=== PATIENT | female | born 1965 | race African-American/Black ===

== ENCOUNTER 2017-02-24 14:21 | Inpatient (IN) | payer MEDICAID ==
[2017-02-24] MEDS ORDERED: NORMODYNE INJ 20 MG VIAL IVP PRN (15:36)
[2017-02-24] MEDS: NS 1000 ML 1,000 ML IV SCH (17:15)
[2017-02-24 17:19] VITALS: BMI 59.1
[2017-02-24 17:19] LABS: BASOPHILS # (AUTO) 0.1 X10^3/uL (0.0-0.1); EOSINOPHILS # (AUTO) 0.2 x10^3/uL (0.0-0.2); EOSINOPHILS % (AUTO) 2.3 % (0.9-2.9); HEMATOCRIT 39.9 % (36.0-47.0); HEMOGLOBIN 12.9 g/dL (12.0-16.0); LYMPHOCYTES # (AUTO) 2.6 X10^3/uL (1.3-2.9); LYMPHOCYTES % (AUTO) 28.9 % (21.0-51.0); MEAN CORPUSCULAR HEMOGLOBIN 27.3 pg (27.0-34.0); MEAN CORPUSCULAR HGB CONC 32.3 g/dL (33.0-35.0); MEAN CORPUSCULAR VOLUME 84.7 fL (80.0-100.0); MEAN PLATELET VOLUME 9.6 fL (7.4-11.0); MONOCYTES # (AUTO) 0.6 x10^3/uL (0.3-0.8); MONOCYTES % (AUTO) 6.7 % (0.0-13.0); NEUTROPHILS # (AUTO) 5.6 x10^3/uL (2.2-4.8); NEUTROPHILS % (AUTO) 61.1 % (42.0-75.0); PLATELET COUNT 160 X10^3/uL (150.0-450.0); RED BLOOD COUNT 4.71 X10^6/uL (3.5-5.4); RED CELL DISTRIBUTION WIDTH 16.6 % (11.6-16.5); WHITE BLOOD COUNT 9.2 X10^3/uL (3.6-10.0)
[2017-02-24] MEDS ORDERED: PREVNAR 13 IM ONE (17:19)
[2017-02-24 17:35] LABS: BLOOD UREA NITROGEN 20 mg/dL (7-18); CARBON DIOXIDE 27.2 mmol/L (21-32); CHLORIDE 104 mmol/L (98-107); COR NA(FOR HYPERGLY) 145 mmol/L (136-145); CREATININE 1.23 mg/dL (0.55-1.02); GLUCOSE 276 mg/dL (65-99); SODIUM 141 mmol/L (136-145); TROPONIN I < 0.02 ng/mL (0-1.5); eGFR BLACK RACES 59 (>60); eGFR NON BLACK RACES 49 (>60)
[2017-02-24 17:39] LABS: ALANINE AMINOTRANSFERASE 31 Units/L (12-78); ALBUMIN 2.7 g/dL (3.4-5.0); ALKALINE PHOSPHATASE 122 Units/L (46-116); ASPARTATE AMINO TRANSFERASE 17 Units/L (15-37); CKMB % 1.3 % (<4); CREATINE KINASE 255 Units/L (26-192); CREATINE KINASE MB 3.4 ng/mL (0-4.0); TOTAL PROTEIN 7.9 g/dL (6.4-8.2)
[2017-02-24] MEDS ORDERED: MILK OF MAGNESIA PO PRN (17:40)
--- NOTE | 2017-02-24 18:30 | DR.H&P ---
H&P - History & Physical for Day of: H&P Date: 02/24/17 - Chief Complaint Chief Complaint: WEAKNESS, DIZZINESS, LOWER LEGS SWOLLEN - Allergies Allergies/Adverse Reactions: Allergies Allergy/AdvReac Type Severity Reaction Status Date / Time Acetaminophen Allergy Verified 11/12/16 13:27 [From Darvocet-N] Procaine [From Novocain] Allergy Verified 11/12/16 13:27 Propoxyphene Allergy Verified 11/12/16 13:27 [From Darvocet-N] Levofloxacin [From Levaquin] AdvReac Intermediate PHLEBITIS Verified 11/12/16 13 :27 - History of Present Illness History of Present Illness: 51BF DIRECT ADMIT FROM DR CASTREJON OFFICE WITH CO DIZZINESS, WEAKNESS AND HYPERTENSION. PT HAS HS CVA, CAD, COPD, OA, HTN AND DIABETES. PT BS IN OFFICE > 400. PT WAS SEEN ONE DAY AGO IN OFFICE FOR EDEMA AND ELEVATED BP. PT HAS BEEN ON DIURETICS WITHOUT IMPROVEMENT. PT HAS LIMITED MOBILITY AND HAS TO WEAR ADULT DIAPERS. PT HAS HAD INCREASED FALLS DUE TO WEAKNESS FOLLOWING CVA. PLAN TO ADMIT FOR TREATMENT OF HYPERTENSIVE URGENCY, HYPERGLYCEMIA LOWER EXTREMITY EDEMA AND WEAKNESS. CONSULT CASE MANAGEMENT FOR [facility] PLACEMENT FOR REHAB THERAPY. 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 - Family History Family Medical History: Diabetes Mellitus, Cancer, [place], Coronary Artery Disease, Hypertension - Social History Does patient currently use any type of tobacco product: Yes Have you used tobacco products in the last 12 months: Yes Type of Tobacco Use: Cigarettes How many years tobacco product used: 32 Alcohol Use: None Drug Use: None - Medications Home Medications: Albuterol Sulfate [Proventil HFA Inhaler 6.7 gm] 2 inh IN Q4H PRN 02/24/17 [ History Confirmed 02/24/17] Alprazolam [Xanax] 0.5 mg PO TID PRN 02/24/17 [History Confirmed 02/24/17] Amlodipine Besylate [NORVASC 10 MG *] 10 mg PO DAILY 02/24/17 [History Confirmed 02/24/17] Aspirin [ASPIRIN 325 MG *] 325 mg PO DAILY 02/24/17 [History Confirmed 02/24/17] Atorvastatin Calcium [Lipitor] 20 mg PO HS 02/24/17 [History Confirmed 02/24/17] Budesonide-Formoterol [SYMBICORT INH 80/4.5 mcg] 1 puff INH Q12H 02/24/17 [ History Confirmed 02/24/17] Epbejsavaq-Fjcz-Xbevorhs [Fioricet Tab] 1 tab PO Q6H PRN 02/24/17 [History Confirmed 02/24/17] Fgglvhytji-Fhzjdfniqhjmy-Mczto [Fioricet 50-300-40 mg] 1 cap PO Q6H PRN [History Confirmed 02/24/17] Clopidogrel Bisulfate [Plavix] 75 mg PO DAILY 02/24/17 [History Confirmed ] Cyclobenzaprine HCl [FLEXERIL 10 MG *] 10 mg PO TID PRN 02/24/17 [History Confirmed 02/24/17] Famotidine [Famotidine 40 mg] 40 mg PO BID 02/24/17 [History Confirmed 02/24/17] Fluoxetine HCl [FLUOXETINE 20 MG *] 20 mg PO DAILY 02/24/17 [History Confirmed 02/24/17] Fluoxetine HCl [Prozac cap 40 mg] 40 mg PO HS 02/24/17 [History Confirmed ] Furosemide [Lasix] 20 mg PO QAM 02/24/17 [History Confirmed 02/24/17] Gabapentin [Neurontin Cap 300 mg] 300 mg PO TID 02/24/17 [History Confirmed ] Hydrocodone-Acet 7.5 mg/325 mg [[place] 7.5/325 mg Tab] 1 tab PO Q6H PRN 02/24/17 [History Confirmed 02/24/17] Insulin Glargine (Lantus) [LANTUS INSULIN 10 ML VIAL *] 65 units SC 02/24/17 [History Confirmed 02/24/17] Insulin Glargine (Lantus) [LANTUS INSULIN 10 ML VIAL *] 65 units SC QAM [History Confirmed 02/24/17] Insulin Lispro (Human) [Humalog] [address] [facility] 02/24/17 [History Confirmed ] Loratadine [Allergy] 10 mg PO DAILY 02/24/17 [History Confirmed 02/24/17] Losartan Potassium & Hydrochlo [Losartan Potassium/Hydroc 100-25 mg] 1 tab PO QAM 02/24/17 [History Confirmed 02/24/17] Metoprolol Tartrate [Lopressor tab 100 mg] 100 mg PO BID 02/24/17 [History Confirmed 02/24/17] Omeprazole [Prilosec] 40 mg PO BID 02/24/17 [History Confirmed 02/24/17] Pantoprazole Sodium [Protonix] 40 mg PO DAILY 02/24/17 [History Confirmed ] Potassium Chloride [Potassium Chloride ER] 10 meq PO DAILY 02/24/17 [History Confirmed 02/24/17] Pregabalin [Lyrica Cap 75 mg] 75 mg PO BID 02/24/17 [History Confirmed 02/24/17] - Review of Systems Constitutional: Weakness Eyes: No Symptoms Reported ENT: No Symptoms Reported Respiratory: Shortness of Breath, Wheezing Cardiovascular: Edema Gastrointestinal: Constipation Genitourinary: Incontinence Musculoskeletal: Back Pain, Leg Pain Neurological: Weakness - Physical Exam Vital Signs: Temperature 97.8 F Pulse Rate [Radial] 65 Respiratory Rate 24 Blood Pressure [Right Calf] 125/60 Blood Pressure [Left Arm] 165/76 Blood Pressure [Right Arm] 165/77 Blood Pressure 174/73 O2 Sat by Pulse Oximetry 97 Oriented: Normal Eyes: Normal Ear: Normal Nose: Normal Throat: Normal Respiratory: Wheezes Throughout (EXPIRATORY), RLL Diminished, LLL Diminished Cardiovascular: Edema (+3 PITTING EDEMA BILATERALLY) Tenderness: Normal Skin: Normal Musculoskeletal: Knee, Leg, Back:Thoracic, Back:Lumbar, Motor Deficit, Instability Mood Description: Calm Speech Pattern: Clear - Assessment/Plan (1) Hypertensive urgency Status: Acute Plan: ADMIT ICU STEPDOWN. CARDIAC ENZYMES, TELEMETRY. CXR, CBC CMP ON ADMISSION. EKG'S, BP AND LIPID CONTROL. IV LASIX , STRICT I & OS. PT CONSULT , RESUME HOME MEDS (2) CHF (congestive heart failure) Qualifiers: Congestive heart failure type: C Congestive heart failure chronicity: acute on chronic Status: Acute (3) Diabetes mellitus type 2, uncontrolled Qualifiers: Diabetes mellitus complication status: D Diabetes mellitus complication detail: D Diabetic retinopathy severity: D Proliferative retinopathy type: P Diabetes mellitus macular edema: D Diabetes mellitus prison insulin use : D Laterality: L Chronic kidney disease stage: C Status: Acute (4) Essential hypertension Status: Chronic (5) History of CVA (cerebrovascular accident) Status: Chronic
--- NOTE | 2017-02-24 21:00 | CT ---
CT brain without contrast Indication: Headache Comparison: 12/04/2015 Technique: Multiple axial images of the brain were obtained from the skull base to the vertex without administr ation of IV contrast. Coronal and sagittal images were also provided. Radiation dose reduction techniques were performed utilizing adjustment for MA/kVP based on patient body size. Findings: There is severe encephalomalacia within bilateral frontal, right parietal and left occipital lobes s imilar to prior examination. There is no acute intracranial hemorrhage or mass effect. There is gene ralized cerebral atrophy with commensurate ex vacuo ventricular dilatation. No extra-axial fluid col lection. Osseous structure intact. Sinuses are clear. Orbits are normal. No extracranial soft tissue swelling. Impression: Stable examination with severe encephalomalacia within bifrontal, right parietal and lef t occipital lobes without definite acute intracranial abnormality, hemorrhage or mass effect. Reported By:
--- NOTE | 2017-02-24 21:00 | RAD ---
HISTORY: COPD, CHF Study: Single view chest Comparison: 11/01/2016 Findings: Portable views are obtained. The lungs are clear without consolidation, effusion or pneumothorax. St able mildly enlarged cardiac silhouette. The soft tissues are unremarkable. IMPRESSION: 1. Stable cardiomegaly without acute abnormality. Reported By:
[2017-02-24] MEDS: HumuLIN R SUBCUT PRN (21:15)
[2017-02-24] MEDS: LASIX IVP SCH (21:15)
[2017-02-24] MEDS: COLACE CAP 100 MG PO SCH (21:15)
[2017-02-24 21:23] LABS: BILIRUBIN,URINE NEGATIVE (NEGATIVE); BLOOD/HEMOGLOBIN,URINE 3+ (NEGATIVE); GLUCOSE, URINE 1+ (NEGATIVE); KETONES,URINE NEGATIVE (NEGATIVE); LEUKOCYTE ESTERASE ,URINE NEGATIVE (NEGATIVE); NITRITES,URINE NEGATIVE (NEGATIVE); PROTEIN,URINE 2+ (NEGATIVE); UROBILINOGEN,URINE NORMAL (NORMAL)
[2017-02-24] MEDS: SNACK - Diabetic Appropriate PO SCH (21:35)
[2017-02-24 21:42] LABS: AMORPHOUS SEDIMENT,UR TRACE /HPF (NEGATIVE); APPEARANCE,URINE SLIGHTLY HAZY (CLEAR); BACTERIA,URINE TRACE /HPF (NEGATIVE); COLOR,URINE YELLOW (YELLOW); SQUAMOUS EPITHELIAL CELL,UR FEW /HPF (NEGATIVE)
--- NOTE | 2017-02-24 21:56 | VAS ---
HISTORY: CT, CAD, CVA, hyperlipidemia, headache Study: Bilateral Carotid Ultrasound Comparison: None Technique: Multiple dupree scale and color flow Doppler images of the right and left carotid arterial system were obtained. The vertebral arterial system was evaluated as well. Findings: Normal color flow Doppler is seen throughout the right and left carotid arterial system. There is m inimal plaque present at the bilateral carotid bifurcations. Peak systolic velocity in the right ICA is 39.6 cm/sec. Peak systolic velocity in the left ICA is 47.7 cm/sec. The right ICA/CCA ratio is 0 .41. The left ICA/CCA ratio is 1.5. Antegrade flow was seen in the right vertebral artery. The left vertebral artery was not visualized. Exam was limited by patient habitus. IMPRESSION: 1. No hemodynamically significant stenosis identified. 2. Normal anterograde flow in the right vertebral artery. Left vertebral artery was not visualized. Reported By:
[2017-02-24] MEDS ORDERED: XANAX PO PRN (22:45)
[2017-02-24] MEDS: NORCO 7.5/325 MG TAB PO PRN (22:52)
[2017-02-25] MEDS: HumuLIN R SUBCUT PRN ×4 (05:44→20:55)
[2017-02-25] MEDS: NS 1000 ML 1,000 ML IV SCH ×2 (05:44→21:03)
[2017-02-25 06:10] LABS: BASOPHILS # (AUTO) 0.1 X10^3/uL (0.0-0.1); BASOPHILS % (AUTO) 0.8 % (0.2-1.0); EOSINOPHILS # (AUTO) 0.2 x10^3/uL (0.0-0.2); EOSINOPHILS % (AUTO) 2.6 % (0.9-2.9); HEMATOCRIT 36.7 % (36.0-47.0); HEMOGLOBIN 12.2 g/dL (12.0-16.0); LYMPHOCYTES # (AUTO) 2.1 X10^3/uL (1.3-2.9); LYMPHOCYTES % (AUTO) 27.9 % (21.0-51.0); MEAN CORPUSCULAR HEMOGLOBIN 27.9 pg (27.0-34.0); MEAN CORPUSCULAR HGB CONC 33.1 g/dL (33.0-35.0); MEAN CORPUSCULAR VOLUME 84.3 fL (80.0-100.0); MEAN PLATELET VOLUME 9.9 fL (7.4-11.0); MONOCYTES # (AUTO) 0.6 x10^3/uL (0.3-0.8); MONOCYTES % (AUTO) 7.3 % (0.0-13.0); NEUTROPHILS # (AUTO) 4.7 x10^3/uL (2.2-4.8); NEUTROPHILS % (AUTO) 61.4 % (42.0-75.0); PLATELET COUNT 174 X10^3/uL (150.0-450.0); RED BLOOD COUNT 4.36 X10^6/uL (3.5-5.4); RED CELL DISTRIBUTION WIDTH 16.1 % (11.6-16.5); WHITE BLOOD COUNT 7.6 X10^3/uL (3.6-10.0)
[2017-02-25 06:34] LABS: ALANINE AMINOTRANSFERASE 30 Units/L (12-78); ALBUMIN 2.5 g/dL (3.4-5.0); ALKALINE PHOSPHATASE 114 Units/L (46-116); ASPARTATE AMINO TRANSFERASE 19 Units/L (15-37); BLOOD UREA NITROGEN 20 mg/dL (7-18); CALCIUM 8.9 mg/dL (8.5-10.1); CHLORIDE 104 mmol/L (98-107); COR CA(FOR HYPOALB) 10.1 mg/dL (8.5-10.1); COR NA(FOR HYPERGLY) 145 mmol/L (136-145); CREATININE 1.11 mg/dL (0.55-1.02); GLUCOSE 217 mg/dL (65-99); SODIUM 142 mmol/L (136-145); TOTAL PROTEIN 7.4 g/dL (6.4-8.2); eGFR BLACK RACES > 60 (>60); eGFR NON BLACK RACES 55 (>60)
[2017-02-25] MEDS: LASIX IVP SCH (08:12)
[2017-02-25] MEDS: NICODERM PATCH 21 MG/24 HR TD SCH (08:12)
[2017-02-25] MEDS ORDERED: NS IRRIGATION 500 ML IR ONE (10:01)
[2017-02-25] MEDS ORDERED: STERILE WATER IRRIGATION IR ONE (10:04)
[2017-02-25] MEDS: LOVENOX INJ 40 MG SYR SC SCH (10:09)
[2017-02-25] MEDS: NORCO 7.5/325 MG TAB PO PRN (11:29)
[2017-02-25] MEDS: ROCEPHIN VIAL 1 GM 1 GM in NS 50 ML IV + SPIKE MINIBAG* 50 ML IV SCH (14:25)
[2017-02-25] MEDS ORDERED: NORCO 7.5/325 MG TAB PO PRN (15:51)
[2017-02-25] MEDS ORDERED: FLEXERIL TAB 10 MG PO PRN (15:51)
[2017-02-25] MEDS ORDERED: XANAX PO PRN (15:51)
[2017-02-25] MEDS ORDERED: FIORICET TAB PO PRN ×2 (15:51→16:29)
[2017-02-25] MEDS ORDERED: BUTALBITAL ACETAMINOPHEN CAFFE PO PRN (15:51)
[2017-02-25] MEDS ORDERED: VENTOLIN or PROAIR HFA IN PRN (15:51)
[2017-02-25] MEDS ORDERED: PATIENT'S HOME MEDICATION (Budesonide-Formoterol 1 PUFF) INH SCH (16:00)
[2017-02-25] MEDS: ASPIRIN PO SCH (17:15)
[2017-02-25] MEDS: PLAVIX PO SCH (17:16)
[2017-02-25] MEDS: NORVASC TAB 10 MG PO SCH (17:16)
--- NOTE | 2017-02-25 17:51 | PCM.PROG ---
Progress Note - Progress Note for Day of Date: 02/25/17 - Subjective Subjective: patient is a 51-year-old black female who was admitted one day ago with hypertensive urgency, hhyperglycemia, and CHF exacerbation with 6 severe lower extremity edema. Patient received IV Lasix with approximately 2400 cc output last PM. Patient's blood pressure was improved on admission after receiving Catapres by mouth. Patient's blood pressure this morning was 190/90. Patient to have echocardiogram today. Patient had a UTI on admission currently on Rocephin, urine culture pending. Patient's blood sugar has been stable since admission. Plan to continue insulin coverage. Patient has a history of uncontrolled diabetes and noncompliance. Patient continues to have severe lower extremity pitting edema bilaterally. Plan to continue diuresing patient with Lasix, strict I's and O's, will consult PT. Plan to repeat a.m. labs and chest x-ray - Past Medical Family Social History Past Med/Fam/Surg Hx: No changes since H&P Allergies: Allergies Acetaminophen [From Darvocet-N] Allergy (Verified 11/12/16 13:27) Procaine [From Novocain] Allergy (Verified 11/12/16 13:27) Propoxyphene [From Darvocet-N] Allergy (Verified 11/12/16 13:27) Levofloxacin [From Levaquin] Adverse Reaction (Intermediate, Verified 11/12/16 13:27) PHLEBITIS - Review of Systems ROS: No change since H&P - Vital Signs and I&O's Vital Signs: Temperature 97.7 F Pulse Rate [Radial] 74 Respiratory Rate 19 Blood Pressure [Right Calf] 125/60 Blood Pressure [Left Arm] 155/72 Blood Pressure [Right Arm] 131/81 Blood Pressure 174/73 O2 Sat by Pulse Oximetry 96 Intake and Output: Intake & Output 02/23/17 02/24/17 02/25/17 02/26/17 11:59 11:59 11:59 11:59 Intake Total 1090 1339 Output Total 2800 2400 Balance -4983 -0223 - Physical Exam Oriented: Normal Eyes: Normal Ear: Normal Nose: Normal Throat: Normal Respiratory: Diminished, Wheezes Cardiovascular: Edema (+3 PITTING EDEMA BILATERALLY) Tenderness: Normal Skin: Normal Musculoskeletal: Knee, Leg, Back:Thoracic, Back:Lumbar, Motor Deficit, Instability Mood Description: Calm Speech Pattern: Clear, Appropriate - Laboratory and Diagnostics Result Diagrams: 02/25/17 04:00 02/25/17 04:00 Labs: 02/24/17 21:10 Urine,Clean Catch Urine Culture - Preliminary Laboratory WBC 7.6 X10^3/uL (3.6-10.0) 02/25/17 04:00 RBC 4.36 X10^6/uL (3.5-5.4) 02/25/17 04:00 Hgb 12.2 g/dL (12.0-16.0) 02/25/17 04:00 Hct 36.7 % (36.0-47.0) 02/25/17 04:00 MCV 84.3 fL (80.0-100.0) 02/25/17 04:00 MCH 27.9 pg (27.0-34.0) 02/25/17 04:00 MCHC 33.1 g/dL (33.0-35.0) 02/25/17 04:00 RDW 16.1 % (11.6-16.5) 02/25/17 04:00 Plt Count 174 X10^3/uL (150.0-450.0) 02/25/17 04:00 MPV 9.9 fL (7.4-11.0) 02/25/17 04:00 Neut % 61.4 % (42.0-75.0) 02/25/17 04:00 Lymph % 27.9 % (21.0-51.0) 02/25/17 04:00 [place] % 7.3 % (0.0-13.0) 02/25/17 04:00 Eos % 2.6 % (0.9-2.9) 02/25/17 04:00 Baso % 0.8 % (0.2-1.0) 02/25/17 04:00 Neut # 4.7 x10^3/uL (2.2-4.8) 02/25/17 04:00 Lymph # 2.1 X10^3/uL (1.3-2.9) 02/25/17 04:00 [place] # 0.6 x10^3/uL (0.3-0.8) 02/25/17 04:00 Eos # 0.2 x10^3/uL (0.0-0.2) 02/25/17 04:00 Baso # 0.1 X10^3/uL (0.0-0.1) 02/25/17 04:00 Absolute Nucleated RBC 1.1 /100WBC 02/25/17 04:00 Sodium 142 mmol/L (136-145) 02/25/17 04:00 Corrected Sodium 145 mmol/L (136-145) 02/25/17 04:00 Potassium 3.6 mmol/L (3.5-5.1) 02/25/17 04:00 Chloride 104 mmol/L (98-107) 02/25/17 04:00 Carbon Dioxide 30.0 mmol/L (21-32) 02/25/17 04:00 BUN 20 mg/dL (7-18) H 02/25/17 04:00 Creatinine 1.11 mg/dL (0.55-1.02) H 02/25/17 04:00 Est GFR (MDRD) Af Amer > 60 (>60) 02/25/17 04:00 Est GFR (MDRD) Non-Af 55 (>60) L 02/25/17 04:00 Glucose 217 mg/dL (65-99) H 02/25/17 04:00 Calcium 8.9 mg/dL (8.5-10.1) 02/25/17 04:00 Corrected Calcium 10.1 mg/dL (8.5-10.1) 02/25/17 04:00 Total Bilirubin 0.20 mg/dL (0.2-1.0) 02/25/17 04:00 AST 19 Units/L (15-37) 02/25/17 04:00 ALT 30 Units/L (12-78) 02/25/17 04:00 Alkaline Phosphatase 114 Units/L (46-116) 02/25/17 04:00 Creatine Kinase 255 Units/L (26-192) H 02/24/17 17:01 CK-MB (CK-2) 3.4 ng/mL (0-4.0) 02/24/17 17:01 CK/CKMB % Calc 1.3 % (<4) 02/24/17 17:01 Troponin I < 0.02 ng/mL (0-1.5) 02/24/17 17:01 Total Protein 7.4 g/dL (6.4-8.2) 02/25/17 04:00 Albumin 2.5 g/dL (3.4-5.0) L 02/25/17 04:00 Globulin 4.9 g/dL (2.5-4.5) H 02/25/17 04:00 Albumin/Globulin Ratio 0.5 Ratio (1.1-2.1) L 02/25/17 04:00 Specimen Type Catherized urine 02/24/17 21:10 Urine Color Yellow (YELLOW) 02/24/17 21:10 Urine Appearance Slightly hazy (CLEAR) 02/24/17 21:10 Urine pH 6.0 (5.0 - 8.0) 02/24/17 21:10 Ur Specific [place] 1.015 (1.000-1.030) 02/24/17 21:10 Urine Protein 2+ (NEGATIVE) 02/24/17 21:10 Urine Glucose (UA) 1+ (NEGATIVE) 02/24/17 21:10 Urine Ketones Negative (NEGATIVE) 02/24/17 21:10 Urine Occult Blood 3+ (NEGATIVE) 02/24/17 21:10 Urine Nitrite Negative (NEGATIVE) 02/24/17 21:10 Urine Bilirubin Negative (NEGATIVE) 02/24/17 21:10 Urine Urobilinogen Normal (NORMAL) 02/24/17 21:10 Ur Leukocyte Esterase Negative (NEGATIVE) 02/24/17 21:10 Urine RBC 5-7 /HPF (NEGATIVE) 02/24/17 21:10 Urine WBC 0-2 /HPF (NEGATIVE) 02/24/17 21:10 Ur Squamous Epith Cells Few /HPF (NEGATIVE) 02/24/17 21:10 Amorphous Sediment Trace /HPF (NEGATIVE) 02/24/17 21:10 Urine Bacteria Trace /HPF (NEGATIVE) 02/24/17 21:10 Ur Culture Indicated? Yes/culture set up 02/24/17 21:10 - Plan (1) CHF (congestive heart failure) Status: Acute Qualifiers: Congestive heart failure type: C Congestive heart failure chronicity: acute on chronic Plan: ECHOCARDIOGRAM TODAY, CONTINUE iv lASIX,, BETA KENNEDY, STRICT i'S AND o' S (2) Hypertensive urgency Status: Acute Plan: BLOOD PRESSURE STABILIZED, CONTINUE HOME MEDICATIONS WELL WHEN NECESSARY LABETALOL. 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
[2017-02-25] MEDS: PROVENTIL NEB TX 0.083% 2.5MG/ 3ML NEB SCH ×2 (18:19→20:15)
[2017-02-25] MEDS ORDERED: PROVENTIL NEB TX 0.083% 2.5MG/ 3ML NEB PRN (18:34)
[2017-02-25] MEDS: PULMICORT NEB TX 0.5 MG NEB SCH (20:15)
[2017-02-25] MEDS: PriLOSEC PO SCH (20:49)
[2017-02-25] MEDS: PEPCID TAB 20 MG PO SCH (20:49)
[2017-02-25] MEDS: COLACE CAP 100 MG PO SCH (20:49)
[2017-02-25] MEDS: LYRICA CAP 75 MG PO SCH (20:50)
[2017-02-25] MEDS: SNACK - Diabetic Appropriate PO SCH (20:55)
[2017-02-25] MEDS: LOPRESSOR TAB 50 MG PO SCH (20:58)
[2017-02-25] MEDS ORDERED: PROzac PO SCH (21:00)
[2017-02-25] MEDS: NEURONTIN CAP 300 MG PO SCH (21:00)
[2017-02-25] MEDS ORDERED: LANTUS SC SCH (21:00)
[2017-02-25] MEDS ORDERED: PATIENT'S HOME MEDICATION (Metoprolol Tartrate [Lopressor Tab 100 Mg] 100 MG) PO SCH (21:00)
[2017-02-25] MEDS ORDERED: LIPITOR TAB 20 MG PO SCH (21:00)
[2017-02-26 05:49] LABS: ALANINE AMINOTRANSFERASE 31 Units/L (12-78); ALBUMIN 2.5 g/dL (3.4-5.0); ALKALINE PHOSPHATASE 112 Units/L (46-116); ASPARTATE AMINO TRANSFERASE 20 Units/L (15-37); BLOOD UREA NITROGEN 18 mg/dL (7-18); CALCIUM 8.8 mg/dL (8.5-10.1); CARBON DIOXIDE 32.3 mmol/L (21-32); CHLORIDE 103 mmol/L (98-107); COR NA(FOR HYPERGLY) 144 mmol/L (136-145); CREATININE 0.94 mg/dL (0.55-1.02); GLUCOSE 255 mg/dL (65-99); SODIUM 140 mmol/L (136-145); TOTAL PROTEIN 7.3 g/dL (6.4-8.2); eGFR BLACK RACES > 60 (>60); eGFR NON BLACK RACES > 60 (>60)
[2017-02-26 05:52] LABS: BASOPHILS % (AUTO) 0.6 % (0.2-1.0); EOSINOPHILS # (AUTO) 0.1 x10^3/uL (0.0-0.2); EOSINOPHILS % (AUTO) 2.4 % (0.9-2.9); HEMATOCRIT 37.8 % (36.0-47.0); HEMOGLOBIN 12.1 g/dL (12.0-16.0); LYMPHOCYTES % (AUTO) 32.5 % (21.0-51.0); MEAN CORPUSCULAR HEMOGLOBIN 27.2 pg (27.0-34.0); MEAN CORPUSCULAR VOLUME 84.8 fL (80.0-100.0); MEAN PLATELET VOLUME 9.7 fL (7.4-11.0); MONOCYTES # (AUTO) 0.5 x10^3/uL (0.3-0.8); MONOCYTES % (AUTO) 7.6 % (0.0-13.0); NEUTROPHILS # (AUTO) 3.5 x10^3/uL (2.2-4.8); NEUTROPHILS % (AUTO) 56.9 % (42.0-75.0); PLATELET COUNT 136 X10^3/uL (150.0-450.0); RED BLOOD COUNT 4.46 X10^6/uL (3.5-5.4); RED CELL DISTRIBUTION WIDTH 16.5 % (11.6-16.5); WHITE BLOOD COUNT 6.2 X10^3/uL (3.6-10.0)
[2017-02-26] MEDS: HumuLIN R SUBCUT PRN (05:56)
[2017-02-26] MEDS: NEURONTIN CAP 300 MG PO SCH (05:58)
[2017-02-26] MEDS ORDERED: LANTUS SC SCH (09:00)
[2017-02-26] MEDS ORDERED: PROzac PO SCH (09:00)
[2017-02-26] MEDS ORDERED: LOSARTAN POTASSIUM PO SCH (09:00)
[2017-02-26] MEDS ORDERED: LASIX PO SCH (09:00)
[2017-02-26] MEDS ORDERED: HYDROCHLO PO SCH (09:00)
[2017-02-26] MEDS ORDERED: CLARITIN PO SCH (09:00)
[2017-02-26] MEDS ORDERED: MICRO K EXTEN CAP 10 MEQ PO SCH (09:00)
[2017-02-26] MEDS ORDERED: PROTONIX TAB 40 MG PO SCH (09:00)
[2017-02-26] MEDS ORDERED: [UNRECOGNIZED DRUG - OTHER] PO SCH (09:00)
[2017-02-26] MEDS ORDERED: HYZAAR 50/12.5 MG PO SCH (09:00)
[2017-02-26] MEDS: PULMICORT NEB TX 0.5 MG NEB SCH (09:18)
[2017-02-26] MEDS: PROVENTIL NEB TX 0.083% 2.5MG/ 3ML NEB SCH (09:18)
[2017-02-26] MEDS: ROCEPHIN VIAL 1 GM 1 GM in NS 50 ML IV + SPIKE MINIBAG* 50 ML IV SCH (09:45)
[2017-02-26] MEDS: ASPIRIN PO SCH (09:46)
[2017-02-26] MEDS: PriLOSEC PO SCH (09:46)
[2017-02-26] MEDS: PEPCID TAB 20 MG PO SCH (09:46)
[2017-02-26] MEDS: LOPRESSOR TAB 50 MG PO SCH (09:47)
[2017-02-26] MEDS: NORVASC TAB 10 MG PO SCH (09:47)
[2017-02-26] MEDS: LYRICA CAP 75 MG PO SCH (09:48)
[2017-02-26] MEDS: NICODERM PATCH 21 MG/24 HR TD SCH ×2 (09:48→09:54)
[2017-02-26] MEDS: LOVENOX INJ 40 MG SYR SC SCH (09:49)
[2017-02-26] MEDS: PLAVIX PO SCH (09:49)
[2017-02-26] MEDS ORDERED: PREVNAR 13 IM ONE (11:03)
[2017-02-26 11:47] VITALS: BP 153/78
--- NOTE | 2017-02-26 14:41 | PCM.DCPLAN ---
Discharge Summary - Admission Date Date of Admission: 02/24/17 - Discharge Date Discharge Date: 02/26/17 - Admission Diagnoses (1) CHF (congestive heart failure) Status: Acute (2) Hypertensive urgency Status: Acute (3) Diabetes mellitus type 2, uncontrolled Status: Acute (4) Essential hypertension Status: Chronic (5) History of CVA (cerebrovascular accident) Status: Chronic (6) UTI (urinary tract infection) Status: Acute - Discharge Diagnoses Discharge Diagnosis: same as admission - Discharge Medications Discharge Medications: Albuterol Sulfate [Proventil HFA Inhaler 6.7 gm] 2 inh IN Q4H PRN 02/24/17 [ History] Alprazolam [XANAX 0.5 MG *] 0.5 mg PO TID PRN 02/24/17 [History] Amlodipine Besylate [NORVASC 10 MG *] 10 mg PO DAILY 02/24/17 [History] Aspirin [ASPIRIN 325 MG *] 325 mg PO DAILY 02/24/17 [History] Atorvastatin Calcium [Lipitor] 20 mg PO HS 02/24/17 [History] Budesonide-Formoterol [SYMBICORT INH 80/4.5 mcg (10.2 g) *] 1 puff INH Q12H [History] Jxchszxlil-Vrcx-Fpgfthvp [FIORICET 50/325/40 MG *] 1 tab PO Q6H PRN 02/24/17 [ History] Ctfiahbllh-Zyardmcrxaarx-Yrnii [Fioricet 50-300-40 mg] 1 cap PO Q6H PRN [History] Clopidogrel Bisulfate [PLAVIX TAB 75 MG *] 75 mg PO DAILY 02/24/17 [History] Cyclobenzaprine HCl [FLEXERIL 10 MG *] 10 mg PO TID PRN 02/24/17 [History] Famotidine [Famotidine 40 mg] 40 mg PO BID 02/24/17 [History] Fluoxetine HCl [FLUOXETINE 20 MG *] 20 mg PO DAILY 02/24/17 [History] Fluoxetine HCl [Prozac cap 40 mg] 40 mg PO HS 02/24/17 [History] Furosemide [LASIX TAB 20 MG *] 20 mg PO QAM 02/24/17 [History] Gabapentin [NEURONTIN CAP 300 mg *] 300 mg PO TID 02/24/17 [History] Hydrocodone-Acet 7.5 mg/325 mg [NORCO 7.5 MG/325 MG *] 1 tab PO Q6H PRN [History] Insulin Glargine (Lantus) [LANTUS INSULIN 10 ML VIAL *] 65 units SC HS 02/24/17 [History] Insulin Glargine (Lantus) [LANTUS INSULIN 10 ML VIAL *] 65 units SC QAM [History] Insulin Lispro (Human) [Humalog] 0 unit SC ACHS 02/24/17 [History] Loratadine [Allergy] 10 mg PO DAILY 02/24/17 [History] Losartan Potassium & Hydrochlo [Losartan Potassium/Hydroc 100-25 mg] 1 tab PO QAM 02/24/17 [History] Metoprolol Tartrate [Lopressor tab 100 mg] 100 mg PO BID 02/24/17 [History] Omeprazole [PRILOSEC 20 MG *] 40 mg PO BID 02/24/17 [History] Pantoprazole Sodium [Protonix] 40 mg PO DAILY 02/24/17 [History] Potassium Chloride [Potassium Chloride ER] 10 meq PO DAILY 02/24/17 [History] Pregabalin [LYRICA 75 MG *] 75 mg PO BID 02/24/17 [History] - Hospital Course Vital Signs: Temperature 98.2 F Pulse Rate [Radial] 69 Pulse Rate 79 Respiratory Rate 14 Blood Pressure [Right Calf] 125/60 Blood Pressure [Left Arm] 151/80 Blood Pressure [Right Arm] 153/78 Blood Pressure 174/73 O2 Sat by Pulse Oximetry 99 Latest Lab Results: Laboratory Last Values WBC 6.2 X10^3/uL (3.6-10.0) 02/26/17 04:25 RBC 4.46 X10^6/uL (3.5-5.4) 02/26/17 04:25 Hgb 12.1 g/dL (12.0-16.0) 02/26/17 04:25 Hct 37.8 % (36.0-47.0) 02/26/17 04:25 MCV 84.8 fL (80.0-100.0) 02/26/17 04:25 MCH 27.2 pg (27.0-34.0) 02/26/17 04:25 MCHC 32.0 g/dL (33.0-35.0) L 02/26/17 04:25 RDW 16.5 % (11.6-16.5) 02/26/17 04:25 Plt Count 136 X10^3/uL (150.0-450.0) L 02/26/17 04:25 MPV 9.7 fL (7.4-11.0) 02/26/17 04:25 Neut % 56.9 % (42.0-75.0) 02/26/17 04:25 Lymph % 32.5 % (21.0-51.0) 02/26/17 04:25 [place] % 7.6 % (0.0-13.0) 02/26/17 04:25 Eos % 2.4 % (0.9-2.9) 02/26/17 04:25 Baso % 0.6 % (0.2-1.0) 02/26/17 04:25 Neut # 3.5 x10^3/uL (2.2-4.8) 02/26/17 04:25 Lymph # 2.0 X10^3/uL (1.3-2.9) 02/26/17 04:25 [place] # 0.5 x10^3/uL (0.3-0.8) 02/26/17 04:25 Eos # 0.1 x10^3/uL (0.0-0.2) 02/26/17 04:25 Baso # 0.0 X10^3/uL (0.0-0.1) 02/26/17 04:25 Absolute Nucleated RBC 0.1 /100WBC 02/26/17 04:25 Sodium 140 mmol/L (136-145) 02/26/17 04:25 Corrected Sodium 144 mmol/L (136-145) 02/26/17 04:25 Potassium 3.6 mmol/L (3.5-5.1) 02/26/17 04:25 Chloride 103 mmol/L (98-107) 02/26/17 04:25 Carbon Dioxide 32.3 mmol/L (21-32) H 02/26/17 04:25 BUN 18 mg/dL (7-18) 02/26/17 04:25 Creatinine 0.94 mg/dL (0.55-1.02) 02/26/17 04:25 Est GFR (MDRD) Af Amer > 60 (>60) 02/26/17 04:25 Est GFR (MDRD) Non-Af > 60 (>60) 02/26/17 04:25 Glucose 255 mg/dL (65-99) H 02/26/17 04:25 Calcium 8.8 mg/dL (8.5-10.1) 02/26/17 04:25 Corrected Calcium 10.0 mg/dL (8.5-10.1) 02/26/17 04:25 Total Bilirubin 0.30 mg/dL (0.2-1.0) 02/26/17 04:25 AST 20 Units/L (15-37) 02/26/17 04:25 ALT 31 Units/L (12-78) 02/26/17 04:25 Alkaline Phosphatase 112 Units/L (46-116) 02/26/17 04:25 Creatine Kinase 255 Units/L (26-192) H 02/24/17 17:01 CK-MB (CK-2) 3.4 ng/mL (0-4.0) 02/24/17 17:01 CK/CKMB % Calc 1.3 % (<4) 02/24/17 17:01 Troponin I < 0.02 ng/mL (0-1.5) 02/24/17 17:01 Total Protein 7.3 g/dL (6.4-8.2) 02/26/17 04:25 Albumin 2.5 g/dL (3.4-5.0) L 02/26/17 04:25 Globulin 4.8 g/dL (2.5-4.5) H 02/26/17 04:25 Albumin/Globulin Ratio 0.5 Ratio (1.1-2.1) L 02/26/17 04:25 Specimen Type Catherized urine 02/24/17 21:10 Urine Color Yellow (YELLOW) 02/24/17 21:10 Urine Appearance Slightly hazy (CLEAR) 02/24/17 21:10 Urine pH 6.0 (5.0 - 8.0) 02/24/17 21:10 Ur Specific [place] 1.015 (1.000-1.030) 02/24/17 21:10 Urine Protein 2+ (NEGATIVE) 05/31/17 21:10 Urine Glucose (UA) 1+ (NEGATIVE) 02/24/17 21:10 Urine Ketones Negative (NEGATIVE) 02/24/17 21:10 Urine Occult Blood 3+ (NEGATIVE) 02/24/17 21:10 Urine Nitrite Negative (NEGATIVE) 02/24/17 21:10 Urine Bilirubin Negative (NEGATIVE) 02/24/17 21:10 Urine Urobilinogen Normal (NORMAL) 02/24/17 21:10 Ur Leukocyte Esterase Negative (NEGATIVE) 02/24/17 21:10 Urine RBC 5-7 /HPF (NEGATIVE) 02/24/17 21:10 Urine WBC 0-2 /HPF (NEGATIVE) 02/24/17 21:10 Ur Squamous Epith Cells Few /HPF (NEGATIVE) 02/24/17 21:10 Amorphous Sediment Trace /HPF (NEGATIVE) 02/24/17 21:10 Urine Bacteria Trace /HPF (NEGATIVE) 02/24/17 21:10 Ur Culture Indicated? Yes/culture set up 02/24/17 21:10 Hospital Course: patient is a 51-year-old black morbidly obese female who is a patient of ours at Dr. Bell's office. She was admitted on Wednesday with elevated blood pressure, elevated blood sugar and increased weakness. Patient also had significant lower extremity edema and increased shortness of breath. Patient has a history of a CVA, CHF, hypertension, uncontrolled/noncompliant diabetes. Morbid obesity and severe arthritis. Patient was treated with IV Lasix with good urine output. Patient had significantly improved lower extremity edema. While inpatient patient had an echocardiogram preliminary report on chart. Patient was treated with respiratory therapy and supplemental O2. Patient appeared to have a UTI on initial UA culture negative at this time. Due to improvement rest or status and improve edema, we plan to discharge patient home with home health therapy. Patient continued on current home medications. Patient instructed not to smoke to follow a low carb diet, increase by mouth water intake, practice good hygiene practices to avoid yeast and UTI. Patient has limited mobility has a walker in the home as well as a scooter. Patient to follow-up with primary care in 1 week. Patient condition improved and stable on discharge - Discharge Plan Disposition: 01 HOME, SELF-CARE Condition: Stable - Follow ups/Referrals Follow ups/Referrals: JONO COOL [Nurse Practitioner] - 03/08/17 9:45 am - Instructions Instructions: Smoking Cessation, Tips for Success, Ofkc-oh-Xije, Type 2 Diabetes Mellitus, Adult, Shortness of Breath, Qjwk-eo-Fmlr, Hypertension, Easy- to-Read, Smoking Cessation, Tips for Success, Heart Failure, Fheg-no-Hznh, Edema , Detc-al-Ppjx Forms: Patient Portal
== END 2017-02-26 11:27 | disposition home or self-care (01) | DRG 305 ==
LOC: OBSVTOIN 14:21 → ICU 14:21 → UNDODISOB 02-26 11:27
PROVIDERS: ADMIT Internal Medicine; ATTEND Internal Medicine
DX: I16.0 Hypertensive urgency (principal); I50.9 Heart failure, unspecified; E11.65 Type 2 diabetes mellitus with hyperglycemia; R53.1 Weakness; R60.0 Localized edema; R42 Dizziness and giddiness; I25.10 Atherosclerotic heart disease of native coronary artery without angina pectoris; J44.9 Chronic obstructive pulmonary disease, unspecified; R29.6 Repeated falls; Z86.73 Personal history of transient ischemic attack (TIA), and cerebral infarction without residual deficits; N39.0 Urinary tract infection, site not specified; R06.02 Shortness of breath; Z87.440 Personal history of urinary (tract) infections
CPT/HCPCS: 36415; 70450; 71010; 80053; 81001; 82550; 82553; 84484; 85025; 87040; 87086; 93005; 93010; 93306; 93880; 94640; 94660; 99238; A4217; A4222; A4618; A7030; 90670; J0696; J1650; J1815; J1940; J7613; J7626

== ENCOUNTER → 2017-03-09 | Outpatient (CLI) | payer MEDICAID ==
[2017-02-26 11:47] VITALS: BP 153/78
--- NOTE | 2017-03-09 10:52 | VAS ---
HISTORY: Extremity pain, swelling, and edema Study: Left upper extremity Doppler venous ultrasound. TECHNIQUE: Multiple dupree scale and color flow Doppler images of the deep venous system were obtaine d of the upper extremity. FINDINGS: The deep venous system of the left upper extremity evaluated from the level of the audit intern al jugular vein through the radial and ulnar veins. Normal color flow and augmentation can be obser jordon. In addition, normal compression is seen throughout the upper extremity deep venous system. No soft tissue hematoma is seen. IMPRESSION: 1. Negative examination for DVT. Reported By:
== END ==
LOC: RAD 09:14
PROVIDERS: ATTEND Internal Medicine
DX: R60.0 Localized edema (principal)
CPT/HCPCS: 93971

== ENCOUNTER 2017-03-31 08:29 | Emergency (ER) | payer MEDICAID ==
[2017-03-31 08:37] VITALS: BMI 65.8
[2017-03-31] MEDS ORDERED: VALIUM INJ IM ONE (08:48)
[2017-03-31] MEDS ORDERED: VALIUM INJ ONE (08:50)
--- NOTE | 2017-03-31 08:52 | DR.FBACK ---
HPI - Time Seen Time seen: 08:34 - PCP Primary Care Physician: AUDREY FOX MANDY - HPI Comment HPI Comment: Patient admits to back spasm onset this morning. Denies trauma. - Complaint Chief Complaint Doctor Comments: Back pain this AM. severity 10, aggravated by movement Chief Complaint:: PT C/O BACK SPASMS ...... - Source History Provided: Patient, EMS - Mode of Arrival Mode of Arrival: EMS - Timing Onset of Chief Complaint: 03/31/17 - Location Back Pain Location: Flank - Associated Signs and Symptoms Back Pain Symptoms: None Weakness: None PMH - PMH Past Medical History: Yes Past Medical History: Anemia, CVA, Diabetes, Hypertension Past Surgical History: Yes Surgical History: Angioplasty/Stents - Family History History of Family Medical Conditions: Yes Family Medical History: Diabetes Mellitus, Cancer, [place], Coronary Artery Disease, Hypertension - Social History Does patient currently use any type of tobacco product: No Have you used tobacco products in the last 12 months: No Type of Tobacco Use: None Does any household member use tobacco: No Alcohol Use: None Do you use any recreational Drugs:: No Lives With: Family Lives Where: Home - infectious screening In the last 2 months have you had wt loss of >10#?: NO Have you had fever, night sweats or hemotysis?: No Have you traveled outside the country in the last 6 months?: No Isolation: Standard ROS - Review of Systems Eyes: No Symptoms Reported ENTM: No Symptoms Reported Respiratoy: No Symptoms Reported Cardiovascular: No Symptoms Reported Gastrointestinal/Abdominal: No Symptoms Reported Genitourinary: No Symptoms Reported Neurological: No Symptoms Reported Musculoskeletal: Muscle Pain Integumentary: No Symptoms Reported Hematologic/Lymphatic: No Symptoms Reported Endocrine: No Symptoms Reported Psychiatric: No Symptoms Reported All Other Systems: Reviewed and Negative PE - Vitals Vital Signs: Temp Pulse Resp BP BP BP BP 03/31/17 08:32 97.9 F 80 22 173/84 02/26/17 10:00 153/78 153/78 02/25/17 18:00 151/80 04/08/16 16:00 125/60 Pulse Ox 03/31/17 08:32 99 02/26/17 10:00 02/25/17 18:00 04/08/16 16:00 - General Limitations: No Limitations General Appearance: Alert, In No Apparent Distress, Anxious - Head Head Exam: Normal Inspection, Atraumatic - Eyes Eye exam: Normal Appearance, PERRL, EOMI - ENT ENT Exam: Normal Exam, Normal Oropharynx - Chest Chest Inspection: Normal Inspection - Respiratory Respiratory Exam: Normal Lung Sounds Bilat Respiratory Exam: Bilateral Clear to Auscultation - Cardiovascular Cardiovascular Exam: Regular Rate, Normal Rhythm - Abdominal Exam Abdominal Exam: Normal Inspection Abdominal Tenderness: negative: RUQ, RLQ, LUQ, LLQ, Epigastrium, Suprapubic, Diffuse, Mild, Moderate, Severe, Other - Extremities Extremities Exam: Normal Inspection - Back Back Exam: Normal Inspection, Tenderness - Neurological Neurological Exam: Alert, Oriented X3, CN II-XII Intact - Psychiatric Psychiatric Exam: Normal Affect, Normal Mood - Skin Skin Exam: Warm, Dry, Intact Course - Treatment Treatment: Diazepam 10mg IM - Reevaluation 1st: Improved - Diagnosis Discharge Problem: Muscle spasm of back - Discharge Plan Condition: Stable - Follow ups/Referrals Follow ups/Referrals: NADIYA VENTURA [Primary Care Provider] - 3 days - Instructions
[2017-03-31 12:28] VITALS: BP 176/66
== END 2017-03-31 14:17 | disposition home or self-care (01) ==
LOC: ER 08:32
DX: M62.830 Muscle spasm of back (principal)
CPT/HCPCS: 96372; 99282; J3360

== ENCOUNTER 2017-04-01 18:12 | Emergency (ER) | payer MEDICAID ==
[2017-04-01 18:23] VITALS: BP 186/84; BMI 64.3
--- NOTE | 2017-04-01 20:05 | DR.NAUSEAF ---
HPI - Time Seen Time seen: 20:04 - Primary Care Physician Primary Care Physician: JONO COOL - Complaints Chief Complaint Doctors Comments: vomited X 2 Chief Complaint:: PATIENT STATED THAT SHE STARTED BEING NAUSEOUS ABOUT 5 MIN. PRIOR TO CALLING EMS. - Reviewed Nurses Notes Reviewed: Yes - Source History Provided: Patient - Mode of Arrival Mode of Arrival: EMS - Timing Onset of Chief Complaint: 04/01/17 - Severity Number of episodes of vomiting over last 24 hours: 2 - Context Onset: After Drinking (Patient has not vomited in the ED.) Recent: None. denies: Travel, Contact Exposure Possible Ingestion: Unknown : No History of: None - Quality Quality: Other (foamy and watery) - Associated Signs and Symptoms Abdominal Pain Quality: denies: Aching, Burning, Cramping, Sharp, Stabbing Symptoms: denies: Abdominal Pain PMH - PMH Past Medical History: Yes Past Medical History: Anemia, CVA, Diabetes, Hypertension Past Surgical History: Yes Surgical History: Angioplasty/Stents - Family History History of Family Medical Conditions: Yes Family Medical History: Diabetes Mellitus, Cancer, [place], Coronary Artery Disease, Hypertension - Social History Does patient currently use any type of tobacco product: No Have you used tobacco products in the last 12 months: No Type of Tobacco Use: None Does any household member use tobacco: No Alcohol Use: None Do you use any recreational Drugs:: No Lives With: Family Lives Where: Home - infectious screening In the last 2 months have you had wt loss of >10#?: NO Have you had fever, night sweats or hemotysis?: No Have you traveled outside the country in the last 6 months?: No Isolation: Standard ROS - Review of Systems Constitutional: No Symptoms Reported Respiratoy: No Symptoms Reported Cardiovascular: No Symptoms Reported Gastrointestinal/Abdominal: Nausea, Vomiting Genitourinary: No Symptoms Reported Neurological: No Symptoms Reported Musculoskeletal: No Symptoms Reported Integumentary: No Symptoms Reported Hematologic/Lymphatic: No Symptoms Reported Endocrine: No Symptoms Reported Psychiatric: No Symptoms Reported PE - Vital Signs Vitals: Temperature 97.5 F Pulse Rate 64 Respiratory Rate 18 Blood Pressure [Right Calf] 125/60 Blood Pressure [Left Arm] 176/66 Blood Pressure [Right Arm] 153/78 Blood Pressure 186/84 O2 Sat by Pulse Oximetry 98 - General Limitations: No Limitations General Appearance: Alert, In No Apparent Distress, Obese - Neck Neck Exam: Normal Inspection - Chest Chest Inspection: Normal Inspection - Respiratory Respiratory Exam: Normal Lung Sounds Bilat - Cardiovascular Cardiovascular Exam: Regular Rate, Normal Rhythm, Normal Heart Sounds - Abdominal Exam Abdominal Exam: Normal Inspection, Normal Bowel Sounds, Soft. negative: Tenderness, Guarding, Rebound, Rigidity, Dimnished Bowel Sounds, Hyperactive Bowel Sounds, Hypoactive Bowel Sounds, Organomegaly, Trauma, Incision, Ascites, Mass, Bruit, Pulsatile Mass, Hernia - Rectal Rectal Exam: Deferred - Skin Skin Exam: Warm, Dry, Intact, Normal Color ROR - Labs Reviewed Result Diagrams: 04/01/17 20:20 04/01/17 20:20 Laboratory: WBC 8.8 X10^3/uL (3.6-10.0) 04/01/17 20:20 RBC 4.68 X10^6/uL (3.5-5.4) 04/01/17 20:20 Hgb 13.0 g/dL (12.0-16.0) 04/01/17 20:20 Hct 39.8 % (36.0-47.0) 04/01/17 20:20 MCV 85.1 fL (80.0-100.0) 04/01/17 20:20 MCH 27.7 pg (27.0-34.0) 04/01/17 20:20 MCHC 32.5 g/dL (33.0-35.0) L 04/01/17 20:20 RDW 16.5 % (11.6-16.5) 04/01/17 20:20 Plt Count 161 X10^3/uL (150.0-450.0) 04/01/17 20:20 MPV 9.5 fL (7.4-11.0) 04/01/17 20:20 Neut % 78.2 % (42.0-75.0) H 04/01/17 20:20 Lymph % 15.8 % (21.0-51.0) L 04/01/17 20:20 Kings % 4.4 % (0.0-13.0) 04/01/17 20:20 Eos % 1.0 % (0.9-2.9) 04/01/17 20:20 Baso % 0.6 % (0.2-1.0) 04/01/17 20:20 Neut # 6.9 x10^3/uL (2.2-4.8) H 04/01/17 20:20 Lymph # 1.4 X10^3/uL (1.3-2.9) 04/01/17 20:20 Kings # 0.4 x10^3/uL (0.3-0.8) 04/01/17 20:20 Eos # 0.1 x10^3/uL (0.0-0.2) 04/01/17 20:20 Baso # 0.0 X10^3/uL (0.0-0.1) 04/01/17 20:20 Absolute Nucleated RBC 0.0 /100WBC 04/01/17 20:20 Sodium 141 mmol/L (136-145) 04/01/17 20:20 Corrected Sodium 145 mmol/L (136-145) 04/01/17 20:20 Potassium 3.9 mmol/L (3.5-5.1) 04/01/17 20:20 Chloride 104 mmol/L (98-107) 04/01/17 20:20 Carbon Dioxide 29.7 mmol/L (21-32) 04/01/17 20:20 BUN 21 mg/dL (7-18) H 04/01/17 20:20 Creatinine 1.07 mg/dL (0.55-1.02) H 04/01/17 20:20 Est GFR (MDRD) Af Amer > 60 (>60) 04/01/17 20:20 Est GFR (MDRD) Non-Af 58 (>60) L 04/01/17 20:20 Glucose 268 mg/dL (65-99) H 04/01/17 20:20 Calcium 8.7 mg/dL (8.5-10.1) 04/01/17 20:20 Corrected Calcium 9.6 mg/dL (8.5-10.1) 04/01/17 20:20 Total Bilirubin 0.20 mg/dL (0.2-1.0) 04/01/17 20:20 AST 21 Units/L (15-37) 04/01/17 20:20 ALT 30 Units/L (12-78) 04/01/17 20:20 Alkaline Phosphatase 105 Units/L (46-116) 04/01/17 20:20 Total Protein 8.0 g/dL (6.4-8.2) 04/01/17 20:20 Albumin 2.9 g/dL (3.4-5.0) L 04/01/17 20:20 Globulin 5.1 g/dL (2.5-4.5) H 04/01/17 20:20 Albumin/Globulin Ratio 0.6 Ratio (1.1-2.1) L 04/01/17 20:20 Amylase 43 Units/L (25-115) 04/01/17 20:20 - Diagnosis Discharge Problem: Gastroenteritis - Discharge Plan Condition: Stable - Follow ups/Referrals Follow ups/Referrals: NADIYA VENTURA [Primary Care Provider] - 3 days - Instructions Instructions: Nausea, Adult
[2017-04-01] MEDS ORDERED: ZOFRAN TAB 4 MG PO ONE (20:12)
[2017-04-01] MEDS ORDERED: ZOFRAN TAB 4 MG ONE (20:18)
[2017-04-01 20:38] LABS: BASOPHILS % (AUTO) 0.6 % (0.2-1.0); EOSINOPHILS # (AUTO) 0.1 x10^3/uL (0.0-0.2); HEMATOCRIT 39.8 % (36.0-47.0); LYMPHOCYTES # (AUTO) 1.4 X10^3/uL (1.3-2.9); LYMPHOCYTES % (AUTO) 15.8 % (21.0-51.0); MEAN CORPUSCULAR HEMOGLOBIN 27.7 pg (27.0-34.0); MEAN CORPUSCULAR HGB CONC 32.5 g/dL (33.0-35.0); MEAN CORPUSCULAR VOLUME 85.1 fL (80.0-100.0); MEAN PLATELET VOLUME 9.5 fL (7.4-11.0); MONOCYTES # (AUTO) 0.4 x10^3/uL (0.3-0.8); MONOCYTES % (AUTO) 4.4 % (0.0-13.0); NEUTROPHILS # (AUTO) 6.9 x10^3/uL (2.2-4.8); NEUTROPHILS % (AUTO) 78.2 % (42.0-75.0); PLATELET COUNT 161 X10^3/uL (150.0-450.0); RED BLOOD COUNT 4.68 X10^6/uL (3.5-5.4); RED CELL DISTRIBUTION WIDTH 16.5 % (11.6-16.5); WHITE BLOOD COUNT 8.8 X10^3/uL (3.6-10.0)
[2017-04-01 20:51] LABS: ALANINE AMINOTRANSFERASE 30 Units/L (12-78); ALBUMIN 2.9 g/dL (3.4-5.0); ALKALINE PHOSPHATASE 105 Units/L (46-116); AMYLASE 43 Units/L (25-115); ASPARTATE AMINO TRANSFERASE 21 Units/L (15-37); BLOOD UREA NITROGEN 21 mg/dL (7-18); CALCIUM 8.7 mg/dL (8.5-10.1); CARBON DIOXIDE 29.7 mmol/L (21-32); CHLORIDE 104 mmol/L (98-107); COR CA(FOR HYPOALB) 9.6 mg/dL (8.5-10.1); COR NA(FOR HYPERGLY) 145 mmol/L (136-145); CREATININE 1.07 mg/dL (0.55-1.02); GLUCOSE 268 mg/dL (65-99); SODIUM 141 mmol/L (136-145); eGFR BLACK RACES > 60 (>60); eGFR NON BLACK RACES 58 (>60)
--- NOTE | 2017-04-01 21:15 | CT ---
CT ABDOMEN AND PELVIS WITHOUT CONTRAST CLINICAL HISTORY: 51-year-old female with nausea and vomiting. COMPARISON: CT abdomen and pelvis July 01, 2016. TECHNIQUE: Multiple contiguous computed tomographic axial images of the abdomen and pelvis were obta ined without the use of oral or intravenous contrast. Images were reformatted in the coronal and sag ittal planes. FINDINGS: The lung bases demonstrate no evidence of focal air-space opacification, pleural effusion, pneumotho rax, or suspicious pulmonary nodules. The imaged inferior mediastinum and heart are normal in appea kenyatta without evidence of pericardial effusion. The liver, gallbladder, pancreas, and spleen are within normal limits for noncontrast imaging. The adrenal glands are normal bilaterally. 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 Le ft kidney is unremarkable. There are no nephroureteral stones or perinephric fluid collections. Ther e is no evidence of hydroureteronephrosis and the ureters run in an unobstructed course to a moderat jacqueline distended urinary bladder. The uterus is anteverted and normal in size. The ovaries, vagina and perineum are within normal shipman its. Stable calcified fibroid at the endocervical junction on the left. The appendix is normal in appearance. The bowel is without obstruction or inflammation and there is no free fluid or free air within the peritoneal cavity. There are no pathologically enlarged lymph nodes in the abdomen or pelvis. Moderate to severe calcific atherosclerotic disease of the aorta and its branches. Large body habitus. The osseous structures are intact without fracture or malalignment. IMPRESSION: No acute intra-abdominal or intrapelvic process to account for patient's symptoms. Reported By:
== END 2017-04-01 22:15 ==
LOC: ER 18:12
DX: K52.89 Other specified noninfective gastroenteritis and colitis (principal)
CPT/HCPCS: 36415; 74176; 80053; 82150; 85025; 99282; 99283; S0181

== ENCOUNTER → 2017-04-07 | Outpatient (CLI) | payer MEDICAID ==
[2017-04-01 18:23] VITALS: BP 186/84
--- NOTE | 2017-04-07 12:07 | RAD ---
HISTORY: Swelling Study: Left forearm three view Comparison: None Findings: There is no evidence for fracture, lytic, or blastic lesion . No abnormal periosteal reaction or sig nificant soft tissue abnormality is identified. IMPRESSION: No significant abnormality identified Reported By:
== END ==
LOC: RAD 10:55
PROVIDERS: ATTEND Nurse Practitioner Family
DX: R22.32 Localized swelling, mass and lump, left upper limb (principal)
CPT/HCPCS: 73090

== ENCOUNTER 2017-04-23 13:45 | Emergency (ER) | payer MEDICAID ==
[2017-04-23 13:51] VITALS: BP 141/65; BMI 51.7
--- NOTE | 2017-04-23 14:10 | DR.GENAD ---
HPI - PCP Primary Care Physician: JONO COOL - Complaint/Symptoms Chief Complaint Doctors Comments: Patient vomited x 2 today non bilious non projectile s/p eating at [employer]. Chief Complaint:: PATIENT STATED SHE ATE [place] THIS MORNING AROUND 2 HOURS AGO AND SHE VOMITED 2 TIMES. PT DENIES AND PAIN OR DISTRESS - Source History Provided: Patient, EMS - Mode of Arrival Mode of Arrival: EMS - Timing Onset of Chief Complaint: 04/23/17 PMH - PMH Past Medical History: Yes Past Medical History: Anemia, CVA, Diabetes, Hypertension Past Surgical History: Yes Surgical History: Angioplasty/Stents - Family History History of Family Medical Conditions: Yes Family Medical History: Diabetes Mellitus, Cancer, [place], Coronary Artery Disease, Hypertension - Social History Does patient currently use any type of tobacco product: No Have you used tobacco products in the last 12 months: No Type of Tobacco Use: None Does any household member use tobacco: No Alcohol Use: None Do you use any recreational Drugs:: No Lives With: Family Lives Where: Home - infectious screening In the last 2 months have you had wt loss of >10#?: NO Have you had fever, night sweats or hemotysis?: No Have you traveled outside the country in the last 6 months?: No Isolation: Standard ROS - Review of Systems Eyes: No Symptoms Reported ENTM: No Symptoms Reported Respiratoy: No Symptoms Reported Cardiovascular: No Symptoms Reported Gastrointestinal/Abdominal: No Symptoms Reported Genitourinary: No Symptoms Reported Neurological: No Symptoms Reported Musculoskeletal: No Symptoms Reported Integumentary: No Symptoms Reported Hematologic/Lymphatic: No Symptoms Reported Endocrine: No Symptoms Reported Psychiatric: No Symptoms Reported All Other Systems: Reviewed and Negative PE - Vital Signs Vitals: Temperature 97.9 F Pulse Rate 63 Respiratory Rate 16 Blood Pressure [Right Calf] 125/60 Blood Pressure [Left Arm] 176/66 Blood Pressure [Right Arm] 153/78 Blood Pressure 141/65 O2 Sat by Pulse Oximetry 99 - General Limitations: No Limitations General Appearance: Alert, In No Apparent Distress - Head Head Exam: Normal Inspection, Atraumatic - Eyes Eye exam: Normal Appearance, PERRL, EOMI - ENT ENT Exam: Normal Exam External Ear Exam: Normal External Inspection TM/Canal Exam: Bilateral Normal Nose Exam: Normal Nose Exam Mouth Exam: Normal Inspection Throat Exam: Normal Inspection - Neck Neck Exam: Normal Inspection - Chest Chest Inspection: Normal Inspection - Respiratory Respiratory Exam: Normal Lung Sounds Bilat Respiratory Exam: Bilateral Clear to Auscultation - Cardiovascular Cardiovascular Exam: Regular Rate - Abdominal Exam Abdominal Exam: Normal Inspection Abdominal Tenderness: negative: RUQ, RLQ, LUQ, LLQ, Epigastrium, Suprapubic, Diffuse, Mild, Moderate, Severe, Other - Extremities Extremities Exam: Normal Inspection, Full ROM - Psychiatric Psychiatric Exam: Normal Affect, Normal Mood - Skin Skin Exam: Warm, Dry, Intact Course - Treatment Treatment: Promethazine 25mg IM - Reevaluation 1st: Improved (A) - Diagnosis Discharge Problem: Vomiting Qualifiers: Vomiting type: vomiting of fecal matter Nausea presence: without nausea Qualified Code(s): R11.13 - Vomiting of fecal matter - Discharge Plan Condition: Stable - Follow ups/Referrals Follow ups/Referrals: JONO COOL [Primary Care Provider] - 3 days - Instructions Instructions: Nausea, Adult
[2017-04-23] MEDS ORDERED: PHENERGAN INJ 25 MG IM ONE (14:27)
[2017-04-23] MEDS ORDERED: ROCEPHIN 1 GM IV PREMIX * OUT OF STOCK 50 ML IV ONE (14:30)
[2017-04-23] MEDS ORDERED: PHENERGAN INJ 25 MG ONE (14:30)
== END 2017-04-23 14:58 | disposition home or self-care (01) ==
LOC: ER 13:48
DX: R11.13 Vomiting of fecal matter (principal)
CPT/HCPCS: 96372; 99282; A4222; J0696; J2550

== ENCOUNTER 2017-05-14 21:12 | Inpatient (IN) | payer MEDICAID ==
--- NOTE | 2017-05-14 21:43 | DR.GENAD ---
HPI - PCP Primary Care Physician: JOON COOL - Complaint/Symptoms Chief Complaint Doctors Comments: Patient states that she was suppose to have surgery on her left forearm today but it was decided that she was a risk for anesthesia and surgery was postponed. She states that she has had led pain pain most of her life and has been on pain medication (lorcet) for pain. She states that she is non-ambulatory. Chief Complaint:: "MY LEG JUST STARTED HURTING TODAY, BEEN HURTING ALL DAY." Self Treatment fo Chief Complaint: NO MEDS TRIED AT HOME PER PATIENT - Source History Provided: Patient, EMS - Mode of Arrival Mode of Arrival: EMS - Timing Onset of Chief Complaint: 05/14/17 PMH - PMH Past Medical History: Yes Past Medical History: Anemia, CVA, Diabetes, Hypertension Past Surgical History: Yes Surgical History: Angioplasty/Stents - Family History History of Family Medical Conditions: Yes Family Medical History: Diabetes Mellitus, Cancer, [place], Coronary Artery Disease, Hypertension - Social History Type of Tobacco Use: None Does any household member use tobacco: No Alcohol Use: None Do you use any recreational Drugs:: No Lives With: Spouse Lives Where: Home - infectious screening Have you traveled outside the country in the last 6 months?: No Isolation: Standard ROS - Review of Systems Eyes: No Symptoms Reported ENTM: No Symptoms Reported Respiratoy: No Symptoms Reported Cardiovascular: No Symptoms Reported Gastrointestinal/Abdominal: No Symptoms Reported Genitourinary: No Symptoms Reported Neurological: No Symptoms Reported Musculoskeletal: No Symptoms Reported Integumentary: No Symptoms Reported Hematologic/Lymphatic: No Symptoms Reported Endocrine: No Symptoms Reported Psychiatric: No Symptoms Reported All Other Systems: Reviewed and Negative PE - Vital Signs Vitals: Temperature 98.1 F Pulse Rate 72 Respiratory Rate 18 Blood Pressure [Right Calf] 125/60 Blood Pressure [Left Arm] 176/66 Blood Pressure [Right Arm] 153/78 Blood Pressure 148/71 O2 Sat by Pulse Oximetry 95 - General Limitations: Physical Limitation (Non ambulatory due to obesity) General Appearance: Alert, In No Apparent Distress, Lethargic - Head Head Exam: Normal Inspection, Atraumatic - Eyes Eye exam: Normal Appearance, PERRL, EOMI - ENT ENT Exam: Normal Exam External Ear Exam: Normal External Inspection TM/Canal Exam: Bilateral Normal Nose Exam: Normal Nose Exam Mouth Exam: Normal Inspection Throat Exam: Normal Inspection - Neck Neck Exam: Normal Inspection, Full ROM - Chest Chest Inspection: Normal Inspection - Respiratory Respiratory Exam: Normal Lung Sounds Bilat Respiratory Exam: Bilateral Clear to Auscultation - Cardiovascular Cardiovascular Exam: Regular Rate, Normal Rhythm - Abdominal Exam Abdominal Exam: Normal Inspection, Normal Bowel Sounds - Extremities Extremities Exam: Normal Inspection, Full ROM - Back Back Exam: Normal Inspection - Neurologic Neurological Exam: Alert, Oriented X3, CN II-XII Intact - Psychiatric Psychiatric Exam: Normal Affect, Normal Mood - Skin Skin Exam: Warm, Dry, Intact Course - Consultation Called: 12:15 (Dr Bell agreed to admit for furrther evaluation and treatment ) ROR - Labs Reviewed Laboratory: D-Dimer 630 ng/mL (0-400) H* 05/14/17 22:02 - XRAY XRAY Interpreted by: Radiologist (Left lower extremity ultrasound: Evaluation of the deep veins of the left lower extremity from the common femoral vein through the the popliteas vein was performed. The superficial femoral vein could not be identified due to patient body habitus. Thrombus identified in the common femoral vein and popliteal vein. Both were noncompressible. Conclusion: DVT noted in the visualized deep veins of the left lower extremity.) - Diagnosis Discharge Problem: Deep vein thrombosis (DVT) of left lower extremity Qualifiers: Affected thrombotic vein of extremity: femoral Chronicity: acute Qualified Code (s): I82.412 - Acute embolism and thrombosis of left femoral vein - Discharge Plan Condition: Stable - Follow ups/Referrals Follow ups/Referrals: JONO COOL [Primary Care Provider] - 3 days - Instructions
--- NOTE | 2017-05-14 23:45 | VAS ---
Exam: Left lower extremity ultrasound exam History: Lower extremity swelling/pain Comparison: None Technique: Real-time duplex scan of the lower extremity venous system was performed using B-mode/gra yscale imaging, Doppler spectral analysis, and color flow. Findings: Evaluation of the deep veins of the left lower extremity from the common femoral vein thr ough the popliteal vein was performed. The superficial femoral vein could not be identified due to patient body habitus. Thrombus identified in the common femoral vein and popliteal vein. Both were noncompressible. Conclusion: DVT noted in the visualized deep veins of the left lower extremity. Reported By:
[2017-05-15 01:11] LABS: BASOPHILS # (AUTO) 0.1 X10^3/uL (0.0-0.1); BASOPHILS % (AUTO) 1.4 % (0.2-1.0); EOSINOPHILS # (AUTO) 0.1 x10^3/uL (0.0-0.2); EOSINOPHILS % (AUTO) 1.3 % (0.9-2.9); HEMATOCRIT 39.7 % (36.0-47.0); LYMPHOCYTES % (AUTO) 29.4 % (21.0-51.0); MEAN CORPUSCULAR HEMOGLOBIN 28.4 pg (27.0-34.0); MEAN CORPUSCULAR HGB CONC 32.8 g/dL (33.0-35.0); MEAN CORPUSCULAR VOLUME 86.6 fL (80.0-100.0); MEAN PLATELET VOLUME 9.8 fL (7.4-11.0); MONOCYTES # (AUTO) 0.4 x10^3/uL (0.3-0.8); MONOCYTES % (AUTO) 6.4 % (0.0-13.0); NEUTROPHILS # (AUTO) 4.3 x10^3/uL (2.2-4.8); NEUTROPHILS % (AUTO) 61.5 % (42.0-75.0); PLATELET COUNT 157 X10^3/uL (150.0-450.0); RED BLOOD COUNT 4.58 X10^6/uL (3.5-5.4); RED CELL DISTRIBUTION WIDTH 16.5 % (11.6-16.5)
[2017-05-15 01:17] LABS: ALANINE AMINOTRANSFERASE 40 Units/L (12-78); ALKALINE PHOSPHATASE 112 Units/L (46-116); ASPARTATE AMINO TRANSFERASE 20 Units/L (15-37); BLOOD UREA NITROGEN 20 mg/dL (7-18); CALCIUM 8.4 mg/dL (8.5-10.1); CARBON DIOXIDE 32.8 mmol/L (21-32); COR CA(FOR HYPOALB) 9.2 mg/dL (8.5-10.1); CREATININE 1.19 mg/dL (0.55-1.02); GLUCOSE 338 mg/dL (65-99); TOTAL PROTEIN 7.9 g/dL (6.4-8.2); eGFR BLACK RACES > 60 (>60); eGFR NON BLACK RACES 51 (>60)
[2017-05-15 01:27] LABS: CHLORIDE 99 mmol/L (98-107); COR NA(FOR HYPERGLY) 141 mmol/L (136-145); SODIUM 135 mmol/L (136-145)
[2017-05-15] MEDS ORDERED: HEPARIN SODIUM INJ 5000 UNITS IVP ONE ×2 (01:35→09:23)
[2017-05-15] MEDS ORDERED: HEPARIN SODIUM IN D5W 25,000 UNITS/500 ML BAG IV ONE (01:35)
[2017-05-15] MEDS: HEPARIN SODIUM IN D5W 25,000 UNITS/500 ML BAG IV PRN ×2 (01:35→17:05)
[2017-05-15] MEDS ORDERED: HEPARIN SODIUM INJ 5000 UNITS ONE (01:36)
[2017-05-15] MEDS ORDERED: NORCO 10/325 TAB PO PRN (02:18)
[2017-05-15] MEDS ORDERED: PATIENT'S HOME MEDICATION (Baclofen [Baclofen] 1 TAB) PO PRN (02:18)
[2017-05-15 02:57] LABS: BILIRUBIN,URINE NEGATIVE (NEGATIVE); BLOOD/HEMOGLOBIN,URINE 3+ (NEGATIVE); GLUCOSE, URINE 4+ (NEGATIVE); KETONES,URINE NEGATIVE (NEGATIVE); LEUKOCYTE ESTERASE ,URINE NEGATIVE (NEGATIVE); NITRITES,URINE NEGATIVE (NEGATIVE); PH,URINE 6.5 (5.0 - 8.0); PROTEIN,URINE 3+ (NEGATIVE); UROBILINOGEN,URINE NORMAL (NORMAL)
[2017-05-15 03:27] VITALS: BMI 67.0
[2017-05-15 03:53] LABS: APPEARANCE,URINE CLEAR (CLEAR); BACTERIA,URINE NEGATIVE /HPF (NEGATIVE); COLOR,URINE YELLOW (YELLOW); SQUAMOUS EPITHELIAL CELL,UR RARE /HPF (NEGATIVE)
[2017-05-15] MEDS: HumuLIN R SUBCUT PRN ×4 (06:27→20:44)
[2017-05-15 06:41] LABS: ALANINE AMINOTRANSFERASE 36 Units/L (12-78); ALBUMIN 2.6 g/dL (3.4-5.0); ALKALINE PHOSPHATASE 99 Units/L (46-116); ASPARTATE AMINO TRANSFERASE 20 Units/L (15-37); BLOOD UREA NITROGEN 17 mg/dL (7-18); CALCIUM 8.2 mg/dL (8.5-10.1); CARBON DIOXIDE 30.4 mmol/L (21-32); CHLORIDE 101 mmol/L (98-107); COR CA(FOR HYPOALB) 9.3 mg/dL (8.5-10.1); COR NA(FOR HYPERGLY) 143 mmol/L (136-145); CREATININE 0.99 mg/dL (0.55-1.02); GLUCOSE 316 mg/dL (65-99); SODIUM 138 mmol/L (136-145); eGFR BLACK RACES > 60 (>60); eGFR NON BLACK RACES > 60 (>60)
[2017-05-15 06:43] LABS: BASOPHILS % (AUTO) 0.6 % (0.2-1.0); EOSINOPHILS # (AUTO) 0.1 x10^3/uL (0.0-0.2); EOSINOPHILS % (AUTO) 1.5 % (0.9-2.9); HEMATOCRIT 36.7 % (36.0-47.0); LYMPHOCYTES # (AUTO) 1.8 X10^3/uL (1.3-2.9); LYMPHOCYTES % (AUTO) 28.2 % (21.0-51.0); MEAN CORPUSCULAR HGB CONC 32.6 g/dL (33.0-35.0); MEAN CORPUSCULAR VOLUME 85.9 fL (80.0-100.0); MEAN PLATELET VOLUME 9.9 fL (7.4-11.0); MONOCYTES # (AUTO) 0.4 x10^3/uL (0.3-0.8); MONOCYTES % (AUTO) 6.9 % (0.0-13.0); NEUTROPHILS # (AUTO) 4.1 x10^3/uL (2.2-4.8); NEUTROPHILS % (AUTO) 62.8 % (42.0-75.0); PLATELET COUNT 144 X10^3/uL (150.0-450.0); RED BLOOD COUNT 4.28 X10^6/uL (3.5-5.4); RED CELL DISTRIBUTION WIDTH 16.1 % (11.6-16.5); WHITE BLOOD COUNT 6.5 X10^3/uL (3.6-10.0)
[2017-05-15] MEDS ORDERED: LIORESAL PO PRN (07:04)
[2017-05-15] MEDS: NORVASC TAB 10 MG PO SCH (08:28)
[2017-05-15] MEDS ORDERED: GLUCOPHAGE ONE ×2 (08:56→20:21)
[2017-05-15] MEDS ORDERED: XANAX PO SCH (09:00)
[2017-05-15] MEDS ORDERED: PATIENT'S HOME MEDICATION (Metoprolol Tartrate [Lopressor Tab 100 Mg] 100 MG) PO SCH (09:00)
[2017-05-15] MEDS ORDERED: PATIENT'S HOME MEDICATION (Potassium Chloride [Potassium Chloride] 10 MEQ) PO SCH (09:00)
[2017-05-15] MEDS ORDERED: PATIENT'S HOME MEDICATION (Losartan/Hydrochlorothiazide [Losartan-Hctz 100-25 Mg Tab] 1 TA PO SCH (09:00)
[2017-05-15] MEDS: MICRO K EXTEN CAP 10 MEQ PO SCH (09:07)
[2017-05-15] MEDS: LOPRESSOR TAB 50 MG PO SCH ×2 (09:07→20:26)
[2017-05-15] MEDS: ASPIRIN PO SCH (09:07)
[2017-05-15] MEDS: HYZAAR 50/12.5 MG PO SCH (09:08)
[2017-05-15] MEDS: GLUCOPHAGE PO SCH ×2 (09:08→20:27)
[2017-05-15] MEDS: PROTONIX TAB 40 MG PO SCH (09:09)
[2017-05-15] MEDS: PLAVIX PO SCH (09:09)
[2017-05-15] MEDS: CLARITIN PO SCH (09:10)
[2017-05-15] MEDS: FIORICET TAB PO PRN (19:46)
[2017-05-15] MEDS: PROzac PO SCH (20:26)
[2017-05-15] MEDS: LIPITOR TAB 20 MG PO SCH (20:27)
[2017-05-15] MEDS: XANAX PO SCH (20:45)
[2017-05-15] MEDS ORDERED: PATIENT'S HOME MEDICATION (Fluoxetine Hcl [Prozac Cap 40 Mg] 40 MG) PO SCH (21:00)
[2017-05-16] MEDS: BENADRYL CAP/TAB 25 MG PO PRN ×3 (00:01→17:11)
[2017-05-16 05:30] LABS: BASOPHILS % (AUTO) 0.4 % (0.2-1.0); EOSINOPHILS # (AUTO) 0.1 x10^3/uL (0.0-0.2); EOSINOPHILS % (AUTO) 1.9 % (0.9-2.9); HEMATOCRIT 37.1 % (36.0-47.0); HEMOGLOBIN 12.1 g/dL (12.0-16.0); LYMPHOCYTES # (AUTO) 2.2 X10^3/uL (1.3-2.9); LYMPHOCYTES % (AUTO) 36.8 % (21.0-51.0); MEAN CORPUSCULAR HGB CONC 32.5 g/dL (33.0-35.0); MEAN PLATELET VOLUME 10.1 fL (7.4-11.0); MONOCYTES # (AUTO) 0.4 x10^3/uL (0.3-0.8); NEUTROPHILS # (AUTO) 3.3 x10^3/uL (2.2-4.8); NEUTROPHILS % (AUTO) 53.9 % (42.0-75.0); PLATELET COUNT 138 X10^3/uL (150.0-450.0); RED BLOOD COUNT 4.31 X10^6/uL (3.5-5.4); RED CELL DISTRIBUTION WIDTH 16.2 % (11.6-16.5)
[2017-05-16 05:32] LABS: ALANINE AMINOTRANSFERASE 32 Units/L (12-78); ALBUMIN 2.6 g/dL (3.4-5.0); ALKALINE PHOSPHATASE 99 Units/L (46-116); ASPARTATE AMINO TRANSFERASE 22 Units/L (15-37); BLOOD UREA NITROGEN 12 mg/dL (7-18); CALCIUM 8.2 mg/dL (8.5-10.1); CARBON DIOXIDE 32.7 mmol/L (21-32); CHLORIDE 99 mmol/L (98-107); COR CA(FOR HYPOALB) 9.3 mg/dL (8.5-10.1); COR NA(FOR HYPERGLY) 140 mmol/L (136-145); CREATININE 0.83 mg/dL (0.55-1.02); GLUCOSE 276 mg/dL (65-99); SODIUM 136 mmol/L (136-145); TOTAL PROTEIN 7.2 g/dL (6.4-8.2); eGFR BLACK RACES > 60 (>60); eGFR NON BLACK RACES > 60 (>60)
[2017-05-16] MEDS: HumuLIN R SUBCUT PRN ×4 (05:43→17:12)
[2017-05-16] MEDS ORDERED: COLACE CAP 100 MG PO PRN (07:29)
[2017-05-16] MEDS ORDERED: GLUCOPHAGE ONE ×2 (08:08→19:54)
[2017-05-16] MEDS: HEPARIN SODIUM IN D5W 25,000 UNITS/500 ML BAG IV PRN (08:17)
[2017-05-16] MEDS: PLAVIX PO SCH (08:26)
[2017-05-16] MEDS: ASPIRIN PO SCH (08:27)
[2017-05-16] MEDS: GLUCOPHAGE PO SCH ×2 (08:27→20:26)
[2017-05-16] MEDS: LOPRESSOR TAB 50 MG PO SCH ×2 (08:27→20:26)
[2017-05-16] MEDS: CLARITIN PO SCH (08:27)
[2017-05-16] MEDS: PROTONIX TAB 40 MG PO SCH (08:27)
[2017-05-16] MEDS: MICRO K EXTEN CAP 10 MEQ PO SCH (08:28)
[2017-05-16] MEDS: HYZAAR 50/12.5 MG PO SCH (08:28)
[2017-05-16] MEDS: NORVASC TAB 10 MG PO SCH (08:28)
[2017-05-16] MEDS: FIORICET TAB PO PRN (14:32)
[2017-05-16] MEDS ORDERED: HEPARIN SODIUM IN D5W 25,000 UNITS/500 ML BAG IV PRN (15:49)
[2017-05-16] MEDS: NEURONTIN CAP 300 MG PO SCH ×3 (17:07→20:29)
[2017-05-16] MEDS: ELIQUIS PO SCH (20:26)
[2017-05-16] MEDS: PROzac PO SCH (20:27)
[2017-05-16] MEDS: XANAX PO SCH (20:27)
[2017-05-16] MEDS: LIPITOR TAB 20 MG PO SCH (20:29)
[2017-05-16] MEDS: LANTUS SC SCH (21:08)
[2017-05-16] MEDS: FLEXERIL TAB 10 MG PO PRN (22:14)
[2017-05-17 05:34] LABS: ALANINE AMINOTRANSFERASE 34 Units/L (12-78); ALBUMIN 2.6 g/dL (3.4-5.0); ALKALINE PHOSPHATASE 99 Units/L (46-116); ASPARTATE AMINO TRANSFERASE 22 Units/L (15-37); BLOOD UREA NITROGEN 13 mg/dL (7-18); CALCIUM 8.3 mg/dL (8.5-10.1); CARBON DIOXIDE 31.7 mmol/L (21-32); CHLORIDE 99 mmol/L (98-107); COR CA(FOR HYPOALB) 9.4 mg/dL (8.5-10.1); COR NA(FOR HYPERGLY) 141 mmol/L (136-145); CREATININE 0.92 mg/dL (0.55-1.02); GLUCOSE 324 mg/dL (65-99); SODIUM 136 mmol/L (136-145); TOTAL PROTEIN 7.2 g/dL (6.4-8.2); eGFR BLACK RACES > 60 (>60); eGFR NON BLACK RACES > 60 (>60)
[2017-05-17 05:39] LABS: BASOPHILS % (AUTO) 0.4 % (0.2-1.0); EOSINOPHILS # (AUTO) 0.1 x10^3/uL (0.0-0.2); EOSINOPHILS % (AUTO) 1.2 % (0.9-2.9); HEMATOCRIT 37.3 % (36.0-47.0); HEMOGLOBIN 12.2 g/dL (12.0-16.0); LYMPHOCYTES # (AUTO) 1.6 X10^3/uL (1.3-2.9); LYMPHOCYTES % (AUTO) 24.5 % (21.0-51.0); MEAN CORPUSCULAR HEMOGLOBIN 28.2 pg (27.0-34.0); MEAN CORPUSCULAR HGB CONC 32.7 g/dL (33.0-35.0); MEAN CORPUSCULAR VOLUME 86.4 fL (80.0-100.0); MONOCYTES # (AUTO) 0.5 x10^3/uL (0.3-0.8); MONOCYTES % (AUTO) 7.6 % (0.0-13.0); NEUTROPHILS # (AUTO) 4.3 x10^3/uL (2.2-4.8); NEUTROPHILS % (AUTO) 66.3 % (42.0-75.0); PLATELET COUNT 140 X10^3/uL (150.0-450.0); RED BLOOD COUNT 4.32 X10^6/uL (3.5-5.4); RED CELL DISTRIBUTION WIDTH 15.6 % (11.6-16.5); WHITE BLOOD COUNT 6.5 X10^3/uL (3.6-10.0)
[2017-05-17] MEDS: HumuLIN R SUBCUT PRN ×4 (05:47→21:46)
[2017-05-17] MEDS ORDERED: GLUCOPHAGE ONE ×2 (08:52→21:06)
[2017-05-17] MEDS: GLUCOPHAGE PO SCH ×2 (09:07→21:46)
[2017-05-17] MEDS: ELIQUIS PO SCH ×2 (09:07→21:47)
[2017-05-17] MEDS: HYZAAR 50/12.5 MG PO SCH (09:08)
[2017-05-17] MEDS: LOPRESSOR TAB 50 MG PO SCH ×2 (09:08→21:56)
[2017-05-17] MEDS: CLARITIN PO SCH (09:08)
[2017-05-17] MEDS: MICRO K EXTEN CAP 10 MEQ PO SCH (09:09)
[2017-05-17] MEDS: ASPIRIN PO SCH (09:10)
[2017-05-17] MEDS: PROTONIX TAB 40 MG PO SCH (09:14)
[2017-05-17] MEDS: NORVASC TAB 10 MG PO SCH (09:14)
[2017-05-17] MEDS: PLAVIX PO SCH (09:15)
[2017-05-17] MEDS: NEURONTIN CAP 300 MG PO SCH ×3 (09:15→21:49)
[2017-05-17] MEDS: FLEXERIL TAB 10 MG PO PRN (15:41)
[2017-05-17] MEDS: FIORICET TAB PO PRN (17:24)
[2017-05-17] MEDS ORDERED: SNACK - Diabetic Appropriate PO SCH (20:00)
[2017-05-17] MEDS: LANTUS SC SCH (21:45)
[2017-05-17] MEDS: BENADRYL CAP/TAB 25 MG PO PRN (21:47)
[2017-05-17] MEDS: XANAX PO SCH (21:48)
[2017-05-17] MEDS: PROzac PO SCH (21:56)
[2017-05-17] MEDS: LIPITOR TAB 20 MG PO SCH (21:56)
[2017-05-18 05:12] LABS: BASOPHILS % (AUTO) 0.4 % (0.2-1.0); EOSINOPHILS # (AUTO) 0.1 x10^3/uL (0.0-0.2); EOSINOPHILS % (AUTO) 1.5 % (0.9-2.9); HEMATOCRIT 37.8 % (36.0-47.0); HEMOGLOBIN 12.2 g/dL (12.0-16.0); LYMPHOCYTES # (AUTO) 1.6 X10^3/uL (1.3-2.9); LYMPHOCYTES % (AUTO) 26.9 % (21.0-51.0); MEAN CORPUSCULAR HEMOGLOBIN 27.9 pg (27.0-34.0); MEAN CORPUSCULAR HGB CONC 32.1 g/dL (33.0-35.0); MEAN CORPUSCULAR VOLUME 86.8 fL (80.0-100.0); MEAN PLATELET VOLUME 9.8 fL (7.4-11.0); MONOCYTES # (AUTO) 0.5 x10^3/uL (0.3-0.8); MONOCYTES % (AUTO) 8.3 % (0.0-13.0); NEUTROPHILS # (AUTO) 3.8 x10^3/uL (2.2-4.8); NEUTROPHILS % (AUTO) 62.9 % (42.0-75.0); PLATELET COUNT 135 X10^3/uL (150.0-450.0); RED BLOOD COUNT 4.36 X10^6/uL (3.5-5.4); RED CELL DISTRIBUTION WIDTH 15.8 % (11.6-16.5); WHITE BLOOD COUNT 6.1 X10^3/uL (3.6-10.0)
[2017-05-18] MEDS: HumuLIN R SUBCUT PRN (05:51)
[2017-05-18 05:58] LABS: ALANINE AMINOTRANSFERASE 33 Units/L (12-78); ALBUMIN 2.5 g/dL (3.4-5.0); ALKALINE PHOSPHATASE 92 Units/L (46-116); ASPARTATE AMINO TRANSFERASE 21 Units/L (15-37); BLOOD UREA NITROGEN 12 mg/dL (7-18); CALCIUM 8.5 mg/dL (8.5-10.1); CARBON DIOXIDE 34.4 mmol/L (21-32); CHLORIDE 100 mmol/L (98-107); COR CA(FOR HYPOALB) 9.7 mg/dL (8.5-10.1); COR NA(FOR HYPERGLY) 142 mmol/L (136-145); CREATININE 0.98 mg/dL (0.55-1.02); GLUCOSE 317 mg/dL (65-99); SODIUM 137 mmol/L (136-145); TOTAL PROTEIN 6.9 g/dL (6.4-8.2); eGFR BLACK RACES > 60 (>60); eGFR NON BLACK RACES > 60 (>60)
[2017-05-18] MEDS ORDERED: GLUCOPHAGE ONE (07:50)
[2017-05-18] MEDS: NORVASC TAB 10 MG PO SCH (08:27)
[2017-05-18] MEDS: ELIQUIS PO SCH (08:28)
[2017-05-18] MEDS: CLARITIN PO SCH (08:28)
[2017-05-18] MEDS: HYZAAR 50/12.5 MG PO SCH (08:28)
[2017-05-18] MEDS: PROTONIX TAB 40 MG PO SCH (08:29)
[2017-05-18] MEDS: LOPRESSOR TAB 50 MG PO SCH (08:29)
[2017-05-18] MEDS: NEURONTIN CAP 300 MG PO SCH (08:30)
[2017-05-18] MEDS: MICRO K EXTEN CAP 10 MEQ PO SCH (08:31)
[2017-05-18] MEDS: PLAVIX PO SCH (08:31)
[2017-05-18] MEDS: FIORICET TAB PO PRN (08:35)
[2017-05-18 08:52] VITALS: BP 143/74
[2017-05-18] MEDS: GLUCOPHAGE PO SCH (09:23)
[2017-05-18] MEDS: ASPIRIN PO SCH (09:23)
== END 2017-05-18 11:35 | disposition home or self-care (01) | DRG 301 ==
LOC: ER 21:24 → ICU 05-15 00:52 → OBSVTOIN 05-15 00:52 → MED/SURG 05-16 20:33
PROVIDERS: ADMIT Internal Medicine; ATTEND Internal Medicine
DX: I82.412 Acute embolism and thrombosis of left femoral vein (principal); E11.65 Type 2 diabetes mellitus with hyperglycemia; M79.605 Pain in left leg; E66.8 Other obesity; R60.0 Localized edema; J44.9 Chronic obstructive pulmonary disease, unspecified; I10 Essential (primary) hypertension; E78.2 Mixed hyperlipidemia; I87.2 Venous insufficiency (chronic) (peripheral); Z86.73 Personal history of transient ischemic attack (TIA), and cerebral infarction without residual deficits
CPT/HCPCS: 36415; 80053; 81001; 85025; 85378; 85610; 85730; 93971; 94760; 96365; 96374; 96375; 99221; 99231; 99284; A4222; J1644; J1815

== ENCOUNTER 2017-05-23 10:53 | Emergency (ER) | payer MEDICAID ==
[2017-05-23 11:01] VITALS: BMI 58.2
--- NOTE | 2017-05-23 11:05 | DR.EXTPAIN ---
HPI - Time seen Time seen: 11:03 - Complaint/Symptoms Chief Complaint Doctor Comments: Patient states that her back started to hurt after getting in bed this morning.. She took a flexeril but it has not helped Chief Complaint:: PT IS PRESENT VIA EMS WITH C/O BACK PAIN " Self Treatment fo Chief Complaint: FLEXERIL - Source History Provided: EMS - Mode of arrival Mode of Arrival: EMS - Timing Onset of Chief Complaint: 05/23/17 PMH - PMH Past Medical History: Yes Past Medical History: Anemia, CVA, Diabetes, Hypertension Past Surgical History: Yes Surgical History: Angioplasty/Stents - Family History History of Family Medical Conditions: Yes Family Medical History: Diabetes Mellitus, Cancer, [place], Coronary Artery Disease, Heart Failure, Sudden Cardiac , Hypertension - Social History Does patient currently use any type of tobacco product: Yes Have you used tobacco products in the last 12 months: Yes Type of Tobacco Use: Cigarettes Does any household member use tobacco: No Alcohol Use: None Do you use any recreational Drugs:: No Lives With: Family Lives Where: Home - infectious screening In the last 2 months have you had wt loss of >10#?: NO Have you had fever, night sweats or hemotysis?: No Have you traveled outside the country in the last 6 months?: No Isolation: Standard ROS - Review of Systems Eyes: No Symptoms Reported ENTM: No Symptoms Reported Respiratoy: No Symptoms Reported Cardiovascular: No Symptoms Reported Gastrointestinal/Abdominal: No Symptoms Reported Genitourinary: No Symptoms Reported Neurological: No Symptoms Reported Musculoskeletal: Back Pain Integumentary: No Symptoms Reported Hematologic/Lymphatic: No Symptoms Reported Endocrine: No Symptoms Reported, Increased Hunger All Other Systems: Reviewed and Negative PE - Vital Signs Vitals: Temperature 97.4 F Pulse Rate 67 Respiratory Rate 20 Blood Pressure [Right Calf] 125/60 Blood Pressure [Left Arm] 143/74 Blood Pressure [Right Arm] 129/59 Blood Pressure 180/86 O2 Sat by Pulse Oximetry 95 - General General Appearance: Alert - Head Head Exam: Normal Inspection, Atraumatic - Eyes Eye exam: Normal Appearance, PERRL, EOMI - ENT ENT Exam: Normal Exam, Normal Oropharynx - Neck Neck Exam: Normal Inspection, Full ROM - Chest Chest Inspection: Normal Inspection - Respiratory Respiratory Exam: Normal Lung Sounds Bilat Respiratory Exam: Bilateral Clear to Auscultation - Cardiovascular Cardiovascular Exam: Regular Rate, Normal Rhythm - Abdominal Exam Abdominal Exam: Normal Inspection Abdominal Tenderness: negative: RUQ, RLQ, LUQ, LLQ, Epigastrium, Suprapubic, Diffuse, Mild, Moderate, Severe, Other - Extremities Extremities Exam: Normal Inspection - Upper Extremities Shoulder Exam: Normal Inspection Arm Exam: Normal Inspection, Full ROM Elbow Exam: Normal Inspection Forearm Exam: Normal Inspection Hand Exam: Normal Inspection Neuromotor Exam: Normal Exam, Wrist Extension Neurosensory Exam: Normal Exam - Lower Extremities Hip/Pelvis Exam: Normal Inspection Knee Exam: Normal Inspection Lower Leg Exam: Normal Inspection Neurovascular/Tendon Exam: Normal Capillary Refill Gait Exam: Not Tested/Not Observed - Back Back Exam: Tenderness - Neurological Neurological Exam: Alert, Oriented X3, CN II-XII Intact - Psychiatric Psychiatric Exam: Normal Affect - Skin Skin Exam: Warm, Dry, Intact Type of Lesion: Rash Distribution: Generalized Course - Treatment Treatment: Review previous x rays: 01/16/16: Mild degenerative changes L4/S1 and facet chnages are seen throughout lumbar spine. - Diagnosis Discharge Problem: Back pain at L4-L5 level DJD (degenerative joint disease), lumbar Qualifiers: Spinal osteoarthritis complication: unspecified spinal osteoarthritis Qualified Code(s): M47.816 - Spondylosis without myelopathy or radiculopathy, lumbar region - Discharge Plan Condition: Stable - Follow ups/Referrals Follow ups/Referrals: NFD,None [Primary Care Provider] - 3 days - Instructions
[2017-05-23] MEDS ORDERED: DEMEROL INJ IVP ONE (11:07)
[2017-05-23] MEDS ORDERED: DEMEROL INJ ONE (11:10)
[2017-05-23] MEDS ORDERED: DEMEROL INJ IM ONE (11:13)
[2017-05-23 17:17] VITALS: BP 165/79
[2017-05-23] MEDS ORDERED: ULTRAM PO ONE (17:52)
[2017-05-23] MEDS ORDERED: ULTRAM ONE (17:53)
== END 2017-05-23 18:09 | disposition home or self-care (01) ==
LOC: ER 11:01
DX: M47.816 Spondylosis without myelopathy or radiculopathy, lumbar region (principal); M54.5 Low back pain
CPT/HCPCS: 96372; 99282; J2175

== ENCOUNTER 2017-08-17 19:56 | Emergency (ER) | payer MEDICAID ==
[2017-08-17 20:38] VITALS: BP 168/77; BMI 53.1
[2017-08-17] MEDS ORDERED: TORADOL 60 MG VIAL IM ONE (20:45)
[2017-08-17] MEDS ORDERED: TORADOL 60 MG VIAL ONE (20:48)
--- NOTE | 2017-08-17 21:30 | DR.FBACK ---
HPI - Time Seen Time seen: 20:50 - Complaint Chief Complaint Doctor Comments: Patient presents with complaint of back spasm. She takes hydrocodone but has taken her sixty for the month. Chief Complaint:: BACK SPASMS Self Treatment fo Chief Complaint: PT TOOK FLEXERIL AT HOME - Source History Provided: Patient, EMS - Mode of Arrival Mode of Arrival: Stretcher - Timing Onset of Chief Complaint: 08/17/17 PMH - PMH Past Medical History: Yes Past Medical History: Anemia, CVA, Diabetes, Hypertension Past Surgical History: Yes Surgical History: Angioplasty/Stents - Family History History of Family Medical Conditions: Yes Family Medical History: Diabetes Mellitus, Cancer, [place], Coronary Artery Disease, Heart Failure, Sudden Cardiac , Hypertension - Social History Do you use any recreational Drugs:: No Lives With: Family Lives Where: Home - infectious screening In the last 2 months have you had wt loss of >10#?: NO Have you had fever, night sweats or hemotysis?: No Have you traveled outside the country in the last 6 months?: No Isolation: Standard ROS - Review of Systems Eyes: No Symptoms Reported ENTM: No Symptoms Reported Respiratoy: No Symptoms Reported Cardiovascular: No Symptoms Reported Gastrointestinal/Abdominal: No Symptoms Reported Genitourinary: No Symptoms Reported Neurological: No Symptoms Reported Musculoskeletal: No Symptoms Reported Integumentary: No Symptoms Reported Hematologic/Lymphatic: No Symptoms Reported Endocrine: No Symptoms Reported Psychiatric: No Symptoms Reported All Other Systems: Reviewed and Negative PE - Vitals Vital Signs: Temp Pulse Resp BP BP BP BP 08/17/17 20:33 97.9 F 67 20 168/77 05/23/17 16:00 165/79 165/79 05/17/17 04:00 129/59 04/08/16 16:00 125/60 Pulse Ox 08/17/17 20:33 93 L 05/23/17 16:00 05/17/17 04:00 04/08/16 16:00 - General General Appearance: Alert - Head Head Exam: Normal Inspection, Atraumatic - Eyes Eye exam: Normal Appearance, PERRL, EOMI - ENT ENT Exam: Normal Exam - Chest Chest Inspection: Normal Inspection - Respiratory Respiratory Exam: Normal Lung Sounds Bilat Respiratory Exam: Bilateral Clear to Auscultation - Cardiovascular Cardiovascular Exam: Regular Rate, Normal Rhythm - Abdominal Exam Abdominal Exam: Normal Inspection Abdominal Tenderness: negative: RUQ, RLQ, LUQ, LLQ, Epigastrium, Suprapubic, Diffuse, Mild, Moderate, Severe, Other - Genitourinary External Exam: Female: Deferred : Speculum Exam (Female): Deferred : Bimanual Exam (female): Deferred - Extremities Extremities Exam: Normal Inspection, Edema - Back Back Exam: Tenderness (mid low back) - Neurological Neurological Exam: Alert, Oriented X3, CN II-XII Intact - Psychiatric Psychiatric Exam: Normal Affect - Skin Skin Exam: Warm, Dry, Intact Course - Treatment Treatment: Toradol 60mg IM - Diagnosis Discharge Problem: Chronic back pain Qualifiers: Back pain location: low back pain Back pain laterality: midline Sciatica presence: without sciatica Qualified Code(s): M54.5 - Low back pain; G89.29 - Other chronic pain; G89.29 - Other chronic pain - Discharge Plan Condition: Stable - Follow ups/Referrals Follow ups/Referrals: NFD,None [Primary Care Provider] - 3 days - Instructions
== END 2017-08-17 21:44 | disposition home or self-care (01) ==
LOC: ER 19:56
DX: M54.5 Low back pain (principal); G89.29 Other chronic pain
CPT/HCPCS: 96372; 99282; J1885

== ENCOUNTER 2018-01-11 05:26 | Emergency (ER) | payer MEDICAID ==
[2018-01-11 05:33] VITALS: BP 169/94; BMI 53.1
--- NOTE | 2018-01-11 05:57 | DR.GENAD ---
HPI - PCP Primary Care Physician: lorenzo - Complaint/Symptoms Chief Complaint Doctors Comments: Patient states that she had been taking medication for her headache for a long time. Awakened this AM with frontal headache not relieved by her usual dose of fioricet. Chief Complaint:: pt c/o headache since 4 this morning - Source History Provided: Patient - Mode of Arrival Mode of Arrival: EMS - Timing Onset of Chief Complaint: 01/11/18 PMH - PMH Past Medical History: Yes Past Medical History: Anemia, CVA, Diabetes, Hypertension Past Surgical History: Yes Surgical History: Angioplasty/Stents - Family History History of Family Medical Conditions: Yes Family Medical History: Diabetes Mellitus, Cancer, [place], Coronary Artery Disease, Heart Failure, Sudden Cardiac , Hypertension - Social History Do you use any recreational Drugs:: No Lives With: Family Lives Where: Home - infectious screening In the last 2 months have you had wt loss of >10#?: NO Have you had fever, night sweats or hemotysis?: No Have you traveled outside the country in the last 6 months?: No Isolation: Standard ROS - Review of Systems Eyes: No Symptoms Reported ENTM: No Symptoms Reported Respiratoy: No Symptoms Reported Cardiovascular: No Symptoms Reported Gastrointestinal/Abdominal: No Symptoms Reported Genitourinary: No Symptoms Reported Neurological: No Symptoms Reported Musculoskeletal: No Symptoms Reported Integumentary: No Symptoms Reported Hematologic/Lymphatic: No Symptoms Reported Endocrine: No Symptoms Reported Psychiatric: No Symptoms Reported All Other Systems: Reviewed and Negative PE - Vital Signs Vitals: Temperature 98.7 F Pulse Rate 77 Respiratory Rate 18 Blood Pressure [Right Calf] 125/60 Blood Pressure [Left Arm] 165/79 Blood Pressure [Right Arm] 129/59 Blood Pressure 169/94 O2 Sat by Pulse Oximetry 96 - General General Appearance: Alert, In No Apparent Distress - Head Head Exam: Normal Inspection, Atraumatic - Eyes Eye exam: Normal Appearance, PERRL, EOMI - ENT ENT Exam: Normal Exam External Ear Exam: Normal External Inspection TM/Canal Exam: Bilateral Normal Nose Exam: Normal Nose Exam Mouth Exam: Normal Inspection Throat Exam: Normal Inspection - Neck Neck Exam: Normal Inspection, Full ROM - Chest Chest Inspection: Normal Inspection - Respiratory Respiratory Exam: Normal Lung Sounds Bilat Respiratory Exam: Bilateral Clear to Auscultation - Cardiovascular Cardiovascular Exam: Regular Rate, Normal Rhythm - Abdominal Exam Abdominal Exam: Normal Inspection, Normal Bowel Sounds Abdominal Tenderness: negative: RUQ, RLQ, LUQ, LLQ, Epigastrium, Suprapubic, Diffuse, Mild, Moderate, Severe, Other - Extremities Extremities Exam: Normal Inspection - Back Back Exam: Normal Inspection, Full ROM - Neurologic Neurological Exam: Alert, Oriented X3, CN II-XII Intact - Psychiatric Psychiatric Exam: Normal Affect, Normal Mood - Skin Skin Exam: Warm, Dry, Intact - Diagnosis Discharge Problem: Headache Qualifiers: Headache type: unspecified Headache chronicity pattern: chronic headache Intractability: not intractable Qualified Code(s): R51 - Headache - Discharge Plan Condition: Stable - Follow ups/Referrals Follow ups/Referrals: Trino FULTON [Primary Care Provider] - 3 days - Instructions
[2018-01-11] MEDS ORDERED: TORADOL 60 MG VIAL IM ONE (05:59)
[2018-01-11] MEDS ORDERED: TORADOL 60 MG VIAL ONE (06:01)
== END 2018-01-11 06:35 | disposition home or self-care (01) ==
LOC: ER 05:26
DX: R51 Headache (principal)
CPT/HCPCS: 96372; 99282; J1885

== ENCOUNTER 2018-01-12 13:42 | Emergency (ER) | payer MEDICAID ==
[2018-01-12 13:49] VITALS: BP 145/90; BMI 58.5
--- NOTE | 2018-01-12 14:24 | DR.HEADACH ---
HPI - Time Seen Time seen: 13:50 - Primary Care Physician Primary Care Physician: JONO COOL - HPI Comment HPI Comment: Patient presents with complaint of headache. She was seen two dasy ago with same complaint. She states that she takes lorcets but they make her sleepy. She was seen today by her eye doctor Dr Bowles and was told her eye pressures were a little high 25 OD/29OS; will follow up in two weeks, no treatment at this time. - Complaint/Symptoms Chief Complaint:: PATIENT STATED THAT SHE HAS HAD A HEADACHE FOR A WHILE. - Source History Provided: Patient - Mode of Arrival Mode of Arrival: Wheelchair - Timing Onset of Chief Complaint: 01/11/18 PMH - PMH Past Medical History: Yes Past Medical History: Anemia, CVA, Diabetes, Hypertension Past Surgical History: Yes Surgical History: Angioplasty/Stents - Family History History of Family Medical Conditions: Yes Family Medical History: Diabetes Mellitus, Cancer, [place], Coronary Artery Disease, Heart Failure, Sudden Cardiac , Hypertension - Social History Does patient currently use any type of tobacco product: Yes Have you used tobacco products in the last 12 months: Yes Type of Tobacco Use: Cigarettes Does any household member use tobacco: No Alcohol Use: None Do you use any recreational Drugs:: No Lives With: Family Lives Where: Home - infectious screening In the last 2 months have you had wt loss of >10#?: NO Have you had fever, night sweats or hemotysis?: No Have you traveled outside the country in the last 6 months?: No Isolation: Standard ROS - Review of Systems Eyes: No Symptoms Reported ENTM: No Symptoms Reported Respiratoy: No Symptoms Reported Cardiovascular: No Symptoms Reported Gastrointestinal/Abdominal: No Symptoms Reported Genitourinary: No Symptoms Reported Neurological: Headache Musculoskeletal: No Symptoms Reported Integumentary: No Symptoms Reported Hematologic/Lymphatic: No Symptoms Reported Endocrine: No Symptoms Reported Psychiatric: No Symptoms Reported All Other Systems: Reviewed and Negative PE - Vital Signs Vitals: Temperature 98.0 F Pulse Rate 75 Respiratory Rate 20 Blood Pressure [Right Calf] 125/60 Blood Pressure [Left Arm] 165/79 Blood Pressure [Right Arm] 129/59 Blood Pressure 145/90 O2 Sat by Pulse Oximetry 98 - General Limitations: No Limitations General Appearance: Alert - Head Head Exam: Normal Inspection, Atraumatic - Eyes Eye exam: Normal Appearance, PERRL, EOMI Eyelids: Normal Inspection: Bilateral Pupils: Regular, Round: Bilateral Sclera/Conjunctival: Normal Inspection: Bilateral - ENT ENT Exam: Normal Exam External Ear Exam: Normal External Inspection TM/Canal Exam: Bilateral Normal Nose Exam: Normal Nose Exam Mouth Exam: Normal Inspection Teeth Exam: Normal Inspection - Neck Neck Exam: Normal Inspection - Chest Chest Inspection: Normal Inspection - Respiratory Respiratory Exam: Normal Lung Sounds Bilat Respiratory Exam: Bilateral Clear to Auscultation - Cardiovascular Cardiovascular Exam: Regular Rate - Abdominal Exam Abdominal Exam: Normal Inspection Abdominal Tenderness: negative: RUQ, RLQ, LUQ, LLQ, Epigastrium, Suprapubic, Diffuse, Mild, Moderate, Severe, Other - Extremities Extremities Exam: Normal Inspection - Neurologic Neurological Exam: Alert, Oriented X3 - Skin Skin Exam: Warm, Dry, Intact Course - Reevaluation 1st: Improved ROR - XRAY XRAY Interpreted by: Radiologist (CT Brain: There are no abnormal intra-or extra -axial fluid collections,midline shift, or mass effect. Benedict-white differentation is normal. Global cortical involutional changes are present that are advanced for the patient's stated age. Lareg territorial bifrontal ischemic insult within the MCA distributions with associated encephalomalacia, right greater the left. The ventircular system is enlarged but commensurate with the degree of sulcal prominence. Periventricular and supraventricular white matter hypodensity is present that is nonspecific in appearance, but most likely to represent microvascular ischemic changes. Atherosclerotic vascular calcification is present within the carotid siphons and distal vertebral arteries. Frontal sinuses are non-pneumatized. The remaining paranasal sinuses , mastoid air cells and typinic spaces are clear. Impression: No definite evidence of an acute intracranial process. 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 Moderate microvascular white matter ischemic changes, with associated volume loss.) - Diagnosis Discharge Problem: No acute intracranial process, Chronic bifrontal MCA ischemic insult, Encephalomalacie, R>L, Mod microvascular white matter changes - Discharge Plan Condition: Stable - Follow ups/Referrals Follow ups/Referrals: JONO COOL [Primary Care Provider] - 3 days - Instructions
[2018-01-12] MEDS ORDERED: TORADOL TAB PO ONE ×2 (14:29→14:30)
--- NOTE | 2018-01-12 15:12 | CT ---
CT HEAD WITHOUT CONTRAST CLINICAL HISTORY: 51-year-old female with chronic headache COMPARISON: None. TECHNIQUE: Multiple, non-contrasted axial CT images were obtained from the skull base to the cranial vertex. Coronal and sagittal reformats were performed. FINDINGS: There are no abnormal intra- or extra-axial fluid collections, midline shift, or mass effec t. Benedict-white differentiation is normal. Global cortical involutional changes are present that are ad vanced for the patient's stated age. Large territorial bifrontal ischemic insult within the MCA distributions with associated encephalomal acia, right greater the left. The ventricular system is enlarged but commensurate with the degree of sulcal prominence. Periventric ular and supraventricular white matter hypodensity is present that is nonspecific in appearance, but most likely to represent microvascular ischemic changes. Atherosclerotic vascular calcification is pr esent within the carotid siphons and distal vertebral arteries. Frontal sinuses are non pneumatized. The remaining paranasal sinuses, mastoid air cells, and tympanic spaces are clear. IMPRESSION: 1. No definite evidence of an acute intracranial process. 2. Chronic large territorial bifrontal MCA distribution ischemic insult with associated encephalomala steven, right greater the left. 3. Moderate microvascular white matter ischemic changes, with associated volume loss. Reported By:
== END 2018-01-12 15:46 | disposition home or self-care (01) ==
LOC: ER 13:51
DX: I63.412 Cerebral infarction due to embolism of left middle cerebral artery (principal); G93.89 Other specified disorders of brain; R51 Headache
CPT/HCPCS: 70450; 99282; 99283

== ENCOUNTER 2018-01-26 15:40 | Emergency (ER) | payer MEDICAID ==
[2018-01-26 15:52] VITALS: BMI 58.5
--- NOTE | 2018-01-26 16:56 | DR.GENAD ---
HPI - PCP Primary Care Physician: JAYLAN - HPI Comment HPI Comment: HISTORY BELOW. - Complaint/Symptoms Chief Complaint Doctors Comments: GENERALIZE WEAKNESS AND NOT FEELING WELL. DENIES FEVER. HAVING DYSURIA ALSO. STARTED YESTERDAY. Chief Complaint:: PATIENT STATED THAT SHE HAS BEEN FEELING BAD SINCE YESTERDAY. PATIENT STATED THAT SHE HAS COME TO THE ER OVER THE LAST COUPLE OF MONTHS FOR HEADACHES BUT TODAY HER HEAD IS NOT HURTING. - Nurses notes reviewed Nurses Notes Review: Yes - Source History Provided: Patient, EMS - Mode of Arrival Mode of Arrival: EMS - Timing Onset of Chief Complaint: 01/26/18 Came on: Suddenly - Duration Duration: Constant Duration: Days - Severity Severity: Moderate PMH - PMH Past Medical History: Yes Past Medical History: Anemia, CVA, Diabetes, Hypertension Past Surgical History: Yes Surgical History: Angioplasty/Stents - Family History History of Family Medical Conditions: Yes Family Medical History: Diabetes Mellitus, Cancer, [place], Coronary Artery Disease, Heart Failure, Sudden Cardiac , Hypertension - Social History Does patient currently use any type of tobacco product: No Have you used tobacco products in the last 12 months: No Type of Tobacco Use: None Does any household member use tobacco: No Alcohol Use: None Do you use any recreational Drugs:: No Lives With: Family Lives Where: Home - infectious screening In the last 2 months have you had wt loss of >10#?: NO Have you had fever, night sweats or hemotysis?: No Have you traveled outside the country in the last 6 months?: No Isolation: Standard ROS - Review of Systems Constitutional: Weakness, Fatigue. negative: Chills, Fever Eyes: No Symptoms Reported. negative: Eye Pain, Discharge ENTM: negative: Ear Pain, Nose Discharge, Nose Congestion, Throat Pain Respiratoy: Non-Productive Cough, Short of Breath, Wheezing. negative: Productive Cough, Hemoptysis Cardiovascular: No Symptoms Reported Gastrointestinal/Abdominal: No Symptoms Reported. negative: Abdominal Pain, Nausea, Vomiting Genitourinary: Dysuria Neurological: Weakness Musculoskeletal: Muscle Pain Integumentary: No Symptoms Reported Hematologic/Lymphatic: Easy Bleeding, Easy Bruising Endocrine: No Symptoms Reported All Other Systems: Reviewed and Negative PE - Vital Signs Vitals: Pulse Rate [Left Radial] 59 Pulse Rate 61 Respiratory Rate 20 Blood Pressure [Right Calf] 125/60 Blood Pressure [Left Arm] 138/78 Blood Pressure [Right Arm] 138/78 Blood Pressure 141/83 O2 Sat by Pulse Oximetry 97 - General Limitations: No Limitations General Appearance: Alert - Head Head Exam: Normal Inspection - Eyes Eye exam: Normal Appearance - ENT ENT Exam: Normal External Ear Exam External Ear Exam: Normal External Inspection TM/Canal Exam: Bilateral Normal Nose Exam: Normal Nose Exam Mouth Exam: Normal Inspection Throat Exam: Normal Inspection - Neck Neck Exam: Trachea Midline - Chest Chest Inspection: Symmetric Chest Wall Rise - Respiratory Respiratory Exam: Normal Lung Sounds Bilat Respiratory Exam: Bilateral Wheezing, Bilateral Rhonchi, Lower Wheezing, Lower Rhonchi - Cardiovascular Cardiovascular Exam: Regular Rate, Normal Rhythm, Normal Heart Sounds - Abdominal Exam Abdominal Exam: Normal Bowel Sounds, Soft, Tenderness - Extremities Extremities Exam: Edema - Back Back Exam: Paraspinal Tenderness - Neurologic Neurological Exam: Alert, Oriented X3 - Psychiatric Psychiatric Exam: Normal Affect, Normal Mood - Skin Skin Exam: Normal Color MDM - Additional Information Additional Information Obtained From: Family - Differential Diagnosis Differential Diagnosis: GENERALIZE WEAKNESS, UTI, PNEUMONIA Course - Treatment Treatment: SEE ORDERS. - Education/Counseling Education/Counseling: Patient, Education Educated On: Diagnosis, Needs for Follow Up ROR - Labs Reviewed Laboratory Results Reviewed?: Yes Result Diagrams: 01/26/18 17:12 01/26/18 17:12 Laboratory: WBC 7.6 X10^3/uL (3.6-10.0) 01/26/18 17:12 RBC 4.47 X10^6/uL (3.5-5.4) 01/26/18 17:12 Hgb 12.0 g/dL (12.0-16.0) 01/26/18 17:12 Hct 36.5 % (36.0-47.0) 01/26/18 17:12 MCV 81.7 fL (80.0-100.0) 01/26/18 17:12 MCH 26.9 pg (27.0-34.0) L 01/26/18 17:12 MCHC 32.9 g/dL (33.0-35.0) L 01/26/18 17:12 RDW 16.4 % (11.6-16.5) 01/26/18 17:12 Plt Count 238 X10^3/uL (150.0-450.0) 01/26/18 17:12 MPV 8.8 fL (7.4-11.0) 01/26/18 17:12 Neut % (Auto) 61.5 % (42.0-75.0) 01/26/18 17:12 Lymph % (Auto) 29.1 % (21.0-51.0) 01/26/18 17:12 [place] % (Auto) 5.9 % (0.0-13.0) 01/26/18 17:12 Eos % (Auto) 2.7 % (0.9-2.9) 01/26/18 17:12 Baso % (Auto) 0.8 % (0.2-1.0) 01/26/18 17:12 Neut # (Auto) 4.7 x10^3/uL (2.2-4.8) 01/26/18 17:12 Lymph # (Auto) 2.2 X10^3/uL (1.3-2.9) 01/26/18 17:12 [place] # (Auto) 0.4 x10^3/uL (0.3-0.8) 01/26/18 17:12 Eos # (Auto) 0.2 x10^3/uL (0.0-0.2) 01/26/18 17:12 Baso # (Auto) 0.1 X10^3/uL (0.0-0.1) 01/26/18 17:12 Absolute Nucleated RBC 0.0 /100WBC 01/26/18 17:12 Sodium 139 mmol/L (136-145) 01/26/18 17:12 Corrected Sodium 143 mmol/L (136-145) 01/26/18 17:12 Potassium 3.9 mmol/L (3.5-5.1) 01/26/18 17:12 Chloride 104 mmol/L (98-107) 01/26/18 17:12 Carbon Dioxide 26.7 mmol/L (21-32) 01/26/18 17:12 BUN 25 mg/dL (7-18) H 01/26/18 17:12 Creatinine 1.10 mg/dL (0.55-1.02) H 01/26/18 17:12 Est GFR (MDRD) Af Amer > 60 (>60) 01/26/18 17:12 Est GFR (MDRD) Non-Af 56 (>60) L 01/26/18 17:12 Glucose 252 mg/dL (65-99) H 01/26/18 17:12 Calcium 9.5 mg/dL (8.5-10.1) 01/26/18 17:12 Corrected Calcium 10.3 mg/dL (8.5-10.1) H 01/26/18 17:12 Total Bilirubin 0.30 mg/dL (0.2-1.0) 01/26/18 17:12 AST 10 Units/L (15-37) L 01/26/18 17:12 ALT 23 Units/L (12-78) 01/26/18 17:12 Alkaline Phosphatase 91 Units/L (46-116) 01/26/18 17:12 Total Protein 8.3 g/dL (6.4-8.2) H 01/26/18 17:12 Albumin 3.0 g/dL (3.4-5.0) L 01/26/18 17:12 Globulin 5.3 g/dL (2.5-4.5) H 01/26/18 17:12 Albumin/Globulin Ratio 0.6 Ratio (1.1-2.1) L 01/26/18 17:12 - XRAY XRAY Interpreted by: Radiologist XRAY Findings: REPORT DISCUSS WITH PATIENT. - Diagnosis Discharge Problem: Generalized weakness, Cystitis - Discharge Plan Disposition: 01 HOME, SELF-CARE Condition: Stable Prescriptions: Sulfamethoxazole-Trimethoprim [BACTRIM DS TAB 800/160 MG *] 1 tab PO BID #20 tab - Follow ups/Referrals Follow ups/Referrals: LALI BUCIO [Primary Care Provider] - 3 days - Instructions Instructions: Weakness, [id number], Urinary Tract Infection, Adult, Easy-to- Read Additional Instructions: RETURN TO ED IF WORSE. YOU ARE TREATED FOR CYSTITIS.
[2018-01-26 17:25] LABS: BASOPHILS # (AUTO) 0.1 X10^3/uL (0.0-0.1); BASOPHILS % (AUTO) 0.8 % (0.2-1.0); EOSINOPHILS # (AUTO) 0.2 x10^3/uL (0.0-0.2); EOSINOPHILS % (AUTO) 2.7 % (0.9-2.9); HEMATOCRIT 36.5 % (36.0-47.0); LYMPHOCYTES # (AUTO) 2.2 X10^3/uL (1.3-2.9); LYMPHOCYTES % (AUTO) 29.1 % (21.0-51.0); MEAN CORPUSCULAR HEMOGLOBIN 26.9 pg (27.0-34.0); MEAN CORPUSCULAR HGB CONC 32.9 g/dL (33.0-35.0); MEAN CORPUSCULAR VOLUME 81.7 fL (80.0-100.0); MEAN PLATELET VOLUME 8.8 fL (7.4-11.0); MONOCYTES # (AUTO) 0.4 x10^3/uL (0.3-0.8); MONOCYTES % (AUTO) 5.9 % (0.0-13.0); NEUTROPHILS # (AUTO) 4.7 x10^3/uL (2.2-4.8); NEUTROPHILS % (AUTO) 61.5 % (42.0-75.0); PLATELET COUNT 238 X10^3/uL (150.0-450.0); RED BLOOD COUNT 4.47 X10^6/uL (3.5-5.4); RED CELL DISTRIBUTION WIDTH 16.4 % (11.6-16.5); WHITE BLOOD COUNT 7.6 X10^3/uL (3.6-10.0)
[2018-01-26 17:36] LABS: ALANINE AMINOTRANSFERASE 23 Units/L (12-78); ALKALINE PHOSPHATASE 91 Units/L (46-116); ASPARTATE AMINO TRANSFERASE 10 Units/L (15-37); BLOOD UREA NITROGEN 25 mg/dL (7-18); CALCIUM 9.5 mg/dL (8.5-10.1); CARBON DIOXIDE 26.7 mmol/L (21-32); CHLORIDE 104 mmol/L (98-107); COR CA(FOR HYPOALB) 10.3 mg/dL (8.5-10.1); COR NA(FOR HYPERGLY) 143 mmol/L (136-145); SODIUM 139 mmol/L (136-145); TOTAL PROTEIN 8.3 g/dL (6.4-8.2); eGFR BLACK RACES > 60 (>60); eGFR NON BLACK RACES 56 (>60)
--- NOTE | 2018-01-26 17:57 | RAD ---
HISTORY: Shortness of breath Study: Single view chest Comparison: 02/24/2017 Findings: Single portable view is submitted. Mild central pulmonary vascular congestion is noted that may be ch ronic in nature. No alveolar edema, effusion or pneumothorax identified. Stable cardiomegaly. The so ft tissues are unremarkable. IMPRESSION: 1. Cardiomegaly and mild central pulmonary vascular congestion without alveolar edema. Reported By:
[2018-01-26] MEDS ORDERED: BACTRIM DS TAB PO ONE ×2 (19:05→19:07)
[2018-01-26 19:19] VITALS: BP 138/78
== END 2018-01-26 19:18 | disposition home or self-care (01) ==
LOC: ER 15:52
DX: R53.1 Weakness (principal); N30.90 Cystitis, unspecified without hematuria; R94.31 Abnormal electrocardiogram [ECG] [EKG]; I51.7 Cardiomegaly
CPT/HCPCS: 36415; 71045; 80053; 85025; 93005; 93010; 96365; 99283

== ENCOUNTER → 2018-02-01 | Outpatient (CLI) | payer MEDICAID ==
[2018-01-26 19:19] VITALS: BP 138/78
--- NOTE | 2018-02-01 10:59 | US ---
HISTORY: Epigastric pain Study: Ultrasound of the abdomen complete Comparison: CT abdomen done 04/01/2017 Technique: Multiple dupree scale and color flow Doppler images of the abdomen were obtained. Findings: The liver is normal in echotexture. The liver is at the upper limits of normal in size measuring 19 c m in length. No intraparenchymal mass or intrahepatic biliary ductal dilatation can be identified. The gallbladder is unremarkable in its appearance. No evidence of gallbladder wall thickening or adis cholecystic fluid is seen. The common bile duct is normal measuring 2.7 mm. Doppler studies of sean l and hepatic veins reveal normal flow directions and waveforms. The visualized portions of the pancreas and spleen are normal in their echotexture and size. The right and left kidney are normal in echotexture and size. The right kidney measures 6.5 x 10 cm. The left kidney measures 5.2 x 10.6 cm. No mass, hydronephrosis, or stone can be identified. Abdominal aorta is not well seen due to patient habitus and overlying bowel gas. The inferior vena ca va is unremarkable as well. IMPRESSION: Upper limits normal hepatic size. No evidence of hepatic mass or biliary ductal ectasia is seen. Dopp ler studies are normal. Normal gallbladder, pancreas, spleen and kidneys. Reported By:
--- NOTE | 2018-02-01 11:00 | US ---
HISTORY: Dysfunctional uterine bleeding Study: Pelvic ultrasound: Multiplanar ultrasonographic examination of the pelvis was performed osuna sabdominally. Image quality is degraded by patient body habitus. Comparison: CT scan 06/04/2013 Findings: On the images submitted to il the uterus is enlarged measuring 9.8 cm in length by 5.4 x 3.3 cm. The re appears to be a large mass in the lower uterine segment measuring up to 3.7 cm in maximum dimensio n. This is partially submucosal. It is displacing the endometrium posteriorly. The endometrial echo complex is normal at 5.6 mm. Examination right adnexa reveals soft tissue structure measuring 3.2 x 1.4 cm felt to represent a nor mal-appearing right ovary. Vascular flow could not be determined secondary to patient body habitus. Examination left adnexa reveals no evidence of a mass. The ovary cannot be identified. I see no definite evidence of free pelvic fluid. IMPRESSION: 1. Large mass involving the lower uterine segment. This mass is homogeneous. 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 Other etiologies cannot be excluded. This appears to have been present on the prior CT scan and appeared have small calcifications within it. 2. Limited visualization secondary to patient body habitus. Reported By:
== END ==
LOC: RAD 09:32
PROVIDERS: ATTEND Nurse Practitioner Family
DX: N93.8 Other specified abnormal uterine and vaginal bleeding (principal)
CPT/HCPCS: 76700; 76856

== ENCOUNTER 2018-04-28 16:04 | Inpatient (IN) ==
[2018-04-28] MEDS ORDERED: PHARMACY CONSULT - VANCOMYCIN XX SCH (18:00)
[2018-04-28] MEDS ORDERED: PHARMACY CONSULT - DOSE _____ XX SCH (18:00)
--- NOTE | 2018-04-28 18:06 | DR.H&P ---
H&P - History & Physical for Day of: H&P Date: 04/28/18 - Chief Complaint Chief Complaint: RIGHT BREAST PAIN, REDNESS AND NIPPLE DRAINAGE - History of Present Illness History of Present Illness: 52 BF DIRECT ADMIT PER DR VENTURA FOR RIGHT BREAST ABSCESS, MASTITIS FAILED OUTPT TREATMENT. PT HAS TAKEN KEFLEX AND SEEN IN ER FOR BREAST ABSCESS, HAD OPT [facility] ORDERED. PT CO THICK FOUL SMELLING D/C FROM NIPPLE, INCREASED PAIN, SWELLING, REDNESS AND WARMTH. PT HAS PMH OF CVA, DM, HTN , OA, COPD, DVT. 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 - Family History Family Medical History: Diabetes Mellitus, Cancer, [place], Coronary Artery Disease, Heart Failure, Sudden Cardiac , Hypertension - Social History Does patient currently use any type of tobacco product: Yes Type of Tobacco Use: None Does any household member use tobacco: No Alcohol Use: None Drug Use: None - Medications Home Medications: acetaminophen Allergy (Verified 01/26/18 15:44) levofloxacin Allergy (Verified 01/26/18 15:44) procaine Allergy (Verified 01/26/18 15:44) propoxyphene Allergy (Verified 05/23/17 11:03) CONTINUE taking the following medications fluoxetine 20 mg PO QAM 04/28/18 [History] potassium chloride 10 meq PO BID 04/28/18 [History] pregabalin [Lyrica] 75 mg PO BID 04/28/18 [History] ranitidine HCl [Zantac] 150 mg PO QHS 04/28/18 [History] - Review of Systems Constitutional: Chills, Weakness Eyes: No Symptoms Reported ENT: No Symptoms Reported Respiratory: Shortness of Breath Cardiovascular: No Symptoms Reported Gastrointestinal: No Symptoms Reported Genitourinary: No Symptoms Reported Musculoskeletal: Leg Pain Skin: Wound (RIGHT BREAST) Neurological: Weakness - Physical Exam Vital Signs: Blood Pressure [Right Calf] 125/60 Blood Pressure [Left Arm] 138/78 Blood Pressure [Right Arm] 129/66 Blood Pressure 133/66 Oriented: Normal Eyes: Normal Ear: Normal Nose: Normal Throat: Normal Respiratory: RLL Diminished, LLL Diminished Cardiovascular: Normal, Edema : Normal Auscultation: Bowel Sounds: Normal Palpation: Normal Tenderness: Normal Skin: Red, Tender, Hot, Other (LOCALIZED REDNESS, SWELLING TO RIGHT BREAST UNDER NIPPLE WITH THICK MAL ODOROUS D/C FROM NIPPLE) Musculoskeletal: Right, Left, Knee, Leg, Tender, Motor Deficit, Sensory Deficit Psychiatric: Anxiety Affect: Anxious Speech Pattern: Clear, Appropriate - Assessment/Plan (1) Cellulitis of right breast Status: Acute Plan: ADMIT, BLOOD AND WOUND CULTURE. BREAST US, SURGICAL CONSULT. IV ATBX, PAIN CONTROL, BLOOD SUGAR AND BLOOD PRESSURE CONTROL WITH HOME MEDICATIONS RESUMED. VERIFY HOME MEDS, UA ON ADMISSION (2) Diabetes mellitus type 2, uncontrolled Status: Acute (3) Diabetes mellitus Status: Chronic (4) Essential hypertension Status: Chronic (5) GERD (gastroesophageal reflux disease) Status: Chronic (6) History of CVA (cerebrovascular accident) Status: Chronic - Allergies Allergies/Adverse Reactions: Allergies Allergy/AdvReac Type Severity Reaction Status Date / Time acetaminophen Allergy Verified 01/26/18 15:44 levofloxacin Allergy Verified 01/26/18 15:44 procaine Allergy Verified 01/26/18 15:44 propoxyphene Allergy Verified 05/23/17 11:03
[2018-04-28 18:38] LABS: BILIRUBIN,URINE NEGATIVE (NEGATIVE); BLOOD/HEMOGLOBIN,URINE 3+ (NEGATIVE); GLUCOSE, URINE 2+ (NEGATIVE); KETONES,URINE 1+ (NEGATIVE); LEUKOCYTE ESTERASE ,URINE 1+ (NEGATIVE); NITRITES,URINE NEGATIVE (NEGATIVE); PROTEIN,URINE 3+ (NEGATIVE); UROBILINOGEN,URINE 2+ (NORMAL)
[2018-04-28] MEDS: ASPIRIN 81 MG CHEWTAB PO SCH (18:38)
[2018-04-28 18:55] LABS: APPEARANCE,URINE CLEAR (CLEAR); COLOR,URINE DARK YELLOW (YELLOW)
[2018-04-28 18:56] LABS: AMORPHOUS SEDIMENT,UR 2+ /HPF (NEGATIVE); BACTERIA,URINE TRACE /HPF (NEGATIVE); SQUAMOUS EPITHELIAL CELL,UR FEW /HPF (NEGATIVE)
--- NOTE | 2018-04-28 18:56 | RAD ---
HISTORY: Mastitis Study: Single-view chest Comparison: 03/30/2018 Findings: The trachea is midline. The cardiac silhouette is stable. The lungs are clear without focal infiltr ate or effusion. The bony thorax is unremarkable. IMPRESSION: 1. No acute cardiopulmonary disease. Reported By:
[2018-04-28] MEDS ORDERED: XYLOCAINE 2 % (PLAIN) ONE (19:04)
--- NOTE | 2018-04-28 20:19 | DR.UPDATE ---
H&P Update History and Physical Update: History and Physical reviewed and patient examined. Changes noted: NO Yes with the following:agree with H&P. will place central line Procedures (ALL) - Central Line Placement PCM.CLCO: written consent Time out performed: Yes Patient placed pm monitor/pulse ox: Yes prep: mask, gown, gloves, other Centrial line prep: chlorhexidine scrub Local anesthsia used: lidocane 1% Ultrasound used for placement: Yes (right IJ identified, needle visualized thru IJ.) Central line lumen ininserted: triple Post procedure: sutured in place, good blood return, all ports aspirated, flushed,capped, sterile dressing applied Post procedure xray: tip oc catheter in good position, no pneumothorax seen Patient tolerated procedure: Yes Complications: none
[2018-04-28] MEDS ORDERED: NS IV ONE (20:20)
[2018-04-28] MEDS ORDERED: VANCOMYCIN HCL IV ONE (20:20)
--- NOTE | 2018-04-28 20:38 | RAD ---
History: Right-sided CVL insertion. Evaluate for pneumothorax. Exam: Single-view chest. Comparison: 04/28/2018. Findings: The trachea is midline. The cardiac silhouette remains enlarged. Chronic interstitial lung changes ar e appreciated. There has been insertion of right-sided IJ CVL is tip overlies the cavoatrial junction . There is no evidence for pneumothorax. No other acute cardiopulmonary changes from prior observed. The bony thorax is grossly stable. Impression: Right IJ CVL tip overlies the cavoatrial junction without evidence for pneumothorax. Enlarged cardiac silhouette remains. Chronic interstitial lung changes again noted. Reported By:
[2018-04-28] MEDS: LOPRESSOR TAB 50 MG PO SCH (21:04)
[2018-04-28] MEDS: NS 1000 ML 1,000 ML IV SCH (21:04)
[2018-04-28] MEDS: MILK OF MAGNESIA PO SCH (21:05)
[2018-04-28] MEDS: COLACE CAP 100 MG PO SCH (21:05)
[2018-04-28] MEDS: NEURONTIN CAP 300 MG PO SCH (21:10)
[2018-04-28 21:11] LABS: BASOPHILS # (AUTO) 0.1 X10^3/uL (0.0-0.1); BASOPHILS % (AUTO) 0.8 % (0.2-1.0); EOSINOPHILS # (AUTO) 0.1 x10^3/uL (0.0-0.2); EOSINOPHILS % (AUTO) 1.4 % (0.9-2.9); HEMATOCRIT 37.8 % (36.0-47.0); HEMOGLOBIN 12.5 g/dL (12.0-16.0); LYMPHOCYTES # (AUTO) 2.3 X10^3/uL (1.3-2.9); LYMPHOCYTES % (AUTO) 25.5 % (21.0-51.0); MEAN CORPUSCULAR HEMOGLOBIN 26.8 pg (27.0-34.0); MEAN CORPUSCULAR HGB CONC 33.1 g/dL (33.0-35.0); MEAN PLATELET VOLUME 9.1 fL (7.4-11.0); MONOCYTES # (AUTO) 0.5 x10^3/uL (0.3-0.8); MONOCYTES % (AUTO) 5.5 % (0.0-13.0); NEUTROPHILS % (AUTO) 66.8 % (42.0-75.0); PLATELET COUNT 202 X10^3/uL (150.0-450.0); RED BLOOD COUNT 4.67 X10^6/uL (3.5-5.4)
[2018-04-28 21:20] LABS: ALBUMIN 2.7 g/dL (3.4-5.0); CALCIUM 9.3 mg/dL (8.5-10.1); COR CA(FOR HYPOALB) 10.3 mg/dL (8.5-10.1); CREATININE 1.31 mg/dL (0.55-1.02); TOTAL PROTEIN 7.8 g/dL (6.4-8.2)
[2018-04-28 21:28] LABS: SERUM PREGNANCY TEST, QUAL NEGATIVE <10 mIU/mL
[2018-04-28] MEDS: NORCO 10/325 TAB PO PRN (22:08)
[2018-04-28] MEDS ORDERED: ZOSYN VIAL 3.375 GRAMS 3.375 G in NS 100 ML IV + SPIKE MINIBAG* 100 ML IV ONE (23:00)
[2018-04-29] MEDS: NEURONTIN CAP 300 MG PO SCH ×3 (05:14→21:27)
[2018-04-29] MEDS: ZOSYN VIAL 3.375 GRAMS 3.375 G in NS 100 ML IV + SPIKE MINIBAG* 100 ML IV SCH ×3 (05:14→21:27)
[2018-04-29 05:26] LABS: BASOPHILS # (AUTO) 0.1 X10^3/uL (0.0-0.1); EOSINOPHILS # (AUTO) 0.1 x10^3/uL (0.0-0.2); EOSINOPHILS % (AUTO) 1.7 % (0.9-2.9); HEMATOCRIT 38.5 % (36.0-47.0); HEMOGLOBIN 12.5 g/dL (12.0-16.0); MEAN CORPUSCULAR HEMOGLOBIN 26.7 pg (27.0-34.0); MEAN CORPUSCULAR HGB CONC 32.6 g/dL (33.0-35.0); MEAN CORPUSCULAR VOLUME 81.8 fL (80.0-100.0); MEAN PLATELET VOLUME 9.5 fL (7.4-11.0); MONOCYTES # (AUTO) 0.4 x10^3/uL (0.3-0.8); NEUTROPHILS # (AUTO) 4.8 x10^3/uL (2.2-4.8); NEUTROPHILS % (AUTO) 64.3 % (42.0-75.0); PLATELET COUNT 199 X10^3/uL (150.0-450.0); RED CELL DISTRIBUTION WIDTH 17.2 % (11.6-16.5); WHITE BLOOD COUNT 7.5 X10^3/uL (3.6-10.0)
[2018-04-29 05:40] LABS: ALANINE AMINOTRANSFERASE 21 Units/L (12-78); ALBUMIN 2.6 g/dL (3.4-5.0); ALKALINE PHOSPHATASE 93 Units/L (46-116); ASPARTATE AMINO TRANSFERASE 12 Units/L (15-37); BLOOD UREA NITROGEN 17 mg/dL (7-18); CARBON DIOXIDE 29.6 mmol/L (21-32); CHLORIDE 101 mmol/L (98-107); COR CA(FOR HYPOALB) 10.1 mg/dL (8.5-10.1); COR NA(FOR HYPERGLY) 143 mmol/L (136-145); CREATININE 1.21 mg/dL (0.55-1.02); SODIUM 139 mmol/L (136-145); TOTAL PROTEIN 7.7 g/dL (6.4-8.2); eGFR NON BLACK RACES 50 (>60)
[2018-04-29] MEDS: NORCO 10/325 TAB PO PRN ×4 (07:16→20:17)
--- NOTE | 2018-04-29 08:36 | US ---
HISTORY: Mastitis, right breast discharge, pain Study: Right breast ultrasound Comparison: January 29, 2016 and March 31, 2016 Technique: Multiple grayscale and color Doppler images of the right breast were obtained. Findings: Targeted sonographic evaluation of the region of interest at 3 o'clock in the subareolar breast demon strates diffuse edema as well as benign-appearing ductal ectasia and a calcified oil cyst. However, t here is an additional ill-defined fluid collection without significant internal vascularity but with mild peripheral vascularity measuring approximately 1.2 cm for which early abscess cannot be excluded . Clinical correlation and follow-up recommended. IMPRESSION: Diffuse edema consistent with mastitis with early abscess formation not excluded. A trial of therapy with short-term follow-up imaging is recommended. The patient should undergo bilateral mammographic i maging when clinically feasible on a routine outpatient nonemergent basis as the last mammogram in [facility] was from 2015. Reported By:
[2018-04-29] MEDS: HYZAAR 50/12.5 MG PO SCH (08:59)
[2018-04-29] MEDS: NORVASC TAB 10 MG PO SCH (08:59)
[2018-04-29] MEDS: LOPRESSOR TAB 50 MG PO SCH ×2 (08:59→20:17)
[2018-04-29] MEDS: ASPIRIN 81 MG CHEWTAB PO SCH (09:00)
[2018-04-29] MEDS: MILK OF MAGNESIA PO SCH ×2 (09:01→20:18)
[2018-04-29] MEDS: VANCOMYCIN HCL 1 GM VIAL 1 G in D5W 250 ML IV 250 ML IV SCH ×2 (09:08→20:18)
[2018-04-29] MEDS ORDERED: XYLOCAINE 1 % (PLAIN) ONE (13:29)
[2018-04-29] MEDS ORDERED: DILAUDID INJ ONE (13:29)
[2018-04-29] MEDS ORDERED: VERSED ONE (13:53)
--- NOTE | 2018-04-29 14:07 | PCM.PROG ---
Progress Note - Progress Note for Day of Date of Exam: 04/29/18 - Subjective Subjective: 52 BF ADMITTED ONE DAY AGO FROM DR CASTREJON OFFICE WITH RIGHT BREAST MASTITIS AND ABSCESS FORMATION. PT CURRENTLY ON IV ATBX, PAIN CONTROL, BLOOD SUGAR CONTROL. PT NPO FOR I &D THIS AM PER DR CROSS. REPEAT AM LABS - Past Medical Family Social History Past Med/Fam/Surg Hx: No changes since H&P Allergies: Allergies acetaminophen Allergy (Verified 01/26/18 15:44) levofloxacin Allergy (Verified 01/26/18 15:44) procaine Allergy (Verified 01/26/18 15:44) propoxyphene Allergy (Verified 05/23/17 11:03) - Review of Systems ROS: No change since H&P - Vital Signs and I&O's Vital Signs: Temperature 98.0 F Pulse Rate [Right Radial] 64 Respiratory Rate 20 Blood Pressure [Right Calf] 125/60 Blood Pressure [Left Arm] 138/78 Blood Pressure [Right Arm] 125/77 Blood Pressure 133/66 O2 Sat by Pulse Oximetry 93 Intake and Output: Intake & Output 04/27/18 04/28/18 04/29/18 04/30/18 11:59 11:59 11:59 11:59 Intake Total 830 / 830 Output Total 1000 / 1000 Balance -170 / -170 - Physical Exam Oriented: Normal Eyes: Normal Ear: Normal Nose: Normal Throat: Normal Respiratory: Diminished Cardiovascular: Normal, Edema : Normal Auscultation: Bowel Sounds: Normal Tenderness: Normal Skin: Red, Tender, Hot, Other (LOCALIZED REDNESS, SWELLING TO RIGHT BREAST UNDER NIPPLE WITH THICK MAL ODOROUS D/C FROM NIPPLE) Musculoskeletal: Right, Left, Knee, Leg, Tender, Motor Deficit, Sensory Deficit Psychiatric: Anxiety Affect: Anxious Speech Pattern: Clear, Appropriate - Laboratory and Diagnostics Result Diagrams: 04/29/18 04:53 04/29/18 04:53 Labs: 04/28/18 17:45 Thigh - Right Gram Stain - Final 04/28/18 17:45 Thigh - Right Wound Culture - Preliminary 04/28/18 18:28 Urine,Catheterized Urine Culture - Preliminary 04/28/18 17:15 Breast - Right Gram Stain - Final 04/28/18 17:15 Breast - Right Wound Culture - Preliminary Laboratory WBC 7.5 X10^3/uL (3.6-10.0) 04/29/18 04:53 RBC 4.70 X10^6/uL (3.5-5.4) 04/29/18 04:53 Hgb 12.5 g/dL (12.0-16.0) 04/29/18 04:53 Hct 38.5 % (36.0-47.0) 04/29/18 04:53 MCV 81.8 fL (80.0-100.0) 04/29/18 04:53 MCH 26.7 pg (27.0-34.0) L 04/29/18 04:53 MCHC 32.6 g/dL (33.0-35.0) L 04/29/18 04:53 RDW 17.2 % (11.6-16.5) H 04/29/18 04:53 Plt Count 199 X10^3/uL (150.0-450.0) 04/29/18 04:53 MPV 9.5 fL (7.4-11.0) 04/29/18 04:53 Neut % (Auto) 64.3 % (42.0-75.0) 04/29/18 04:53 Lymph % (Auto) 27.0 % (21.0-51.0) 04/29/18 04:53 [place] % (Auto) 6.0 % (0.0-13.0) 04/29/18 04:53 Eos % (Auto) 1.7 % (0.9-2.9) 04/29/18 04:53 Baso % (Auto) 1.0 % (0.2-1.0) 04/29/18 04:53 Neut # (Auto) 4.8 x10^3/uL (2.2-4.8) 04/29/18 04:53 Lymph # (Auto) 2.0 X10^3/uL (1.3-2.9) 04/29/18 04:53 [place] # (Auto) 0.4 x10^3/uL (0.3-0.8) 04/29/18 04:53 Eos # (Auto) 0.1 x10^3/uL (0.0-0.2) 04/29/18 04:53 Baso # (Auto) 0.1 X10^3/uL (0.0-0.1) 04/29/18 04:53 Absolute Nucleated RBC 0.0 /100WBC 04/29/18 04:53 INR Target Range - 04/28/18 19:45 INR 0.94 (0.8-1.3) 04/28/18 19:45 Sodium 139 mmol/L (136-145) 04/29/18 04:53 Corrected Sodium 143 mmol/L (136-145) 04/29/18 04:53 Potassium 3.7 mmol/L (3.5-5.1) 04/29/18 04:53 Chloride 101 mmol/L (98-107) 04/29/18 04:53 Carbon Dioxide 29.6 mmol/L (21-32) 04/29/18 04:53 BUN 17 mg/dL (7-18) 04/29/18 04:53 Creatinine 1.21 mg/dL (0.55-1.02) H 04/29/18 04:53 Est GFR (MDRD) Af Amer > 60 (>60) 04/29/18 04:53 Est GFR (MDRD) Non-Af 50 (>60) L 04/29/18 04:53 Glucose 287 mg/dL (65-99) H 04/29/18 04:53 POC Glucose (mg/dL) 261 mg/dL (65-99) H 04/29/18 12:03 Lactic Acid 1.7 mmol/L (0.4-2.0) 04/28/18 19:50 Calcium 9.0 mg/dL (8.5-10.1) 04/29/18 04:53 Corrected Calcium 10.1 mg/dL (8.5-10.1) 04/29/18 04:53 Total Bilirubin 0.20 mg/dL (0.2-1.0) 04/29/18 04:53 AST 12 Units/L (15-37) L 04/29/18 04:53 ALT 21 Units/L (12-78) 04/29/18 04:53 Alkaline Phosphatase 93 Units/L (46-116) 04/29/18 04:53 Total Protein 7.7 g/dL (6.4-8.2) 04/29/18 04:53 Albumin 2.6 g/dL (3.4-5.0) L 04/29/18 04:53 Globulin 5.1 g/dL (2.5-4.5) H 04/29/18 04:53 Albumin/Globulin Ratio 0.5 Ratio (1.1-2.1) L 04/29/18 04:53 HCG, Qual Negative <10 mIU/mL 04/28/18 19:50 Specimen Type Catherized urine 04/28/18 17:42 Urine Color Dark yellow (YELLOW) 04/28/18 17:42 Urine Appearance Clear (CLEAR) 04/28/18 17:42 Urine pH 5.0 (5.0 - 8.0) 04/28/18 17:42 Ur Specific [place] 1.015 (1.000-1.030) 04/28/18 17:42 Urine Protein 3+ (NEGATIVE) 04/28/18 17:42 Urine Glucose (UA) 2+ (NEGATIVE) 04/28/18 17:42 Urine Ketones 1+ (NEGATIVE) 04/28/18 17:42 Urine Occult Blood 3+ (NEGATIVE) 04/28/18 17:42 Urine Nitrite Negative (NEGATIVE) 04/28/18 17:42 Urine Bilirubin Negative (NEGATIVE) 04/28/18 17:42 Urine Urobilinogen 2+ (NORMAL) 04/28/18 17:42 Ur Leukocyte Esterase 1+ (NEGATIVE) 04/28/18 17:42 Urine RBC 10-20 /HPF (NONE SEEN) 04/28/18 17:42 Urine WBC 3-5 /HPF (NONE SEEN) 04/28/18 17:42 Ur Squamous Epith Cells Few /HPF (NEGATIVE) 04/28/18 17:42 Amorphous Sediment 2+ /HPF (NEGATIVE) 04/28/18 17:42 Urine Bacteria Trace /HPF (NEGATIVE) 04/28/18 17:42 Ur Culture Indicated? No/not indicated 04/28/18 17:42 - Plan (1) Cellulitis of right breast Status: Acute Plan: BLOOD AND WOUND CULTURES COLLECTED ON ADMISSION. BREAST US, SURGICAL CONSULT. IV ATBX, PAIN CONTROL, BLOOD SUGAR AND BLOOD PRESSURE CONTROL WITH HOME MEDICATIONS RESUMED. UA ON ADMISSION (2) Diabetes mellitus type 2, uncontrolled Status: Acute (3) Diabetes mellitus Status: Chronic (4) Essential hypertension Status: Chronic (5) GERD (gastroesophageal reflux disease) Status: Chronic (6) History of CVA (cerebrovascular accident) Status: Chronic
[2018-04-29] MEDS ORDERED: VERSED IVP ONE (14:10)
--- NOTE | 2018-04-29 15:19 | OR.GENERIC ---
Post-Op Note Generic - Post-Op Note Operative Report: I&D of Rt breast abscess was done at bed side . packed with Iodoform and cultured . Pt could be D/C on ATB and will follow next week . change dressing daily and keep the packing till seen in the office ..
[2018-04-29] MEDS: COLACE CAP 100 MG PO SCH (20:17)
[2018-04-29] MEDS: HumuLIN R SC PRN (20:19)
[2018-04-29] MEDS ORDERED: NS IV SCH (21:00)
[2018-04-29] MEDS ORDERED: VANCOMYCIN HCL IV SCH (21:00)
[2018-04-30] MEDS: NORCO 10/325 TAB PO PRN ×4 (00:13→20:57)
[2018-04-30] MEDS: NEURONTIN CAP 300 MG PO SCH ×3 (05:04→22:50)
[2018-04-30] MEDS: ZOSYN VIAL 3.375 GRAMS 3.375 G in NS 100 ML IV + SPIKE MINIBAG* 100 ML IV SCH ×3 (05:04→21:50)
[2018-04-30] MEDS: HumuLIN R SC PRN ×4 (06:11→20:58)
[2018-04-30 06:36] LABS: BASOPHILS % (AUTO) 0.5 % (0.2-1.0); EOSINOPHILS # (AUTO) 0.2 x10^3/uL (0.0-0.2); EOSINOPHILS % (AUTO) 2.5 % (0.9-2.9); HEMATOCRIT 35.4 % (36.0-47.0); HEMOGLOBIN 11.5 g/dL (12.0-16.0); LYMPHOCYTES # (AUTO) 2.1 X10^3/uL (1.3-2.9); LYMPHOCYTES % (AUTO) 33.6 % (21.0-51.0); MEAN CORPUSCULAR HEMOGLOBIN 26.7 pg (27.0-34.0); MEAN CORPUSCULAR HGB CONC 32.5 g/dL (33.0-35.0); MEAN CORPUSCULAR VOLUME 82.1 fL (80.0-100.0); MEAN PLATELET VOLUME 9.8 fL (7.4-11.0); MONOCYTES # (AUTO) 0.5 x10^3/uL (0.3-0.8); MONOCYTES % (AUTO) 7.6 % (0.0-13.0); NEUTROPHILS # (AUTO) 3.5 x10^3/uL (2.2-4.8); NEUTROPHILS % (AUTO) 55.8 % (42.0-75.0); PLATELET COUNT 194 X10^3/uL (150.0-450.0); RED BLOOD COUNT 4.31 X10^6/uL (3.5-5.4); RED CELL DISTRIBUTION WIDTH 16.9 % (11.6-16.5); WHITE BLOOD COUNT 6.2 X10^3/uL (3.6-10.0)
[2018-04-30 06:41] LABS: ALANINE AMINOTRANSFERASE 21 Units/L (12-78); ALBUMIN 2.5 g/dL (3.4-5.0); ALKALINE PHOSPHATASE 83 Units/L (46-116); ASPARTATE AMINO TRANSFERASE 12 Units/L (15-37); BLOOD UREA NITROGEN 16 mg/dL (7-18); CALCIUM 8.5 mg/dL (8.5-10.1); CARBON DIOXIDE 31.7 mmol/L (21-32); CHLORIDE 100 mmol/L (98-107); COR CA(FOR HYPOALB) 9.7 mg/dL (8.5-10.1); COR NA(FOR HYPERGLY) 140 mmol/L (136-145); CREATININE 1.07 mg/dL (0.55-1.02); SODIUM 136 mmol/L (136-145); TOTAL PROTEIN 7.4 g/dL (6.4-8.2); eGFR NON BLACK RACES 57 (>60)
[2018-04-30] MEDS: VANCOMYCIN HCL 1 GM VIAL 1 G in D5W 250 ML IV 250 ML IV SCH ×2 (08:56→21:56)
[2018-04-30] MEDS: ASPIRIN 81 MG CHEWTAB PO SCH (08:58)
[2018-04-30] MEDS: NORVASC TAB 10 MG PO SCH (08:58)
[2018-04-30] MEDS: HYZAAR 50/12.5 MG PO SCH (08:58)
[2018-04-30] MEDS: MILK OF MAGNESIA PO SCH ×2 (08:58→20:51)
[2018-04-30] MEDS: LOPRESSOR TAB 50 MG PO SCH ×2 (08:58→20:52)
[2018-04-30] MEDS: NS 1000 ML 1,000 ML IV SCH ×2 (08:59→18:17)
[2018-04-30 11:22] VITALS: BMI 44.4
[2018-04-30 19:46] LABS: CREATININE 1.21 mg/dL (0.55-1.02); VANCOMYCIN,TROUGH 11.8 ug/mL (15-20)
[2018-04-30] MEDS ORDERED: PHARMACY COMMENT IV NR (20:30)
[2018-04-30] MEDS: COLACE CAP 100 MG PO SCH (20:51)
[2018-04-30] MEDS ORDERED: PHARMACY CONSULT - VANCOMYCIN XX SCH (21:00)
[2018-04-30 21:27] LABS: BILIRUBIN,URINE NEGATIVE (NEGATIVE); BLOOD/HEMOGLOBIN,URINE 4+ (NEGATIVE); GLUCOSE, URINE 3+ (NEGATIVE); KETONES,URINE NEGATIVE (NEGATIVE); LEUKOCYTE ESTERASE ,URINE 1+ (NEGATIVE); NITRITES,URINE NEGATIVE (NEGATIVE); PROTEIN,URINE 3+ (NEGATIVE); UROBILINOGEN,URINE NORMAL (NORMAL)
[2018-04-30 21:35] LABS: APPEARANCE,URINE CLEAR (CLEAR); BACTERIA,URINE NEGATIVE /HPF (NEGATIVE); COLOR,URINE YELLOW (YELLOW); SQUAMOUS EPITHELIAL CELL,UR RARE /HPF (NEGATIVE)
[2018-04-30 21:36] LABS: YEAST,URINE FEW /HPF (NEGATIVE)
[2018-05-01] MEDS: NORCO 10/325 TAB PO PRN ×5 (01:51→23:55)
[2018-05-01] MEDS: NEURONTIN CAP 300 MG PO SCH ×3 (05:59→22:11)
[2018-05-01] MEDS: ZOSYN VIAL 3.375 GRAMS 3.375 G in NS 100 ML IV + SPIKE MINIBAG* 100 ML IV SCH ×3 (06:00→22:11)
[2018-05-01 06:16] LABS: BASOPHILS # (AUTO) 0.1 X10^3/uL (0.0-0.1); BASOPHILS % (AUTO) 1.7 % (0.2-1.0); EOSINOPHILS # (AUTO) 0.1 x10^3/uL (0.0-0.2); EOSINOPHILS % (AUTO) 1.9 % (0.9-2.9); HEMATOCRIT 34.8 % (36.0-47.0); HEMOGLOBIN 11.4 g/dL (12.0-16.0); LYMPHOCYTES # (AUTO) 2.1 X10^3/uL (1.3-2.9); LYMPHOCYTES % (AUTO) 30.9 % (21.0-51.0); MEAN CORPUSCULAR HEMOGLOBIN 26.9 pg (27.0-34.0); MEAN CORPUSCULAR HGB CONC 32.7 g/dL (33.0-35.0); MEAN CORPUSCULAR VOLUME 82.3 fL (80.0-100.0); MEAN PLATELET VOLUME 9.5 fL (7.4-11.0); MONOCYTES # (AUTO) 0.5 x10^3/uL (0.3-0.8); MONOCYTES % (AUTO) 7.4 % (0.0-13.0); NEUTROPHILS # (AUTO) 3.9 x10^3/uL (2.2-4.8); NEUTROPHILS % (AUTO) 58.1 % (42.0-75.0); PLATELET COUNT 188 X10^3/uL (150.0-450.0); RED BLOOD COUNT 4.23 X10^6/uL (3.5-5.4); RED CELL DISTRIBUTION WIDTH 16.8 % (11.6-16.5); WHITE BLOOD COUNT 6.6 X10^3/uL (3.6-10.0)
[2018-05-01 06:34] LABS: ALANINE AMINOTRANSFERASE 19 Units/L (12-78); ALBUMIN 2.4 g/dL (3.4-5.0); ALKALINE PHOSPHATASE 83 Units/L (46-116); ASPARTATE AMINO TRANSFERASE 14 Units/L (15-37); BLOOD UREA NITROGEN 15 mg/dL (7-18); CALCIUM 8.5 mg/dL (8.5-10.1); CARBON DIOXIDE 30.7 mmol/L (21-32); CHLORIDE 100 mmol/L (98-107); COR CA(FOR HYPOALB) 9.8 mg/dL (8.5-10.1); COR NA(FOR HYPERGLY) 141 mmol/L (136-145); CREATININE 1.02 mg/dL (0.55-1.02); SODIUM 135 mmol/L (136-145); TOTAL PROTEIN 7.1 g/dL (6.4-8.2); eGFR NON BLACK RACES > 60 (>60)
[2018-05-01] MEDS: HumuLIN R SC PRN ×4 (06:35→22:11)
[2018-05-01] MEDS: MILK OF MAGNESIA PO SCH ×3 (09:13→20:42)
[2018-05-01] MEDS: HYZAAR 50/12.5 MG PO SCH (09:13)
[2018-05-01] MEDS: LOPRESSOR TAB 50 MG PO SCH ×2 (09:13→20:42)
[2018-05-01] MEDS: VANCOMYCIN HCL 1 GM VIAL 1 G in D5W 250 ML IV 250 ML IV SCH ×2 (09:14→20:41)
[2018-05-01] MEDS: ASPIRIN 81 MG CHEWTAB PO SCH (09:14)
[2018-05-01] MEDS: NORVASC TAB 10 MG PO SCH (09:14)
--- NOTE | 2018-05-01 09:32 | PCM.PROG ---
Progress Note - Progress Note for Day of Date of Exam: 04/30/18 - Subjective Subjective: IS BEING TREATED FOR RIGHT BREAST MASTITIS. SHE IS ALERT AND ORIENTED, LYING IN BED ON MORNING ROUNDS. SHE CONTINUE WITH ERYTHEMA, EDEMA , AND WARMTH TO RIGHT BREAST. NO DRAINAGE NOTED TODAY. VITALS TODAY ARE 97.8-63- 20-94%-140/75. ABNORMAL LAB VALUES INCLUDE THE FOLLOWING: HGB 11.5, HCT 35.4, CREATININE 1.07, GLUCOSE 264, AST 12, ALBUMIN 2.5. CULTURES OF DRAINAGE ARE PENDING. SHE CONTINUES ON ZOSYN AND VANCOMYCIN. WE WILL CONTINUE WITH CURRENT PLAN OF CARE TODAY AND CONTINUE TO MONITOR PATIENT. - Past Medical Family Social History Past Med/Fam/Surg Hx: No changes since H&P Allergies: Allergies acetaminophen Allergy (Verified 01/26/18 15:44) levofloxacin Allergy (Verified 01/26/18 15:44) procaine Allergy (Verified 01/26/18 15:44) propoxyphene Allergy (Verified 05/23/17 11:03) - Review of Systems ROS: No change since H&P - Vital Signs and I&O's Vital Signs: Temperature 98.5 F Pulse Rate [Right Radial] 62 Respiratory Rate 20 Blood Pressure [Right Calf] 125/60 Blood Pressure [Left Arm] 138/78 Blood Pressure [Right Arm] 134/62 Blood Pressure 133/66 O2 Sat by Pulse Oximetry 95 Intake and Output: Intake & Output 04/28/18 04/29/18 04/30/18 05/01/18 11:59 11:59 11:59 11:59 Intake Total 830 / 830 1210 / 1210 1160 / 1160 Output Total 1000 / 1000 1450 / 1450 1350 / 1350 Balance -170 / -170 -240 / -240 -190 / -190 - Physical Exam Oriented: Normal Eyes: Normal Ear: Normal Nose: Normal Throat: Normal Respiratory: Diminished Cardiovascular: Normal, Edema : Normal Auscultation: Bowel Sounds: Normal Palpation: Normal Tenderness: Normal Skin: Red, Tender, Hot, Other (LOCALIZED REDNESS, SWELLING TO RIGHT BREAST UNDER NIPPLE WITH THICK MAL ODOROUS D/C FROM NIPPLE) Musculoskeletal: Right, Left, Knee, Leg, Tender, Motor Deficit, Sensory Deficit Psychiatric: Anxiety Affect: Anxious Speech Pattern: Clear, Appropriate - Laboratory and Diagnostics Result Diagrams: 05/01/18 05:33 05/01/18 05:33 Labs: 04/29/18 14:25 Breast - Right Gram Stain - Final 04/29/18 14:25 Breast - Right Wound Culture - Final 04/28/18 20:50 Blood Blood Culture - Preliminary 04/28/18 20:45 Blood Blood Culture - Preliminary 04/28/18 17:45 Thigh - Right Gram Stain - Final 04/28/18 17:45 Thigh - Right Wound Culture - Final 04/28/18 17:15 Breast - Right Gram Stain - Final 04/28/18 17:15 Breast - Right Wound Culture - Final 04/28/18 18:28 Urine,Catheterized Urine Culture - Preliminary Laboratory WBC 6.6 X10^3/uL (3.6-10.0) 05/01/18 05:33 RBC 4.23 X10^6/uL (3.5-5.4) 05/01/18 05:33 Hgb 11.4 g/dL (12.0-16.0) L 05/01/18 05:33 Hct 34.8 % (36.0-47.0) L 05/01/18 05:33 MCV 82.3 fL (80.0-100.0) 05/01/18 05:33 MCH 26.9 pg (27.0-34.0) L 05/01/18 05:33 MCHC 32.7 g/dL (33.0-35.0) L 05/01/18 05:33 RDW 16.8 % (11.6-16.5) H 05/01/18 05:33 Plt Count 188 X10^3/uL (150.0-450.0) 05/01/18 05:33 MPV 9.5 fL (7.4-11.0) 05/01/18 05:33 Neut % (Auto) 58.1 % (42.0-75.0) 05/01/18 05:33 Lymph % (Auto) 30.9 % (21.0-51.0) 05/01/18 05:33 [place] % (Auto) 7.4 % (0.0-13.0) 05/01/18 05:33 Eos % (Auto) 1.9 % (0.9-2.9) 05/01/18 05:33 Baso % (Auto) 1.7 % (0.2-1.0) H 05/01/18 05:33 Neut # (Auto) 3.9 x10^3/uL (2.2-4.8) 05/01/18 05:33 Lymph # (Auto) 2.1 X10^3/uL (1.3-2.9) 05/01/18 05:33 [place] # (Auto) 0.5 x10^3/uL (0.3-0.8) 05/01/18 05:33 Eos # (Auto) 0.1 x10^3/uL (0.0-0.2) 05/01/18 05:33 Baso # (Auto) 0.1 X10^3/uL (0.0-0.1) 05/01/18 05:33 Absolute Nucleated RBC 0.1 /100WBC 05/01/18 05:33 INR Target Range - 04/28/18 19:45 INR 0.94 (0.8-1.3) 04/28/18 19:45 Sodium 135 mmol/L (136-145) L 05/01/18 05:33 Corrected Sodium 141 mmol/L (136-145) 05/01/18 05:33 Potassium 4.1 mmol/L (3.5-5.1) 05/01/18 05:33 Chloride 100 mmol/L (98-107) 05/01/18 05:33 Carbon Dioxide 30.7 mmol/L (21-32) 05/01/18 05:33 BUN 15 mg/dL (7-18) 05/01/18 05:33 Creatinine 1.02 mg/dL (0.55-1.02) 05/01/18 05:33 Est GFR (MDRD) Af Amer > 60 (>60) 05/01/18 05:33 Est GFR (MDRD) Non-Af > 60 (>60) 05/01/18 05:33 Glucose 346 mg/dL (65-99) H 05/01/18 05:33 POC Glucose (mg/dL) 322 mg/dL (65-99) H 05/01/18 06:27 Lactic Acid 1.7 mmol/L (0.4-2.0) 04/28/18 19:50 Calcium 8.5 mg/dL (8.5-10.1) 05/01/18 05:33 Corrected Calcium 9.8 mg/dL (8.5-10.1) 05/01/18 05:33 Total Bilirubin 0.20 mg/dL (0.2-1.0) 05/01/18 05:33 AST 14 Units/L (15-37) L 05/01/18 05:33 ALT 19 Units/L (12-78) 05/01/18 05:33 Alkaline Phosphatase 83 Units/L (46-116) 05/01/18 05:33 Total Protein 7.1 g/dL (6.4-8.2) 05/01/18 05:33 Albumin 2.4 g/dL (3.4-5.0) L 05/01/18 05:33 Globulin 4.7 g/dL (2.5-4.5) H 05/01/18 05:33 Albumin/Globulin Ratio 0.5 Ratio (1.1-2.1) L 05/01/18 05:33 HCG, Qual Negative <10 mIU/mL 04/28/18 19:50 Specimen Type Catherized urine 04/30/18 20:45 Urine Color Yellow (YELLOW) 04/30/18 20:45 Urine Appearance Clear (CLEAR) 04/30/18 20:45 Urine pH 6.0 (5.0 - 8.0) 04/30/18 20:45 Ur Specific [place] 1.015 (1.000-1.030) 04/30/18 20:45 Urine Protein 3+ (NEGATIVE) 04/30/18 20:45 Urine Glucose (UA) 3+ (NEGATIVE) 04/30/18 20:45 Urine Ketones Negative (NEGATIVE) 04/30/18 20:45 Urine Occult Blood 4+ (NEGATIVE) 04/30/18 20:45 Urine Nitrite Negative (NEGATIVE) 04/30/18 20:45 Urine Bilirubin Negative (NEGATIVE) 04/30/18 20:45 Urine Urobilinogen Normal (NORMAL) 04/30/18 20:45 Ur Leukocyte Esterase 1+ (NEGATIVE) 04/30/18 20:45 Urine RBC 10-20 /HPF (NONE SEEN) 04/30/18 20:45 Urine WBC 0-2 /HPF (NONE SEEN) 04/30/18 20:45 Ur Squamous Epith Cells Rare /HPF (NEGATIVE) 04/30/18 20:45 Amorphous Sediment 2+ /HPF (NEGATIVE) 04/28/18 17:42 Urine Bacteria Negative /HPF (NEGATIVE) 04/30/18 20:45 Urine Yeast Few /HPF (NEGATIVE) 04/30/18 20:45 Ur Culture Indicated? No/not indicated 04/30/18 20:45 Vancomycin Trough 11.8 ug/mL (15-20) L 04/30/18 19:20 - Plan (1) Mastitis Status: Acute Plan: CONTINUE IV ANTIBIOTICS
--- NOTE | 2018-05-01 15:05 | PCM.PROG ---
Progress Note - Progress Note for Day of Date of Exam: 05/01/18 - Subjective Subjective: IS BEING TREATED FOR RIGHT BREAST MASTITIS. SHE IS ALERT AND ORIENTED, LYING IN BED ON MORNING ROUNDS. SHE CONTINUE WITH ERYTHEMA, EDEMA , AND WARMTH TO RIGHT BREAST. NO DRAINAGE NOTED TODAY. VITALS TODAY ARE 98.1-60- 20-98%NC-143/67. ABNORMAL LAB VALUES INCLUDE THE FOLLOWING: HGB 11.4, HCT 34.8, SODIUM 135, GLUCOSE 346, AST 14, ALBUMIN 2.4, GLOBULIN 4.7. CULTURES REPORT GROWTH OF COAGULASE NEGATIVE STAPH. SHE CONTINUES ON ZOSYN AND VANCOMYCIN. WE WILL CONTINUE WITH CURRENT PLAN OF CARE TODAY AND CONTINUE TO MONITOR PATIENT. - Past Medical Family Social History Past Med/Fam/Surg Hx: No changes since H&P Allergies: Allergies acetaminophen Allergy (Verified 01/26/18 15:44) levofloxacin Allergy (Verified 01/26/18 15:44) procaine Allergy (Verified 01/26/18 15:44) propoxyphene Allergy (Verified 05/23/17 11:03) - Review of Systems ROS: No change since H&P - Vital Signs and I&O's Vital Signs: Temperature 98 F Pulse Rate [Right Radial] 57 Respiratory Rate 18 Blood Pressure [Right Calf] 125/60 Blood Pressure [Left Arm] 138/78 Blood Pressure [Right Arm] 143/67 Blood Pressure 133/66 O2 Sat by Pulse Oximetry 94 Intake and Output: Intake & Output 04/29/18 04/30/18 05/01/18 05/02/18 11:59 11:59 11:59 11:59 Intake Total 830 / 830 1210 / 1210 1160 / 1160 Output Total 1000 / 1000 1450 / 1450 1350 / 1350 Balance -170 / -170 -240 / -240 -190 / -190 - Physical Exam Oriented: Normal Eyes: Normal Ear: Normal Nose: Normal Throat: Normal Respiratory: Diminished Cardiovascular: Normal, Edema : Normal Auscultation: Bowel Sounds: Normal Tenderness: Normal Skin: Red, Tender, Hot, Other (LOCALIZED REDNESS, SWELLING TO RIGHT BREAST UNDER NIPPLE WITH THICK MAL ODOROUS D/C FROM NIPPLE) Musculoskeletal: Right, Left, Knee, Leg, Tender, Motor Deficit, Sensory Deficit Psychiatric: Anxiety Affect: Anxious Speech Pattern: Clear, Appropriate - Laboratory and Diagnostics Result Diagrams: 05/01/18 05:33 05/01/18 05:33 Labs: 04/29/18 14:25 Breast - Right Gram Stain - Final 04/29/18 14:25 Breast - Right Wound Culture - Final 04/28/18 20:50 Blood Blood Culture - Preliminary 04/28/18 20:45 Blood Blood Culture - Preliminary 04/28/18 17:45 Thigh - Right Gram Stain - Final 04/28/18 17:45 Thigh - Right Wound Culture - Final 04/28/18 17:15 Breast - Right Gram Stain - Final 04/28/18 17:15 Breast - Right Wound Culture - Final 04/28/18 18:28 Urine,Catheterized Urine Culture - Preliminary Laboratory WBC 6.6 X10^3/uL (3.6-10.0) 05/01/18 05:33 RBC 4.23 X10^6/uL (3.5-5.4) 05/01/18 05:33 Hgb 11.4 g/dL (12.0-16.0) L 05/01/18 05:33 Hct 34.8 % (36.0-47.0) L 05/01/18 05:33 MCV 82.3 fL (80.0-100.0) 05/01/18 05:33 MCH 26.9 pg (27.0-34.0) L 05/01/18 05:33 MCHC 32.7 g/dL (33.0-35.0) L 05/01/18 05:33 RDW 16.8 % (11.6-16.5) H 05/01/18 05:33 Plt Count 188 X10^3/uL (150.0-450.0) 05/01/18 05:33 MPV 9.5 fL (7.4-11.0) 05/01/18 05:33 Neut % (Auto) 58.1 % (42.0-75.0) 05/01/18 05:33 Lymph % (Auto) 30.9 % (21.0-51.0) 05/01/18 05:33 [place] % (Auto) 7.4 % (0.0-13.0) 05/01/18 05:33 Eos % (Auto) 1.9 % (0.9-2.9) 05/01/18 05:33 Baso % (Auto) 1.7 % (0.2-1.0) H 05/01/18 05:33 Neut # (Auto) 3.9 x10^3/uL (2.2-4.8) 05/01/18 05:33 Lymph # (Auto) 2.1 X10^3/uL (1.3-2.9) 05/01/18 05:33 [place] # (Auto) 0.5 x10^3/uL (0.3-0.8) 05/01/18 05:33 Eos # (Auto) 0.1 x10^3/uL (0.0-0.2) 05/01/18 05:33 Baso # (Auto) 0.1 X10^3/uL (0.0-0.1) 05/01/18 05:33 Absolute Nucleated RBC 0.1 /100WBC 05/01/18 05:33 INR Target Range - 04/28/18 19:45 INR 0.94 (0.8-1.3) 04/28/18 19:45 Sodium 135 mmol/L (136-145) L 05/01/18 05:33 Corrected Sodium 141 mmol/L (136-145) 05/01/18 05:33 Potassium 4.1 mmol/L (3.5-5.1) 05/01/18 05:33 Chloride 100 mmol/L (98-107) 05/01/18 05:33 Carbon Dioxide 30.7 mmol/L (21-32) 05/01/18 05:33 BUN 15 mg/dL (7-18) 05/01/18 05:33 Creatinine 1.02 mg/dL (0.55-1.02) 05/01/18 05:33 Est GFR (MDRD) Af Amer > 60 (>60) 05/01/18 05:33 Est GFR (MDRD) Non-Af > 60 (>60) 05/01/18 05:33 Glucose 346 mg/dL (65-99) H 05/01/18 05:33 POC Glucose (mg/dL) 302 mg/dL (65-99) H 05/01/18 12:07 Lactic Acid 1.7 mmol/L (0.4-2.0) 08/02/18 19:50 Calcium 8.5 mg/dL (8.5-10.1) 05/01/18 05:33 Corrected Calcium 9.8 mg/dL (8.5-10.1) 05/01/18 05:33 Total Bilirubin 0.20 mg/dL (0.2-1.0) 05/01/18 05:33 AST 14 Units/L (15-37) L 05/01/18 05:33 ALT 19 Units/L (12-78) 05/01/18 05:33 Alkaline Phosphatase 83 Units/L (46-116) 05/01/18 05:33 Total Protein 7.1 g/dL (6.4-8.2) 05/01/18 05:33 Albumin 2.4 g/dL (3.4-5.0) L 05/01/18 05:33 Globulin 4.7 g/dL (2.5-4.5) H 05/01/18 05:33 Albumin/Globulin Ratio 0.5 Ratio (1.1-2.1) L 05/01/18 05:33 HCG, Qual Negative <10 mIU/mL 04/28/18 19:50 Specimen Type Catherized urine 04/30/18 20:45 Urine Color Yellow (YELLOW) 04/30/18 20:45 Urine Appearance Clear (CLEAR) 04/30/18 20:45 Urine pH 6.0 (5.0 - 8.0) 04/30/18 20:45 Ur Specific Panther 1.015 (1.000-1.030) 04/30/18 20:45 Urine Protein 3+ (NEGATIVE) 04/30/18 20:45 Urine Glucose (UA) 3+ (NEGATIVE) 04/30/18 20:45 Urine Ketones Negative (NEGATIVE) 04/30/18 20:45 Urine Occult Blood 4+ (NEGATIVE) 04/30/18 20:45 Urine Nitrite Negative (NEGATIVE) 04/30/18 20:45 Urine Bilirubin Negative (NEGATIVE) 04/30/18 20:45 Urine Urobilinogen Normal (NORMAL) 04/30/18 20:45 Ur Leukocyte Esterase 1+ (NEGATIVE) 04/30/18 20:45 Urine RBC 10-20 /HPF (NONE SEEN) 04/30/18 20:45 Urine WBC 0-2 /HPF (NONE SEEN) 04/30/18 20:45 Ur Squamous Epith Cells Rare /HPF (NEGATIVE) 04/30/18 20:45 Amorphous Sediment 2+ /HPF (NEGATIVE) 04/28/18 17:42 Urine Bacteria Negative /HPF (NEGATIVE) 04/30/18 20:45 Urine Yeast Few /HPF (NEGATIVE) 04/30/18 20:45 Ur Culture Indicated? No/not indicated 04/30/18 20:45 Vancomycin Trough 11.8 ug/mL (15-20) L 04/30/18 19:20 - Plan (1) Mastitis Status: Acute Plan: CONTINUE IV ANTIBIOTICS
[2018-05-01] MEDS: COLACE CAP 100 MG PO SCH (20:41)
[2018-05-01] MEDS ORDERED: PHARMACY COMMENT IV SCH (20:45)
[2018-05-01] MEDS: VISTARIL PO PRN (22:12)
[2018-05-01] MEDS: NS 1000 ML 1,000 ML IV SCH (23:56)
[2018-05-02] MEDS: ZOSYN VIAL 3.375 GRAMS 3.375 G in NS 100 ML IV + SPIKE MINIBAG* 100 ML IV SCH ×3 (05:10→21:05)
[2018-05-02] MEDS: NEURONTIN CAP 300 MG PO SCH ×3 (05:10→21:03)
[2018-05-02] MEDS: HumuLIN R SC PRN ×4 (06:08→21:04)
[2018-05-02] MEDS: NORCO 10/325 TAB PO PRN ×3 (06:09→17:39)
[2018-05-02 06:22] LABS: BASOPHILS % (AUTO) 0.5 % (0.2-1.0); EOSINOPHILS # (AUTO) 0.1 x10^3/uL (0.0-0.2); EOSINOPHILS % (AUTO) 2.4 % (0.9-2.9); HEMATOCRIT 35.8 % (36.0-47.0); HEMOGLOBIN 11.6 g/dL (12.0-16.0); LYMPHOCYTES % (AUTO) 32.1 % (21.0-51.0); MEAN CORPUSCULAR HEMOGLOBIN 26.6 pg (27.0-34.0); MEAN CORPUSCULAR HGB CONC 32.5 g/dL (33.0-35.0); MEAN PLATELET VOLUME 9.2 fL (7.4-11.0); MONOCYTES # (AUTO) 0.5 x10^3/uL (0.3-0.8); MONOCYTES % (AUTO) 8.7 % (0.0-13.0); NEUTROPHILS # (AUTO) 3.4 x10^3/uL (2.2-4.8); NEUTROPHILS % (AUTO) 56.3 % (42.0-75.0); PLATELET COUNT 198 X10^3/uL (150.0-450.0); RED BLOOD COUNT 4.37 X10^6/uL (3.5-5.4); RED CELL DISTRIBUTION WIDTH 16.5 % (11.6-16.5); WHITE BLOOD COUNT 6.1 X10^3/uL (3.6-10.0)
[2018-05-02 06:24] LABS: VANCOMYCIN,TROUGH 11.9 ug/mL (15-20)
[2018-05-02 06:29] LABS: ALANINE AMINOTRANSFERASE 20 Units/L (12-78); ALBUMIN 2.4 g/dL (3.4-5.0); ALKALINE PHOSPHATASE 77 Units/L (46-116); ASPARTATE AMINO TRANSFERASE 13 Units/L (15-37); BLOOD UREA NITROGEN 14 mg/dL (7-18); CALCIUM 8.2 mg/dL (8.5-10.1); CHLORIDE 98 mmol/L (98-107); COR CA(FOR HYPOALB) 9.5 mg/dL (8.5-10.1); COR NA(FOR HYPERGLY) 140 mmol/L (136-145); CREATININE 1.01 mg/dL (0.55-1.02); SODIUM 135 mmol/L (136-145); TOTAL PROTEIN 7.1 g/dL (6.4-8.2); eGFR NON BLACK RACES > 60 (>60)
[2018-05-02] MEDS ORDERED: DULCOLAX SUPPOSITORY 10 MG RECTAL ONE (09:14)
[2018-05-02] MEDS: HYZAAR 50/12.5 MG PO SCH (09:27)
[2018-05-02] MEDS: VISTARIL PO PRN ×2 (09:27→21:04)
[2018-05-02] MEDS: ASPIRIN 81 MG CHEWTAB PO SCH (09:27)
[2018-05-02] MEDS: LOPRESSOR TAB 50 MG PO SCH ×2 (09:27→21:02)
[2018-05-02] MEDS: MILK OF MAGNESIA PO SCH ×3 (09:28→22:06)
[2018-05-02] MEDS: NORVASC TAB 10 MG PO SCH (09:45)
[2018-05-02] MEDS: VANCOMYCIN HCL 1 GM VIAL 1 G in D5W 250 ML IV 250 ML IV SCH ×2 (09:45→21:03)
--- NOTE | 2018-05-02 13:31 | PCM.PROG ---
Progress Note - Progress Note for Day of Date of Exam: 05/02/18 - Subjective Subjective: IS BEING TREATED FOR RIGHT BREAST MASTITIS. SHE IS ALERT AND ORIENTED, LYING IN BED ON MORNING ROUNDS. SHE CONTINUE WITH ERYTHEMA, EDEMA , AND WARMTH TO RIGHT BREAST. NO DRAINAGE NOTED TODAY. CULTURES REPORT GROWTH OF COAGULASE NEGATIVE STAPH. SHE CONTINUES ON ZOSYN AND VANCOMYCIN. WE WILL CONTINUE WITH CURRENT PLAN OF CARE TODAY AND CONTINUE TO MONITOR PATIENT. BLADDER TRAINING TO D/C MARCELA MATOS TO EVALUATE PATIENT. ARRANGE FOR PLAN OF CARE ON DISCHARGE - Past Medical Family Social History Past Med/Fam/Surg Hx: No changes since H&P Allergies: Allergies acetaminophen Allergy (Verified 01/26/18 15:44) levofloxacin Allergy (Verified 01/26/18 15:44) procaine Allergy (Verified 01/26/18 15:44) propoxyphene Allergy (Verified 05/23/17 11:03) - Review of Systems ROS: No change since H&P - Vital Signs and I&O's Vital Signs: Temperature 98 F Pulse Rate [Right Radial] 58 Respiratory Rate 20 Blood Pressure [Right Calf] 125/60 Blood Pressure [Left Arm] 138/78 Blood Pressure [Right Arm] 141/73 Blood Pressure 133/66 O2 Sat by Pulse Oximetry 96 Intake and Output: Intake & Output 04/30/18 05/01/18 05/02/18 05/03/18 11:59 11:59 11:59 11:59 Intake Total 1210 / 1210 1160 / 1160 2720 / 2720 Output Total 1450 / 1450 1350 / 1350 1850 / 1850 Balance -240 / -240 -190 / -190 870 / 870 - Physical Exam Oriented: Normal Eyes: Normal Ear: Normal Nose: Normal Throat: Normal Respiratory: Diminished Cardiovascular: Normal, Edema : Normal Auscultation: Bowel Sounds: Normal Tenderness: Normal Skin: Red, Tender, Hot, Other (LOCALIZED REDNESS, SWELLING TO RIGHT BREAST UNDER NIPPLE WITH THICK MAL ODOROUS D/C FROM NIPPLE) Musculoskeletal: Right, Left, Knee, Leg, Tender, Motor Deficit, Sensory Deficit Psychiatric: Anxiety Affect: Anxious Speech Pattern: Clear, Appropriate - Laboratory and Diagnostics Result Diagrams: 05/02/18 05:36 05/02/18 05:36 Labs: 04/28/18 18:28 Urine,Catheterized Urine Culture - Final 04/29/18 14:25 Breast - Right Gram Stain - Final 04/29/18 14:25 Breast - Right Wound Culture - Final 04/28/18 20:50 Blood Blood Culture - Preliminary 04/28/18 20:45 Blood Blood Culture - Preliminary 04/28/18 17:45 Thigh - Right Gram Stain - Final 04/28/18 17:45 Thigh - Right Wound Culture - Final 04/28/18 17:15 Breast - Right Gram Stain - Final 04/28/18 17:15 Breast - Right Wound Culture - Final Laboratory WBC 6.1 X10^3/uL (3.6-10.0) 05/02/18 05:36 RBC 4.37 X10^6/uL (3.5-5.4) 05/02/18 05:36 Hgb 11.6 g/dL (12.0-16.0) L 05/02/18 05:36 Hct 35.8 % (36.0-47.0) L 05/02/18 05:36 MCV 82.0 fL (80.0-100.0) 05/02/18 05:36 MCH 26.6 pg (27.0-34.0) L 05/02/18 05:36 MCHC 32.5 g/dL (33.0-35.0) L 05/02/18 05:36 RDW 16.5 % (11.6-16.5) 05/02/18 05:36 Plt Count 198 X10^3/uL (150.0-450.0) 05/02/18 05:36 MPV 9.2 fL (7.4-11.0) 05/02/18 05:36 Neut % (Auto) 56.3 % (42.0-75.0) 05/02/18 05:36 Lymph % (Auto) 32.1 % (21.0-51.0) 05/02/18 05:36 [place] % (Auto) 8.7 % (0.0-13.0) 05/02/18 05:36 Eos % (Auto) 2.4 % (0.9-2.9) 05/02/18 05:36 Baso % (Auto) 0.5 % (0.2-1.0) 05/02/18 05:36 Neut # (Auto) 3.4 x10^3/uL (2.2-4.8) 05/02/18 05:36 Lymph # (Auto) 2.0 X10^3/uL (1.3-2.9) 05/02/18 05:36 [place] # (Auto) 0.5 x10^3/uL (0.3-0.8) 05/02/18 05:36 Eos # (Auto) 0.1 x10^3/uL (0.0-0.2) 05/02/18 05:36 Baso # (Auto) 0.0 X10^3/uL (0.0-0.1) 05/02/18 05:36 Absolute Nucleated RBC 0.1 /100WBC 05/02/18 05:36 INR Target Range - 04/28/18 19:45 INR 0.94 (0.8-1.3) 04/28/18 19:45 Sodium 135 mmol/L (136-145) L 05/02/18 05:36 Corrected Sodium 140 mmol/L (136-145) 05/02/18 05:36 Potassium 4.0 mmol/L (3.5-5.1) 05/02/18 05:36 Chloride 98 mmol/L (98-107) 05/02/18 05:36 Carbon Dioxide 34.0 mmol/L (21-32) H 05/02/18 05:36 BUN 14 mg/dL (7-18) 05/02/18 05:36 Creatinine 1.01 mg/dL (0.55-1.02) 05/02/18 05:36 Est GFR (MDRD) Af Amer > 60 (>60) 05/02/18 05:36 Est GFR (MDRD) Non-Af > 60 (>60) 05/02/18 05:36 Glucose 314 mg/dL (65-99) H 05/02/18 05:36 POC Glucose (mg/dL) 359 mg/dL (65-99) H 05/02/18 11:32 Lactic Acid 1.7 mmol/L (0.4-2.0) 04/28/18 19:50 Calcium 8.2 mg/dL (8.5-10.1) L 05/02/18 05:36 Corrected Calcium 9.5 mg/dL (8.5-10.1) 05/02/18 05:36 Total Bilirubin 0.20 mg/dL (0.2-1.0) 05/02/18 05:36 AST 13 Units/L (15-37) L 05/02/18 05:36 ALT 20 Units/L (12-78) 05/02/18 05:36 Alkaline Phosphatase 77 Units/L (46-116) 05/02/18 05:36 Total Protein 7.1 g/dL (6.4-8.2) 05/02/18 05:36 Albumin 2.4 g/dL (3.4-5.0) L 05/02/18 05:36 Globulin 4.7 g/dL (2.5-4.5) H 05/02/18 05:36 Albumin/Globulin Ratio 0.5 Ratio (1.1-2.1) L 05/02/18 05:36 HCG, Qual Negative <10 mIU/mL 04/28/18 19:50 Specimen Type Catherized urine 04/30/18 20:45 Urine Color Yellow (YELLOW) 04/30/18 20:45 Urine Appearance Clear (CLEAR) 04/30/18 20:45 Urine pH 6.0 (5.0 - 8.0) 04/30/18 20:45 Ur Specific [place] 1.015 (1.000-1.030) 04/30/18 20:45 Urine Protein 3+ (NEGATIVE) 04/30/18 20:45 Urine Glucose (UA) 3+ (NEGATIVE) 04/30/18 20:45 Urine Ketones Negative (NEGATIVE) 04/30/18 20:45 Urine Occult Blood 4+ (NEGATIVE) 04/30/18 20:45 Urine Nitrite Negative (NEGATIVE) 04/30/18 20:45 Urine Bilirubin Negative (NEGATIVE) 04/30/18 20:45 Urine Urobilinogen Normal (NORMAL) 04/30/18 20:45 Ur Leukocyte Esterase 1+ (NEGATIVE) 04/30/18 20:45 Urine RBC 10-20 /HPF (NONE SEEN) 04/30/18 20:45 Urine WBC 0-2 /HPF (NONE SEEN) 04/30/18 20:45 Ur Squamous Epith Cells Rare /HPF (NEGATIVE) 04/30/18 20:45 Amorphous Sediment 2+ /HPF (NEGATIVE) 04/28/18 17:42 Urine Bacteria Negative /HPF (NEGATIVE) 04/30/18 20:45 Urine Yeast Few /HPF (NEGATIVE) 04/30/18 20:45 Ur Culture Indicated? No/not indicated 04/30/18 20:45 Vancomycin Trough 11.9 ug/mL (15-20) L 05/02/18 05:36 - Plan (1) Cellulitis of right breast Status: Acute Plan: BLOOD AND WOUND CULTURES COLLECTED ON ADMISSION. BREAST US, SURGICAL CONSULT PER DR CROSS. IV ATBX, PAIN CONTROL, BLOOD SUGAR AND BLOOD PRESSURE CONTROL WITH HOME MEDICATIONS RESUMED (2) Diabetes mellitus type 2, uncontrolled Status: Acute (3) Diabetes mellitus Status: Chronic (4) Essential hypertension Status: Chronic (5) GERD (gastroesophageal reflux disease) Status: Chronic (6) History of CVA (cerebrovascular accident) Status: Chronic
[2018-05-02] MEDS: COLACE CAP 100 MG PO SCH (21:02)
[2018-05-03] MEDS: NORCO 10/325 TAB PO PRN ×2 (00:04→05:34)
[2018-05-03] MEDS: NEURONTIN CAP 300 MG PO SCH (05:34)
[2018-05-03] MEDS: ZOSYN VIAL 3.375 GRAMS 3.375 G in NS 100 ML IV + SPIKE MINIBAG* 100 ML IV SCH (05:34)
[2018-05-03 06:06] LABS: BASOPHILS % (AUTO) 0.2 % (0.2-1.0); EOSINOPHILS # (AUTO) 0.2 x10^3/uL (0.0-0.2); EOSINOPHILS % (AUTO) 2.6 % (0.9-2.9); HEMATOCRIT 36.4 % (36.0-47.0); HEMOGLOBIN 11.8 g/dL (12.0-16.0); LYMPHOCYTES # (AUTO) 1.9 X10^3/uL (1.3-2.9); LYMPHOCYTES % (AUTO) 29.2 % (21.0-51.0); MEAN CORPUSCULAR HEMOGLOBIN 26.7 pg (27.0-34.0); MEAN CORPUSCULAR HGB CONC 32.3 g/dL (33.0-35.0); MEAN CORPUSCULAR VOLUME 82.6 fL (80.0-100.0); MEAN PLATELET VOLUME 9.5 fL (7.4-11.0); MONOCYTES # (AUTO) 0.4 x10^3/uL (0.3-0.8); MONOCYTES % (AUTO) 6.8 % (0.0-13.0); NEUTROPHILS # (AUTO) 3.9 x10^3/uL (2.2-4.8); NEUTROPHILS % (AUTO) 61.2 % (42.0-75.0); PLATELET COUNT 194 X10^3/uL (150.0-450.0); RED BLOOD COUNT 4.41 X10^6/uL (3.5-5.4); RED CELL DISTRIBUTION WIDTH 16.8 % (11.6-16.5); WHITE BLOOD COUNT 6.4 X10^3/uL (3.6-10.0)
[2018-05-03 06:26] LABS: ALANINE AMINOTRANSFERASE 21 Units/L (12-78); ALBUMIN 2.5 g/dL (3.4-5.0); ALKALINE PHOSPHATASE 76 Units/L (46-116); ASPARTATE AMINO TRANSFERASE 14 Units/L (15-37); BLOOD UREA NITROGEN 13 mg/dL (7-18); CALCIUM 8.4 mg/dL (8.5-10.1); CARBON DIOXIDE 32.1 mmol/L (21-32); CHLORIDE 99 mmol/L (98-107); COR CA(FOR HYPOALB) 9.6 mg/dL (8.5-10.1); COR NA(FOR HYPERGLY) 143 mmol/L (136-145); SODIUM 136 mmol/L (136-145); TOTAL PROTEIN 7.3 g/dL (6.4-8.2); eGFR NON BLACK RACES > 60 (>60)
[2018-05-03] MEDS: HumuLIN R SC PRN (06:42)
[2018-05-03 07:44] VITALS: BP 174/78
[2018-05-03] MEDS: LOPRESSOR TAB 50 MG PO SCH (08:37)
[2018-05-03] MEDS: MILK OF MAGNESIA PO SCH (08:37)
[2018-05-03] MEDS: ASPIRIN 81 MG CHEWTAB PO SCH (08:38)
[2018-05-03] MEDS: HYZAAR 50/12.5 MG PO SCH (08:38)
[2018-05-03] MEDS: VANCOMYCIN HCL 1 GM VIAL 1 G in D5W 250 ML IV 250 ML IV SCH (08:38)
[2018-05-03] MEDS: NORVASC TAB 10 MG PO SCH (08:38)
[2018-05-03] MEDS ORDERED: NS 250 ML IV 250 ML IV ONE (08:44)
[2018-05-03] MEDS ORDERED: PHARMACY CONSULT - DOSE _____ XX SCH (09:00)
[2018-05-03] MEDS: NS 1000 ML 1,000 ML IV SCH (10:40)
[2018-05-03] MEDS ORDERED: PHARMACY COMMENT IV NR (20:30)
== END 2018-05-03 11:30 | disposition home or self-care (01) | DRG 585 ==
LOC: MED/SURG 17:02
PROVIDERS: ADMIT Internal Medicine; ATTEND Internal Medicine
DX: Z86.73 Personal history of transient ischemic attack (TIA), and cerebral infarction without residual deficits; F41.8 Other specified anxiety disorders; R06.02 Shortness of breath; B95.7 Other staphylococcus as the cause of diseases classified elsewhere; N64.4 Mastodynia; E66.01 Morbid (severe) obesity due to excess calories; J44.9 Chronic obstructive pulmonary disease, unspecified; E11.65 Type 2 diabetes mellitus with hyperglycemia; N61.1 Abscess of the breast and nipple; I10 Essential (primary) hypertension; K21.9 Gastro-esophageal reflux disease without esophagitis
CPT/HCPCS: 36415; 36556; 71010; 71045; 76642; 80053; 80202; 81001; 82565; 83605; 84703; 85025; 85610; 86140; 87040; 87070; 87075; 87086; 87205; 93005; 93010; 94760; 96372; 99282; 99283; A4222; A7030; Q0177; J0696; J1170; J1815; J2250; J2543; J3370; J7030; J7040; J7050; J7060

== ENCOUNTER 2018-12-29 08:22 | Inpatient (IN) ==
[2018-12-29 08:50] LABS: ABG BASE EXCESS 3.8 mmol/L (-2.0-2.0)
[2018-12-29 08:51] LABS: ABG ALLEN TEST POS; ABG HCO3 31.7 mmol/L (22-26)
[2018-12-29 08:52] VITALS: BMI 57.4
--- NOTE | 2018-12-29 09:28 | DR.AMS ---
HPI Time Seen Time Seen by Provider: 12/29/18 08:45 Complaint Cheif Complaint Doctors Comments: Patient presented to the ED via EMS with complaint of AMS, dyspnea. She had a sean-cath inserted on yesterday without complication. Her spouse reports that she shortness of breath this morning with decreased verbal response. There has been no fever, diarrhea or vomiting. Vital sign per EMS 90% oxygen saturation BP 147/80, RR 24 and 90% oxygen saturation temp 100.2. Allergic to Darvocet. Respiratory therapist reports that patient is suppose to be on BiPAP but does not use it. X-Ray s/o sean-cath on yesterday revealed atelectasis vs early infiltrate RLL. Self Treatment fo Chief Complaint: NKT per spouse, suppose to use Bipap but does not use. Reviewed Nurses Notes Reviewed: Yes Source History Provided: Family Member and EMS Mode of Arrival Mode of Arrival: EMS Timing Came On: On Awakening Symptoms: Improving Duration Duration: Since Onset Duration: Minutes Quality Quality: Change in Behavior Severity Severity: Mild Context History Of: CVA and Diabetes Associated Signs and Symptoms Associated Signs and Symptoms: Left Sided Weakness (secondary to CVA) PMH PMH Past Medical History: CVA, Headaches and Hypertension Past Surgical History: Yes Family History Family Medical History: Diabetes Mellitus, Cancer, [place], Coronary Artery Disease, Heart Failure, Sudden Cardiac and Hypertension Social History Do you use any recreational Drugs:: No ROS Review of Systems Constitutional: See HPI and Weakness Eyes: Other (DUSTIN) ENTM: No Symptoms Reported; negative Ear Pain, Ear Discharge, Nose Discharge, Nose Congestion, Mouth Pain, Drooling, Throat Pain, Throat Swelling and Ear Foreign Body Respiratoy: Dry Cough and Short of Breath Cardiovascular: No Symptoms Reported Gastrointestinal/Abdominal: No Symptoms Reported and See HPI Genitourinary: No Symptoms Reported; negative Discharge, Dysuria, Frequency and Hematuria Neurological: See HPI; negative Headache, Numbness, Seizure and Tremors Musculoskeletal: Back Pain and Back Integumentary: No Symptoms Reported; negative Lesions, Lumps, Itching and Wound Hematologic/Lymphatic: No Symptoms Reported Endocrine: See HPI and Other (DM) Psychiatric: No Symptoms Reported All Other Systems: Reviewed and Negative PE Vitals Vital Signs: Temp Pulse Pulse Resp BP BP BP 12/29/18 11:00 77 22 116/63 04/04/19 10:40 77 24 123/59 04/04/19 10:00 78 24 137/60 12/29/18 09:41 79 20 134/61 12/29/18 08:48 100.2 F H 81 29 H 146/81 12/28/18 14:15 131/70 12/01/18 11:00 105/51 01/26/18 19:15 138/78 04/08/16 16:00 BP Pulse Ox 12/29/18 11:00 96 12/29/18 10:40 96 12/29/18 10:00 98 12/29/18 09:41 89 L 12/29/18 08:48 90 L 12/28/18 14:15 12/01/18 11:00 01/26/18 19:15 04/08/16 16:00 125/60 General Limitations: Physical Limitation (Patient had a portacath placed on yesterday c/o pain in the area) General Appearance: Alert and Anxious Head Head Exam: Normal Inspection, Atraumatic and Normocephalic Head Exam Physical: negative Laceration, Abrasion, Contusion, Hematoma and Osorio's Sign Eyes Eye exam: Normal Appearance, PERRL and EOMI; negative Conjunctival Injection and Nystagmus Pupils: Regular, Round: Bilateral and Reactive: Bilateral ENT ENT Exam: Normal Exam, Normal Oropharynx, Normal External Ear Exam, Mucous M embranes Moist and TM's Normal Bilaterally External Ear Exam: Normal External Inspection and Auricular Trauma TM/Canal Exam: Bilateral: Normal Nose Exam: Normal Nose Exam Mouth Exam: Normal Inspection; negative Drooling Throat Exam: negative Normal Inspection, Tonsillar Erythema and Tonsillomegaly Neck Neck Exam: Normal Inspection and Full ROM Chest Chest Inspection: Normal Inspection and Symmetric Chest Wall Rise Respiratory Respiratory Exam: Normal Lung Sounds Bilat Respiratory Exam: Bilateral: Clear to Auscultation and Bilateral: Decreased Breath Sounds Cardiovascular Cardiovascular Exam: Regular Rate and Normal Rhythm Abdominal Exam Abdominal Exam: Normal Inspection, Normal Bowel Sounds and Soft; negative Tenderness, Hyperactive Bowel Sounds and Organomegaly Abdominal Tenderness: negative RUQ, RLQ, LUQ, LLQ, Epigastrium, Suprapubic, Diffuse, Mild and Moderate Extremities Extremities Exam: Edema (2+lower); negative Calf Tenderness Back Back Exam: Normal Inspection; negative Tenderness Neurological Neurological Exam: Alert, Oriented X3, CN II-XII Intact and Motor Sensory Deficit (s/p CVA of left side); negative Normal Gait and Reflexes Normal Patient Oriented To: Person, Place and Time Speech: Fluid Speech Cranial Nerve Exam: EOM Function (II, III, IV, ): Normal and Facial Sensation (V): Left Abnormal (s/p CVA) Cerebellar Function: Other (Not able to evaluate-) Motor Strength - RUE: 2/5 Motor Strength - LLE: 3/5 Motor Strength - RLE: 3/5 DTR: achilles tendon (L): 1+, achilles tendon (R): 2+, Patellar (L): 1+ and patellar (R): 2+ Psychological Psychiatric Exam: Normal Affect and Normal Mood; negative Flat Affect, Homicidal Ideation and Suicidal Ideation Expanded Psychiatric Exam: negative Poor Eye Contact and Confabulating Skin Skin Exam: Warm, Dry, Intact and Normal Color; negative Diaphoresis MDM Differential Diagnosis Metabolic: Dehydration, Hyponatremia and Hypoxemia Infectious: Sepsis and UTI COURSE Treatment Treatment: Vital signs monitored, Sean Cath consult to surgery. routine labs obtained will evaluate when available. 1000 surgeon per consult to evaluate prota cath secondary to unable to draw fluid from it. Reevaluation 1st: Resolved (0945; responsive to questions, alert in no distress.) and Improved 2nd: Improved (patient alert, responsive, responds appropriately) Consultation Called: 11:15 Consultation Comments: Dr. Bell agreed to admit for further evaluation. ROR Labs Reviewed Laboratory Results Reviewed?: Yes Result Diagrams: 12/29/18 09:10 12/29/18 09:10 Laboratory: WBC 6.7 X10^3/uL (3.6-10.0) 12/29/18 09:10 RBC 4.28 X10^6/uL (3.5-5.4) 12/29/18 09:10 Hgb 11.5 g/dL (12.0-16.0) L 12/29/18 09:10 Hct 36.1 % (36.0-47.0) 12/29/18 09:10 MCV 84.5 fL (80.0-100.0) 12/29/18 09:10 MCH 27.0 pg (27.0-34.0) 12/29/18 09:10 MCHC 31.9 g/dL (33.0-35.0) L 12/29/18 09:10 RDW 16.5 % (11.6-16.5) 12/29/18 09:10 Plt Count 147 X10^3/uL (150.0-450.0) L 12/29/18 09:10 MPV 9.3 fL (7.4-11.0) 12/29/18 09:10 Neut % (Auto) 70.0 % (42.0-75.0) 12/29/18 09:10 Lymph % (Auto) 19.4 % (21.0-51.0) L 12/29/18 09:10 [place] % (Auto) 8.5 % (0.0-13.0) 12/29/18 09:10 Eos % (Auto) 0.8 % (0.9-2.9) L 12/29/18 09:10 Baso % (Auto) 1.3 % (0.2-1.0) H 12/29/18 09:10 Neut # (Auto) 4.7 x10^3/uL (2.2-4.8) 12/29/18 09:10 Lymph # (Auto) 1.3 X10^3/uL (1.3-2.9) 12/29/18 09:10 [place] # (Auto) 0.6 x10^3/uL (0.3-0.8) 12/29/18 09:10 Eos # (Auto) 0.1 x10^3/uL (0.0-0.2) 12/29/18 09:10 Baso # (Auto) 0.1 X10^3/uL (0.0-0.1) 12/29/18 09:10 Absolute Nucleated RBC 0.1 /100WBC 12/29/18 09:10 Sample Site Rr 12/29/18 08:43 ABG pH 7.310 (7.35-7.45) L 12/29/18 08:43 ABG pCO2 63.0 mmHg (35.0-45.0) H* 12/29/18 08:43 ABG pO2 119.0 mmHg (80.0-100.0) H 12/29/18 08:43 ABG HCO3 31.7 mmol/L (22-26) H* 12/29/18 08:43 ABG O2 Saturation 98.0 % (90-100) 12/29/18 08:43 ABG Base Excess 3.8 mmol/L (-2.0-2.0) H 12/29/18 08:43 Davey Test Pos 12/29/18 08:43 A-a Gradient 515.0 mmHg 12/29/18 08:43 FiO2 100.0 12/29/18 08:43 Blood Gas Comments Erica well [facility] 12/29/18 08:43 Sodium 138 mmol/L (136-145) 12/29/18 09:10 Corrected Sodium 142 mmol/L (136-145) 12/29/18 09:10 Potassium 4.1 mmol/L (3.5-5.1) 12/29/18 09:10 Chloride 102 mmol/L (98-107) 12/29/18 09:10 Carbon Dioxide 27.6 mmol/L (21-32) 12/29/18 09:10 BUN 25 mg/dL (7-18) H 12/29/18 09:10 Creatinine 1.42 mg/dL (0.55-1.02) H 12/29/18 09:10 Est GFR (MDRD) Af Amer 50 (>60) L 12/29/18 09:10 Est GFR (MDRD) Non-Af 41 (>60) L 12/29/18 09:10 Glucose 263 mg/dL (65-99) H 12/29/18 09:10 Lactic Acid 0.9 mmol/L (0.4-2.0) 12/29/18 09:10 Calcium 8.8 mg/dL (8.5-10.1) 12/29/18 09:10 Corrected Calcium 9.8 mg/dL (8.5-10.1) 12/29/18 09:10 Total Bilirubin 0.20 mg/dL (0.2-1.0) 12/29/18 09:10 AST 14 Units/L (15-37) L 12/29/18 09:10 ALT 14 Units/L (12-78) 12/29/18 09:10 Alkaline Phosphatase 86 Units/L (46-116) 12/29/18 09:10 C-Reactive Protein 79.60 mg/L (0-3.0) H 12/29/18 09:10 Total Protein 7.4 g/dL (6.4-8.2) 12/29/18 09:10 Albumin 2.7 g/dL (3.4-5.0) L 12/29/18 09:10 Globulin 4.7 g/dL (2.5-4.5) H 12/29/18 09:10 Albumin/Globulin Ratio 0.6 Ratio (1.1-2.1) L 12/29/18 09:10 Specimen Type Catherized urine 12/29/18 10:41 Urine Color Yellow (YELLOW) 12/29/18 10:41 Urine Appearance Hazy (CLEAR) 12/29/18 10:41 Urine pH 5.0 (5.0 - 8.0) 12/29/18 10:41 Ur Specific [place] 1.020 (1.000-1.030) 12/29/18 10:41 Urine Protein 3+ (NEGATIVE) 12/29/18 10:41 Urine Glucose (UA) Negative (NEGATIVE) 12/29/18 10:41 Urine Ketones Negative (NEGATIVE) 12/29/18 10:41 Urine Occult Blood 3+ (NEGATIVE) 12/29/18 10:41 Urine Nitrite Negative (NEGATIVE) 12/29/18 10:41 Urine Bilirubin Negative (NEGATIVE) 12/29/18 10:41 Urine Urobilinogen Normal (NORMAL) 12/29/18 10:41 Ur Leukocyte Esterase Negative (NEGATIVE) 12/29/18 10:41 Urine RBC 3-5 /HPF (NONE SEEN) 12/29/18 10:41 Urine WBC 0-2 /HPF (NONE SEEN) 12/29/18 10:41 Ur Squamous Epith Cells Negative /HPF (NEGATIVE) 12/29/18 10:41 Amorphous Sediment 3+ /HPF (NEGATIVE) 12/29/18 10:41 Urine Bacteria Trace /HPF (NEGATIVE) 12/29/18 10:41 Urine Mucus Few /HPF (NEGATIVE) 12/29/18 10:41 Ur Culture Indicated? No/not indicated 12/29/18 10:41 Other Results Comments: Chest: Port a cath in place tip superior vena cava. Mild cardiomegaly but no acute cardiopulmonary abnormalities and no change from yesterday except for resolution of the triangular density which may have been effusion in the fissure or atelectasis. This has improved compared to yesterday's film. Clear w/o adenopathy, infiltrate or effusion XRAY XRAY Interpreted by: Radiologist Procedures Procedure Comments Procedures: Sean Cath repositioned, verified functioning by Dr. Coleman Additional Procedures Additional Procedures: arterial blood draw ADDITIONAL NOTES Additional Notes Additional Notes: Patient admitted for further observation.
[2018-12-29 09:34] LABS: BASOPHILS # (AUTO) 0.1 X10^3/uL (0.0-0.1); BASOPHILS % (AUTO) 1.3 % (0.2-1.0); EOSINOPHILS # (AUTO) 0.1 x10^3/uL (0.0-0.2); EOSINOPHILS % (AUTO) 0.8 % (0.9-2.9); HEMATOCRIT 36.1 % (36.0-47.0); HEMOGLOBIN 11.5 g/dL (12.0-16.0); LYMPHOCYTES # (AUTO) 1.3 X10^3/uL (1.3-2.9); LYMPHOCYTES % (AUTO) 19.4 % (21.0-51.0); MEAN CORPUSCULAR HGB CONC 31.9 g/dL (33.0-35.0); MEAN CORPUSCULAR VOLUME 84.5 fL (80.0-100.0); MEAN PLATELET VOLUME 9.3 fL (7.4-11.0); MONOCYTES # (AUTO) 0.6 x10^3/uL (0.3-0.8); MONOCYTES % (AUTO) 8.5 % (0.0-13.0); NEUTROPHILS # (AUTO) 4.7 x10^3/uL (2.2-4.8); PLATELET COUNT 147 X10^3/uL (150.0-450.0); RED BLOOD COUNT 4.28 X10^6/uL (3.5-5.4); RED CELL DISTRIBUTION WIDTH 16.5 % (11.6-16.5); WHITE BLOOD COUNT 6.7 X10^3/uL (3.6-10.0)
[2018-12-29 09:42] LABS: ALBUMIN 2.7 g/dL (3.4-5.0); CALCIUM 8.8 mg/dL (8.5-10.1); CARBON DIOXIDE 27.6 mmol/L (21-32); COR CA(FOR HYPOALB) 9.8 mg/dL (8.5-10.1); CREATININE 1.42 mg/dL (0.55-1.02); TOTAL PROTEIN 7.4 g/dL (6.4-8.2)
[2018-12-29 09:48] LABS: LACTIC ACID 0.9 mmol/L (0.4-2.0)
--- NOTE | 2018-12-29 09:49 | RAD ---
HISTORY: Dyspnea port cath placement for 1 day Study: One-view chest 12/29/2018 at 9:16 a.m. Comparison: Portable chest 12/28/2018 Technique: AP portable chest Findings: A right-sided port is in place with the tip in the superior vena cava. There is no pneumothorax. The heart is mildly enlarged but unchanged in size and configuration when compared to yesterday's film. The airway, vascularity are normal. The lungs are clear without infiltrates effusions or adenopathy. IMPRESSION: 1. Port in place tip in the superior vena cava. Mild cardiomegaly but no acute cardiopulmonary abnormalities and no change from yesterday's film. Except for resolution of the triangular density which when may have been effusion in the fissure or atelectasis. This has improved compared to yesterday's film. Reported By:
[2018-12-29] MEDS ORDERED: XYLOCAINE 1 % (PLAIN) ONE (10:04)
[2018-12-29 10:49] LABS: BILIRUBIN,URINE NEGATIVE (NEGATIVE); BLOOD/HEMOGLOBIN,URINE 3+ (NEGATIVE); GLUCOSE, URINE NEGATIVE (NEGATIVE); KETONES,URINE NEGATIVE (NEGATIVE); LEUKOCYTE ESTERASE ,URINE NEGATIVE (NEGATIVE); NITRITES,URINE NEGATIVE (NEGATIVE); PROTEIN,URINE 3+ (NEGATIVE); UROBILINOGEN,URINE NORMAL (NORMAL)
[2018-12-29 10:50] LABS: APPEARANCE,URINE HAZY (CLEAR); COLOR,URINE YELLOW (YELLOW)
[2018-12-29 10:55] LABS: AMORPHOUS SEDIMENT,UR 3+ /HPF (NEGATIVE); BACTERIA,URINE TRACE /HPF (NEGATIVE); MUCUS,URINE FEW /HPF (NEGATIVE); SQUAMOUS EPITHELIAL CELL,UR NEGATIVE /HPF (NEGATIVE)
[2018-12-29] MEDS ORDERED: ZOFRAN INJ 4 MG VIAL IV PRN (11:33)
[2018-12-29 12:31] LABS: ABG ALLEN TEST POS; ABG HCO3 31.5 mmol/L (22-26)
[2018-12-29] MEDS ORDERED: ZANTAC PO SCH ×2 (14:25→21:00)
[2018-12-29] MEDS ORDERED: FLEXERIL TAB 10 MG PO PRN (14:25)
[2018-12-29] MEDS ORDERED: NEURONTIN CAP 300 MG ONE (14:33)
[2018-12-29] MEDS: NEURONTIN CAP 300 MG PO SCH ×2 (14:43→21:15)
--- NOTE | 2018-12-29 14:47 | CT ---
STUDY: CTA CHEST WITH CONTRAST History: Altered mental status and dyspnea. Comparison: Chest radiograph from December 29, 2017. Technique: Multiple axial images of the chest were obtained from the thoracic inlet to the upper abdomen after the administration of IV contrast. Image acquisition was optimized for evaluation of pulmonary arterial system. 3D, coronal and sagittal reformatted images were performed and reviewed. Automated exposure control (AEC) was utilized to adjust the MA and/or kV. Findings: The examination is limited by patient body habitus, beam hardening, streak, and motion artifact. Study is considered suboptimal for all but gross abnormalities. No definite abnormal filling defect is identified within the main pulmonary arteries. There is no evidence of aortic aneurysm or dissection. There is no significant pericardial effusion. Calcified and noncalcified plaque is noted. Shotty lymph nodes, likely reactive, are noted in the mediastinum. No pathologically enlarged lymph nodes are identified. There is consolidative airspace opacity in the right middle lobe. There are patchy airspace opacities in the right upper lobe, and to a lesser extent the right lower lobe. Scattered opacities are also noted in the left lower lobe. There is some peribronchial thickening noted bilaterally. The visualized solid visceral organs in the upper abdomen are otherwise unremarkable. IMPRESSION: 1. Limited CTA examination of the chest, without definite evidence of central pulmonary thromboembolic disease. Please note that this examination is considered suboptimal for all but gross abnormalities within the pulmonary arteries. Would consider further evaluation with a ventilation perfusion lung scan as clinically warranted. 2. Consolidative airspace opacity in the right middle lobe, with patchy airspace opacities in both lower lobes in the right upper lobe. Clinical correlation for pneumonia is recommended. Reported By:
[2018-12-29] MEDS: PROVENTIL NEB TX 0.083% 2.5MG/ 3ML NEB SCH ×2 (17:12→20:30)
[2018-12-29] MEDS ORDERED: HumuLIN R ONE (17:44)
[2018-12-29] MEDS: HumuLIN R SC PRN ×2 (17:45→21:16)
[2018-12-29] MEDS: NORCO 10/325 TAB PO PRN (18:17)
[2018-12-29] MEDS ORDERED: GLUCOPHAGE ONE (20:57)
[2018-12-29] MEDS ORDERED: LIPITOR TAB 20 MG PO SCH (21:00)
[2018-12-29] MEDS ORDERED: PROzac PO SCH (21:00)
[2018-12-29] MEDS: COLACE CAP 100 MG PO SCH (21:14)
[2018-12-29] MEDS: GLUCOPHAGE PO SCH (21:14)
[2018-12-29] MEDS: LOPRESSOR TAB 50 MG PO SCH (21:15)
[2018-12-30] MEDS: NORCO 10/325 TAB PO PRN ×2 (02:59→08:40)
[2018-12-30] MEDS: PROVENTIL NEB TX 0.083% 2.5MG/ 3ML NEB SCH ×3 (04:11→13:01)
[2018-12-30] MEDS: NEURONTIN CAP 300 MG PO SCH ×2 (05:47→13:38)
[2018-12-30] MEDS: HumuLIN R SC PRN ×3 (05:48→17:20)
[2018-12-30 05:55] LABS: BASOPHILS % (AUTO) 0.5 % (0.2-1.0); EOSINOPHILS # (AUTO) 0.1 x10^3/uL (0.0-0.2); EOSINOPHILS % (AUTO) 1.1 % (0.9-2.9); HEMATOCRIT 34.6 % (36.0-47.0); HEMOGLOBIN 11.3 g/dL (12.0-16.0); LYMPHOCYTES # (AUTO) 0.9 X10^3/uL (1.3-2.9); LYMPHOCYTES % (AUTO) 17.2 % (21.0-51.0); MEAN CORPUSCULAR HEMOGLOBIN 27.2 pg (27.0-34.0); MEAN CORPUSCULAR HGB CONC 32.6 g/dL (33.0-35.0); MEAN CORPUSCULAR VOLUME 83.6 fL (80.0-100.0); MEAN PLATELET VOLUME 8.9 fL (7.4-11.0); MONOCYTES # (AUTO) 0.4 x10^3/uL (0.3-0.8); MONOCYTES % (AUTO) 7.7 % (0.0-13.0); NEUTROPHILS # (AUTO) 3.7 x10^3/uL (2.2-4.8); NEUTROPHILS % (AUTO) 73.5 % (42.0-75.0); PLATELET COUNT 145 X10^3/uL (150.0-450.0); RED BLOOD COUNT 4.14 X10^6/uL (3.5-5.4); WHITE BLOOD COUNT 5.1 X10^3/uL (3.6-10.0)
[2018-12-30 06:20] LABS: ALANINE AMINOTRANSFERASE 17 Units/L (12-78); ALBUMIN 2.6 g/dL (3.4-5.0); ALKALINE PHOSPHATASE 80 Units/L (46-116); ASPARTATE AMINO TRANSFERASE 14 Units/L (15-37); BLOOD UREA NITROGEN 16 mg/dL (7-18); CALCIUM 8.8 mg/dL (8.5-10.1); CHLORIDE 101 mmol/L (98-107); COR CA(FOR HYPOALB) 9.9 mg/dL (8.5-10.1); COR NA(FOR HYPERGLY) 140 mmol/L (136-145); CREATININE 1.07 mg/dL (0.55-1.02); SODIUM 137 mmol/L (136-145); TOTAL PROTEIN 7.2 g/dL (6.4-8.2); eGFR NON BLACK RACES 57 (>60)
[2018-12-30 07:17] LABS: ABG BASE EXCESS 6.8 mmol/L (-2.0-2.0)
[2018-12-30 07:19] LABS: ABG ALLEN TEST POS; ABG HCO3 34.5 mmol/L (22-26)
[2018-12-30] MEDS ORDERED: GLUCOPHAGE ONE (08:14)
[2018-12-30] MEDS: GLUCOPHAGE PO SCH (08:40)
[2018-12-30] MEDS: LOPRESSOR TAB 50 MG PO SCH (08:41)
[2018-12-30] MEDS: COLACE CAP 100 MG PO SCH (08:41)
[2018-12-30] MEDS ORDERED: PATIENT'S HOME MEDICATION (Losartan-Hydrochlorothiazide [Losartan-Hydrochlorothiazide] 1 T PO SCH (09:00)
[2018-12-30] MEDS ORDERED: TOPAMAX PO SCH (09:00)
[2018-12-30] MEDS ORDERED: NORVASC TAB 10 MG PO SCH (09:00)
[2018-12-30] MEDS ORDERED: CLARITIN PO SCH (09:00)
[2018-12-30] MEDS ORDERED: LASIX PO PRN (09:00)
[2018-12-30] MEDS ORDERED: CYMBALTA PO SCH (09:00)
[2018-12-30] MEDS ORDERED: PROTONIX INJ 40 MG VIAL IVP SCH (09:00)
[2018-12-30] MEDS ORDERED: PLAVIX PO SCH (09:00)
[2018-12-30] MEDS ORDERED: HYZAAR 50/12.5 MG PO SCH (09:00)
[2018-12-30] MEDS ORDERED: ASPIRIN PO SCH (09:00)
[2018-12-30] MEDS ORDERED: NS 100 ML IV 100 ML ONE (09:20)
[2018-12-30] MEDS: MAGNESIUM SULFATE 1 GRAM/100 mL PREMIX 1 GM/100 ML BAG IV PRN ×3 (09:22→11:40)
[2018-12-30] MEDS ORDERED: TYLENOL 325 MG TAB PO PRN (11:52)
--- NOTE | 2018-12-30 13:07 | RAD ---
History: Shortness of breath and elevated D-dimer Study: Portable AP chest Comparison: Yesterday Findings: There is unchanged mild cardiomegaly. There is a right-sided Port-A-Cath with the tip in the region of the superior vena cava or distal innominate vein.There is mild patchy airspace disease in the right lung. The left lung is clear. There is no effusion. Impression: Mild patchy diffuse right upper and lower lobe pneumonitis, increased from yesterday's chest examination Reported By:
[2018-12-30 13:19] LABS: ABG BASE EXCESS 5.5 mmol/L (-2.0-2.0)
[2018-12-30 13:20] LABS: ABG ALLEN TEST POS; ABG HCO3 33.7 mmol/L (22-26)
[2018-12-30] MEDS ORDERED: MERREM VIAL 1,000 MG in NS 100 ML IV + SPIKE MINIBAG* 100 ML IV SCH ×2 (14:00→21:00)
[2018-12-30] MEDS ORDERED: LASIX IVP SCH (14:00)
[2018-12-30] MEDS ORDERED: PROVENTIL NEB TX 0.083% 2.5MG/ 3ML NEB PRN (14:04)
[2018-12-30] MEDS ORDERED: PULMICORT NEB TX 0.5 MG NEB SCH (14:15)
[2018-12-30] MEDS ORDERED: BROVANA IN SCH (14:15)
[2018-12-30] MEDS ORDERED: ZITHROMAX INJ 500 MG VIAL ONE (14:18)
[2018-12-30] MEDS ORDERED: NS 250 ML IV 250 ML ONE (14:18)
[2018-12-30] MEDS: ZITHROMAX INJ 500 MG VIAL 500 MG in NS 250 ML IV 250 ML IV SCH ×2 (14:23→16:40)
[2018-12-30] MEDS ORDERED: DUONEB 0.5 MG/3 MG NEB SCH (18:00)
[2018-12-30 18:33] VITALS: BP 125/68
[2018-12-30 18:36] LABS: TROPONIN I < 0.02 ng/mL (0-1.5)
[2018-12-30 18:45] LABS: B-TYPE NATRIURETIC PEPTIDE 86.6 pg/mL (0-79)
== END 2018-12-30 19:00 | disposition short-term general hospital (02) | DRG 189 ==
LOC: MED/SURG 08:22 → ER 08:22 → OBSVTOIN 11:30 → ICU 14:04
PROVIDERS: ADMIT Internal Medicine; ATTEND Internal Medicine
DX: E66.2 Morbid (severe) obesity with alveolar hypoventilation; J96.20 Acute and chronic respiratory failure, unspecified whether with hypoxia or hypercapnia; I73.89 Other specified peripheral vascular diseases; J18.8 Other pneumonia, unspecified organism; R94.4 Abnormal results of kidney function studies; R26.89 Other abnormalities of gait and mobility; R41.82 Altered mental status, unspecified; E86.0 Dehydration; R79.82 Elevated C-reactive protein (CRP); E11.65 Type 2 diabetes mellitus with hyperglycemia; I10 Essential (primary) hypertension; J44.1 Chronic obstructive pulmonary disease with (acute) exacerbation; Z98.890 Other specified postprocedural states; R79.1 Abnormal coagulation profile; I87.2 Venous insufficiency (chronic) (peripheral); Z89.421 Acquired absence of other right toe(s)
CPT/HCPCS: 36415; 36591; 36600; 51702; 71010; 71045; 71275; 80053; 81001; 82803; 83605; 83735; 83880; 84484; 85025; 85378; 86140; 87040; 87070; 87086; 87205; 93005; 94640; 94660; 96365; 97162; 97167; 99285; A4222; A4618; A7030; C9113; J0456; J1815; J1940; J3475; J3490; J7050; J7613; J7620

== ENCOUNTER 2021-09-16 11:43 | Inpatient (IN) ==
[2021-09-16 14:20] LABS: ABG BASE EXCESS 3.1 mmol/L (-2.0-2.0)
[2021-09-16 14:22] LABS: ABG HCO3 31.3 mmol/L (22-26)
[2021-09-16 14:23] LABS: ABG ALLEN TEST POS
--- NOTE | 2021-09-16 15:06 | RAD ---
HISTORYRIGHT SIDE WEAKNESS, CHF, COPD CHF, COPD, DM, HTN, CVA, COPD, ANGIO/STENTSTUDYCHEST, 1 [id number]/12/2020FINDINGSTrachea is midline and stable moderate cardiomegaly. There is a new patchy right upper lobe infiltrate with ground-glass radiopacity. There is also some patchy ground-glass radiopacities in the right base. No pleural effusion or pneumothoraxIMPRESSIONNew right upper lobe ground-glass and alveolar radiopacities with increase of the interstitial markings in the right lower lobe suspicious for viral pneumonia.Electronically signed by: Janna Barber (Sep 16, 2021 15:04:36)
[2021-09-16 15:15] LABS: BASOPHILS # (AUTO) 0.1 X10^3/uL (0.0-0.1); BASOPHILS % (AUTO) 1.1 % (0.2-1.0); EOSINOPHILS # (AUTO) 0.1 x10^3/uL (0.0-0.2); EOSINOPHILS % (AUTO) 1.8 % (0.9-2.9); HEMATOCRIT 37.2 % (36.0-47.0); HEMOGLOBIN 11.8 g/dL (12.0-16.0); LYMPHOCYTES # (AUTO) 2.1 X10^3/uL (1.3-2.9); LYMPHOCYTES % (AUTO) 27.4 % (21.0-51.0); MEAN CORPUSCULAR HEMOGLOBIN 25.5 pg (27.0-34.0); MEAN CORPUSCULAR HGB CONC 31.9 g/dL (33.0-35.0); MEAN CORPUSCULAR VOLUME 80.1 fL (80.0-100.0); MEAN PLATELET VOLUME 9.4 fL (7.4-11.0); MONOCYTES # (AUTO) 0.5 x10^3/uL (0.3-0.8); NEUTROPHILS # (AUTO) 4.8 x10^3/uL (2.2-4.8); NEUTROPHILS % (AUTO) 62.7 % (42.0-75.0); PLATELET COUNT 174 X10^3/uL (150.0-450.0); RED BLOOD COUNT 4.64 X10^6/uL (3.5-5.4); RED CELL DISTRIBUTION WIDTH 18.1 % (11.6-16.5); WHITE BLOOD COUNT 7.6 X10^3/uL (3.6-10.0)
--- NOTE | 2021-09-16 15:20 | CT ---
HISTORYHX CVA, CADSTUDYBRAIN W/O CONCOMPARISONJanuary 2019TECHNIQUEAxial non-contrast images of the head were obtained with coronal and sagittal reformats provided.Radiation dose: 1155.20 mGy-cm total DLPFINDINGSExtensive bilateral frontal/parietal encephalomalacia; as seen on the previous exam.Encephalomalacia in the right thalamus; consistent with an old infarct.No abnormal areas of acute attenuation in the brain parenchyma.Benedict-white differentiation remains intact.No intracranial, extra-axial, fluid collection.No hemorrhage.Periventricular chronic microvascular disease.No mass, mass effect or midline shift.Age related brain parenchymal global atrophy.No ventriculomegaly.No acute fracture.Sinuses are well aerated.Mastoid air cells are well aerated.Globes and intra-orbital contents are unremarkable.IMPRESSIONNo acute intracranial abnormality identified.Electronically signed by: Quentin Tapia (Sep 16, 2021 15:18:11)
[2021-09-16 15:29] VITALS: BMI 57.4
--- NOTE | 2021-09-16 15:46 | VAS ---
HISTORYhx; cva, cadConcern for carotid artery stenosis. Altered mental status.EXAM: BILATERAL DOPPLER CAROTID ULTRASOUND EXAMTechnique: Multiple dupree scale and color flow Doppler images of the right and left carotid arterial system were obtained. The vertebral arterial system was evaluated as well.Findings: Nonocclusive color flow Doppler is seen throughout the right and left carotid arterial system. No hemodynamically significant carotid arterial stenosis is seen based on velocity criteria. There is moderate bilateral carotid atherosclerosis and mixed atherosclerotic plaque formation of the bilateral carotid bulbs and ICAs with associated intimal thickening but [without] evidence for high-grade stenosis (>70%) or occlusion of the carotid arteries. The distal left ICA is not well evaluated. The right and left vertebral artery demonstrate antegrade flow.IMPRESSION:The distal left ICA is not well evaluated on this exam which could be secondary to occlusion or technical factors. Please correlate.Moderate bilateral carotid atherosclerosis and mixed atherosclerotic plaque formation seen within the bilateral carotid bulbs and in both ICAs with associated carotid intimal thickening but without evidence for any additional high-grade stenosis or occlusion of the carotid arteries, based on Doppler velocity criteria. Appropriate, antegrade, vertebral arterial flow.Peak right ICA velocity: 90 centimeter/seconds.Peak right CCA velocity: 70 centimeter/seconds.Peak left ICA velocity: 60 centimeter/seconds.Peak left CCA velocity: 67 centimeter/seconds.Right ICA to CCA ratio: 3.2.Left ICA to CCA ratio: 1.5.Electronically signed by: PEPE GU III (Sep 16, 2021 15:45:31)
[2021-09-16 15:47] LABS: ALANINE AMINOTRANSFERASE 18 Units/L (12-78); ALBUMIN 2.8 g/dL (3.4-5.0); ALKALINE PHOSPHATASE 88 Units/L (46-116); ASPARTATE AMINO TRANSFERASE 15 Units/L (15-37); BLOOD UREA NITROGEN 23 mg/dL (7-18); CALCIUM 8.9 mg/dL (8.5-10.1); CARBON DIOXIDE 28.3 mmol/L (21-32); CHLORIDE 103 mmol/L (98-107); CKMB % 0.9 % (<4); COR CA(FOR HYPOALB) 9.9 mg/dL (8.5-10.1); CREATINE KINASE 261 Units/L (26-192); CREATINE KINASE MB 2.4 ng/mL (0-4.0); CREATININE 1.66 mg/dL (0.55-1.02); SODIUM 139 mmol/L (136-145); TOTAL PROTEIN 7.7 g/dL (6.4-8.2); TROPONIN I < 0.02 ng/mL (0-1.5); eGFR NON BLACK RACES 34 (>60)
[2021-09-16 16:30] LABS: BILIRUBIN,URINE 1+ (NEGATIVE); BLOOD/HEMOGLOBIN,URINE NEGATIVE (NEGATIVE); GLUCOSE, URINE NEGATIVE (NEGATIVE); KETONES,URINE NEGATIVE (NEGATIVE); LEUKOCYTE ESTERASE ,URINE 1+ (NEGATIVE); NITRITES,URINE NEGATIVE (NEGATIVE); PROTEIN,URINE 2+ (NEGATIVE); UROBILINOGEN,URINE 1+ (NORMAL)
[2021-09-16 16:34] LABS: APPEARANCE,URINE CLEAR (CLEAR); COLOR,URINE YELLOW (YELLOW)
[2021-09-16 16:35] LABS: BACTERIA,URINE TRACE /HPF (NEGATIVE); RBC,URINE 0-2 /HPF (0-3); SQUAMOUS EPITHELIAL CELL,UR MODERATE /HPF (NEGATIVE)
--- NOTE | 2021-09-16 17:58 | DR.H&P ---
H&P - History & Physical for Day of: H&P Date: 09/16/21 - Chief Complaint Chief Complaint: sob, weakness on right side, poor appetite, ams - History of Present Illness History of Present Illness: PT IS 56 BF DIRECT ADMIT FROM DR VENTURA OFFICE WITH REPORTS OF INCREASED RIGHT SIDE WEAKNESS AND POOR APPETITE FOR 3 DAYS. PT HAS COMPLETED PO ANTIBIOTICS FOR UTI AND CO INCREASED SOB. PT WAS LETHARGIC IN OFFICE, STAFF UNABLE TO OBTAIN BP. PT BS 95, EMS CALLED TO TRANSPORT TO [facility]. 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 - Family History Family Medical History: Diabetes Mellitus, Cancer, [place], Coronary Artery Disease, Heart Failure, Sudden Cardiac , Hypertension - Social History Does patient currently use any type of tobacco product: Yes Have you used tobacco products in the last 12 months: Yes Type of Tobacco Use: Cigarettes How many years tobacco product used: 20 Alcohol Use: None Drug Use: None - Medications Home Medications: levofloxacin Allergy (Verified 08/17/20 08:48) procaine Allergy (Verified 08/17/20 08:48) propoxyphene Allergy (Verified 08/17/20 08:48) - Review of Systems Constitutional: Chills, Weakness, Malaise Eyes: No Symptoms Reported ENT: Nose Congestion Respiratory: Cough, Shortness of Breath, Wheezing Cardiovascular: Edema Gastrointestinal: Nausea Genitourinary: No Symptoms Reported Musculoskeletal: Back Pain, Leg Pain Skin: Wound (RIGHT LEG, POSTERIOR THIGH STAGE 2) Neurological: Weakness - Physical Exam Vital Signs: Temperature 97.6 F Pulse Rate [Right Brachial] 66 Respiratory Rate 18 Blood Pressure [Right Arm] 119/63 Blood Pressure [Right Calf] 125/60 Blood Pressure [Left Arm] 150/69 Blood Pressure 150/69 O2 Sat by Pulse Oximetry 97 Oriented: Person Eyes: Normal Ear: Normal Nose: Normal Throat: Dry Respiratory: RLL Diminished, LLL Diminished Cardiovascular: Normal, Edema : Normal Auscultation: Bowel Sounds: Normal Palpation: Normal Tenderness: Normal Skin: Decreased Turgur Musculoskeletal: Right, Left, Back:Lumbar, Motor Deficit, Sensory Deficit Psychiatric: Anxiety Affect: Anxious Speech Pattern: Delayed - Assessment/Plan (1) AMS (altered mental status) Status: Acute Plan: ADMIT, CT HEAD ON ADMISSION. BP AND BS CONTROL. CARDIAC MONITORING. CXR ON ADMISSION. RESP CONSULT, IV ATBX, STRICT I&S. VERIFY HOME MEDICATION (2) SOB (shortness of breath) Status: Acute (3) COPD with exacerbation Status: Acute (4) UTI (urinary tract infection) Status: Acute (5) CVA, old, hemiparesis Status: Acute (6) Essential hypertension Status: Chronic (7) Diabetes mellitus, type 2 Status: Chronic - Allergies Allergies/Adverse Reactions: Allergies Allergy/AdvReac Type Severity Reaction Status Date / Time levofloxacin Allergy Verified 08/17/20 08:48 procaine Allergy Verified 08/17/20 08:48 propoxyphene Allergy Verified 08/17/20 08:48
[2021-09-16] MEDS ORDERED: PULMICORT NEB TX 0.5 MG NEB SCH (18:00)
[2021-09-16] MEDS: ROBITUSSIN DM PO SCH (20:54)
[2021-09-16] MEDS: MILK OF MAGNESIA PO SCH (20:54)
[2021-09-16] MEDS: COLACE CAP 100 MG PO SCH (20:54)
[2021-09-16] MEDS: SNACK - Diabetic Appropriate PO SCH (20:54)
[2021-09-16] MEDS: PROTONIX INJ 40 MG VIAL IVP SCH (20:54)
--- NOTE | 2021-09-16 21:02 | DR.UPDATE ---
H&P Update History and Physical Update: History and Physical reviewed and patient examined. Changes noted: NO Yes with the following:will place central line for access. H&P Reviewed: Yes Patient was examined?: Yes Procedures (ALL) - Central Line Placement PCM.CLCO: written consent Time out performed: Yes Patient placed pm monitor/pulse ox: Yes prep: mask, gown, gloves, other Centrial line prep: chlorhexidine scrub, sterile drapes applied Local anesthsia used: lidocane 1% Ultrasound used for placement: Yes (right ij id'd via u/s and cannulation visulized) Central line lumen ininserted: triple Post procedure: sutured in place, good blood return, all ports aspirated, flushed,capped, sterile dressing applied Post procedure xray: tip oc catheter in good position, no pneumothorax seen Patient tolerated procedure: Yes Complications: none
--- NOTE | 2021-09-16 21:12 | RAD ---
HISTORYCENTRAL LINE PLACEMENT Relevant Clinical InformationSTUDYCHEST, 1 VIEWCOMPARISONChest radiograph of same day.FINDINGSThe trachea is midline. The cardiac silhouette is enlarged but stable. Chronic interstitial lung changes remain.There has been insertion of a right IJ CVL whose CVL tip overlies the SVC. No pneumothorax is seen. The remaining lungs are clear without focal infiltrate or effusion. The bony thorax is unremarkable. No other acute cardiopulmonary changes from prior examination are identified.IMPRESSIONAs above.Electronically signed by: PEPE GU III (Sep 16, 2021 21:10:47)
[2021-09-16] MEDS: PULMICORT NEB TX 0.5 MG NEB SCH (21:30)
[2021-09-16 21:45] LABS: CREATINE KINASE 294 Units/L (26-192); CREATINE KINASE MB 2.9 ng/mL (0-4.0); TROPONIN I < 0.02 ng/mL (0-1.5)
[2021-09-16] MEDS ORDERED: TYLENOL 325 MG TAB PO PRN (23:11)
[2021-09-17 02:26] LABS: CKMB % 1.1 % (<4); CREATINE KINASE 279 Units/L (26-192); TROPONIN I < 0.02 ng/mL (0-1.5)
[2021-09-17 06:10] LABS: BASOPHILS % (AUTO) 0.6 % (0.2-1.0); EOSINOPHILS # (AUTO) 0.1 x10^3/uL (0.0-0.2); EOSINOPHILS % (AUTO) 2.3 % (0.9-2.9); HEMATOCRIT 33.7 % (36.0-47.0); HEMOGLOBIN 10.7 g/dL (12.0-16.0); LYMPHOCYTES # (AUTO) 1.5 X10^3/uL (1.3-2.9); LYMPHOCYTES % (AUTO) 25.6 % (21.0-51.0); MEAN CORPUSCULAR HEMOGLOBIN 25.5 pg (27.0-34.0); MEAN CORPUSCULAR HGB CONC 31.8 g/dL (33.0-35.0); MEAN CORPUSCULAR VOLUME 80.3 fL (80.0-100.0); MEAN PLATELET VOLUME 8.7 fL (7.4-11.0); MONOCYTES # (AUTO) 0.4 x10^3/uL (0.3-0.8); MONOCYTES % (AUTO) 6.5 % (0.0-13.0); NEUTROPHILS # (AUTO) 3.9 x10^3/uL (2.2-4.8); PLATELET COUNT 161 X10^3/uL (150.0-450.0); RED CELL DISTRIBUTION WIDTH 17.9 % (11.6-16.5)
[2021-09-17 06:36] LABS: ALBUMIN 2.7 g/dL (3.4-5.0); CALCIUM 8.8 mg/dL (8.5-10.1); CARBON DIOXIDE 29.8 mmol/L (21-32); COR CA(FOR HYPOALB) 9.8 mg/dL (8.5-10.1); CREATININE 1.59 mg/dL (0.55-1.02); TOTAL PROTEIN 7.1 g/dL (6.4-8.2)
[2021-09-17] MEDS: PULMICORT NEB TX 0.5 MG NEB SCH ×2 (08:55→21:10)
[2021-09-17] MEDS: ROBITUSSIN DM PO SCH ×4 (09:15→20:19)
[2021-09-17] MEDS: PROTONIX INJ 40 MG VIAL IVP SCH ×2 (09:15→20:18)
[2021-09-17] MEDS: LOVENOX INJ 40 MG SYR SC SCH (10:32)
[2021-09-17] MEDS: ZOSYN VIAL 3.375 GRAMS 3.375 G in NS 100 ML IV + SPIKE MINIBAG* 100 ML IV SCH ×3 (11:29→20:19)
[2021-09-17] MEDS: ZITHROMAX INJ 500 MG VIAL 500 MG in NS 250 ML IV 250 ML IV SCH (11:29)
[2021-09-17] MEDS: SOLU-Medrol 40 MG VIAL IVP SCH ×2 (13:33→22:20)
[2021-09-17] MEDS: SNACK - Diabetic Appropriate PO SCH (20:18)
[2021-09-17] MEDS: COLACE CAP 100 MG PO SCH (20:18)
[2021-09-17] MEDS: MILK OF MAGNESIA PO SCH (20:18)
[2021-09-17] MEDS: NovoLIN R (or HumuLIN R) SUBCUT PRN (20:19)
--- NOTE | 2021-09-17 23:39 | PCM.PROG ---
Progress Note - Subjective Subjective: Patient is a 56 year old female who was admitted due to AMS and weakness and dyspnea. Patient continues to report dyspnea. Today mentation is at baseline. Patient reports generalized weakness. Patient reports minimal cough, no phlegm. Denies CP or any other symptoms. - Past Medical Family Social History Past Med/Fam/Surg Hx: No changes since H&P Allergies: Allergies levofloxacin Allergy (Verified 08/17/20 08:48) procaine Allergy (Verified 08/17/20 08:48) propoxyphene Allergy (Verified 08/17/20 08:48) - Review of Systems ROS: No change since H&P - Vital Signs and I&O's Vital Signs: Temperature 97.6 F Pulse Rate [Right Brachial] 89 Pulse Rate 74 Respiratory Rate 20 Blood Pressure [Right Arm] 145/67 Blood Pressure [Right Calf] 125/60 Blood Pressure [Left Arm] 150/69 Blood Pressure 150/69 O2 Sat by Pulse Oximetry 98 Intake and Output: Intake & Output 09/14/21 09/15/21 09/16/21 09/17/21 23:59 23:59 23:59 23:59 Intake Total 35 / 35 620 / 620 Output Total 225 / 225 550 / 550 Balance -190 / -190 70 / 70 - Physical Exam Oriented: Normal, Time, Person, Place Eyes: Normal Ear: Normal Nose: Normal Throat: Dry Respiratory: Generalized, Rhonchi Cardiovascular: Normal, Edema (generalized non pitting) : Normal Auscultation: Bowel Sounds: Normal Palpation: Normal Tenderness: Normal Skin: Decreased Turgur Musculoskeletal: Right, Left (generalized weakness; left side greater than right; history of cva affecting left side), Back:Lumbar, Motor Deficit, Sensory Deficit, Instability Psychiatric: Anxiety Mood Description: Calm, Flat Affect: Flat Speech Pattern: Clear, Appropriate - Laboratory and Diagnostics Result Diagrams: 09/17/21 05:45 09/17/21 05:45 Labs: 09/16/21 21:10 Blood Blood Culture - Preliminary 09/16/21 15:54 Urine,Clean Catch Urine Culture - Preliminary Laboratory WBC 6.0 X10^3/uL (3.6-10.0) 09/17/21 05:45 RBC 4.20 X10^6/uL (3.5-5.4) 09/17/21 05:45 Hgb 10.7 g/dL (12.0-16.0) L 09/17/21 05:45 Hct 33.7 % (36.0-47.0) L 09/17/21 05:45 MCV 80.3 fL (80.0-100.0) 09/17/21 05:45 MCH 25.5 pg (27.0-34.0) L 09/17/21 05:45 MCHC 31.8 g/dL (33.0-35.0) L 09/17/21 05:45 RDW 17.9 % (11.6-16.5) H 09/17/21 05:45 Plt Count 161 X10^3/uL (150.0-450.0) 09/17/21 05:45 MPV 8.7 fL (7.4-11.0) 09/17/21 05:45 Neut % (Auto) 65.0 % (42.0-75.0) 09/17/21 05:45 Lymph % (Auto) 25.6 % (21.0-51.0) 09/17/21 05:45 [place] % (Auto) 6.5 % (0.0-13.0) 09/17/21 05:45 Eos % (Auto) 2.3 % (0.9-2.9) 09/17/21 05:45 Baso % (Auto) 0.6 % (0.2-1.0) 09/17/21 05:45 Neut # (Auto) 3.9 x10^3/uL (2.2-4.8) 09/17/21 05:45 Lymph # (Auto) 1.5 X10^3/uL (1.3-2.9) 09/17/21 05:45 [place] # (Auto) 0.4 x10^3/uL (0.3-0.8) 09/17/21 05:45 Eos # (Auto) 0.1 x10^3/uL (0.0-0.2) 09/17/21 05:45 Baso # (Auto) 0.0 X10^3/uL (0.0-0.1) 09/17/21 05:45 Absolute Nucleated RBC 0.1 /100WBC 09/17/21 05:45 Sample Site Rr 09/16/21 14:15 ABG pH 7.290 (7.35-7.45) L 09/16/21 14:15 ABG pCO2 65.0 mmHg (35.0-45.0) H* 09/16/21 14:15 ABG pO2 52.0 mmHg (80.0-100.0) L 09/16/21 14:15 ABG HCO3 31.3 mmol/L (22-26) H* 09/16/21 14:15 ABG O2 Saturation 82.0 % (90-100) L* 09/16/21 14:15 ABG Base Excess 3.1 mmol/L (-2.0-2.0) H 09/16/21 14:15 Davey Test Pos 09/16/21 14:15 A-a Gradient 16.0 mmHg 09/16/21 14:15 FiO2 21.0 09/16/21 14:15 Blood Gas Comments Erica well, hw associate professor of art history 09/16/21 14:15 Sodium 141 mmol/L (136-145) 09/17/21 05:45 Corrected Sodium 142 mmol/L (136-145) 09/17/21 05:45 Potassium 4.2 mmol/L (3.5-5.1) 09/17/21 05:45 Chloride 105 mmol/L (98-107) 09/17/21 05:45 Carbon Dioxide 29.8 mmol/L (21-32) 09/17/21 05:45 BUN 25 mg/dL (7-18) H 09/17/21 05:45 Creatinine 1.59 mg/dL (0.55-1.02) H 09/17/21 05:45 Est GFR (MDRD) Af Amer 43 (>60) L 09/17/21 05:45 Est GFR (MDRD) Non-Af 36 (>60) L 09/17/21 05:45 Glucose 154 mg/dL (65-99) H 09/17/21 05:45 POC Glucose (mg/dL) 377 mg/dL (65-99) H 09/17/21 20:00 Calcium 8.8 mg/dL (8.5-10.1) 09/17/21 05:45 Corrected Calcium 9.8 mg/dL (8.5-10.1) 09/17/21 05:45 Magnesium 1.9 mg/dL (1.7-2.9) 09/16/21 14:18 Total Bilirubin 0.20 mg/dL (0.2-1.0) 09/17/21 05:45 AST 13 Units/L (15-37) L 09/17/21 05:45 ALT 19 Units/L (12-78) 09/17/21 05:45 Alkaline Phosphatase 82 Units/L (46-116) 09/17/21 05:45 Creatine Kinase 279 Units/L (26-192) H 09/17/21 01:49 CK-MB (CK-2) 3.0 ng/mL (0-4.0) 09/17/21 01:49 CK/CKMB % Calc 1.1 % (<4) 09/17/21 01:49 Troponin I < 0.02 ng/mL (0-1.5) 09/17/21 01:49 Total Protein 7.1 g/dL (6.4-8.2) 09/17/21 05:45 Albumin 2.7 g/dL (3.4-5.0) L 09/17/21 05:45 Globulin 4.4 g/dL (2.5-4.5) 09/17/21 05:45 Albumin/Globulin Ratio 0.6 Ratio (1.1-2.1) L 09/17/21 05:45 Specimen Type Catherized urine 09/16/21 15:54 Urine Color Yellow (YELLOW) 09/16/21 15:54 Urine Appearance Clear (CLEAR) 09/16/21 15:54 Urine pH 5.0 (5.0 - 8.0) 09/16/21 15:54 Ur Specific [place] 1.015 (1.000-1.030) 09/16/21 15:54 Urine Protein 2+ (NEGATIVE) 09/16/21 15:54 Urine Glucose (UA) Negative (NEGATIVE) 09/16/21 15:54 Urine Ketones Negative (NEGATIVE) 09/16/21 15:54 Urine Occult Blood Negative (NEGATIVE) 09/16/21 15:54 Urine Nitrite Negative (NEGATIVE) 09/16/21 15:54 Urine Bilirubin 1+ (NEGATIVE) 09/16/21 15:54 Urine Urobilinogen 1+ (NORMAL) 09/16/21 15:54 Ur Leukocyte Esterase 1+ (NEGATIVE) 09/16/21 15:54 Urine RBC 0-2 /HPF (0-3) 09/16/21 15:54 Urine WBC 5-10 /HPF (0-5) A 09/16/21 15:54 Ur Squamous Epith Cells Moderate /HPF (NEGATIVE) 09/16/21 15:54 Urine Bacteria Trace /HPF (NEGATIVE) 09/16/21 15:54 Ur Culture Indicated? No/not indicated 09/16/21 15:54 Ur Random Magnesium Cancelled 09/16/21 15:54 SARS-CoV-2 (PCR) Negative (NEGATIVE) 09/16/21 12:15 Influenza Type A (PCR) Negative (NEGATIVE) 09/16/21 12:15 Influenza Type B (PCR) Negative (NEGATIVE) 09/16/21 12:15 RSV (PCR) Negative (NEGATIVE) 09/16/21 12:15 - Plan (1) SOB (shortness of breath) Status: Acute Plan: Trend CXR. Trend ABG. CT chest wo. Repeat labs in am. Continue IV abx. Cultures pending. Duo nebs. Oxygen supplementation (2) CVA, old, hemiparesis Status: Chronic (3) Weakness Status: Chronic (4) COPD with exacerbation Status: Acute (5) AMS (altered mental status) Status: Resolved Plan: Ct head reveals no acute findings. BP AND BS CONTROL. CARDIAC MONITORING. CXR reveals pneumonia. RESP CONSULT, IV ATBX, STRICT I&S. VERIFY HOME MEDICATION (6) Pneumonia Status: Acute Plan: Covid negative. See above
[2021-09-18] MEDS: ZOSYN VIAL 3.375 GRAMS 3.375 G in NS 100 ML IV + SPIKE MINIBAG* 100 ML IV SCH ×3 (02:57→15:18)
[2021-09-18] MEDS: SOLU-Medrol 40 MG VIAL IVP SCH ×2 (05:11→13:53)
[2021-09-18] MEDS: NovoLIN R (or HumuLIN R) SUBCUT PRN ×2 (05:31→13:44)
[2021-09-18 05:49] LABS: BASOPHILS % (AUTO) 0.5 % (0.2-1.0); HEMATOCRIT 34.6 % (36.0-47.0); LYMPHOCYTES # (AUTO) 0.7 X10^3/uL (1.3-2.9); LYMPHOCYTES % (AUTO) 9.6 % (21.0-51.0); MEAN CORPUSCULAR HEMOGLOBIN 25.5 pg (27.0-34.0); MEAN CORPUSCULAR HGB CONC 31.8 g/dL (33.0-35.0); MEAN CORPUSCULAR VOLUME 80.1 fL (80.0-100.0); MEAN PLATELET VOLUME 9.6 fL (7.4-11.0); MONOCYTES # (AUTO) 0.2 x10^3/uL (0.3-0.8); MONOCYTES % (AUTO) 2.4 % (0.0-13.0); NEUTROPHILS # (AUTO) 6.3 x10^3/uL (2.2-4.8); NEUTROPHILS % (AUTO) 87.5 % (42.0-75.0); PLATELET COUNT 169 X10^3/uL (150.0-450.0); RED BLOOD COUNT 4.32 X10^6/uL (3.5-5.4); RED CELL DISTRIBUTION WIDTH 17.2 % (11.6-16.5); WHITE BLOOD COUNT 7.2 X10^3/uL (3.6-10.0)
--- NOTE | 2021-09-18 05:58 | RAD ---
HISTORYCoughSTUDYChest AP [id number]/21/2021FINDINGSTher e is a right IJ line in good position. Heart remains enlarged. No congestive heart failure is noted. No acute alveolar infiltrates or pleural effusions are identified. Bony thorax is unremarkable.IMPRESSIONContinued cardiomegaly without congestive heart failureNo definite infiltratesElectronically signed by: ACOSTA HURLEY (Sep 18, 2021 05:57:24)
[2021-09-18 06:03] LABS: ALANINE AMINOTRANSFERASE 19 Units/L (12-78); ALBUMIN 2.6 g/dL (3.4-5.0); ALKALINE PHOSPHATASE 85 Units/L (46-116); ASPARTATE AMINO TRANSFERASE 10 Units/L (15-37); BLOOD UREA NITROGEN 18 mg/dL (7-18); CALCIUM 8.4 mg/dL (8.5-10.1); CARBON DIOXIDE 31.9 mmol/L (21-32); CHLORIDE 100 mmol/L (98-107); COR CA(FOR HYPOALB) 9.5 mg/dL (8.5-10.1); COR NA(FOR HYPERGLY) 141 mmol/L (136-145); CREATININE 1.06 mg/dL (0.55-1.02); MAGNESIUM 2.2 mg/dL (1.7-2.9); SODIUM 135 mmol/L (136-145); TOTAL PROTEIN 7.3 g/dL (6.4-8.2); eGFR NON BLACK RACES 57 (>60)
[2021-09-18] MEDS: PULMICORT NEB TX 0.5 MG NEB SCH (08:34)
[2021-09-18] MEDS: PROTONIX INJ 40 MG VIAL IVP SCH (09:30)
[2021-09-18] MEDS: LOVENOX INJ 40 MG SYR SC SCH (09:30)
[2021-09-18] MEDS: ROBITUSSIN DM PO SCH ×3 (09:30→17:38)
[2021-09-18] MEDS: ZITHROMAX INJ 500 MG VIAL 500 MG in NS 250 ML IV 250 ML IV SCH (09:30)
[2021-09-18 17:04] VITALS: BP 123/70
== END 2021-09-18 17:34 | disposition home or self-care (01) | DRG 194 ==
LOC: MED/SURG → OBSVTOIN 11:44
PROVIDERS: ADMIT Internal Medicine; ATTEND Internal Medicine
DX: R26.89 Other abnormalities of gait and mobility; B95.7 Other staphylococcus as the cause of diseases classified elsewhere; I87.2 Venous insufficiency (chronic) (peripheral); I25.10 Atherosclerotic heart disease of native coronary artery without angina pectoris; R06.02 Shortness of breath; J44.1 Chronic obstructive pulmonary disease with (acute) exacerbation; I10 Essential (primary) hypertension; E11.65 Type 2 diabetes mellitus with hyperglycemia; R41.82 Altered mental status, unspecified; J18.8 Other pneumonia, unspecified organism; Z20.822 Contact with and (suspected) exposure to COVID-19; R94.31 Abnormal electrocardiogram [ECG] [EKG]

== ENCOUNTER 2021-10-25 11:09 | Inpatient (IN) ==
[2021-10-25] MEDS ORDERED: DUONEB 0.5 MG/3 MG (3 mL) NEB ONE ×3 (11:18→11:19)
[2021-10-25] MEDS ORDERED: SOLU-Medrol 125 MG VIAL IVP ONE (11:19)
[2021-10-25] MEDS ORDERED: SOLU-Medrol 125 MG VIAL ONE (11:26)
--- NOTE | 2021-10-25 11:28 | DR.SOBA ---
HPI Time Seen Time Seen by Provider: 10/25/21 11:15 HPI Comment HPI Comment: Brought in by ems with low sats on oxygen at home, cough and sob x at least two days; went out yesterday and re-positioned her and sats came back up; normally on 3-4 liters at home; admits to a cough and fever for the past two or three days; had covid at least as far back as [place]. PMH PMH Past Medical History: Anxiety, Arthritis, CVA, Diabetes, GERD and Hypertension Past Surgical History: Yes Surgical History: Angioplasty/Stents Family History Family Medical History: Diabetes Mellitus, Cancer, [place], Coronary Artery Disease, Heart Failure, Sudden Cardiac and Hypertension Social History Do you use any recreational Drugs:: No ROS Review of Systems Constitutional: No Symptoms Reported Eyes: No Symptoms Reported ENTM: No Symptoms Reported Cardiovascular: No Symptoms Reported Gastrointestinal/Abdominal: No Symptoms Reported Genitourinary: No Symptoms Reported Neurological: No Symptoms Reported Musculoskeletal: No Symptoms Reported Integumentary: No Symptoms Reported Hematologic/Lymphatic: No Symptoms Reported Endocrine: No Symptoms Reported Psychiatric: No Symptoms Reported PE Vital Signs Vitals: Temperature 98.9 F Pulse Rate 89 Respiratory Rate 20 Blood Pressure [Right Arm] 123/70 Blood Pressure 122/64 O2 Sat by Pulse Oximetry 92 General Limitations: No Limitations General Appearance: Alert and In No Apparent Distress Head Head Exam: Normal Inspection Eyes Eye exam: Normal Appearance ENT ENT Exam: Normal Exam Neck Neck Exam: Normal Inspection Chest Chest Inspection: Normal Inspection and Symmetric Chest Wall Rise Respiratory Respiratory Exam: Normal Lung Sounds Bilat and Prolonged Expiratory Phase Respiratory Exam: Bilateral: Wheezing (tight with diffuse wheezes) and Bilateral: Decreased Breath Sounds Cardiovascular Cardiovascular Exam: Regular Rate and Normal Rhythm Abdominal Exam Abdominal Exam: Normal Inspection, Normal Bowel Sounds and Soft Extremities Extremities Exam: Normal Inspection Back Back Exam: Normal Inspection Neurologic Neurological Exam: Alert and Oriented X3 Psychiatric Psychiatric Exam: Normal Affect and Normal Mood Skin Skin Exam: Warm, Dry, Intact and Normal Color MDM Differential Diagnosis Differential Diagnosis: Bronchitis, Pneumonia, Respiratory Failure, Respiratory Insufficiency and URI COURSE Reevaluation 1st: Unchanged ROR Labs Reviewed Laboratory Results Reviewed?: Yes Result Diagrams: 10/28/21 06:02 10/28/21 06:02 Laboratory: WBC 12.3 X10^3/uL (3.6-10.0) H 10/25/21 11:33 RBC 4.63 X10^6/uL (3.5-5.4) 10/25/21 11:33 Hgb 11.8 g/dL (12.0-16.0) L 10/25/21 11:33 Hct 37.4 % (36.0-47.0) 10/25/21 11:33 MCV 80.9 fL (80.0-100.0) 10/25/21 11:33 MCH 25.4 pg (27.0-34.0) L 10/25/21 11:33 MCHC 31.4 g/dL (33.0-35.0) L 10/25/21 11:33 RDW 18.6 % (11.6-16.5) H 10/25/21 11:33 Plt Count 186 X10^3/uL (150.0-450.0) 10/25/21 11:33 MPV 9.0 fL (7.4-11.0) 10/25/21 11:33 Neut % (Auto) 83.4 % (42.0-75.0) H 10/25/21 11:33 Lymph % (Auto) 10.5 % (21.0-51.0) L 10/25/21 11:33 [place] % (Auto) 4.8 % (0.0-13.0) 10/25/21 11:33 Eos % (Auto) 0.9 % (0.9-2.9) 10/25/21 11:33 Baso % (Auto) 0.4 % (0.2-1.0) 10/25/21 11:33 Neut # (Auto) 10.3 x10^3/uL (2.2-4.8) H 10/25/21 11:33 Lymph # (Auto) 1.3 X10^3/uL (1.3-2.9) 10/25/21 11:33 [place] # (Auto) 0.6 x10^3/uL (0.3-0.8) 10/25/21 11:33 Eos # (Auto) 0.1 x10^3/uL (0.0-0.2) 10/25/21 11:33 Baso # (Auto) 0.1 X10^3/uL (0.0-0.1) 10/25/21 11:33 Absolute Nucleated RBC 0.1 /100WBC 10/25/21 11:33 Sample Site Rbra 10/25/21 11:27 ABG pH 7.270 (7.35-7.45) L 10/25/21 11:27 ABG pCO2 71.0 mmHg (35.0-45.0) H* 10/25/21 11:27 ABG pO2 53.0 mmHg (80.0-100.0) L 10/25/21 11:27 ABG HCO3 32.6 mmol/L (22-26) H* 10/25/21 11:27 ABG O2 Saturation 82.0 % (90-100) L* 10/25/21 11:27 ABG Base Excess 3.7 mmol/L (-2.0-2.0) H 10/25/21 11:27 Davey Test N/a 10/25/21 11:27 A-a Gradient 115.0 mmHg 10/25/21 11:27 FiO2 36.0 10/25/21 11:27 Blood Gas Comments Pt rashawn well elj 10/25/21 11:27 Sodium 140 mmol/L (136-145) 10/25/21 11:33 Corrected Sodium 144 mmol/L (136-145) 10/25/21 11:33 Potassium 4.5 mmol/L (3.5-5.1) 10/25/21 11:33 Chloride 104 mmol/L (98-107) 10/25/21 11:33 Carbon Dioxide 27.9 mmol/L (21-32) 10/25/21 11:33 BUN 17 mg/dL (7-18) 10/25/21 11:33 Creatinine 1.96 mg/dL (0.55-1.02) H 10/25/21 11:33 Est GFR (MDRD) Af Amer 34 (>60) L 10/25/21 11:33 Est GFR (MDRD) Non-Af 28 (>60) L 10/25/21 11:33 Glucose 248 mg/dL (65-99) H 10/25/21 11:33 Calcium 9.0 mg/dL (8.5-10.1) 10/25/21 11:33 Corrected Calcium 10.0 mg/dL (8.5-10.1) 10/25/21 11:33 Total Bilirubin 0.20 mg/dL (0.2-1.0) 10/25/21 11:33 AST 12 Units/L (15-37) L 10/25/21 11:33 ALT 14 Units/L (12-78) 10/25/21 11:33 Alkaline Phosphatase 86 Units/L (46-116) 10/25/21 11:33 Total Protein 7.4 g/dL (6.4-8.2) 10/25/21 11:33 Albumin 2.8 g/dL (3.4-5.0) L 10/25/21 11:33 Globulin 4.6 g/dL (2.5-4.5) H 10/25/21 11:33 Albumin/Globulin Ratio 0.6 Ratio (1.1-2.1) L 10/25/21 11:33 Specimen Type Clean catch urine 10/25/21 11:50 Urine Color Yellow (YELLOW) 10/25/21 11:50 Urine Appearance Clear (CLEAR) 10/25/21 11:50 Urine pH 6.0 (5.0 - 8.0) 10/25/21 11:50 Ur Specific [place] 1.020 (1.000-1.030) 10/25/21 11:50 Urine Protein 1+ (NEGATIVE) 10/25/21 11:50 Urine Glucose (UA) Negative (NEGATIVE) 10/25/21 11:50 Urine Ketones Negative (NEGATIVE) 10/25/21 11:50 Urine Occult Blood Negative (NEGATIVE) 10/25/21 11:50 Urine Nitrite Negative (NEGATIVE) 10/25/21 11:50 Urine Bilirubin Negative (NEGATIVE) 10/25/21 11:50 Urine Urobilinogen Normal (NORMAL) 10/25/21 11:50 Ur Leukocyte Esterase Negative (NEGATIVE) 10/25/21 11:50 SARS-CoV-2 (PCR) Negative (NEGATIVE) 10/25/21 11:33 Influenza Type A (PCR) Negative (NEGATIVE) 10/25/21 11:33 Influenza Type B (PCR) Negative (NEGATIVE) 10/25/21 11:33 RSV (PCR) Negative (NEGATIVE) 10/25/21 11:33 XRAY XRAY Interpreted by: Radiologist X-ray Results: ct chest w/o: Subsegmental bilateral lower lobe airspace opacities consistent with bronchopneumonia. Patchy peribronchial pneumonitis of the bilateral upper lobes Cardiomegaly without overt pulmonary edema Multivessel coronary atherosclerosis Opioid Opioid Risk Tool Age (Andrei box if 16-45): No History of Preadolescent Sexual Abuse: No Total: 0 Total Score Risk Category: Low Risk Copyright: [facility] predicting aberrant behaviors Diagnosis Discharge Problem: Hypoxia, Acute on chronic respiratory failure with hypoxia and hypercapnia Pneumonia Qualifiers: Pneumonia type: due to unspecified organism Laterality: bilateral Lung location: upper lobe of lung Qualified Code(s): J18.9 - Pneumonia, unspecified organism Sepsis Qualifiers: Sepsis type: sepsis due to unspecified organism Sepsis acute organ dysfunction status: with acute organ dysfunction Severe sepsis acute organ dysfunction type: acute respiratory failure Acute respiratory failure type: with hypoxia Severe sepsis shock status: without septic shock Qualified Code(s): A41.9 - Sepsis, unspecified organism Instructions Instructions: Chronic Obstructive Pulmonary Disease Exacerbation, [id number] Chronic Respiratory Failure Acute Respiratory Failure, Adult Chronic Back Pain, [id number] Community-Acquired Pneumonia, Adult, [id number] Forms: Excuse From Work or School Precautions for COVID19 [facility] Social Distancing
[2021-10-25 11:35] LABS: ABG BASE EXCESS 3.7 mmol/L (-2.0-2.0); ABG HCO3 32.6 mmol/L (22-26)
[2021-10-25 11:46] LABS: BASOPHILS # (AUTO) 0.1 X10^3/uL (0.0-0.1); BASOPHILS % (AUTO) 0.4 % (0.2-1.0); EOSINOPHILS # (AUTO) 0.1 x10^3/uL (0.0-0.2); EOSINOPHILS % (AUTO) 0.9 % (0.9-2.9); HEMATOCRIT 37.4 % (36.0-47.0); HEMOGLOBIN 11.8 g/dL (12.0-16.0); LYMPHOCYTES # (AUTO) 1.3 X10^3/uL (1.3-2.9); LYMPHOCYTES % (AUTO) 10.5 % (21.0-51.0); MEAN CORPUSCULAR HEMOGLOBIN 25.4 pg (27.0-34.0); MEAN CORPUSCULAR HGB CONC 31.4 g/dL (33.0-35.0); MEAN CORPUSCULAR VOLUME 80.9 fL (80.0-100.0); MONOCYTES # (AUTO) 0.6 x10^3/uL (0.3-0.8); MONOCYTES % (AUTO) 4.8 % (0.0-13.0); NEUTROPHILS # (AUTO) 10.3 x10^3/uL (2.2-4.8); NEUTROPHILS % (AUTO) 83.4 % (42.0-75.0); RED BLOOD COUNT 4.63 X10^6/uL (3.5-5.4); RED CELL DISTRIBUTION WIDTH 18.6 % (11.6-16.5); WHITE BLOOD COUNT 12.3 X10^3/uL (3.6-10.0)
[2021-10-25 11:55] LABS: ALBUMIN 2.8 g/dL (3.4-5.0); CARBON DIOXIDE 27.9 mmol/L (21-32); CREATININE 1.96 mg/dL (0.55-1.02); TOTAL PROTEIN 7.4 g/dL (6.4-8.2)
[2021-10-25 12:06] LABS: BILIRUBIN,URINE NEGATIVE (NEGATIVE); BLOOD/HEMOGLOBIN,URINE NEGATIVE (NEGATIVE); GLUCOSE, URINE NEGATIVE (NEGATIVE); KETONES,URINE NEGATIVE (NEGATIVE); LEUKOCYTE ESTERASE ,URINE NEGATIVE (NEGATIVE); NITRITES,URINE NEGATIVE (NEGATIVE); PROTEIN,URINE 1+ (NEGATIVE); UROBILINOGEN,URINE NORMAL (NORMAL)
--- NOTE | 2021-10-25 12:21 | CT ---
HISTORYSOB, coughSTUDYCT of the chest without contrastCOMPARISONDecember chest x-rayTECHNIQUEAxial CT was performed from the thoracic inlet to the upper abdomen without IV contrast. The axial sequences are reconstructed with multiplaner reformats.FINDINGSThere is evidence of cardiomegaly with multi chamber dilation. Coronary atherosclerosis is observed. No significant pericardial effusion. Thoracic aorta caliber is average. There are no enlarged mediastinal, hilar or axillary lymph nodes of the chest, within limitations of a noncontrast CT evaluation. There are patchy peribronchial opacities of the bilateral upper lobes. Subsegmental airspace opacities with air bronchograms are demonstrated within the bilateral lower lobes. The pleural spaces are clear.The imaged portions of the upper abdomen demonstrate no acute abnormalities. Evaluation of the osseous structures demonstrates no aggressive bony lesions or acute osseous abnormalities.IMPRESSIONSubsegmental bilateral lower lobe airspace opacities consistent with bronchopneumonia.Patchy peribronchial pneumonitis of the bilateral upper lobesCardiomegaly without overt pulmonary edemaMultivessel coronary atherosclerosisRadiation dose reduction was achieved through individualized adjustment of kVP and/or mA, through adaptive statistical iterative reconstruction, and/or through automated tube current modulation.Electronically signed by: KIERRA CHARLTON (Oct 25, 2021 12:19:13)
[2021-10-25 12:25] LABS: APPEARANCE,URINE CLEAR (CLEAR); COLOR,URINE YELLOW (YELLOW)
[2021-10-25] MEDS ORDERED: NS 100 ML IV + SPIKE MINIBAG* 100 ML IV ONE ×2 (13:05→22:08)
[2021-10-25] MEDS ORDERED: ZOSYN VIAL 4.5 GRAMS IV ONE (13:05)
[2021-10-25] MEDS ORDERED: NS 1,000 ML IV 1,000 ML ONE (13:05)
[2021-10-25] MEDS: NS 1,000 ML IV 1,000 ML IV SCH (13:11)
[2021-10-25] MEDS: ZOSYN VIAL 4.5 GRAMS 4.5 G in NS 100 ML IV 100 ML IV SCH ×3 (13:11→22:16)
[2021-10-25] MEDS: NovoLIN R (or HumuLIN R) SUBCUT PRN ×2 (16:13→21:05)
[2021-10-25] MEDS: DUONEB 0.5 MG/3 MG (3 mL) NEB SCH ×2 (16:36→20:06)
[2021-10-25] MEDS ORDERED: PULMICORT NEB TX 0.5 MG NEB ONE (19:16)
[2021-10-25] MEDS: PULMICORT NEB TX 0.5 MG NEB SCH (20:06)
[2021-10-25 20:09] LABS: ABG BASE EXCESS 5.9 mmol/L (-2.0-2.0)
[2021-10-25 20:11] LABS: ABG ALLEN TEST POS; ABG HCO3 34.2 mmol/L (22-26)
[2021-10-25] MEDS: VIBRAMYCIN 100 MG in D5W 250 ML IV 250 ML IV SCH (20:52)
[2021-10-26] MEDS: DUONEB 0.5 MG/3 MG (3 mL) NEB SCH ×6 (00:25→20:05)
[2021-10-26] MEDS: NS 1,000 ML IV 1,000 ML IV SCH ×2 (04:48→16:37)
[2021-10-26] MEDS ORDERED: NS 100 ML IV + SPIKE MINIBAG* 100 ML IV ONE (04:50)
[2021-10-26] MEDS: ZOSYN VIAL 4.5 GRAMS 4.5 G in NS 100 ML IV 100 ML IV SCH ×3 (05:19→22:38)
[2021-10-26] MEDS: NovoLIN R (or HumuLIN R) SUBCUT PRN ×4 (05:29→21:06)
[2021-10-26 06:30] LABS: BASOPHILS % (AUTO) 0.1 % (0.2-1.0); HEMATOCRIT 35.5 % (36.0-47.0); HEMOGLOBIN 11.2 g/dL (12.0-16.0); LYMPHOCYTES # (AUTO) 0.7 X10^3/uL (1.3-2.9); LYMPHOCYTES % (AUTO) 7.6 % (21.0-51.0); MEAN CORPUSCULAR HEMOGLOBIN 25.4 pg (27.0-34.0); MEAN CORPUSCULAR HGB CONC 31.7 g/dL (33.0-35.0); MEAN CORPUSCULAR VOLUME 80.3 fL (80.0-100.0); MEAN PLATELET VOLUME 9.2 fL (7.4-11.0); MONOCYTES # (AUTO) 0.3 x10^3/uL (0.3-0.8); MONOCYTES % (AUTO) 3.5 % (0.0-13.0); NEUTROPHILS # (AUTO) 8.4 x10^3/uL (2.2-4.8); NEUTROPHILS % (AUTO) 88.8 % (42.0-75.0); RED BLOOD COUNT 4.42 X10^6/uL (3.5-5.4); RED CELL DISTRIBUTION WIDTH 17.7 % (11.6-16.5); WHITE BLOOD COUNT 9.5 X10^3/uL (3.6-10.0)
[2021-10-26 06:34] LABS: CALCIUM 8.8 mg/dL (8.5-10.1); CARBON DIOXIDE 29.5 mmol/L (21-32); CREATININE 1.59 mg/dL (0.55-1.02)
[2021-10-26] MEDS: VIBRAMYCIN 100 MG in D5W 250 ML IV 250 ML IV SCH ×2 (08:21→20:29)
[2021-10-26] MEDS: PULMICORT NEB TX 0.5 MG NEB SCH ×2 (08:29→20:05)
[2021-10-26] MEDS ORDERED: SOLU-Medrol 125 MG VIAL IVP SCH ×2 (09:00→11:00)
[2021-10-26 09:24] VITALS: BMI 53.7
[2021-10-26 10:38] LABS: ABG BASE EXCESS 5.8 mmol/L (-2.0-2.0)
[2021-10-26 10:39] LABS: ABG HCO3 34.4 mmol/L (22-26)
[2021-10-26] MEDS: SOLU-Medrol 125 MG VIAL IVP SCH ×2 (11:38→21:00)
--- NOTE | 2021-10-26 12:20 | DR.H&P ---
H&P History & Physical for Day of: H&P Date: 10/26/21 Chief Complaint Chief Complaint: worsening SOB Allergies Allergies Allergy/AdvReac Type Severity Reaction Status Date / Time levofloxacin Allergy Verified 10/25/21 11:28 procaine Allergy Verified 10/25/21 11:28 propoxyphene Allergy Verified 10/25/21 11:28 History of Present Illness History of Present Illness: Ms Walton is a 56y/o female with a PMH of COPD, Chronic respiratory failure on 3L Home O2, CVA, Type 2 DM and morbid obesity presented with worsening SOB and cough. Patient has a hx of recurrent ER visits and admissions for similar symptoms, last admitted last month. She reports having low sats and worsening dyspnea for the past 2 days. She also had fever, chills and productive cough. In the ER, ABG showed hypoxia and hypercapnia with PCO2 at 71. She was placed on BiPAP. CT chest showed bilateral bronchopneumonia and pneumonitis. She was started on IV antibiotics and steroids. Patient is currently on BiPAP at FiO2 55%. Labs/imaging reviewed COVID-19 (-) Plan: Repeat ABG this morning, transition to [place] for meals. Patient reports feeling better. Continue IV antibiotics and steroids. Continue nebs and pulmicort Patient's home medications need to be reconciled. She is not sure what she takes. Continue SSI, start Lantus. Monitor resp status. Monitor AM labs/imaging. Time spent for clinical assessment, reviewing labs/imaging, physical exam, decision making and documentation greater than 45 mins. 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 Family History Family Medical History: Diabetes Mellitus, Cancer, [place], Coronary Artery Disease, Heart Failure, Sudden Cardiac and Hypertension Social History Does patient currently use any type of tobacco product: Yes Have you used tobacco products in the last 12 months: Yes Type of Tobacco Use: Cigarettes Packs per day or dips/chews per day: 1 Alcohol Use: None Drug Use: Prescription Drugs Prescription drug monitoring program results: PDMP reviewed and no concerns identified Medications Home Medications: levofloxacin Allergy (Verified 10/25/21 11:28) procaine Allergy (Verified 10/25/21 11:28) propoxyphene Allergy (Verified 10/25/21 11:28) Labs Result Diagrams: 10/26/21 05:25 10/26/21 05:25 Labs: Laboratory WBC 9.5 X10^3/uL (3.6-10.0) 10/26/21 05:25 RBC 4.42 X10^6/uL (3.5-5.4) 10/26/21 05:25 Hgb 11.2 g/dL (12.0-16.0) L 10/26/21 05:25 Hct 35.5 % (36.0-47.0) L 10/26/21 05:25 MCV 80.3 fL (80.0-100.0) 10/26/21 05:25 MCH 25.4 pg (27.0-34.0) L 10/26/21 05:25 MCHC 31.7 g/dL (33.0-35.0) L 10/26/21 05:25 RDW 17.7 % (11.6-16.5) H 10/26/21 05:25 Plt Count 197 X10^3/uL (150.0-450.0) 10/26/21 05:25 MPV 9.2 fL (7.4-11.0) 10/26/21 05:25 Neut % (Auto) 88.8 % (42.0-75.0) H 10/26/21 05:25 Lymph % (Auto) 7.6 % (21.0-51.0) L 10/26/21 05:25 [place] % (Auto) 3.5 % (0.0-13.0) 10/26/21 05:25 Eos % (Auto) 0.0 % (0.9-2.9) L 10/26/21 05:25 Baso % (Auto) 0.1 % (0.2-1.0) L 10/26/21 05:25 Neut # (Auto) 8.4 x10^3/uL (2.2-4.8) H 10/26/21 05:25 Lymph # (Auto) 0.7 X10^3/uL (1.3-2.9) L 10/26/21 05:25 Sunflower # (Auto) 0.3 x10^3/uL (0.3-0.8) 10/26/21 05:25 Eos # (Auto) 0.0 x10^3/uL (0.0-0.2) 10/26/21 05:25 Baso # (Auto) 0.0 X10^3/uL (0.0-0.1) 10/26/21 05:25 Absolute Nucleated RBC 0.1 /100WBC 10/26/21 05:25 Sample Site Rbra 10/26/21 10:32 ABG pH 7.300 (7.35-7.45) L 10/26/21 10:32 ABG pCO2 70.0 mmHg (35.0-45.0) H* 10/26/21 10:32 ABG pO2 75.0 mmHg (80.0-100.0) L 10/26/21 10:32 ABG HCO3 34.4 mmol/L (22-26) H* 10/26/21 10:32 ABG O2 Saturation 93.0 % (90-100) 10/26/21 10:32 ABG Base Excess 5.8 mmol/L (-2.0-2.0) H 10/26/21 10:32 Davey Test N/a 10/26/21 10:32 A-a Gradient 230.0 mmHg 10/26/21 10:32 FiO2 55.0 10/26/21 10:32 Blood Gas Comments Pt rashawn well elj 10/26/21 10:32 Sodium 140 mmol/L (136-145) 10/26/21 05:25 Corrected Sodium 145 mmol/L (136-145) 10/26/21 05:25 Potassium 4.2 mmol/L (3.5-5.1) 10/26/21 05:25 Chloride 103 mmol/L (98-107) 10/26/21 05:25 Carbon Dioxide 29.5 mmol/L (21-32) 10/26/21 05:25 BUN 21 mg/dL (7-18) H 10/26/21 05:25 Creatinine 1.59 mg/dL (0.55-1.02) H 10/26/21 05:25 Est GFR (MDRD) Af Amer 43 (>60) L 10/26/21 05:25 Est GFR (MDRD) Non-Af 36 (>60) L 10/26/21 05:25 Glucose 298 mg/dL (65-99) H 10/26/21 05:25 POC Glucose (mg/dL) 297 mg/dL (65-99) H 10/26/21 11:21 Calcium 8.8 mg/dL (8.5-10.1) 10/26/21 05:25 Corrected Calcium 10.0 mg/dL (8.5-10.1) 10/25/21 11:33 Total Bilirubin 0.20 mg/dL (0.2-1.0) 10/25/21 11:33 AST 12 Units/L (15-37) L 10/25/21 11:33 ALT 14 Units/L (12-78) 10/25/21 11:33 Alkaline Phosphatase 86 Units/L (46-116) 10/25/21 11:33 Total Protein 7.4 g/dL (6.4-8.2) 10/25/21 11:33 Albumin 2.8 g/dL (3.4-5.0) L 10/25/21 11:33 Globulin 4.6 g/dL (2.5-4.5) H 10/25/21 11:33 Albumin/Globulin Ratio 0.6 Ratio (1.1-2.1) L 10/25/21 11:33 Specimen Type Clean catch urine 10/25/21 11:50 Urine Color Yellow (YELLOW) 10/25/21 11:50 Urine Appearance Clear (CLEAR) 10/25/21 11:50 Urine pH 6.0 (5.0 - 8.0) 10/25/21 11:50 Ur Specific [place] 1.020 (1.000-1.030) 10/25/21 11:50 Urine Protein 1+ (NEGATIVE) 10/25/21 11:50 Urine Glucose (UA) Negative (NEGATIVE) 10/25/21 11:50 Urine Ketones Negative (NEGATIVE) 10/25/21 11:50 Urine Occult Blood Negative (NEGATIVE) 10/25/21 11:50 Urine Nitrite Negative (NEGATIVE) 10/25/21 11:50 Urine Bilirubin Negative (NEGATIVE) 10/25/21 11:50 Urine Urobilinogen Normal (NORMAL) 10/25/21 11:50 Ur Leukocyte Esterase Negative (NEGATIVE) 10/25/21 11:50 SARS-CoV-2 (PCR) Negative (NEGATIVE) 10/25/21 11:33 Influenza Type A (PCR) Negative (NEGATIVE) 10/25/21 11:33 Influenza Type B (PCR) Negative (NEGATIVE) 10/25/21 11:33 RSV (PCR) Negative (NEGATIVE) 10/25/21 11:33 Review of Systems Constitutional: Fever, Chills, Weakness and Malaise Eyes: No Symptoms Reported ENT: No Symptoms Reported Respiratory: Cough, Shortness of Breath, SOB with Excertion and Sputum Cardiovascular: No Symptoms Reported Gastrointestinal: No Symptoms Reported Genitourinary: No Symptoms Reported Musculoskeletal: No Symptoms Reported Skin: No Symptoms Reported Neurological: No Symptoms Reported Physical Exam Vital Signs: Temperature 97.6 F Pulse Rate [Left Radial] 78 Pulse Rate 73 Respiratory Rate 24 Blood Pressure [Left Arm] 130/79 Blood Pressure [Right Arm] 123/70 Blood Pressure 122/64 O2 Sat by Pulse Oximetry 97 Oriented: Normal Eyes: Normal Ear: Normal Nose: Normal Throat: Normal Respiratory: Diminished Throughout, Rhonchi Throughout and Wheezes Throughout Cardiovascular: Normal Auscultation: Bowel Sounds: Normal Palpation: Normal Tenderness: Normal Skin: Normal Musculoskeletal: Normal Psychiatric: Normal Mood Description: Calm Affect: Normal Speech Pattern: Clear, Appropriate and Artificially Ventilated (biapap ) Assessment/Plan (1) Acute and chronic respiratory failure: Qualifiers: Respiratory failure complication: hypoxia and hypercapnia Qualified Code(s): J96.21 - Acute and chronic respiratory failure with hypoxia; J96.22 - Acute and chronic respiratory failure with hypercapnia Status: Acute (2) COPD exacerbation: Status: Acute (3) Bronchopneumonia: Status: Acute (4) Hypercapnia: Status: Acute (5) Hypoxia: Status: Acute (6) Sleep apnea in adult: Status: Acute (7) Obesity hypoventilation syndrome: Status: Acute (8) Acute renal failure: Qualifiers: Acute renal failure type: unspecified Qualified Code(s): N17.9 - Acute kidney failure, unspecified Status: Acute (9) Diabetes mellitus: Status: Chronic (10) Essential hypertension: Status: Chronic (11) Hyperlipidemia: Status: Chronic (12) History of anemia: Status: Chronic (13) GERD (gastroesophageal reflux disease): Qualifiers: Esophagitis presence: esophagitis presence not specified Qualified Code(s): K21.9 - Gastro-esophageal reflux disease without esophagitis Status: Chronic Review H&P Reviewed: Yes Patient was examined?: Yes
[2021-10-26] MEDS ORDERED: NORCO 10/325 TAB PO PRN (12:33)
[2021-10-26] MEDS ORDERED: XANAX PO PRN (13:01)
[2021-10-26] MEDS: COREG TAB 12.5 MG PO SCH ×2 (13:27→20:33)
[2021-10-26] MEDS: PEPCID TAB 20 MG PO SCH (13:27)
[2021-10-26] MEDS: SNACK - Diabetic Appropriate PO SCH (19:30)
[2021-10-26] MEDS: LANTUS SC SCH (20:27)
[2021-10-26] MEDS: LIPITOR TAB 20 MG PO SCH (20:33)
[2021-10-26] MEDS: PROzac PO SCH (20:33)
[2021-10-26] MEDS: SINEquan PO SCH (20:33)
[2021-10-27] MEDS: DUONEB 0.5 MG/3 MG (3 mL) NEB SCH ×6 (00:28→21:00)
[2021-10-27] MEDS: NovoLIN R (or HumuLIN R) SUBCUT PRN ×5 (00:37→21:23)
[2021-10-27] MEDS: NS 1,000 ML IV 1,000 ML IV SCH ×2 (04:17→18:11)
[2021-10-27] MEDS: SOLU-Medrol 125 MG VIAL IVP SCH ×3 (05:02→21:22)
[2021-10-27] MEDS: ZOSYN VIAL 4.5 GRAMS 4.5 G in NS 100 ML IV 100 ML IV SCH ×3 (05:02→21:23)
[2021-10-27 05:27] LABS: ABG BASE EXCESS 4.9 mmol/L (-2.0-2.0)
[2021-10-27 05:28] LABS: ABG ALLEN TEST POS
[2021-10-27 06:47] LABS: CALCIUM 8.5 mg/dL (8.5-10.1); CARBON DIOXIDE 27.6 mmol/L (21-32); CREATININE 1.3 mg/dL (0.55-1.02)
[2021-10-27 07:02] LABS: BASOPHILS % (AUTO) 0.2 % (0.2-1.0); HEMATOCRIT 36.4 % (36.0-47.0); HEMOGLOBIN 11.5 g/dL (12.0-16.0); LYMPHOCYTES # (AUTO) 0.7 X10^3/uL (1.3-2.9); LYMPHOCYTES % (AUTO) 7.8 % (21.0-51.0); MEAN CORPUSCULAR HEMOGLOBIN 25.4 pg (27.0-34.0); MEAN CORPUSCULAR HGB CONC 31.6 g/dL (33.0-35.0); MEAN CORPUSCULAR VOLUME 80.3 fL (80.0-100.0); MEAN PLATELET VOLUME 9.1 fL (7.4-11.0); MONOCYTES # (AUTO) 0.2 x10^3/uL (0.3-0.8); MONOCYTES % (AUTO) 2.6 % (0.0-13.0); NEUTROPHILS # (AUTO) 7.9 x10^3/uL (2.2-4.8); NEUTROPHILS % (AUTO) 89.4 % (42.0-75.0); RED BLOOD COUNT 4.53 X10^6/uL (3.5-5.4); RED CELL DISTRIBUTION WIDTH 17.7 % (11.6-16.5); WHITE BLOOD COUNT 8.9 X10^3/uL (3.6-10.0)
[2021-10-27] MEDS: VIBRAMYCIN 100 MG in D5W 250 ML IV 250 ML IV SCH ×2 (08:52→20:15)
[2021-10-27] MEDS: COREG TAB 12.5 MG PO SCH ×2 (08:52→21:21)
[2021-10-27] MEDS: ASPIRIN PO SCH (08:52)
[2021-10-27] MEDS: NORVASC TAB 10 MG PO SCH (08:53)
[2021-10-27] MEDS: PEPCID TAB 20 MG PO SCH (08:53)
[2021-10-27] MEDS: PULMICORT NEB TX 0.5 MG NEB SCH ×2 (09:00→21:00)
--- NOTE | 2021-10-27 15:00 | PCM.PROG ---
Progress Note - Subjective Subjective: Patient is a 56 year old AAF who was admitted as per HPI. Patient has a history of CVA, COPD, chronic resp failure, home oxygen, CPAP machine, morbidy obesity. Patient reports her breathing is at her baseline. Patient tolerating oxygen via nasal cannula. Spouse at bedside; questions answered and concerns addressed. - Past Medical Family Social History Past Med/Fam/Surg Hx: No changes since H&P Allergies: Allergies levofloxacin Allergy (Verified 10/25/21 11:28) procaine Allergy (Verified 10/25/21 11:28) propoxyphene Allergy (Verified 10/25/21 11:28) - Review of Systems ROS: No change since H&P - Vital Signs and I&O's Vital Signs: Temperature 98.2 F Pulse Rate [Left Radial] 75 Pulse Rate 77 Respiratory Rate 22 Blood Pressure [Left Arm] 119/58 Blood Pressure [Right Arm] 123/70 Blood Pressure 122/64 O2 Sat by Pulse Oximetry 97 Intake and Output: Intake & Output 10/24/21 10/25/21 10/26/21 10/27/21 23:59 23:59 23:59 23:59 Intake Total 250 / 250 4478 / 4478 1214 / 1214 Output Total 650 / 650 1974 525 / 525 Balance -400 / -400 2503 / 2503 689 / 689 - Physical Exam Oriented: Normal, Time, Person, Place Eyes: Normal Ear: Normal Nose: Normal Throat: Normal Respiratory: Diminished Cardiovascular: Normal : Other (mejias) Auscultation: Bowel Sounds: Normal Palpation: Normal Tenderness: Normal Skin: Normal Musculoskeletal: Left, Instability (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) Psychiatric: Normal Mood Description: Calm Affect: Normal Speech Pattern: Clear, Appropriate - Laboratory and Diagnostics Result Diagrams: 10/27/21 06:00 10/27/21 06:00 Labs: Laboratory WBC 8.9 X10^3/uL (3.6-10.0) 10/27/21 06:00 RBC 4.53 X10^6/uL (3.5-5.4) 10/27/21 06:00 Hgb 11.5 g/dL (12.0-16.0) L 10/27/21 06:00 Hct 36.4 % (36.0-47.0) 10/27/21 06:00 MCV 80.3 fL (80.0-100.0) 10/27/21 06:00 MCH 25.4 pg (27.0-34.0) L 10/27/21 06:00 MCHC 31.6 g/dL (33.0-35.0) L 10/27/21 06:00 RDW 17.7 % (11.6-16.5) H 10/27/21 06:00 Plt Count 204 X10^3/uL (150.0-450.0) 10/27/21 06:00 MPV 9.1 fL (7.4-11.0) 10/27/21 06:00 Neut % (Auto) 89.4 % (42.0-75.0) H 10/27/21 06:00 Lymph % (Auto) 7.8 % (21.0-51.0) L 10/27/21 06:00 [place] % (Auto) 2.6 % (0.0-13.0) 10/27/21 06:00 Eos % (Auto) 0.0 % (0.9-2.9) L 10/27/21 06:00 Baso % (Auto) 0.2 % (0.2-1.0) 10/27/21 06:00 Neut # (Auto) 7.9 x10^3/uL (2.2-4.8) H 10/27/21 06:00 Lymph # (Auto) 0.7 X10^3/uL (1.3-2.9) L 10/27/21 06:00 [place] # (Auto) 0.2 x10^3/uL (0.3-0.8) L 10/27/21 06:00 Eos # (Auto) 0.0 x10^3/uL (0.0-0.2) 10/27/21 06:00 Baso # (Auto) 0.0 X10^3/uL (0.0-0.1) 10/27/21 06:00 Absolute Nucleated RBC 0.1 /100WBC 10/27/21 06:00 Sample Site Rr 10/27/21 05:20 ABG pH 7.270 (7.35-7.45) L 10/27/21 05:20 ABG pCO2 74.0 mmHg (35.0-45.0) H* 10/27/21 05:20 ABG pO2 64.0 mmHg (80.0-100.0) L 10/27/21 05:20 ABG HCO3 34.0 mmol/L (22-26) H* 10/27/21 05:20 ABG O2 Saturation 89.0 % (90-100) L 10/27/21 05:20 ABG Base Excess 4.9 mmol/L (-2.0-2.0) H 10/27/21 05:20 Davey Test Pos 10/27/21 05:20 A-a Gradient 157.0 mmHg 10/27/21 05:20 FiO2 44.0 10/27/21 05:20 Blood Gas Comments Erica well ae 10/27/21 05:20 Sodium 138 mmol/L (136-145) 10/27/21 06:00 Corrected Sodium 145 mmol/L (136-145) 10/27/21 06:00 Potassium 4.0 mmol/L (3.5-5.1) 10/27/21 06:00 Chloride 101 mmol/L (98-107) 10/27/21 06:00 Carbon Dioxide 27.6 mmol/L (21-32) 10/27/21 06:00 BUN 23 mg/dL (7-18) H 10/27/21 06:00 Creatinine 1.30 mg/dL (0.55-1.02) H 10/27/21 06:00 Est GFR (MDRD) Af Amer 55 (>60) L 10/27/21 06:00 Est GFR (MDRD) Non-Af 45 (>60) L 10/27/21 06:00 Glucose 377 mg/dL (65-99) H 10/27/21 06:00 POC Glucose (mg/dL) 342 mg/dL (65-99) H 10/27/21 11:05 Calcium 8.5 mg/dL (8.5-10.1) 10/27/21 06:00 Corrected Calcium 10.0 mg/dL (8.5-10.1) 10/25/21 11:33 Total Bilirubin 0.20 mg/dL (0.2-1.0) 10/25/21 11:33 AST 12 Units/L (15-37) L 10/25/21 11:33 ALT 14 Units/L (12-78) 10/25/21 11:33 Alkaline Phosphatase 86 Units/L (46-116) 10/25/21 11:33 Total Protein 7.4 g/dL (6.4-8.2) 10/25/21 11:33 Albumin 2.8 g/dL (3.4-5.0) L 10/25/21 11:33 Globulin 4.6 g/dL (2.5-4.5) H 10/25/21 11:33 Albumin/Globulin Ratio 0.6 Ratio (1.1-2.1) L 10/25/21 11:33 Specimen Type Clean catch urine 10/25/21 11:50 Urine Color Yellow (YELLOW) 10/25/21 11:50 Urine Appearance Clear (CLEAR) 10/25/21 11:50 Urine pH 6.0 (5.0 - 8.0) 10/25/21 11:50 Ur Specific [place] 1.020 (1.000-1.030) 10/25/21 11:50 Urine Protein 1+ (NEGATIVE) 10/25/21 11:50 Urine Glucose (UA) Negative (NEGATIVE) 10/25/21 11:50 Urine Ketones Negative (NEGATIVE) 10/25/21 11:50 Urine Occult Blood Negative (NEGATIVE) 10/25/21 11:50 Urine Nitrite Negative (NEGATIVE) 10/25/21 11:50 Urine Bilirubin Negative (NEGATIVE) 10/25/21 11:50 Urine Urobilinogen Normal (NORMAL) 10/25/21 11:50 Ur Leukocyte Esterase Negative (NEGATIVE) 10/25/21 11:50 SARS-CoV-2 (PCR) Negative (NEGATIVE) 10/25/21 11:33 Influenza Type A (PCR) Negative (NEGATIVE) 10/25/21 11:33 Influenza Type B (PCR) Negative (NEGATIVE) 10/25/21 11:33 RSV (PCR) Negative (NEGATIVE) 10/25/21 11:33 - Plan (1) Obesity hypoventilation syndrome Status: Acute (2) Hypoxia Status: Acute (3) Acute and chronic respiratory failure Status: Acute Qualifiers: Respiratory failure complication: hypoxia and hypercapnia Qualified Code(s): J96.21 - Acute and chronic respiratory failure with hypoxia; J96.22 - Acute and chronic respiratory failure with hypercapnia Plan: IV abx, steroids. Oxygen. Repeat labs and imaging in am (4) Bronchopneumonia Status: Acute (5) COPD exacerbation Status: Acute (6) CVA, old, hemiparesis Status: Chronic (7) Morbid obesity Status: Acute
[2021-10-27] MEDS: ROBITUSSIN DM PO PRN ×2 (18:11→21:55)
[2021-10-27] MEDS: SNACK - Diabetic Appropriate PO SCH (20:15)
[2021-10-27] MEDS: LIPITOR TAB 20 MG PO SCH (21:21)
[2021-10-27] MEDS: LANTUS SC SCH (21:21)
[2021-10-27] MEDS: SINEquan PO SCH (21:22)
[2021-10-27] MEDS: PROzac PO SCH (21:22)
[2021-10-28] MEDS: DUONEB 0.5 MG/3 MG (3 mL) NEB SCH ×5 (00:50→13:17)
[2021-10-28] MEDS: SOLU-Medrol 125 MG VIAL IVP SCH ×2 (05:04→13:15)
[2021-10-28] MEDS: ZOSYN VIAL 4.5 GRAMS 4.5 G in NS 100 ML IV 100 ML IV SCH ×2 (05:05→13:27)
[2021-10-28] MEDS: NovoLIN R (or HumuLIN R) SUBCUT PRN ×2 (05:54→11:04)
[2021-10-28 05:57] LABS: ABG BASE EXCESS 6.7 mmol/L (-2.0-2.0)
[2021-10-28 05:59] LABS: ABG HCO3 35.4 mmol/L (22-26)
[2021-10-28 06:00] LABS: ABG ALLEN TEST POSS
--- NOTE | 2021-10-28 06:12 | RAD ---
HISTORYSOBSTUDYCHEST, 1 VIHHLEMOKOEACU01/23/2021.TECHNIQUEAP view of the chestFINDINGSThe cardiac silhouette is stably enlarged. Mediastinal contours appear stable. There are mild bilateral scattered hazy and interstitial pulmonary opacities. Left costophrenic sulcus is excluded. No definite pleural effusion or pneumothorax. Soft tissue attenuation limits evaluation.IMPRESSIONCardiomegaly with mild hazy and interstitial pulmonary opacities which is nonspecific but can be seen with pulmonary edema and atypical pneumoniaElectronically signed by: Ang Dash (Oct 28, 2021 06:11:46)
[2021-10-28 06:30] LABS: BASOPHILS % (AUTO) 0.5 % (0.2-1.0); HEMATOCRIT 37.6 % (36.0-47.0); HEMOGLOBIN 11.9 g/dL (12.0-16.0); LYMPHOCYTES # (AUTO) 0.7 X10^3/uL (1.3-2.9); LYMPHOCYTES % (AUTO) 7.8 % (21.0-51.0); MEAN CORPUSCULAR HEMOGLOBIN 25.4 pg (27.0-34.0); MEAN CORPUSCULAR HGB CONC 31.6 g/dL (33.0-35.0); MEAN CORPUSCULAR VOLUME 80.4 fL (80.0-100.0); MEAN PLATELET VOLUME 9.2 fL (7.4-11.0); MONOCYTES # (AUTO) 0.2 x10^3/uL (0.3-0.8); MONOCYTES % (AUTO) 2.1 % (0.0-13.0); NEUTROPHILS # (AUTO) 8.2 x10^3/uL (2.2-4.8); NEUTROPHILS % (AUTO) 89.6 % (42.0-75.0); RED BLOOD COUNT 4.67 X10^6/uL (3.5-5.4); WHITE BLOOD COUNT 9.2 X10^3/uL (3.6-10.0)
[2021-10-28 06:52] LABS: ALANINE AMINOTRANSFERASE 23 Units/L (12-78); ALBUMIN 2.9 g/dL (3.4-5.0); ALKALINE PHOSPHATASE 67 Units/L (46-116); ASPARTATE AMINO TRANSFERASE 7 Units/L (15-37); BLOOD UREA NITROGEN 25 mg/dL (7-18); CALCIUM 8.2 mg/dL (8.5-10.1); CARBON DIOXIDE 31.2 mmol/L (21-32); CHLORIDE 106 mmol/L (98-107); COR CA(FOR HYPOALB) 9.1 mg/dL (8.5-10.1); COR NA(FOR HYPERGLY) 152 mmol/L (136-145); CREATININE 1.11 mg/dL (0.55-1.02); SODIUM 145 mmol/L (136-145); TOTAL PROTEIN 7.7 g/dL (6.4-8.2); eGFR NON BLACK RACES 54 (>60)
[2021-10-28] MEDS: NS 1,000 ML IV 1,000 ML IV SCH (08:33)
[2021-10-28] MEDS: ASPIRIN PO SCH (08:33)
[2021-10-28] MEDS: NORVASC TAB 10 MG PO SCH (08:34)
[2021-10-28] MEDS: COREG TAB 12.5 MG PO SCH (08:34)
[2021-10-28] MEDS: VIBRAMYCIN 100 MG in D5W 250 ML IV 250 ML IV SCH (08:34)
[2021-10-28] MEDS: PEPCID TAB 20 MG PO SCH (08:34)
[2021-10-28] MEDS: ROBITUSSIN DM PO PRN (08:34)
[2021-10-28] MEDS: PULMICORT NEB TX 0.5 MG NEB SCH (10:01)
[2021-10-28 12:10] VITALS: BP 113/58
--- NOTE | 2021-11-30 22:31 | PCM.DCPLAN ---
Discharge Plan - Discharge Plan Hospital Course: Admit date 10/25/21 Discharge date 10/28/21 DOS: 10/28/21 Admit diagnosis1) Acute and chronic respiratory failure: (2) COPD exacerbation: (3) Bronchopneumonia: (4) Hypercapnia: (5) Hypoxia: (6) Sleep apnea in adult: (7) Obesity hypoventilation syndrome: (8) Acute renal failure: (9) Diabetes mellitus: (10) Essential hypertension: (11) Hyperlipidemia: (12) History of anemia: (13) GERD (gastroesophageal reflux disease): Discharge diagnosis(1) SOB (shortness of breath) (2) Pneumonia (3) Acute on chronic respiratory failure with hypoxia and hypercapnia (4) COPD with exacerbation (5) Diabetes mellitus type 2, uncontrolled (6) Hypoxia (7) Morbid obesity (8) Weakness generalized (9) CVA, old, hemiparesis Hospital Course: Patient is a 56 year old female who was admitted as per HPI. Patient has a history of pneumonia and acute on chronic resp failure; patient receives home oxygen, nebulizers, inhalers, and cpap. CXR revealed pneumonia which is similar to recent hospitalizations. Patient was treated with IV abx and steroids, oxygen supplementation and duo nebs. Patient's symptoms improved to baseline. Labs improved; cultures negative. Patient was discharged home with po abx; follow up with pcp in 1 week. Discharge time >35 mins Disposition: 01 HOME, SELF-CARE Condition: Stable Health Concerns: Post Hospitalization: new medications and changes needed to prevent readmission or further decline. Pt educated and given instructions on all concerns. Plan of Treatment: Continue with present treatment and follow up plan. Pt is to keep follow up appointment as instructed and take medications as ordered. Prescriptions: Continued alprazolam 0.5 mg Tablet 0.5 mg PO DAILY PRN amlodipine 10 MG tablet 10 mg PO DAILY aspirin 325 MG tablet 325 mg PO DAILY atorvastatin [Lipitor] 20 MG tablet 20 mg PO HS budesonide-formoterol [Symbicort] 80-4.5 mcg/actuation Hfa Aerosol Inhaler 1 puff INHALATION BID carvedilol 12.5 mg Tablet 12.5 mg PO BID clopidogrel [Plavix] 75 MG tablet 75 mg PO DAILY cyclobenzaprine 10 MG tablet 10 mg PO TID PRN doxepin 10 mg Capsule 10 mg PO HS duloxetine 30 mg Capsule,Delayed Release(Dr/Ec) 30 mg PO DAILY famotidine 20 mg Tablet 20 mg PO BID fluoxetine 20 mg Capsule 20 mg PO HS furosemide [Lasix] 20 mg Tablet 20 mg PO PRN PRN gabapentin 600 mg Tablet 600 mg PO TID hydrochlorothiazide 25 mg Tablet 25 mg PO DAILY hydrocodone-acetaminophen 10 MG/325 MG tablet 1 tab PO BID Lantus Solostar U-100 Insulin 100 unit/mL (3 mL) Insulin Pen 70 unit SUBCUT .AM Lantus Solostar U-100 Insulin 100 unit/mL (3 mL) Insulin Pen 65 unit SUBCUT .PM loratadine [Non-Drowsy Allergy] 10 MG tablet 10 mg PO DAILY metformin 500 mg Tablet 500 mg PO BID omeprazole 40 mg Capsule,Delayed Release(Dr/Ec) 40 mg PO DAILY potassium chloride 10 mEq Capsule, Extended Release 10 meq PO DAILY PRN topiramate 25 mg Tablet 25 mg PO DAILY No Action azithromycin [Zithromax] 250 mg Tablet 250 mg PO ONCE Qty: 7 RF: 0 losartan 100 mg Tablet 100 mg PO DAILY - Follow ups/Referrals Follow ups/Referrals: NADIYA VENTURA [Primary Care Provider] - 11/04/21 10:45 am - Instructions Instructions: Chronic Obstructive Pulmonary Disease Exacerbation, [id number], Chronic Respiratory Failure, Acute Respiratory Failure, Adult, Chronic Back Pain, Mukh-[id number], Community-Acquired Pneumonia, Adult, [id number]
== END 2021-10-28 14:20 | disposition home or self-care (01) | DRG 871 ==
LOC: ER 11:09 → MED/SURG 14:13
PROVIDERS: ADMIT Internal Medicine; ATTEND Internal Medicine
DX: Z20.822 Contact with and (suspected) exposure to COVID-19; J96.22 Acute and chronic respiratory failure with hypercapnia; E11.65 Type 2 diabetes mellitus with hyperglycemia; Z99.81 Dependence on supplemental oxygen; A41.89 Other specified sepsis; J44.1 Chronic obstructive pulmonary disease with (acute) exacerbation; N17.8 Other acute kidney failure; Z86.2 Personal history of diseases of the blood and blood-forming organs and certain disorders involving the immune mechanism; K21.9 Gastro-esophageal reflux disease without esophagitis; I10 Essential (primary) hypertension; R79.82 Elevated C-reactive protein (CRP); J18.0 Bronchopneumonia, unspecified organism; I69.359 Hemiplegia and hemiparesis following cerebral infarction affecting unspecified side; J96.21 Acute and chronic respiratory failure with hypoxia; E66.2 Morbid (severe) obesity with alveolar hypoventilation

== ENCOUNTER 2021-11-16 11:45 | Inpatient (IN) ==
[2021-11-16 12:06] VITALS: BMI 95.4
--- NOTE | 2021-11-16 12:17 | DR.SOBA ---
HPI Time Seen Time Seen by Provider: 11/16/21 12:08 Primary Care Physician Primary Care Physician: SHE HPI Comment HPI Comment: PATIENT IS 56YR OLD FEMALE IN ER WITH COUGH, CONGESTION AND SOB. RECENTLY DISCHARGE FROM HOSPITAL FOR PNEUMONIA. NO FEVER. SHE WEAK AND TIRED. Complaints Chief Complaint Doctors Comments: COUGH, CONGESTION, SOB AND WEAKNESS AND FATIGUE THAT STARTED TODAY. Chief Complaint:: PATIENT C/O SHORTNESS OF BREATH AND COUGHING. PATIENT STATES SHE WAS RECENTLY DISCHARGED FROM THE HOSPITAL WITH PNEUMONIA. PATIENT IS NOTED THE HAVE AUDIBLE CONGESTION. COVID-19 Coronavirus risk:travel/contact w/high risk person: No Has patient experienced Coronavirus symptoms: Yes Coronavirus symptoms experienced: Coughing Reviewed Nurses Notes Reviewed: Yes Source History Provided: EMS Mode of Arrival Mode of Arrival: EMS Timing Onset of Chief Complaint: 11/16/21 Duration Duration: Hours Context Onset:: At Rest PE Risk Factors:: None History of:: Anxiety Currently on:: Neither Prehospital Care:: None Modifying Factors Worsens:: Exertion Improves:: Rest Associated Signs and Symptoms Associated Signs and Symptoms: Cough and Nasal Congestion If Chest Pain Quality: Pleuritic Location: Substernal If Cough Cough: Productive and Yellow Other History Other History: HTN, DM, ARTHRTIS. PMH PMH Past Medical History: Yes Past Medical History: Anxiety, Arthritis, CVA, Diabetes, GERD and Hypertension Past Surgical History: Yes Surgical History: Angioplasty/Stents and Hysterectomy Family History History of Family Medical Conditions: Yes Family Medical History: Diabetes Mellitus, Cancer, [place], Coronary Artery Disease, Heart Failure, Sudden Cardiac and Hypertension Social History Type of Tobacco Use: Cigarettes Does any household member use tobacco: No Alcohol Use: None Do you use any recreational Drugs:: No Lives With: Family Lives Where: Home Travel Risk Coronavirus risk:travel/contact w/high risk person: No Has patient experienced Coronavirus symptoms: Yes Coronavirus symptoms experienced: Coughing Infectious screening In the last 2 months have you had wt loss of >10#?: NO Have you had fever, night sweats or hemotysis?: No Have you traveled outside the country in the last 6 months?: No Isolation: Standard ROS Review of Systems Constitutional: See HPI, Weakness and Fatigue; negative Fever Eyes: No Symptoms Reported and See HPI ENTM: See HPI, Nose Discharge and Nose Congestion Respiratoy: See HPI, Productive Cough and Short of Breath Cardiovascular: See HPI, Chest Pain and Edema Gastrointestinal/Abdominal: No Symptoms Reported, See HPI, Abdominal Pain, Diarrhea and Vomiting Genitourinary: No Symptoms Reported, See HPI and Dysuria Neurological: See HPI, Headache and Weakness; negative Dizziness Musculoskeletal: See HPI and Back Pain; negative Muscle Pain Integumentary: No Symptoms Reported and See HPI; negative Rash and Juandice Hematologic/Lymphatic: No Symptoms Reported and See HPI; negative Easy Bruising Endocrine: No Symptoms Reported and See HPI; negative Increased Thirst and Increased Urine Psychiatric: No Symptoms Reported and See HPI All Other Systems: Reviewed and Negative PE Vital Signs Vitals: Pulse Rate 83 Respiratory Rate 37 Blood Pressure [Left Arm] 113/58 Blood Pressure 130/63 O2 Sat by Pulse Oximetry 81 General Limitations: No Limitations General Appearance: Alert and In Distress Head Head Exam: Normal Inspection Eyes Eye exam: Normal Appearance; negative Scleral Icterus and Conjunctival Injection ENT ENT Exam: Normal Exam, Normal Oropharynx, Normal External Ear Exam and TM's Normal Bilaterally Neck Neck Exam: Normal Inspection and Trachea Midline; negative Tenderness Chest Chest Inspection: Normal Inspection and Symmetric Chest Wall Rise; negative Tenderness Respiratory Respiratory Exam: Normal Lung Sounds Bilat and Respiratory Distress; negative Accessory Muscle Use and Chest Wall Tenderness Respiratory Exam: Bilateral: Rhonchi and Lower: Rhonchi Cardiovascular Cardiovascular Exam: Regular Rate, Normal Rhythm and Normal Heart Sounds; negative Systolic Murmur and Diastolic Murmur Abdominal Exam Abdominal Exam: Normal Inspection, Normal Bowel Sounds and Soft; negative Tenderness Extremities Extremities Exam: Normal Inspection, Normal Capillary Refill and Edema Back Back Exam: Normal Inspection and Paraspinal Tenderness Neurologic Neurological Exam: Alert and Oriented X3; negative Motor Sensory Deficit Psychiatric Psychiatric Exam: Normal Affect and Normal Mood Skin Skin Exam: Warm, Dry, Intact and Normal Color MDM Differential Diagnosis Differential Diagnosis: Bronchitis, Mycardial Infarction, Pneumonia, Pneumothorax, Respiratory Insufficiency, Sinusitis and URI COURSE Treatment Treatment: SEE ORDERS/NOTED WHILE IN ER. LABS, EKG AND XRAY DISCUUSSED WITH PATIENT AND HER WHILE IN ER. PATIENT GIVEN DUO NEB, SOLUMEDROL 125MG IV, ZOFRAN 4MG IV AND ZOSYN 3.375GM IVPB IN ER. SHE WAS ADMITTED TO HOSPITAL FOR FURTHER MANAGEMENT. Reevaluation 1st: Improved Education/Counseling Education/Counseling: Patient and Family Educated On: Diagnosis ROR Labs Reviewed Laboratory Results Reviewed?: Yes Result Diagrams: 11/20/21 03:45 11/20/21 03:45 Laboratory: WBC 6.8 X10^3/uL (3.6-10.0) 11/16/21 12:36 RBC 4.35 X10^6/uL (3.5-5.4) 11/16/21 12:36 Hgb 11.2 g/dL (12.0-16.0) L 11/16/21 12:36 Hct 34.7 % (36.0-47.0) L 11/16/21 12:36 MCV 79.7 fL (80.0-100.0) L 11/16/21 12:36 MCH 25.6 pg (27.0-34.0) L 11/16/21 12:36 MCHC 32.1 g/dL (33.0-35.0) L 11/16/21 12:36 RDW 18.5 % (11.6-16.5) H 11/16/21 12:36 Plt Count 163 X10^3/uL (150.0-450.0) 11/16/21 12:36 MPV 8.5 fL (7.4-11.0) 11/16/21 12:36 Neut % (Auto) 67.6 % (42.0-75.0) 11/16/21 12:36 Lymph % (Auto) 23.5 % (21.0-51.0) 11/16/21 12:36 [place] % (Auto) 5.7 % (0.0-13.0) 11/16/21 12:36 Eos % (Auto) 2.5 % (0.9-2.9) 11/16/21 12:36 Baso % (Auto) 0.7 % (0.2-1.0) 11/16/21 12:36 Neut # (Auto) 4.6 x10^3/uL (2.2-4.8) 11/16/21 12:36 Lymph # (Auto) 1.6 X10^3/uL (1.3-2.9) 11/16/21 12:36 [place] # (Auto) 0.4 x10^3/uL (0.3-0.8) 11/16/21 12:36 Eos # (Auto) 0.2 x10^3/uL (0.0-0.2) 11/16/21 12:36 Baso # (Auto) 0.0 X10^3/uL (0.0-0.1) 11/16/21 12:36 Absolute Nucleated RBC 0.2 /100WBC 11/16/21 12:36 Sample Site Rra 11/16/21 15:55 ABG pH 7.400 (7.35-7.45) 11/16/21 15:55 ABG pCO2 56.0 mmHg (35.0-45.0) H* 11/16/21 15:55 ABG pO2 63.0 mmHg (80.0-100.0) L 11/16/21 15:55 ABG HCO3 34.7 mmol/L (22-26) H* 11/16/21 15:55 ABG O2 Saturation 92.0 % (90-100) 11/16/21 15:55 ABG Base Excess 8.2 mmol/L (-2.0-2.0) H 11/16/21 15:55 Davey Test Pos 11/16/21 15:55 A-a Gradient 67.0 mmHg 11/16/21 15:55 FiO2 28.0 11/16/21 15:55 Blood Gas Comments 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 11/16/21 15:55 Sodium 142 mmol/L (136-145) 11/16/21 12:36 Corrected Sodium 143 mmol/L (136-145) 11/16/21 12:36 Potassium 4.0 mmol/L (3.5-5.1) 11/16/21 12:36 Chloride 105 mmol/L (98-107) 11/16/21 12:36 Carbon Dioxide 31.5 mmol/L (21-32) 11/16/21 12:36 BUN 19 mg/dL (7-18) H 11/16/21 12:36 Creatinine 1.68 mg/dL (0.55-1.02) H 11/16/21 12:36 Est GFR (MDRD) Af Amer 41 (>60) L 11/16/21 12:36 Est GFR (MDRD) Non-Af 34 (>60) L 11/16/21 12:36 Glucose 140 mg/dL (65-99) H 11/16/21 12:36 POC Glucose (mg/dL) 118 mg/dL (65-99) H 11/16/21 16:45 Calcium 8.2 mg/dL (8.5-10.1) L 11/16/21 12:36 Corrected Calcium 9.2 mg/dL (8.5-10.1) 11/16/21 12:36 Total Bilirubin 0.40 mg/dL (0.2-1.0) 11/16/21 12:36 AST 17 Units/L (15-37) 11/16/21 12:36 ALT 27 Units/L (12-78) 11/16/21 12:36 Alkaline Phosphatase 86 Units/L (46-116) 11/16/21 12:36 Creatine Kinase 179 Units/L (26-192) 11/16/21 12:36 CK-MB (CK-2) 1.0 ng/mL (0-4.0) 11/16/21 12:36 CK/CKMB % Calc 0.6 % (<4) 11/16/21 12:36 Troponin I High Sens 22.7 ng/L (4.0-60.0) 11/16/21 12:36 Total Protein 6.9 g/dL (6.4-8.2) 11/16/21 12:36 Albumin 2.8 g/dL (3.4-5.0) L 11/16/21 12:36 Globulin 4.1 g/dL (2.5-4.5) 11/16/21 12:36 Albumin/Globulin Ratio 0.7 Ratio (1.1-2.1) L 11/16/21 12:36 Specimen Type Catherized urine 11/16/21 12:46 Urine Color Yellow (YELLOW) 11/16/21 12:46 Urine Appearance Clear (CLEAR) 11/16/21 12:46 Urine pH 7.0 (5.0 - 8.0) 11/16/21 12:46 Ur Specific [place] 1.010 (1.000-1.030) 11/16/21 12:46 Urine Protein 1+ (NEGATIVE) 11/16/21 12:46 Urine Glucose (UA) Negative (NEGATIVE) 11/16/21 12:46 Urine Ketones Negative (NEGATIVE) 11/16/21 12:46 Urine Occult Blood 1+ (NEGATIVE) 11/16/21 12:46 Urine Nitrite Negative (NEGATIVE) 11/16/21 12:46 Urine Bilirubin Negative (NEGATIVE) 11/16/21 12:46 Urine Urobilinogen 1+ (NORMAL) 11/16/21 12:46 Ur Leukocyte Esterase Negative (NEGATIVE) 11/16/21 12:46 Urine RBC 3-5 /HPF (0-3) A 11/16/21 12:46 Urine WBC 0-2 /HPF (0-5) 11/16/21 12:46 Ur Squamous Epith Cells Rare /HPF (NEGATIVE) 11/16/21 12:46 Urine Bacteria Trace /HPF (NEGATIVE) 11/16/21 12:46 Hyaline Casts Few /LPF (NEGATIVE) 11/16/21 12:46 Ur Culture Indicated? No/not indicated 11/16/21 12:46 SARS-CoV-2 (PCR) Negative (NEGATIVE) 11/16/21 13:12 Influenza Type A (PCR) Negative (NEGATIVE) 11/16/21 13:12 Influenza Type B (PCR) Negative (NEGATIVE) 11/16/21 13:12 RSV (PCR) Negative (NEGATIVE) 11/16/21 13:12 XRAY XRAY Interpreted by: Radiologist (REPORT NOTED.) and Self EKG Rate: 81 [place]: Normal Rhythm: NSR Block: RBBB Hypertrophy: None ST: Nonsp Opioid Opioid Risk Tool Age (Andrei box if 16-45): No History of Preadolescent Sexual Abuse: No Total: 0 Total Score Risk Category: Low Risk Copyright: [facility] predicting aberrant behaviors Diagnosis Discharge Problem: SOB (shortness of breath) Pneumonia Qualifiers: Pneumonia type: due to unspecified organism Laterality: bilateral Lung location: lower lobe of lung Qualified Code(s): J18.9 - Pneumonia, unspecified organism Instructions Instructions: Muscle Cramps and Spasms, [id number] Managing the Challenge of Quitting Smoking Hypoxemia Steps to Quit Smoking, [id number] Hypoxia Chronic Obstructive Pulmonary Disease Exacerbation, Kofk-fu-Bkum Community-Acquired Pneumonia, Adult, Jmms-jw-Pxax Forms: Excuse From Work or School Precautions for COVID19 [facility] Social Distancing
[2021-11-16] MEDS ORDERED: DUONEB 0.5 MG/3 MG (3 mL) NEB ONE ×2 (12:20→20:25)
[2021-11-16 12:44] LABS: BASOPHILS % (AUTO) 0.7 % (0.2-1.0); EOSINOPHILS # (AUTO) 0.2 x10^3/uL (0.0-0.2); EOSINOPHILS % (AUTO) 2.5 % (0.9-2.9); HEMATOCRIT 34.7 % (36.0-47.0); HEMOGLOBIN 11.2 g/dL (12.0-16.0); LYMPHOCYTES # (AUTO) 1.6 X10^3/uL (1.3-2.9); LYMPHOCYTES % (AUTO) 23.5 % (21.0-51.0); MEAN CORPUSCULAR HEMOGLOBIN 25.6 pg (27.0-34.0); MEAN CORPUSCULAR HGB CONC 32.1 g/dL (33.0-35.0); MEAN CORPUSCULAR VOLUME 79.7 fL (80.0-100.0); MEAN PLATELET VOLUME 8.5 fL (7.4-11.0); MONOCYTES # (AUTO) 0.4 x10^3/uL (0.3-0.8); MONOCYTES % (AUTO) 5.7 % (0.0-13.0); NEUTROPHILS # (AUTO) 4.6 x10^3/uL (2.2-4.8); NEUTROPHILS % (AUTO) 67.6 % (42.0-75.0); RED BLOOD COUNT 4.35 X10^6/uL (3.5-5.4); RED CELL DISTRIBUTION WIDTH 18.5 % (11.6-16.5); WHITE BLOOD COUNT 6.8 X10^3/uL (3.6-10.0)
[2021-11-16 12:51] LABS: BILIRUBIN,URINE NEGATIVE (NEGATIVE); BLOOD/HEMOGLOBIN,URINE 1+ (NEGATIVE); GLUCOSE, URINE NEGATIVE (NEGATIVE); KETONES,URINE NEGATIVE (NEGATIVE); LEUKOCYTE ESTERASE ,URINE NEGATIVE (NEGATIVE); NITRITES,URINE NEGATIVE (NEGATIVE); PROTEIN,URINE 1+ (NEGATIVE); UROBILINOGEN,URINE 1+ (NORMAL)
[2021-11-16 12:52] LABS: APPEARANCE,URINE CLEAR (CLEAR); COLOR,URINE YELLOW (YELLOW)
[2021-11-16 12:59] LABS: BACTERIA,URINE TRACE /HPF (NEGATIVE); HYALINE CASTS, URINE FEW /LPF (NEGATIVE); SQUAMOUS EPITHELIAL CELL,UR RARE /HPF (NEGATIVE)
[2021-11-16 13:04] LABS: ALBUMIN 2.8 g/dL (3.4-5.0); CALCIUM 8.2 mg/dL (8.5-10.1); CARBON DIOXIDE 31.5 mmol/L (21-32); CKMB % 0.6 % (<4); COR CA(FOR HYPOALB) 9.2 mg/dL (8.5-10.1); CREATININE 1.68 mg/dL (0.55-1.02); TOTAL PROTEIN 6.9 g/dL (6.4-8.2)
--- NOTE | 2021-11-16 13:38 | RAD ---
HISTORYsob, coughSTUDYCHEST, 1 [id number] areas of abnormal opacity in the upper right lung in the lower right lung could be pneumonia. The findings have progressed since the prior study.No pleural effusion or pneumothorax.Probable cardiomegaly, even accounting for magnification. Vascular calcifications are present compatible with atherosclerosis.Bones are unremarkable. [EKG leads are noted. ]IMPRESSION1. Progressed right lung pneumonia2. CardiomegalyElectronically signed by: Jeromy Emerson (Nov 16, 2021 13:36:20)
[2021-11-16] MEDS ORDERED: ZITHROMAX TAB 250 MG PO ONE (15:15)
[2021-11-16] MEDS ORDERED: SOLU-Medrol 125 MG VIAL IM ONE (15:15)
[2021-11-16] MEDS ORDERED: TESSALON PERLES PO ONE (15:17)
[2021-11-16] MEDS ORDERED: SOLU-Medrol 125 MG VIAL IVP ONE (15:36)
[2021-11-16 15:57] LABS: ABG BASE EXCESS 8.2 mmol/L (-2.0-2.0)
[2021-11-16 15:58] LABS: ABG ALLEN TEST POS; ABG HCO3 34.7 mmol/L (22-26)
[2021-11-16] MEDS ORDERED: ZOSYN VIAL 3.375 GRAMS 3.375 G in NS 100 ML IV 100 ML IV ONE (16:19)
[2021-11-16] MEDS ORDERED: ZOSYN VIAL 3.375 GRAMS IV ONE (16:25)
[2021-11-16] MEDS ORDERED: NS 100 ML IV 100 ML ONE (16:25)
[2021-11-16] MEDS ORDERED: ZOFRAN INJ 4 MG VIAL IVP ONE ×2 (16:41→16:42)
[2021-11-16] MEDS: DUONEB 0.5 MG/3 MG (3 mL) NEB SCH (20:30)
[2021-11-16] MEDS: PULMICORT NEB TX 0.5 MG NEB SCH (20:30)
[2021-11-16] MEDS: ASCORBIC ACID INJ MULTI-DOSE VIAL 1,500 MG in NS 100 ML IV 100 ML IV SCH (20:47)
[2021-11-16] MEDS: LOVENOX INJ 30 MG SYR SC SCH (20:47)
[2021-11-16] MEDS: SOLU-Medrol 40 MG VIAL IVP SCH (20:48)
[2021-11-16] MEDS: NS 1,000 ML IV 1,000 ML IV SCH (20:48)
[2021-11-16] MEDS: ZINC SULFATE PO SCH (20:56)
[2021-11-16] MEDS ORDERED: PEPCID TAB 40 MG PO SCH (21:00)
[2021-11-16] MEDS: NovoLIN R (or HumuLIN R) SUBCUT PRN (21:37)
[2021-11-16] MEDS: ZOSYN VIAL 3.375 GRAMS 3.375 G in NS 100 ML IV + SPIKE MINIBAG* 100 ML IV SCH (22:21)
[2021-11-17] MEDS ORDERED: ASCORBIC ACID INJ MULTI-DOSE VIAL IV ONE (02:20)
[2021-11-17] MEDS ORDERED: NS 100 ML IV 100 ML ONE ×3 (02:20→08:35)
[2021-11-17] MEDS: ASCORBIC ACID INJ MULTI-DOSE VIAL 1,500 MG in NS 100 ML IV 100 ML IV SCH ×4 (02:27→20:53)
[2021-11-17] MEDS ORDERED: ZOSYN VIAL 3.375 GRAMS IV ONE ×2 (04:53→15:31)
[2021-11-17] MEDS: ZOSYN VIAL 3.375 GRAMS 3.375 G in NS 100 ML IV + SPIKE MINIBAG* 100 ML IV SCH (05:08)
[2021-11-17] MEDS ORDERED: NovoLIN R (or HumuLIN R) ONE ×2 (05:11→11:30)
[2021-11-17] MEDS: NovoLIN R (or HumuLIN R) SUBCUT PRN ×3 (05:15→16:50)
[2021-11-17 06:57] LABS: BASOPHILS # (AUTO) 0.1 X10^3/uL (0.0-0.1); BASOPHILS % (AUTO) 0.8 % (0.2-1.0); HEMATOCRIT 35.3 % (36.0-47.0); HEMOGLOBIN 11.3 g/dL (12.0-16.0); LYMPHOCYTES # (AUTO) 0.6 X10^3/uL (1.3-2.9); LYMPHOCYTES % (AUTO) 8.5 % (21.0-51.0); MEAN CORPUSCULAR HEMOGLOBIN 25.9 pg (27.0-34.0); MEAN CORPUSCULAR VOLUME 80.7 fL (80.0-100.0); MEAN PLATELET VOLUME 9.2 fL (7.4-11.0); MONOCYTES # (AUTO) 0.1 x10^3/uL (0.3-0.8); MONOCYTES % (AUTO) 0.8 % (0.0-13.0); NEUTROPHILS # (AUTO) 6.2 x10^3/uL (2.2-4.8); NEUTROPHILS % (AUTO) 89.9 % (42.0-75.0); RED BLOOD COUNT 4.38 X10^6/uL (3.5-5.4); RED CELL DISTRIBUTION WIDTH 18.7 % (11.6-16.5); WHITE BLOOD COUNT 6.9 X10^3/uL (3.6-10.0)
[2021-11-17 07:11] LABS: ALBUMIN 2.5 g/dL (3.4-5.0); CALCIUM 7.9 mg/dL (8.5-10.1); CARBON DIOXIDE 30.4 mmol/L (21-32); COR CA(FOR HYPOALB) 9.1 mg/dL (8.5-10.1); CREATININE 1.89 mg/dL (0.55-1.02); TOTAL PROTEIN 6.8 g/dL (6.4-8.2)
[2021-11-17] MEDS ORDERED: TRICOR TAB 160 MG ONE (08:32)
[2021-11-17] MEDS ORDERED: ZINC SULFATE ONE (08:32)
[2021-11-17] MEDS ORDERED: SOLU-Medrol 40 MG VIAL ONE (08:33)
[2021-11-17] MEDS ORDERED: D5W 250 ML IV 250 ML IV ONE (08:33)
[2021-11-17] MEDS ORDERED: ZITHROMAX INJ 500 MG VIAL IV ONE (08:33)
[2021-11-17] MEDS ORDERED: PEPCID TAB 40 MG ONE (08:33)
[2021-11-17] MEDS ORDERED: LOVENOX INJ 30 MG SYR SC ONE (08:33)
[2021-11-17] MEDS: LOVENOX INJ 30 MG SYR SC SCH ×2 (08:41→20:54)
[2021-11-17] MEDS: SOLU-Medrol 40 MG VIAL IVP SCH ×2 (08:43→20:55)
[2021-11-17] MEDS: ZINC SULFATE PO SCH ×2 (08:43→20:54)
[2021-11-17] MEDS: TRICOR TAB 160 MG PO SCH (08:43)
[2021-11-17] MEDS: ZITHROMAX INJ 500 MG VIAL 500 MG in D5W 250 ML IV 250 ML IV SCH (08:44)
[2021-11-17] MEDS ORDERED: PEPCID TAB 40 MG PO SCH (09:00)
[2021-11-17] MEDS ORDERED: VITAMIN D (1.25MG) PO SCH (09:00)
[2021-11-17] MEDS: DUONEB 0.5 MG/3 MG (3 mL) NEB SCH ×4 (09:15→21:05)
[2021-11-17] MEDS: PULMICORT NEB TX 0.5 MG NEB SCH ×2 (09:15→21:05)
--- NOTE | 2021-11-17 11:00 | DR.H&P ---
H&P - Chief Complaint Chief Complaint: SOB - History of Present Illness History of Present Illness: Patient is a 56y/o female with a PMH of COPD, Chronic respiratory failure on 3L Home O2, CVA with paralysis, Type 2 DM and morbid obesity presented with worsening SOB and cough. Patient has a hx of recurrent ER visits and admissions for similar symptoms, last admitted last month. She reports having low sats and worsening dyspnea for the past 2 days. She denies fever, chills and productive cough. CXR reveals pneumonia; patient likely will have chronic pneumonia. She was started on IV antibiotics and steroids. Patient currently toleratin oxygen via nasal cannula. 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 - Family History Family Medical History: Diabetes Mellitus, Cancer, [place], Coronary Artery Disease, Heart Failure, Sudden Cardiac , Hypertension - Social History Does patient currently use any type of tobacco product: Yes Have you used tobacco products in the last 12 months: Yes Type of Tobacco Use: Cigarettes Does any household member use tobacco: No Alcohol Use: None Drug Use: None - Medications Home Medications: levofloxacin Allergy (Verified 10/25/21 11:28) procaine Allergy (Verified 10/25/21 11:28) propoxyphene Allergy (Verified 10/25/21 11:28) CONTINUE taking the following medications losartan 100 mg PO DAILY 11/16/21 [History] - Review of Systems Constitutional: See HPI Eyes: See HPI ENT: See HPI Respiratory: See HPI Cardiovascular: See HPI Gastrointestinal: See HPI Genitourinary: See HPI Musculoskeletal: See HPI Skin: See HPI Neurological: See HPI - Physical Exam Vital Signs: Temperature 98.4 F Pulse Rate [Left Radial] 89 Pulse Rate [Bilateral Radial] 87 Pulse Rate 82 Respiratory Rate 24 Blood Pressure [Left Arm] 112/62 Blood Pressure 125/65 O2 Sat by Pulse Oximetry 100 Oriented: Normal, Time, Person, Place Eyes: Normal Ear: Normal Nose: Normal Throat: Normal Respiratory: Diminished Throughout, Rhonchi Throughout Cardiovascular: Normal : Other (Incontinent ) Auscultation: Bowel Sounds: Normal Palpation: Normal Tenderness: Normal Skin: Normal Musculoskeletal: Left (Left sided paralysis hx of CVA) Psychiatric: Normal Mood Description: Calm Affect: Normal Speech Pattern: Clear, Appropriate - Assessment/Plan (1) SOB (shortness of breath) Status: Acute (2) Pneumonia Status: Acute Plan: IV abx and steriods. Repeat LAbs and imaging in am. Supplemental oxygen. cultures pending (3) Acute on chronic respiratory failure with hypoxia and hypercapnia Status: Acute (4) COPD with exacerbation Status: Acute (5) Diabetes mellitus type 2, uncontrolled Qualifiers: Glycemic state: with hyperglycemia Qualified Code(s): E11.65 - Type 2 diabetes mellitus with hyperglycemia Status: Chronic (6) Hypoxia Status: Acute (7) Morbid obesity Status: Chronic (8) Weakness generalized Status: Chronic (9) CVA, old, hemiparesis Status: Chronic - Allergies Allergies/Adverse Reactions: Allergies Allergy/AdvReac Type Severity Reaction Status Date / Time levofloxacin Allergy Verified 10/25/21 11:28 procaine Allergy Verified 10/25/21 11:28 propoxyphene Allergy Verified 10/25/21 11:28
[2021-11-17] MEDS ORDERED: FLEXERIL TAB 10 MG PO PRN (11:03)
[2021-11-17] MEDS ORDERED: XYLOCAINE 1 % (PLAIN) ONE (11:29)
[2021-11-17] MEDS ORDERED: GLUCOPHAGE PO SCH (12:00)
[2021-11-17] MEDS ORDERED: PEPCID TAB 20 MG PO SCH (12:00)
[2021-11-17] MEDS ORDERED: LANTUS SC ONE (12:34)
[2021-11-17] MEDS ORDERED: DUONEB 0.5 MG/3 MG (3 mL) NEB ONE (12:35)
[2021-11-17] MEDS: LANTUS SC SCH ×2 (12:42→20:55)
--- NOTE | 2021-11-17 12:43 | RAD ---
HISTORYCENTRAL LINE PLACEMENTSTUDYCHEST, 1 [id number]/2022.TECHNIQUEAP view of the chestFINDINGSLeft subclavian central line in good position. The cardiac silhouette is stably enlarged. Hazy and interstitial pulmonary opacities in the mid to lower lungs slightly improved from prior. No definite pleural effusion or pneumothorax.IMPRESSIONLeft subclavian central line is in good position. No pneumothorax. Slightly improved pulmonary opacities.Electronically signed by: Ang Dash (Nov 17, 2021 12:42:07)
[2021-11-17] MEDS ORDERED: PLAVIX ONE (12:46)
[2021-11-17] MEDS ORDERED: MICRO K EXTEN CAP 10 MEQ PO ONE (12:46)
[2021-11-17] MEDS ORDERED: PROTONIX TAB 40 MG PO ONE (12:46)
[2021-11-17] MEDS ORDERED: NORVASC TAB 5 MG ONE (12:46)
[2021-11-17] MEDS ORDERED: ASPIRIN ONE (12:46)
[2021-11-17] MEDS ORDERED: CLARITIN ONE (12:47)
[2021-11-17] MEDS: ASPIRIN PO SCH (12:48)
[2021-11-17] MEDS: CLARITIN PO SCH (12:49)
[2021-11-17] MEDS: MICRO K EXTEN CAP 10 MEQ PO SCH (12:50)
[2021-11-17] MEDS: PLAVIX PO SCH (12:50)
[2021-11-17] MEDS: COREG TAB 12.5 MG PO SCH ×2 (12:51→20:54)
[2021-11-17] MEDS: NORVASC TAB 10 MG PO SCH (12:51)
[2021-11-17] MEDS: PROTONIX TAB 40 MG PO SCH (12:51)
[2021-11-17] MEDS: CYMBALTA PO SCH (12:52)
[2021-11-17] MEDS: COZAAR PO SCH (12:52)
[2021-11-17] MEDS: TOPAMAX PO SCH (12:53)
[2021-11-17] MEDS: HYDROCHLOROTHIAZIDE 25 MG TAB PO SCH (13:01)
[2021-11-17] MEDS ORDERED: NS 100 ML IV 200 ML ONE (15:31)
[2021-11-17] MEDS: NEURONTIN TAB 600 MG PO SCH ×2 (15:42→22:12)
[2021-11-17] MEDS: ZOSYN VIAL 3.375 GRAMS 3.375 G in NS 100 ML IV 100 ML IV SCH ×2 (15:51→22:12)
[2021-11-17] MEDS: NS 1,000 ML IV 1,000 ML IV SCH (18:41)
--- NOTE | 2021-11-17 19:07 | DR.OPNOTE ---
OP NOTE Pre-Op Diagnosis: Pneumonia, lack of IV access Post-Op Diagnosis: same Procedure Date Date Of Procedure: 11/17/21 Procedure: PROCEDURE : placement left subclavian vein triple Lumen catheter NARRATIVE: The patient was placed in Trendelenburg position and the left subclavian area prepped and draped in sterile fashion. The skin underlying the left clavicle infiltrated with 1% Xylocaine and a 16-gauge needle used to puncture the left subclavian vein and guide wire placed without difficulty. Incision made over the guide wire at the skin edge with a number 11 knife blade and the dilator placed over the guide wire into the left subclavian vein. Dilator removed and triple Lumen catheter placed over the guide wire into the left subclavian vein. All three ports aspirated of blood and flushed with heparinized saline . The catheter secured to the skin with interrupted silk sutures and post-procedure chest x-ray showed good placement of the central venous catheter with no pneumothorax. Type of Anesthesia: Local (15 Xylocaine) Anesthesia Comment: plus MAC Findings: as above Specimen/Pathology: none Complications:: none Needle/Sponge Count:: correct Disposition/Condition: patient to be admitted to the floor. Push procedure chest x-ray showed no pneumothorax with good placement of the central venous access
[2021-11-17] MEDS: NORCO 10/325 TAB PO PRN (19:35)
[2021-11-17] MEDS: PROzac PO SCH (20:54)
[2021-11-17] MEDS: LIPITOR TAB 20 MG PO SCH (20:54)
[2021-11-17] MEDS: SINEquan PO SCH (20:54)
[2021-11-17] MEDS: SNACK - Diabetic Appropriate PO SCH (20:55)
[2021-11-18] MEDS: ASCORBIC ACID INJ MULTI-DOSE VIAL 1,500 MG in NS 100 ML IV 100 ML IV SCH ×4 (03:09→21:30)
[2021-11-18 05:01] LABS: ABG BASE EXCESS 5.5 mmol/L (-2.0-2.0)
[2021-11-18 05:04] LABS: ABG ALLEN TEST POS; ABG HCO3 33.7 mmol/L (22-26)
[2021-11-18] MEDS: NEURONTIN TAB 600 MG PO SCH ×3 (05:42→21:33)
[2021-11-18] MEDS: ZOSYN VIAL 3.375 GRAMS 3.375 G in NS 100 ML IV 100 ML IV SCH ×3 (05:43→21:33)
[2021-11-18] MEDS: NovoLIN R (or HumuLIN R) SUBCUT PRN ×5 (06:05→23:53)
[2021-11-18 06:17] LABS: BASOPHILS # (AUTO) 0.1 X10^3/uL (0.0-0.1); BASOPHILS % (AUTO) 0.8 % (0.2-1.0); HEMOGLOBIN 10.3 g/dL (12.0-16.0); LYMPHOCYTES # (AUTO) 0.7 X10^3/uL (1.3-2.9); LYMPHOCYTES % (AUTO) 10.1 % (21.0-51.0); MEAN CORPUSCULAR HEMOGLOBIN 26.3 pg (27.0-34.0); MEAN CORPUSCULAR HGB CONC 32.4 g/dL (33.0-35.0); MEAN CORPUSCULAR VOLUME 81.4 fL (80.0-100.0); MEAN PLATELET VOLUME 9.1 fL (7.4-11.0); MONOCYTES # (AUTO) 0.2 x10^3/uL (0.3-0.8); MONOCYTES % (AUTO) 2.9 % (0.0-13.0); NEUTROPHILS # (AUTO) 5.8 x10^3/uL (2.2-4.8); NEUTROPHILS % (AUTO) 86.2 % (42.0-75.0); RED BLOOD COUNT 3.93 X10^6/uL (3.5-5.4); RED CELL DISTRIBUTION WIDTH 19.4 % (11.6-16.5); WHITE BLOOD COUNT 6.7 X10^3/uL (3.6-10.0)
[2021-11-18 06:30] LABS: ALBUMIN 2.7 g/dL (3.4-5.0); CALCIUM 7.7 mg/dL (8.5-10.1); CARBON DIOXIDE 30.3 mmol/L (21-32); COR CA(FOR HYPOALB) 8.7 mg/dL (8.5-10.1); CREATININE 1.46 mg/dL (0.55-1.02); TOTAL PROTEIN 6.7 g/dL (6.4-8.2)
--- NOTE | 2021-11-18 07:06 | RAD ---
HISTORYPNEUMONIASTUDYCHEST, 1 VIEWCOMPARISONOne day prior.TECHNIQUEAP view of the chestFINDINGSLeft subclavian central line is in good position. The cardiac silhouette is stably enlarged. Mediastinal contours appear stable. Interval improvement in bilateral airspace and interstitial opacities with a mid to lower lung predominance. No definite pleural effusion or pneumothorax. Soft tissue attenuation limits evaluation.IMPRESSIONInterval improvement in bilateral pneumonia.Electronically signed by: Ang Dash (Nov 18, 2021 07:04:55)
[2021-11-18] MEDS: PULMICORT NEB TX 0.5 MG NEB SCH ×2 (08:35→21:00)
[2021-11-18] MEDS: DUONEB 0.5 MG/3 MG (3 mL) NEB SCH ×4 (08:35→21:00)
[2021-11-18] MEDS ORDERED: LASIX PO SCH (09:00)
[2021-11-18] MEDS ORDERED: PriLOSEC PO SCH (09:00)
[2021-11-18] MEDS: COREG TAB 12.5 MG PO SCH ×2 (09:22→21:31)
[2021-11-18] MEDS: TRICOR TAB 160 MG PO SCH (09:25)
[2021-11-18] MEDS: VITAMIN A PO SCH (09:26)
[2021-11-18] MEDS: MICRO K EXTEN CAP 10 MEQ PO SCH (09:27)
[2021-11-18] MEDS: ASPIRIN PO SCH (09:27)
[2021-11-18] MEDS: COZAAR PO SCH (09:28)
[2021-11-18] MEDS: TOPAMAX PO SCH (09:29)
[2021-11-18] MEDS: VITAMIN D3 125 mcg (5,000 UNITS) PO SCH (09:29)
[2021-11-18] MEDS: LANTUS SC SCH ×2 (09:30→21:31)
[2021-11-18] MEDS: PROTONIX TAB 40 MG PO SCH (09:30)
[2021-11-18] MEDS: PLAVIX PO SCH (09:30)
[2021-11-18] MEDS: ZINC SULFATE PO SCH ×2 (09:31→21:33)
[2021-11-18] MEDS: CLARITIN PO SCH (09:32)
[2021-11-18] MEDS: PEPCID TAB 20 MG PO SCH (09:32)
[2021-11-18] MEDS: SOLU-Medrol 40 MG VIAL IVP SCH ×2 (09:32→21:33)
[2021-11-18] MEDS: HYDROCHLOROTHIAZIDE 25 MG TAB PO SCH (09:32)
[2021-11-18] MEDS: LOVENOX INJ 30 MG SYR SC SCH ×2 (09:33→21:31)
[2021-11-18] MEDS: NORVASC TAB 10 MG PO SCH (09:33)
[2021-11-18] MEDS: CYMBALTA PO SCH (09:33)
[2021-11-18] MEDS: ZITHROMAX INJ 500 MG VIAL 500 MG in D5W 250 ML IV 250 ML IV SCH (11:00)
[2021-11-18] MEDS: LASIX IVP SCH (17:34)
[2021-11-18] MEDS: SNACK - Diabetic Appropriate PO SCH (20:30)
[2021-11-18] MEDS: NS 1,000 ML IV 1,000 ML IV SCH (21:30)
[2021-11-18] MEDS: LIPITOR TAB 20 MG PO SCH (21:31)
[2021-11-18] MEDS: SINEquan PO SCH (21:32)
[2021-11-18] MEDS: PROzac PO SCH (21:32)
[2021-11-18] MEDS: XANAX PO PRN (21:34)
[2021-11-19] MEDS: ASCORBIC ACID INJ MULTI-DOSE VIAL 1,500 MG in NS 100 ML IV 100 ML IV SCH ×4 (03:05→21:25)
[2021-11-19] MEDS: ZOSYN VIAL 3.375 GRAMS 3.375 G in NS 100 ML IV 100 ML IV SCH ×3 (05:26→21:24)
[2021-11-19] MEDS: NEURONTIN TAB 600 MG PO SCH ×3 (05:26→21:40)
[2021-11-19] MEDS: NovoLIN R (or HumuLIN R) SUBCUT PRN ×2 (05:27→16:32)
[2021-11-19 05:33] LABS: BASOPHILS % (AUTO) 0.1 % (0.2-1.0); HEMATOCRIT 30.8 % (36.0-47.0); LYMPHOCYTES # (AUTO) 0.7 X10^3/uL (1.3-2.9); LYMPHOCYTES % (AUTO) 10.8 % (21.0-51.0); MEAN CORPUSCULAR HGB CONC 32.4 g/dL (33.0-35.0); MEAN CORPUSCULAR VOLUME 80.5 fL (80.0-100.0); MONOCYTES # (AUTO) 0.2 x10^3/uL (0.3-0.8); MONOCYTES % (AUTO) 3.6 % (0.0-13.0); NEUTROPHILS # (AUTO) 5.3 x10^3/uL (2.2-4.8); NEUTROPHILS % (AUTO) 85.5 % (42.0-75.0); RED BLOOD COUNT 3.82 X10^6/uL (3.5-5.4); RED CELL DISTRIBUTION WIDTH 18.4 % (11.6-16.5); WHITE BLOOD COUNT 6.1 X10^3/uL (3.6-10.0)
[2021-11-19 06:02] LABS: ALBUMIN 2.7 g/dL (3.4-5.0); CALCIUM 7.6 mg/dL (8.5-10.1); CARBON DIOXIDE 31.9 mmol/L (21-32); COR CA(FOR HYPOALB) 8.6 mg/dL (8.5-10.1); CREATININE 1.3 mg/dL (0.55-1.02); TOTAL PROTEIN 6.5 g/dL (6.4-8.2)
[2021-11-19] MEDS: PULMICORT NEB TX 0.5 MG NEB SCH ×2 (08:34→20:35)
[2021-11-19] MEDS: DUONEB 0.5 MG/3 MG (3 mL) NEB SCH ×4 (08:34→20:35)
[2021-11-19] MEDS: ZINC SULFATE PO SCH ×2 (09:08→21:22)
[2021-11-19] MEDS: VITAMIN A PO SCH (09:08)
[2021-11-19] MEDS: VITAMIN D3 125 mcg (5,000 UNITS) PO SCH (09:08)
[2021-11-19] MEDS: TRICOR TAB 160 MG PO SCH (09:08)
[2021-11-19] MEDS: TOPAMAX PO SCH (09:09)
[2021-11-19] MEDS: PEPCID TAB 20 MG PO SCH (09:09)
[2021-11-19] MEDS: PLAVIX PO SCH (09:09)
[2021-11-19] MEDS: MICRO K EXTEN CAP 10 MEQ PO SCH (09:10)
[2021-11-19] MEDS: NORVASC TAB 10 MG PO SCH (09:10)
[2021-11-19] MEDS: SOLU-Medrol 40 MG VIAL IVP SCH ×2 (09:10→21:24)
[2021-11-19] MEDS: PROTONIX TAB 40 MG PO SCH (09:10)
[2021-11-19] MEDS: HYDROCHLOROTHIAZIDE 25 MG TAB PO SCH (09:11)
[2021-11-19] MEDS: LANTUS SC SCH ×2 (09:11→21:20)
[2021-11-19] MEDS: LOVENOX INJ 30 MG SYR SC SCH ×2 (09:11→21:41)
[2021-11-19] MEDS: ASPIRIN PO SCH (09:13)
[2021-11-19] MEDS: CYMBALTA PO SCH (09:13)
[2021-11-19] MEDS: COZAAR PO SCH (09:13)
[2021-11-19] MEDS: LASIX IVP SCH ×2 (09:13→17:56)
[2021-11-19] MEDS: COREG TAB 12.5 MG PO SCH ×2 (09:13→21:24)
[2021-11-19] MEDS: CLARITIN PO SCH (09:13)
[2021-11-19] MEDS: ZITHROMAX INJ 500 MG VIAL 500 MG in D5W 250 ML IV 250 ML IV SCH (09:14)
--- NOTE | 2021-11-19 12:50 | PCM.PROG ---
Progress Note - Progress Note for Day of Date of Exam: 11/18/21 - Subjective Subjective: Patient is a 56 year old AAF who was admitte as per HPI. Patient chest xray reveals pneumonia clearing. PAtient reports symptoms improved. Patient denies any new concerns. - Past Medical Family Social History Past Med/Fam/Surg Hx: No changes since H&P Allergies: Allergies levofloxacin Allergy (Verified 10/25/21 11:28) procaine Allergy (Verified 10/25/21 11:28) propoxyphene Allergy (Verified 10/25/21 11:28) - Review of Systems ROS: No change since H&P - Vital Signs and I&O's Vital Signs: Temperature 97.5 F Pulse Rate [Left Radial] 66 Pulse Rate [Bilateral Radial] 87 Pulse Rate 78 Respiratory Rate 20 Blood Pressure [Left Arm] 143/80 Blood Pressure 125/65 O2 Sat by Pulse Oximetry 98 Intake and Output: Intake & Output 11/16/21 11/17/21 11/18/21 11/19/21 23:59 23:59 23:59 23:59 Intake Total 399 / 399 5567 / 5567 4907 / 4907 326 / 326 Output Total 825 / 825 4550 / 4550 5500 / 5500 800 / 800 Balance -426 / -426 1017 / 1017 -593 / -593 -474 / -474 - Physical Exam Oriented: Normal, Time, Person, Place Eyes: Normal Ear: Normal Nose: Normal Throat: Normal Cardiovascular: Normal : Other (Incontinent ) Auscultation: Bowel Sounds: Normal Tenderness: Normal Skin: Normal Musculoskeletal: Left (Left sided paralysis hx of CVA) Psychiatric: Normal Mood Description: Calm Affect: Normal Speech Pattern: Clear, Appropriate - Laboratory and Diagnostics Result Diagrams: 11/19/21 04:15 11/19/21 04:15 Labs: 11/16/21 19:02 Sputum - Expectorated Sputum Sputum Culture - Preliminary Klebsiella Pneumoniae Enterobacter Cloacae 11/16/21 19:02 Sputum - Expectorated Sputum - Final Laboratory WBC 6.1 X10^3/uL (3.6-10.0) 11/19/21 04:15 RBC 3.82 X10^6/uL (3.5-5.4) 11/19/21 04:15 Hgb 10.0 g/dL (12.0-16.0) L 11/19/21 04:15 Hct 30.8 % (36.0-47.0) L 11/19/21 04:15 MCV 80.5 fL (80.0-100.0) 11/19/21 04:15 MCH 26.0 pg (27.0-34.0) L 11/19/21 04:15 MCHC 32.4 g/dL (33.0-35.0) L 11/19/21 04:15 RDW 18.4 % (11.6-16.5) H 11/19/21 04:15 Plt Count 196 X10^3/uL (150.0-450.0) 11/19/21 04:15 MPV 9.0 fL (7.4-11.0) 11/19/21 04:15 Neut % (Auto) 85.5 % (42.0-75.0) H 11/19/21 04:15 Lymph % (Auto) 10.8 % (21.0-51.0) L 11/19/21 04:15 [place] % (Auto) 3.6 % (0.0-13.0) 11/19/21 04:15 Eos % (Auto) 0.0 % (0.9-2.9) L 11/19/21 04:15 Baso % (Auto) 0.1 % (0.2-1.0) L 11/19/21 04:15 Neut # (Auto) 5.3 x10^3/uL (2.2-4.8) H 11/19/21 04:15 Lymph # (Auto) 0.7 X10^3/uL (1.3-2.9) L 11/19/21 04:15 [place] # (Auto) 0.2 x10^3/uL (0.3-0.8) L 11/19/21 04:15 Eos # (Auto) 0.0 x10^3/uL (0.0-0.2) 11/19/21 04:15 Baso # (Auto) 0.0 X10^3/uL (0.0-0.1) 11/19/21 04:15 Absolute Nucleated RBC 0.0 /100WBC 11/19/21 04:15 Sample Site Rrad 11/18/21 05:00 ABG pH 7.310 (7.35-7.45) L 11/18/21 05:00 ABG pCO2 67.0 mmHg (35.0-45.0) H* 11/18/21 05:00 ABG pO2 79.0 mmHg (80.0-100.0) L 11/18/21 05:00 ABG HCO3 33.7 mmol/L (22-26) H* 11/18/21 05:00 ABG O2 Saturation 94.0 % (90-100) 11/18/21 05:00 ABG Base Excess 5.5 mmol/L (-2.0-2.0) H 11/18/21 05:00 Davey Test Pos 11/18/21 05:00 A-a Gradient 65.0 mmHg 11/18/21 05:00 FiO2 32.0 11/18/21 05:00 Blood Gas Comments Erica abg well-mtf 11/18/21 05:00 Sodium 142 mmol/L (136-145) 11/19/21 04:15 Corrected Sodium 149 mmol/L (136-145) H 11/19/21 04:15 Potassium 3.9 mmol/L (3.5-5.1) 11/19/21 04:15 Chloride 103 mmol/L (98-107) 11/19/21 04:15 Carbon Dioxide 31.9 mmol/L (21-32) 11/19/21 04:15 BUN 21 mg/dL (7-18) H 11/19/21 04:15 Creatinine 1.30 mg/dL (0.55-1.02) H 11/19/21 04:15 Est GFR (MDRD) Af Amer 55 (>60) L 11/19/21 04:15 Est GFR (MDRD) Non-Af 45 (>60) L 11/19/21 04:15 Glucose 391 mg/dL (65-99) H 11/19/21 04:15 POC Glucose (mg/dL) 391 mg/dL (65-99) H 11/19/21 11:30 Calcium 7.6 mg/dL (8.5-10.1) L 11/19/21 04:15 Corrected Calcium 8.6 mg/dL (8.5-10.1) 11/19/21 04:15 Total Bilirubin 0.20 mg/dL (0.2-1.0) 11/19/21 04:15 AST 9 Units/L (15-37) L 11/19/21 04:15 ALT 24 Units/L (12-78) 11/19/21 04:15 Alkaline Phosphatase 67 Units/L (46-116) 11/19/21 04:15 Creatine Kinase 179 Units/L (26-192) 11/16/21 12:36 CK-MB (CK-2) 1.0 ng/mL (0-4.0) 11/16/21 12:36 CK/CKMB % Calc 0.6 % (<4) 11/16/21 12:36 Troponin I High Sens 22.7 ng/L (4.0-60.0) 11/16/21 12:36 Total Protein 6.5 g/dL (6.4-8.2) 11/19/21 04:15 Albumin 2.7 g/dL (3.4-5.0) L 11/19/21 04:15 Globulin 3.8 g/dL (2.5-4.5) 11/19/21 04:15 Albumin/Globulin Ratio 0.7 Ratio (1.1-2.1) L 11/19/21 04:15 Specimen Type Catherized urine 11/16/21 12:46 Urine Color Yellow (YELLOW) 11/16/21 12:46 Urine Appearance Clear (CLEAR) 11/16/21 12:46 Urine pH 7.0 (5.0 - 8.0) 11/16/21 12:46 Ur Specific [place] 1.010 (1.000-1.030) 11/16/21 12:46 Urine Protein 1+ (NEGATIVE) 11/16/21 12:46 Urine Glucose (UA) Negative (NEGATIVE) 11/16/21 12:46 Urine Ketones Negative (NEGATIVE) 11/16/21 12:46 Urine Occult Blood 1+ (NEGATIVE) 11/16/21 12:46 Urine Nitrite Negative (NEGATIVE) 11/16/21 12:46 Urine Bilirubin Negative (NEGATIVE) 11/16/21 12:46 Urine Urobilinogen 1+ (NORMAL) 11/16/21 12:46 Ur Leukocyte Esterase Negative (NEGATIVE) 11/16/21 12:46 Urine RBC 3-5 /HPF (0-3) A 11/16/21 12:46 Urine WBC 0-2 /HPF (0-5) 11/16/21 12:46 Ur Squamous Epith Cells Rare /HPF (NEGATIVE) 11/16/21 12:46 Urine Bacteria Trace /HPF (NEGATIVE) 11/16/21 12:46 Hyaline Casts Few /LPF (NEGATIVE) 11/16/21 12:46 Ur Culture Indicated? No/not indicated 11/16/21 12:46 SARS-CoV-2 (PCR) Negative (NEGATIVE) 11/16/21 13:12 Influenza Type A (PCR) Negative (NEGATIVE) 11/16/21 13:12 Influenza Type B (PCR) Negative (NEGATIVE) 11/16/21 13:12 RSV (PCR) Negative (NEGATIVE) 11/16/21 13:12 - Plan (1) SOB (shortness of breath) Status: Acute (2) Pneumonia Status: Acute Plan: IV abx and steriods. Repeat LAbs and imaging in am. Supplemental oxygen. cultures pending (3) Acute on chronic respiratory failure with hypoxia and hypercapnia Status: Acute (4) COPD with exacerbation Status: Acute (5) Diabetes mellitus type 2, uncontrolled Status: Chronic Qualifiers: Glycemic state: with hyperglycemia Qualified Code(s): E11.65 - Type 2 diabetes mellitus with hyperglycemia (6) Hypoxia Status: Acute (7) Morbid obesity Status: Chronic (8) Weakness generalized Status: Chronic (9) CVA, old, hemiparesis Status: Chronic
[2021-11-19] MEDS: NORCO 10/325 TAB PO PRN ×2 (15:31→21:23)
[2021-11-19] MEDS: XANAX PO PRN (15:32)
[2021-11-19] MEDS: NS 1,000 ML IV 1,000 ML IV SCH (17:56)
[2021-11-19] MEDS ORDERED: PULMICORT NEB TX 0.5 MG NEB ONE (19:52)
[2021-11-19] MEDS: SNACK - Diabetic Appropriate PO SCH (20:30)
[2021-11-19] MEDS: LIPITOR TAB 20 MG PO SCH (21:22)
[2021-11-19] MEDS: PROzac PO SCH (21:22)
[2021-11-19] MEDS: SINEquan PO SCH (21:24)
[2021-11-20] MEDS: ASCORBIC ACID INJ MULTI-DOSE VIAL 1,500 MG in NS 100 ML IV 100 ML IV SCH ×3 (02:55→15:00)
[2021-11-20 05:02] LABS: BASOPHILS % (AUTO) 0.1 % (0.2-1.0); EOSINOPHILS % (AUTO) 0.1 % (0.9-2.9); HEMOGLOBIN 10.3 g/dL (12.0-16.0); LYMPHOCYTES # (AUTO) 1.6 X10^3/uL (1.3-2.9); LYMPHOCYTES % (AUTO) 21.6 % (21.0-51.0); MEAN CORPUSCULAR HGB CONC 32.2 g/dL (33.0-35.0); MEAN CORPUSCULAR VOLUME 80.7 fL (80.0-100.0); MONOCYTES # (AUTO) 0.8 x10^3/uL (0.3-0.8); MONOCYTES % (AUTO) 9.9 % (0.0-13.0); NEUTROPHILS # (AUTO) 5.2 x10^3/uL (2.2-4.8); NEUTROPHILS % (AUTO) 68.3 % (42.0-75.0); RED BLOOD COUNT 3.96 X10^6/uL (3.5-5.4); RED CELL DISTRIBUTION WIDTH 18.2 % (11.6-16.5); WHITE BLOOD COUNT 7.6 X10^3/uL (3.6-10.0)
[2021-11-20 05:16] LABS: ALBUMIN 2.9 g/dL (3.4-5.0); CARBON DIOXIDE 37.4 mmol/L (21-32); COR CA(FOR HYPOALB) 8.9 mg/dL (8.5-10.1); CREATININE 1.22 mg/dL (0.55-1.02); TOTAL PROTEIN 6.6 g/dL (6.4-8.2)
[2021-11-20] MEDS: NEURONTIN TAB 600 MG PO SCH ×2 (06:25→15:00)
[2021-11-20] MEDS: ZOSYN VIAL 3.375 GRAMS 3.375 G in NS 100 ML IV 100 ML IV SCH ×2 (06:25→15:00)
[2021-11-20] MEDS: NovoLIN R (or HumuLIN R) SUBCUT PRN ×2 (06:41→12:47)
[2021-11-20] MEDS: NORCO 10/325 TAB PO PRN (06:42)
[2021-11-20] MEDS ORDERED: K-DUR TAB 20 MEQ PO PRN (07:01)
[2021-11-20] MEDS ORDERED: K-RIDER 10 MEQ/NS 100 ML 10 MEQ/100 ML BAG IV PRN (07:01)
[2021-11-20] MEDS ORDERED: POTASSIUM CHL 40 MEQ/NS 0.45% 500 ML IV PRN (07:01)
[2021-11-20] MEDS ORDERED: POTASSIUM CHL 60 MEQ/NS 0.45% 500 ML IV PRN (07:01)
[2021-11-20] MEDS ORDERED: KLOR-CON PO PRN (07:01)
[2021-11-20] MEDS ORDERED: MAGNESIUM SULFATE 1 GRAM/100 mL PREMIX 1 G/100 ML BAG IV PRN (07:01)
[2021-11-20] MEDS ORDERED: MICRO K EXTEN CAP 10 MEQ PO PRN (07:01)
[2021-11-20] MEDS ORDERED: POTASSIUM CHLORIDE LIQ 20 MEQ UDC PO PRN (07:01)
[2021-11-20 07:38] LABS: MAGNESIUM 1.6 mg/dL (1.7-2.9)
[2021-11-20] MEDS: DUONEB 0.5 MG/3 MG (3 mL) NEB SCH ×2 (08:48→12:00)
[2021-11-20] MEDS: PULMICORT NEB TX 0.5 MG NEB SCH (08:48)
[2021-11-20] MEDS: ASPIRIN PO SCH (09:41)
[2021-11-20] MEDS: CLARITIN PO SCH (09:45)
[2021-11-20] MEDS: COREG TAB 12.5 MG PO SCH (09:48)
[2021-11-20] MEDS: COZAAR PO SCH (09:49)
[2021-11-20] MEDS: CYMBALTA PO SCH (09:50)
[2021-11-20] MEDS: HYDROCHLOROTHIAZIDE 25 MG TAB PO SCH (09:53)
[2021-11-20] MEDS: LANTUS SC SCH (09:55)
[2021-11-20] MEDS: LOVENOX INJ 30 MG SYR SC SCH (09:57)
[2021-11-20] MEDS: LASIX IVP SCH (10:00)
[2021-11-20] MEDS ORDERED: GLUCOPHAGE ONE (10:04)
[2021-11-20] MEDS: MICRO K EXTEN CAP 10 MEQ PO SCH (10:07)
[2021-11-20] MEDS: PEPCID TAB 20 MG PO SCH (10:09)
[2021-11-20] MEDS: PROTONIX TAB 40 MG PO SCH (10:11)
[2021-11-20] MEDS: SOLU-Medrol 40 MG VIAL IVP SCH (10:12)
[2021-11-20] MEDS: NORVASC TAB 10 MG PO SCH (10:14)
[2021-11-20] MEDS: VITAMIN D3 125 mcg (5,000 UNITS) PO SCH (10:15)
[2021-11-20] MEDS: TOPAMAX PO SCH (10:16)
[2021-11-20] MEDS: ZINC SULFATE PO SCH (10:19)
[2021-11-20] MEDS: ZITHROMAX INJ 500 MG VIAL 500 MG in D5W 250 ML IV 250 ML IV SCH (10:20)
[2021-11-20] MEDS: TRICOR TAB 160 MG PO SCH (10:22)
[2021-11-20] MEDS: PLAVIX PO SCH (10:25)
[2021-11-20] MEDS: VITAMIN A PO SCH (10:41)
--- NOTE | 2021-11-20 11:59 | PCM.PROG ---
Progress Note - Progress Note for Day of Date of Exam: 11/19/21 - Subjective Subjective: Patient is a 56 year old AAF who was admitte as per HPI. Patient reports she feels bad today; states she is achy all over; denies any changes in breathing. Patient denies any other concerns. - Past Medical Family Social History Past Med/Fam/Surg Hx: No changes since H&P Allergies: Allergies levofloxacin Allergy (Verified 10/25/21 11:28) procaine Allergy (Verified 10/25/21 11:28) propoxyphene Allergy (Verified 10/25/21 11:28) - Review of Systems ROS: No change since H&P - Vital Signs and I&O's Vital Signs: Temperature 98.1 F Pulse Rate [Left Radial] 70 Pulse Rate [Bilateral Radial] 87 Pulse Rate 77 Respiratory Rate 16 Blood Pressure [Left Arm] 147/73 Blood Pressure 125/65 O2 Sat by Pulse Oximetry 98 Intake and Output: Intake & Output 11/17/21 11/18/21 11/19/21 11/20/21 23:59 23:59 23:59 23:59 Intake Total 5567 / 5567 4907 / 4907 1970 811 / 811 Output Total 4550 / 4550 5500 / 5500 6500 / 6500 375 / 375 Balance 1017 / 1017 -593 / -593 -4529 / -4529 436 / 436 - Physical Exam Oriented: Normal, Time, Person, Place Eyes: Normal Ear: Normal Nose: Normal Throat: Normal Respiratory: Rhonchi Cardiovascular: Normal : Other (Incontinent ) Auscultation: Bowel Sounds: Normal Palpation: Normal Tenderness: Normal Skin: Normal Musculoskeletal: Left (Left sided paralysis hx of CVA) Psychiatric: Normal Mood Description: Calm Affect: Normal Speech Pattern: Clear, Appropriate - Laboratory and Diagnostics Result Diagrams: 11/20/21 03:45 11/20/21 03:45 Labs: 11/16/21 19:02 Sputum - Expectorated Sputum Sputum Culture - Preliminary Klebsiella Pneumoniae Enterobacter Cloacae 11/16/21 19:02 Sputum - Expectorated Sputum - Final Laboratory WBC 7.6 X10^3/uL (3.6-10.0) 11/20/21 03:45 RBC 3.96 X10^6/uL (3.5-5.4) 11/20/21 03:45 Hgb 10.3 g/dL (12.0-16.0) L 11/20/21 03:45 Hct 32.0 % (36.0-47.0) L 11/20/21 03:45 MCV 80.7 fL (80.0-100.0) 11/20/21 03:45 MCH 26.0 pg (27.0-34.0) L 11/20/21 03:45 MCHC 32.2 g/dL (33.0-35.0) L 11/20/21 03:45 RDW 18.2 % (11.6-16.5) H 11/20/21 03:45 Plt Count 213 X10^3/uL (150.0-450.0) 11/20/21 03:45 MPV 9.0 fL (7.4-11.0) 11/20/21 03:45 Neut % (Auto) 68.3 % (42.0-75.0) 11/20/21 03:45 Lymph % (Auto) 21.6 % (21.0-51.0) 11/20/21 03:45 Roberts % (Auto) 9.9 % (0.0-13.0) 11/20/21 03:45 Eos % (Auto) 0.1 % (0.9-2.9) L 11/20/21 03:45 Baso % (Auto) 0.1 % (0.2-1.0) L 11/20/21 03:45 Neut # (Auto) 5.2 x10^3/uL (2.2-4.8) H 11/20/21 03:45 Lymph # (Auto) 1.6 X10^3/uL (1.3-2.9) 11/20/21 03:45 Roberts # (Auto) 0.8 x10^3/uL (0.3-0.8) 11/20/21 03:45 Eos # (Auto) 0.0 x10^3/uL (0.0-0.2) 11/20/21 03:45 Baso # (Auto) 0.0 X10^3/uL (0.0-0.1) 11/20/21 03:45 Absolute Nucleated RBC 0.1 /100WBC 11/20/21 03:45 Sample Site Rrad 11/18/21 05:00 ABG pH 7.310 (7.35-7.45) L 11/18/21 05:00 ABG pCO2 67.0 mmHg (35.0-45.0) H* 11/18/21 05:00 ABG pO2 79.0 mmHg (80.0-100.0) L 11/18/21 05:00 ABG HCO3 33.7 mmol/L (22-26) H* 11/18/21 05:00 ABG O2 Saturation 94.0 % (90-100) 11/18/21 05:00 ABG Base Excess 5.5 mmol/L (-2.0-2.0) H 11/18/21 05:00 Davey Test Pos 11/18/21 05:00 A-a Gradient 65.0 mmHg 11/18/21 05:00 FiO2 32.0 11/18/21 05:00 Blood Gas Comments Erica abg well-mtf 11/18/21 05:00 Sodium 142 mmol/L (136-145) 11/20/21 03:45 Corrected Sodium 149 mmol/L (136-145) H 11/20/21 03:45 Potassium 3.4 mmol/L (3.5-5.1) L 11/20/21 03:45 Chloride 100 mmol/L (98-107) 11/20/21 03:45 Carbon Dioxide 37.4 mmol/L (21-32) H 11/20/21 03:45 BUN 22 mg/dL (7-18) H 11/20/21 03:45 Creatinine 1.22 mg/dL (0.55-1.02) H 11/20/21 03:45 Est GFR (MDRD) Af Amer 59 (>60) 11/20/21 03:45 Est GFR (MDRD) Non-Af 49 (>60) L 11/20/21 03:45 Glucose 404 mg/dL (65-99) H 11/20/21 03:45 POC Glucose (mg/dL) 243 mg/dL (65-99) H 11/20/21 11:07 Calcium 8.0 mg/dL (8.5-10.1) L 11/20/21 03:45 Corrected Calcium 8.9 mg/dL (8.5-10.1) 02/24/22 03:45 Magnesium 1.6 mg/dL (1.7-2.9) L 11/20/21 03:45 Total Bilirubin 0.20 mg/dL (0.2-1.0) 11/20/21 03:45 AST 19 Units/L (15-37) 11/20/21 03:45 ALT 29 Units/L (12-78) 11/20/21 03:45 Alkaline Phosphatase 62 Units/L (46-116) 11/20/21 03:45 Creatine Kinase 179 Units/L (26-192) 11/16/21 12:36 CK-MB (CK-2) 1.0 ng/mL (0-4.0) 11/16/21 12:36 CK/CKMB % Calc 0.6 % (<4) 11/16/21 12:36 Troponin I High Sens 22.7 ng/L (4.0-60.0) 11/16/21 12:36 Total Protein 6.6 g/dL (6.4-8.2) 11/20/21 03:45 Albumin 2.9 g/dL (3.4-5.0) L 11/20/21 03:45 Globulin 3.7 g/dL (2.5-4.5) 11/20/21 03:45 Albumin/Globulin Ratio 0.8 Ratio (1.1-2.1) L 11/20/21 03:45 Specimen Type Catherized urine 11/16/21 12:46 Urine Color Yellow (YELLOW) 11/16/21 12:46 Urine Appearance Clear (CLEAR) 11/16/21 12:46 Urine pH 7.0 (5.0 - 8.0) 11/16/21 12:46 Ur Specific [place] 1.010 (1.000-1.030) 11/16/21 12:46 Urine Protein 1+ (NEGATIVE) 11/16/21 12:46 Urine Glucose (UA) Negative (NEGATIVE) 11/16/21 12:46 Urine Ketones Negative (NEGATIVE) 11/16/21 12:46 Urine Occult Blood 1+ (NEGATIVE) 11/16/21 12:46 Urine Nitrite Negative (NEGATIVE) 11/16/21 12:46 Urine Bilirubin Negative (NEGATIVE) 11/16/21 12:46 Urine Urobilinogen 1+ (NORMAL) 11/16/21 12:46 Ur Leukocyte Esterase Negative (NEGATIVE) 11/16/21 12:46 Urine RBC 3-5 /HPF (0-3) A 11/16/21 12:46 Urine WBC 0-2 /HPF (0-5) 11/16/21 12:46 Ur Squamous Epith Cells Rare /HPF (NEGATIVE) 11/16/21 12:46 Urine Bacteria Trace /HPF (NEGATIVE) 11/16/21 12:46 Hyaline Casts Few /LPF (NEGATIVE) 11/16/21 12:46 Ur Culture Indicated? No/not indicated 11/16/21 12:46 SARS-CoV-2 (PCR) Negative (NEGATIVE) 11/16/21 13:12 Influenza Type A (PCR) Negative (NEGATIVE) 11/16/21 13:12 Influenza Type B (PCR) Negative (NEGATIVE) 11/16/21 13:12 RSV (PCR) Negative (NEGATIVE) 11/16/21 13:12 - Plan (1) SOB (shortness of breath) Status: Acute (2) Pneumonia Status: Acute Plan: IV abx and steriods. Repeat LAbs and imaging in am. Supplemental oxygen. cultures pending (3) Acute on chronic respiratory failure with hypoxia and hypercapnia Status: Acute (4) COPD with exacerbation Status: Acute (5) Diabetes mellitus type 2, uncontrolled Status: Chronic Qualifiers: Glycemic state: with hyperglycemia Qualified Code(s): E11.65 - Type 2 diabetes mellitus with hyperglycemia (6) Hypoxia Status: Acute (7) Morbid obesity Status: Chronic (8) Weakness generalized Status: Chronic (9) CVA, old, hemiparesis Status: Chronic
--- NOTE | 2021-11-20 12:55 | W.DIS.FURT ---
Discharge Plan - Discharge Plan Hospital Course: Admit date11/16/21 Discharge Date11/20/21 DOS11/20/21 Admit diagnosis(1) SOB (shortness of breath) (2) Pneumonia (3) Acute on chronic respiratory failure with hypoxia and hypercapnia (4) COPD with exacerbation (5) Diabetes mellitus type 2, uncontrolled (6) Hypoxia (7) Morbid obesity (8) Weakness generalized (9) CVA, old, hemiparesis Discharge diagnosis(1) SOB (shortness of breath) (2) Pneumonia (3) Acute on chronic respiratory failure with hypoxia and hypercapnia (4) COPD with exacerbation (5) Diabetes mellitus type 2, uncontrolled (6) Hypoxia (7) Morbid obesity (8) Weakness generalized (9) CVA, old, hemiparesis Hospital Course: Patient is a 56 year old female who was admitted as per HPI. Patient has a history of pneumonia and acute on chronic resp failure; patient receives home oxygen, nebulizers, inhalers, and cpap. CXR revealed pneumonia which is similar to recent hospitalizations. Patient was treated with IV abx and steroids, oxygen supplementation and duo nebs. Patient's symptoms improved to baseline. Labs improved; cultures negative. Patient was discharged home with po abx; follow up with pcp in 1 week. Discharge time >35 minutes Disposition: 01 HOME, SELF-CARE Condition: Stable Health Concerns: Post Hospitalization: new medications and changes needed to prevent readmission or further decline. Pt educated and given instructions on all concerns. Plan of Treatment: Continue with present treatment and follow up plan. Pt is to keep follow up appointment as instructed and take medications as ordered. Prescriptions: New azithromycin [Zithromax] 250 mg Tablet 250 mg PO ONCE Qty: 7 RF: 0 Transmission Status: Received by [facility] No Action alprazolam 0.5 mg Tablet 0.5 mg PO DAILY PRN amlodipine 10 MG tablet 10 mg PO DAILY aspirin 325 MG tablet 325 mg PO DAILY atorvastatin [Lipitor] 20 MG tablet 20 mg PO HS budesonide-formoterol [Symbicort] 80-4.5 mcg/actuation Hfa Aerosol Inhaler 1 puff INHALATION BID carvedilol 12.5 mg Tablet 12.5 mg PO BID clopidogrel [Plavix] 75 MG tablet 75 mg PO DAILY cyclobenzaprine 10 MG tablet 10 mg PO TID PRN doxepin 10 mg Capsule 10 mg PO HS duloxetine 30 mg Capsule,Delayed Release(Dr/Ec) 30 mg PO DAILY famotidine 20 mg Tablet 20 mg PO BID fluoxetine 20 mg Capsule 20 mg PO HS furosemide [Lasix] 20 mg Tablet 20 mg PO PRN PRN gabapentin 600 mg Tablet 600 mg PO TID hydrochlorothiazide 25 mg Tablet 25 mg PO DAILY hydrocodone-acetaminophen 10 MG/325 MG tablet 1 tab PO BID Lantus Solostar U-100 Insulin 100 unit/mL (3 mL) Insulin Pen 70 unit SUBCUT .AM Lantus Solostar U-100 Insulin 100 unit/mL (3 mL) Insulin Pen 65 unit SUBCUT .PM loratadine [Non-Drowsy Allergy] 10 MG tablet 10 mg PO DAILY losartan 100 mg Tablet 100 mg PO DAILY metformin 500 mg Tablet 500 mg PO BID omeprazole 40 mg Capsule,Delayed Release(Dr/Ec) 40 mg PO DAILY potassium chloride 10 mEq Capsule, Extended Release 10 meq PO DAILY PRN topiramate 25 mg Tablet 25 mg PO DAILY - Follow ups/Referrals Follow ups/Referrals: NADIYA VENTURA [Primary Care Provider] - 11/27/21 11:00 am - Instructions Instructions: Muscle Cramps and Spasms, [id number], Managing the Challenge of Quitting Smoking, Hypoxemia, Steps to Quit Smoking, [id number], Hypoxia, Chronic Obstructive Pulmonary Disease Exacerbation, [id number], Community- Acquired Pneumonia, Adult, Maaj-rt-Latm Forms: Excuse From Work or School, Precautions for COVID19, [facility], Patient Portal, Social Distancing Print Language: GREEK
--- NOTE | 2021-11-20 15:09 | RAD ---
HISTORY:Pneumonia follow-upStudy: Single view chestComparison:11/18/2021Findings:Stable mild interstitial and alveolar hazy lung infiltrates. Stable left subclavian CVL. Stable cardiomegaly. No pneumothorax or effusion.IMPRESSION:Stable mild interstitial and alveolar lung infiltrates.Electronically signed by: DUANE YUNG (Nov 20, 2021 15:08:00)
[2021-11-20 15:25] VITALS: BP 131/71
== END 2021-11-20 16:20 | disposition home or self-care (01) | DRG 177 ==
LOC: ER 11:45 → U 11:45 → OBSVTOIN 16:46 → U 18:26 → MED/SURG 11-17 16:48
PROVIDERS: ADMIT Internal Medicine; ATTEND Internal Medicine

== ENCOUNTER 2022-06-18 10:44 | Inpatient (IN) ==
--- NOTE | 2022-06-18 10:57 | DR.GENAD ---
HPI Time Seen Time Seen by Provider: 06/18/22 10:56 Complaint/Symptoms Chief Complaint Doctors Comments: 57 y/o female brought in via EMS for evaluation. Has been ill past few days. + productive cough, + shortness of breath, + fever/chills. Having some general muscle aches. No report of bowel or bladder issues. Uses O2 at home, has been using jet neb treatments at home. Nurses notes reviewed Nurses Notes Review: Yes Source History Provided: Patient PMH PMH Past Medical History: Anxiety, Arthritis, CVA, Diabetes, GERD and Hypertension Past Surgical History: Yes Surgical History: Angioplasty/Stents and Hysterectomy Family History Family Medical History: Diabetes Mellitus, Cancer, MS, Coronary Artery Disease, Heart Failure, Sudden Cardiac and Hypertension Social History Do you use any recreational Drugs:: No ROS Review of Systems Constitutional: Chills, Fever and Weakness Eyes: No Symptoms Reported ENTM: No Symptoms Reported Respiratoy: Productive Cough and Short of Breath Cardiovascular: No Symptoms Reported Gastrointestinal/Abdominal: No Symptoms Reported Genitourinary: No Symptoms Reported Neurological: Weakness Musculoskeletal: No Symptoms Reported Integumentary: No Symptoms Reported Hematologic/Lymphatic: No Symptoms Reported Psychiatric: No Symptoms Reported All Other Systems: Reviewed and Negative PE Vital Signs Vitals: Temperature 103.1 F Pulse Rate 94 Respiratory Rate 47 Blood Pressure [Left Arm] 131/71 Blood Pressure 127/67 O2 Sat by Pulse Oximetry 83 General General Appearance: Alert and In No Apparent Distress Head Head Exam: Normal Inspection Eyes Eye exam: PERRL and EOMI ENT ENT Exam: Normal Exam, Normal Oropharynx and Mucous Membranes Moist Neck Neck Exam: Normal Inspection Respiratory Respiratory Exam: Normal Lung Sounds Bilat; negative Accessory Muscle Use or Respiratory Distress Cardiovascular Cardiovascular Exam: Regular Rate, Normal Rhythm and Normal Heart Sounds Abdominal Exam Abdominal Exam: Normal Bowel Sounds and Soft; negative Tenderness Extremities Extremities Exam: Normal Inspection Back Back Exam: Normal Inspection Neurologic Neurological Exam: Alert, Oriented X3 and CN II-XII Intact; negative Motor Sensory Deficit Skin Skin Exam: Warm and Dry COURSE Treatment Treatment: 57 y/o female ill x few days with productive cough and worsening dyspnea. + h/o COPD, has O2 at home, been using jet treatments. W/u initiated. 1600 - CXR with bilateral markings c/w degree of DHF, + RLL more consolidate, concerning for pneumonia. Has elevated WBC, lactic acid a bit elevated as well. Pt was given a jet neb here, givne IV fluids, IV rocephin. Recommend admission, discussed with Dr Bell, accepts the admission. ROR Labs Reviewed Laboratory Results Reviewed?: Yes Result Diagrams: 06/18/22 11:55 06/18/22 11:55 Laboratory: WBC 16.7 X10^3/uL (3.6-10.0) H 06/18/22 11:55 RBC 4.67 X10^6/uL (3.5-5.4) 06/18/22 11:55 Hgb 12.0 g/dL (12.0-16.0) 06/18/22 11:55 Hct 37.6 % (36.0-47.0) 06/18/22 11:55 MCV 80.5 fL (80.0-100.0) 06/18/22 11:55 MCH 25.8 pg (27.0-34.0) L 06/18/22 11:55 MCHC 32.0 g/dL (33.0-35.0) L 06/18/22 11:55 RDW 18.9 % (11.6-16.5) H 06/18/22 11:55 Plt Count 170 X10^3/uL (150.0-450.0) 06/18/22 11:55 MPV 8.6 fL (7.4-11.0) 06/18/22 11:55 Neut % (Auto) 89.5 % (42.0-75.0) H 06/18/22 11:55 Lymph % (Auto) 5.4 % (21.0-51.0) L 06/18/22 11:55 [place] % (Auto) 4.7 % (0.0-13.0) 06/18/22 11:55 Eos % (Auto) 0.2 % (0.9-2.9) L 06/18/22 11:55 Baso % (Auto) 0.2 % (0.2-1.0) 06/18/22 11:55 Neut # (Auto) 15.0 x10^3/uL (2.2-4.8) H 06/18/22 11:55 Lymph # (Auto) 0.9 X10^3/uL (1.3-2.9) L 06/18/22 11:55 [place] # (Auto) 0.8 x10^3/uL (0.3-0.8) 06/18/22 11:55 Eos # (Auto) 0.0 x10^3/uL (0.0-0.2) 06/18/22 11:55 Baso # (Auto) 0.0 X10^3/uL (0.0-0.1) 06/18/22 11:55 Absolute Nucleated RBC 0.0 /100WBC 06/18/22 11:55 Sodium 137 mmol/L (136-145) 06/18/22 11:55 Corrected Sodium 140 mmol/L (136-145) 06/18/22 11:55 Potassium 3.8 mmol/L (3.5-5.1) 06/18/22 11:55 Chloride 102 mmol/L (98-107) 06/18/22 11:55 Carbon Dioxide 29.6 mmol/L (21-32) 06/18/22 11:55 BUN 14 mg/dL (7-18) 06/18/22 11:55 Creatinine 0.98 mg/dL (0.55-1.02) 06/18/22 11:55 Est GFR (MDRD) Af Amer > 60 (>60) 06/18/22 11:55 Est GFR (MDRD) Non-Af > 60 (>60) 06/18/22 11:55 Glucose 214 mg/dL (65-99) H 06/18/22 11:55 Lactic Acid 1.0 mmol/L (0.4-2.0) 06/18/22 16:02 Calcium 8.4 mg/dL (8.5-10.1) L 06/18/22 11:55 Corrected Calcium 9.4 mg/dL (8.5-10.1) 06/18/22 11:55 Total Bilirubin 0.80 mg/dL (0.2-1.0) 06/18/22 11:55 AST 8 Units/L (15-37) L 06/18/22 11:55 ALT 10 Units/L (12-78) L 06/18/22 11:55 Alkaline Phosphatase 69 Units/L (46-116) 06/18/22 11:55 Creatine Kinase 142 Units/L (26-192) 06/18/22 11:55 Troponin I High Sens 25.6 ng/L (4.0-60.0) 06/18/22 11:55 Total Protein 7.1 g/dL (6.4-8.2) 06/18/22 11:55 Albumin 2.7 g/dL (3.4-5.0) L 06/18/22 11:55 Globulin 4.4 g/dL (2.5-4.5) 06/18/22 11:55 Albumin/Globulin Ratio 0.6 Ratio (1.1-2.1) L 06/18/22 11:55 Specimen Type Catherized urine 06/18/22 13:51 Urine Color Yellow (YELLOW) 06/18/22 13:51 Urine Appearance Clear (CLEAR) 06/18/22 13:51 Urine pH 7.0 (5.0 - 8.0) 06/18/22 13:51 Ur Specific [place] 1.015 (1.000-1.030) 06/18/22 13:51 Urine Protein 3+ (NEGATIVE) 06/18/22 13:51 Urine Glucose (UA) Negative (NEGATIVE) 06/18/22 13:51 Urine Ketones 1+ (NEGATIVE) 06/18/22 13:51 Urine Blood 1+ (NEGATIVE) 06/18/22 13:51 Urine Nitrite Negative (NEGATIVE) 06/18/22 13:51 Urine Bilirubin Negative (NEGATIVE) 06/18/22 13:51 Urine Urobilinogen 2+ (NORMAL) 06/18/22 13:51 Ur Leukocyte Esterase Negative (NEGATIVE) 06/18/22 13:51 Urine RBC 5-10 /HPF (0-3) A 06/18/22 13:51 Urine WBC 0-2 /HPF (0-5) 06/18/22 13:51 Ur Squamous Epith Cells Rare /HPF (NEGATIVE) 06/18/22 13:51 Urine Bacteria Trace /HPF (NEGATIVE) 06/18/22 13:51 Ur Culture Indicated? No/not indicated 06/18/22 13:51 SARS-CoV-2 (PCR) Negative (NEGATIVE) 06/18/22 11:05 Influenza Type A (PCR) Negative (NEGATIVE) 06/18/22 11:05 Influenza Type B (PCR) Negative (NEGATIVE) 06/18/22 11:05 RSV (PCR) Negative (NEGATIVE) 06/18/22 11:05 WBC elevated. Opioid Opioid Risk Tool Age (Andrei box if 16-45): No History of Preadolescent Sexual Abuse: No Total: 0 Total Score Risk Category: Low Risk Copyright: Woodrow CRUZ predicting aberrant behaviors Discharge Plan Diagnosis Discharge Problem: Right lower lobe pneumonia Discharge Plan Patient Disposition: 09 ADMITTED INPATIENT Condition: Stable Orders to Discharge Patient Discharge Orders: Transfer (Routine); Ordered 06/18/22 Ordered By: Arjun Vora
[2022-06-18] MEDS ORDERED: DUONEB 0.5 MG/3 MG (3 mL) NEB ONE ×2 (11:01→11:06)
[2022-06-18 11:04] VITALS: BMI 101.0
[2022-06-18 12:08] LABS: BASOPHILS % (AUTO) 0.2 % (0.2-1.0); EOSINOPHILS % (AUTO) 0.2 % (0.9-2.9); HEMATOCRIT 37.6 % (36.0-47.0); LYMPHOCYTES # (AUTO) 0.9 X10^3/uL (1.3-2.9); LYMPHOCYTES % (AUTO) 5.4 % (21.0-51.0); MEAN CORPUSCULAR HEMOGLOBIN 25.8 pg (27.0-34.0); MEAN CORPUSCULAR VOLUME 80.5 fL (80.0-100.0); MEAN PLATELET VOLUME 8.6 fL (7.4-11.0); MONOCYTES # (AUTO) 0.8 x10^3/uL (0.3-0.8); MONOCYTES % (AUTO) 4.7 % (0.0-13.0); NEUTROPHILS % (AUTO) 89.5 % (42.0-75.0); RED BLOOD COUNT 4.67 X10^6/uL (3.5-5.4); RED CELL DISTRIBUTION WIDTH 18.9 % (11.6-16.5); WHITE BLOOD COUNT 16.7 X10^3/uL (3.6-10.0)
[2022-06-18 12:23] LABS: ALANINE AMINOTRANSFERASE 10 Units/L (12-78); ALBUMIN 2.7 g/dL (3.4-5.0); ALKALINE PHOSPHATASE 69 Units/L (46-116); ASPARTATE AMINO TRANSFERASE 8 Units/L (15-37); BLOOD UREA NITROGEN 14 mg/dL (7-18); CALCIUM 8.4 mg/dL (8.5-10.1); CARBON DIOXIDE 29.6 mmol/L (21-32); CHLORIDE 102 mmol/L (98-107); COR CA(FOR HYPOALB) 9.4 mg/dL (8.5-10.1); COR NA(FOR HYPERGLY) 140 mmol/L (136-145); CREATINE KINASE 142 Units/L (26-192); CREATININE 0.98 mg/dL (0.55-1.02); SODIUM 137 mmol/L (136-145); TOTAL PROTEIN 7.1 g/dL (6.4-8.2); eGFR NON BLACK RACES > 60 (>60)
[2022-06-18] MEDS ORDERED: TYLENOL 500 MG TAB EXTRA STRENGTH PO ONE ×2 (13:22→13:23)
--- NOTE | 2022-06-18 13:54 | RAD ---
HISTORY:Fever, shortness of breath, coughStudy: Single view chestComparison:11/17/2021Findings:Exam is limited by body habitus. Lung volumes are reduced. There is cardiomegaly with central vascular congestion more confluent opacity at the medial right lung base. No effusion or pneumothorax identified. The soft tissues are intact.IMPRESSION:Cardiomegaly with central vascular congestion. Nonspecific opacities at the right lung base for which continued follow-up is recommended.Electronically signed by: DUANE YUNG (Jun 18, 2022 13:52:50)
[2022-06-18] MEDS ORDERED: ROCEPHIN VIAL 1 GRAM 1 G in NS 100 ML IV 100 ML IV ONE (14:03)
[2022-06-18] MEDS ORDERED: ROCEPHIN VIAL 1 GRAM ONE (14:04)
[2022-06-18] MEDS ORDERED: NS 100 ML IV 100 ML ONE (14:05)
[2022-06-18 14:12] LABS: BILIRUBIN,URINE NEGATIVE (NEGATIVE); BLOOD/HEMOGLOBIN,URINE 1+ (NEGATIVE); GLUCOSE, URINE NEGATIVE (NEGATIVE); KETONES,URINE 1+ (NEGATIVE); LEUKOCYTE ESTERASE ,URINE NEGATIVE (NEGATIVE); NITRITES,URINE NEGATIVE (NEGATIVE); PROTEIN,URINE 3+ (NEGATIVE); UROBILINOGEN,URINE 2+ (NORMAL)
[2022-06-18 14:20] LABS: APPEARANCE,URINE CLEAR (CLEAR); BACTERIA,URINE TRACE /HPF (NEGATIVE); COLOR,URINE YELLOW (YELLOW); SQUAMOUS EPITHELIAL CELL,UR RARE /HPF (NEGATIVE)
[2022-06-18] MEDS ORDERED: PATIENT'S HOME MEDICATION (Insulin Glargine [Lantus Solostar U-100 Insulin] 100 unit/mL (3 SUBCUT SCH ×2 (17:25)
[2022-06-18] MEDS: ROCEPHIN VIAL 1 GRAM 1 G in NS 100 ML IV 100 ML IV SCH (17:31)
[2022-06-18] MEDS ORDERED: XANAX PO PRN (17:39)
[2022-06-18] MEDS ORDERED: TYLENOL 325 MG TAB PO PRN (18:34)
[2022-06-18] MEDS: COREG TAB 12.5 MG PO SCH (20:16)
[2022-06-18] MEDS: LIPITOR TAB 20 MG PO SCH (20:16)
[2022-06-18] MEDS: ELAVIL PO SCH (20:16)
[2022-06-18] MEDS: NORCO 10/325 TAB PO PRN (20:17)
[2022-06-18] MEDS: PEPCID TAB 20 MG PO SCH (20:17)
[2022-06-18] MEDS ORDERED: LANTUS SC SCH (21:00)
[2022-06-18] MEDS: PULMICORT NEB TX 0.5 MG NEB SCH (21:00)
[2022-06-18] MEDS: DUONEB 0.5 MG/3 MG (3 mL) NEB SCH (21:00)
[2022-06-18] MEDS ORDERED: SYMBICORT INH 80/4.5 mcg IN SCH (21:00)
[2022-06-18] MEDS ORDERED: DUONEB 0.5 MG/3 MG (3 mL) NEB SCH (21:00)
[2022-06-18] MEDS: NEURONTIN TAB 600 MG PO SCH (21:27)
[2022-06-19] MEDS: NEURONTIN TAB 600 MG PO SCH (05:12)
[2022-06-19 05:56] LABS: BASOPHILS # (AUTO) 0.1 X10^3/uL (0.0-0.1); BASOPHILS % (AUTO) 0.3 % (0.2-1.0); HEMOGLOBIN 10.9 g/dL (12.0-16.0); LYMPHOCYTES # (AUTO) 1.1 X10^3/uL (1.3-2.9); LYMPHOCYTES % (AUTO) 5.6 % (21.0-51.0); MEAN CORPUSCULAR HEMOGLOBIN 25.6 pg (27.0-34.0); MEAN PLATELET VOLUME 8.8 fL (7.4-11.0); MONOCYTES # (AUTO) 0.7 x10^3/uL (0.3-0.8); MONOCYTES % (AUTO) 3.8 % (0.0-13.0); NEUTROPHILS # (AUTO) 17.1 x10^3/uL (2.2-4.8); NEUTROPHILS % (AUTO) 90.3 % (42.0-75.0); RED BLOOD COUNT 4.25 X10^6/uL (3.5-5.4); RED CELL DISTRIBUTION WIDTH 18.5 % (11.6-16.5)
[2022-06-19 06:04] LABS: ALBUMIN 2.3 g/dL (3.4-5.0); CALCIUM 8.1 mg/dL (8.5-10.1); COR CA(FOR HYPOALB) 9.5 mg/dL (8.5-10.1); CREATININE 1.51 mg/dL (0.55-1.02); TOTAL PROTEIN 6.5 g/dL (6.4-8.2)
[2022-06-19 06:36] LABS: BAND NEUTROPHILS % 21 % (0-10); METAMYELOCYTES % 3; PLATELET MORPHOLOGY COMMENT NORMAL (NORMAL)
[2022-06-19] MEDS: DUONEB 0.5 MG/3 MG (3 mL) NEB SCH ×4 (08:05→21:00)
[2022-06-19] MEDS: PULMICORT NEB TX 0.5 MG NEB SCH ×2 (08:05→21:00)
[2022-06-19] MEDS ORDERED: ROBITUSSIN DM PO PRN (08:46)
[2022-06-19] MEDS: COREG TAB 12.5 MG PO SCH ×2 (08:52→21:54)
[2022-06-19] MEDS ORDERED: COZAAR PO SCH (09:00)
[2022-06-19] MEDS ORDERED: HYDROCHLOROTHIAZIDE 25 MG TAB PO SCH (09:00)
[2022-06-19] MEDS ORDERED: LANTUS SC SCH (09:00)
[2022-06-19] MEDS: ZITHROMAX INJ 500 MG VIAL 500 MG in D5W 250 ML IV 250 ML IV SCH ×2 (09:58→10:01)
[2022-06-19] MEDS: LASIX IVP SCH (09:58)
[2022-06-19] MEDS: NICOTINE PATCH TD SCH (09:58)
[2022-06-19] MEDS: K-DUR TAB 20 MEQ PO SCH (09:58)
[2022-06-19] MEDS: PROTONIX TAB 40 MG PO SCH ×2 (09:59→21:55)
[2022-06-19] MEDS: PriLOSEC PO SCH (09:59)
[2022-06-19] MEDS: NS 1,000 ML IV 1,000 ML IV SCH ×2 (09:59→23:42)
[2022-06-19] MEDS: PEPCID TAB 20 MG PO SCH ×2 (09:59→21:55)
[2022-06-19] MEDS: PLAVIX PO SCH (10:00)
[2022-06-19] MEDS: WELLBUTRIN XL 150 MG (DAILY) PO SCH (10:00)
[2022-06-19] MEDS: ROCEPHIN VIAL 1 GRAM 1 G in NS 100 ML IV 100 ML IV SCH (10:00)
[2022-06-19] MEDS: TOPAMAX PO SCH (10:00)
[2022-06-19] MEDS: SOLU-Medrol 40 MG VIAL IVP SCH ×3 (10:00→21:54)
[2022-06-19] MEDS: NORCO 10/325 TAB PO PRN (10:01)
[2022-06-19] MEDS: NEURONTIN CAP 300 MG PO SCH ×2 (13:12→21:55)
[2022-06-19 13:49] LABS: ABG BASE EXCESS 5.1 mmol/L (-2.0-2.0)
[2022-06-19 13:50] LABS: ABG ALLEN TEST POS
--- NOTE | 2022-06-19 13:54 | DR.H&P ---
H&P - History & Physical for Day of: H&P Date: 06/19/22 - Chief Complaint Chief Complaint: CCC, SOB - History of Present Illness History of Present Illness: PT IS 57 BF ER ADMISSION WITH REPORTS OF SOB, CCC FOR SEVERAL DAYS. PT HAS PMH OF COPD, CHF, CAD, HTN, MO, CVA, DM. PT DENIES ANY KNOWN COVID EXPOSURE. PT REPORTS USING BREATHING TREATMENTS AND O2 AT HOME WITHOUT IMPROVEMENT. PT ADMITTED FOR TREATMENT OF ACUTE ILLNESS. 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 - Family History Family Medical History: Diabetes Mellitus, Cancer, [place], Coronary Artery Disease, Heart Failure, Sudden Cardiac , Hypertension - Social History Does patient currently use any type of tobacco product: Yes Have you used tobacco products in the last 12 months: Yes Does any household member use tobacco: No Alcohol Use: None - Medications Home Medications: levofloxacin Allergy (Verified 10/25/21 11:28) procaine Allergy (Verified 10/25/21 11:28) propoxyphene Allergy (Verified 10/25/21 11:28) CONTINUE taking the following medications amitriptyline 25 mg tablet 25 mg PO DAILY 06/18/22 [History] budesonide-formoterol HFA 80 mcg-4.5 mcg/actuation aerosol inhaler (Symbicort) 1 inh inhalation BID 06/18/22 [History] bupropion HCl 150 mg 24 hr tablet, extended release 150 mg PO DAILY 06/18/22 [History] insulin lispro 100 unit/mL subcutaneous cartridge (Humalog U-100 Insulin) See Rx Instructions .Route .COMPLEX 06/18/22 [History] - Review of Systems Constitutional: Chills, Weakness Eyes: No Symptoms Reported ENT: No Symptoms Reported Respiratory: Cough, Shortness of Breath, Wheezing Cardiovascular: Edema Gastrointestinal: Nausea, Vomiting Genitourinary: Incontinence Musculoskeletal: Shoulder Pain, Back Pain Skin: Wound (PRESSURE BREAKDOWN RIGHT POSTERIOR THIGH) Neurological: Weakness - Physical Exam Vital Signs: Temperature 98.1 F Pulse Rate [Left Radial] 81 Pulse Rate 73 Respiratory Rate 18 Blood Pressure [Right Thigh] 102/55 Blood Pressure [Right Arm] 118/53 Blood Pressure [Left Arm] 136/72 Blood Pressure 121/68 O2 Sat by Pulse Oximetry 96 Oriented: Normal Eyes: Normal Ear: Normal Nose: Discharge Throat: Dry Respiratory: Rhonchi Throughout, Wheezes Throughout Cardiovascular: Normal, Edema : Normal Auscultation: Bowel Sounds: Normal Palpation: Normal Tenderness: Normal Skin: Decreased Turgur Musculoskeletal: Left, Arm, Leg, Motor Deficit Psychiatric: Anxiety Mood Description: Anxious Affect: Anxious Speech Pattern: Clear, Appropriate - Assessment/Plan (1) Pneumonia Qualifiers: Pneumonia type: due to unspecified organism Laterality: bilateral Lung location: lower lobe of lung Qualified Code(s): J18.9 - Pneumonia, unspecified organism Status: Acute Plan: ADMIT, PNEUMONIA PROTOCOL. IV ATBX THERAPY, RESP SWAB ON ADMISSION. SUPPLEMENTAL O2, BLOOD GAS, DUE NEBS. BLOOD URINE AND SPUTUM CULTURE ON ADMISSION. BP AND CARDIAC MONITORING. STRICT I&OS, SKIN CHECKS, BS CONTROL (2) Acute and chronic respiratory failure Qualifiers: Respiratory failure complication: hypoxia and hypercapnia Qualified Code(s): J96.21 - Acute and chronic respiratory failure with hypoxia; J96.22 - Acute and chronic respiratory failure with hypercapnia Status: Acute (3) CVA, old, hemiparesis Status: Chronic (4) Essential hypertension Status: Chronic (5) Diabetes mellitus Status: Chronic (6) Arthritis Status: Chronic (7) GERD (gastroesophageal reflux disease) Qualifiers: Esophagitis presence: esophagitis presence not specified Qualified Code(s): K21.9 - Gastro-esophageal reflux disease without esophagitis Status: Chronic (8) CHF (congestive heart failure) Status: Acute - Allergies Allergies/Adverse Reactions: Allergies Allergy/AdvReac Type Severity Reaction Status Date / Time levofloxacin Allergy Verified 10/25/21 11:28 procaine Allergy Verified 10/25/21 11:28 propoxyphene Allergy Verified 10/25/21 11:28
[2022-06-19 15:38] LABS: ABG BASE EXCESS 5.1 mmol/L (-2.0-2.0)
[2022-06-19 15:39] LABS: ABG ALLEN TEST POS; ABG HCO3 33.2 mmol/L (22-26)
[2022-06-19] MEDS: NovoLIN R (or HumuLIN R) SUBCUT PRN ×2 (17:01→22:06)
[2022-06-19] MEDS: ELAVIL PO SCH (21:54)
[2022-06-19] MEDS: LIPITOR TAB 20 MG PO SCH (21:56)
[2022-06-19] MEDS: SNACK - Diabetic Appropriate PO SCH (22:05)
[2022-06-20] MEDS: SOLU-Medrol 40 MG VIAL IVP SCH ×3 (05:29→21:04)
[2022-06-20] MEDS: NEURONTIN CAP 300 MG PO SCH ×3 (05:29→22:00)
[2022-06-20 06:28] LABS: BASOPHILS # (AUTO) 0.1 X10^3/uL (0.0-0.1); BASOPHILS % (AUTO) 0.3 % (0.2-1.0); HEMATOCRIT 32.9 % (36.0-47.0); HEMOGLOBIN 10.5 g/dL (12.0-16.0); LYMPHOCYTES # (AUTO) 0.9 X10^3/uL (1.3-2.9); MEAN CORPUSCULAR HEMOGLOBIN 25.6 pg (27.0-34.0); MEAN CORPUSCULAR HGB CONC 31.9 g/dL (33.0-35.0); MEAN CORPUSCULAR VOLUME 80.4 fL (80.0-100.0); MEAN PLATELET VOLUME 9.2 fL (7.4-11.0); MONOCYTES # (AUTO) 0.3 x10^3/uL (0.3-0.8); MONOCYTES % (AUTO) 2.1 % (0.0-13.0); NEUTROPHILS # (AUTO) 14.1 x10^3/uL (2.2-4.8); NEUTROPHILS % (AUTO) 91.6 % (42.0-75.0); RED BLOOD COUNT 4.09 X10^6/uL (3.5-5.4); RED CELL DISTRIBUTION WIDTH 19.4 % (11.6-16.5); WHITE BLOOD COUNT 15.4 X10^3/uL (3.6-10.0)
[2022-06-20 06:38] LABS: ALBUMIN 2.3 g/dL (3.4-5.0); CALCIUM 8.1 mg/dL (8.5-10.1); CARBON DIOXIDE 30.5 mmol/L (21-32); COR CA(FOR HYPOALB) 9.5 mg/dL (8.5-10.1); CREATININE 1.62 mg/dL (0.55-1.02); TOTAL PROTEIN 6.8 g/dL (6.4-8.2)
[2022-06-20] MEDS: NovoLIN R (or HumuLIN R) SUBCUT PRN ×3 (06:41→17:44)
[2022-06-20 07:22] LABS: BAND NEUTROPHILS % 4 % (0-10)
[2022-06-20 07:23] LABS: PLATELET MORPHOLOGY COMMENT NORMAL (NORMAL)
--- NOTE | 2022-06-20 08:16 | RAD ---
HISTORY:Pneumonia, CHFStudy: Single view chestComparison:06/18/2022Findings:Single upright portable view demonstrates stable cardiomegaly with central vascular congestion. Hazy opacities in the right lung are unchanged. No pneumothorax.IMPRESSION:Stable chest.Electronically signed by: DUANE YUNG (Jun 20, 2022 08:14:31)
[2022-06-20] MEDS: DUONEB 0.5 MG/3 MG (3 mL) NEB SCH ×4 (08:59→21:00)
[2022-06-20] MEDS: PULMICORT NEB TX 0.5 MG NEB SCH ×2 (08:59→21:00)
[2022-06-20] MEDS: PEPCID TAB 20 MG PO SCH ×2 (09:07→21:03)
[2022-06-20] MEDS: WELLBUTRIN XL 150 MG (DAILY) PO SCH (09:07)
[2022-06-20] MEDS: PLAVIX PO SCH (09:07)
[2022-06-20] MEDS: ROCEPHIN VIAL 1 GRAM 1 G in NS 100 ML IV 100 ML IV SCH (09:07)
[2022-06-20] MEDS: TOPAMAX PO SCH (09:07)
[2022-06-20] MEDS: K-DUR TAB 20 MEQ PO SCH (09:07)
[2022-06-20] MEDS: LASIX IVP SCH (09:07)
[2022-06-20] MEDS: COREG TAB 12.5 MG PO SCH ×2 (09:07→20:59)
[2022-06-20] MEDS: PriLOSEC PO SCH (09:07)
[2022-06-20] MEDS: PROTONIX TAB 40 MG PO SCH ×2 (09:07→21:01)
[2022-06-20] MEDS: NICOTINE PATCH TD SCH (09:07)
[2022-06-20] MEDS: NS 1,000 ML IV 1,000 ML IV SCH ×2 (09:07→15:12)
[2022-06-20] MEDS: ZITHROMAX INJ 500 MG VIAL 500 MG in D5W 250 ML IV 250 ML IV SCH (10:03)
--- NOTE | 2022-06-20 11:02 | PCM.PROG ---
Progress Note Progress Note for Day of Date of Exam: 06/20/22 Subjective Subjective: Pt is a 57 year old female past medical history of COPD, CHF, CAD, HTN, MO, CVA, DM, admitted for pneumonia. This morning patient reports some improvement in her breathing. She was taken off BiPAP this morning and is currently on 4L nasal cannula supplemental oxygen. No acute events overnight. Labs/imaging: Wbc 15.4, Hgb 10.5, Plt 165, Na 137, K 4.7, Creatinine 1.62, Glucose 294, Sputum culture: normal maría, Blood cultures pending. CXR was obtained that revealed: Stable cardiomegaly with central vascular congestion. Hazy opacities in the right lung are unchanged. No pneumothorax. Pt in currently receiving antibiotics: IV Rocephin 1g daily, IV Azithromycin 500mg daily. IVF NS@50ml/h, IV Solumedrol 40mg q8h, Scheduled bronchodilators, home medications were resumed. Wean/titrate supplemental oxygen as tolerated. Otherwise will continue with current treatment plan. Continue to closely monitor and follow up labs/imaging. Past Medical Family Social History Allergies: Allergies levofloxacin Allergy (Verified 10/25/21 11:28) procaine Allergy (Verified 10/25/21 11:28) propoxyphene Allergy (Verified 10/25/21 11:28) Review of Systems ROS changes noted: see HPI Vital Signs and I&O's Vital Signs: Temperature 97.8 F Pulse Rate [Left Radial] 66 Pulse Rate 64 Respiratory Rate 20 Blood Pressure [Right Thigh] 145/64 Blood Pressure [Right Arm] 118/53 Blood Pressure [Left Arm] 136/72 Blood Pressure 121/68 O2 Sat by Pulse Oximetry 99 Intake and Output: Intake & Output 06/17/22 06/18/22 06/19/22 06/20/22 23:59 23:59 23:59 23:59 Intake Total 90 / 90 950 / 950 240 / 240 Output Total 400 / 400 350 / 350 200 / 200 Balance -310 / -310 600 / 600 40 / 40 Physical Exam Oriented: Normal Eyes: Normal Ear: Normal Nose: Discharge Throat: Dry Respiratory: Rhonchi Cardiovascular: Normal and Edema : Normal Auscultation: Bowel Sounds: Normal Tenderness: Normal Skin: Decreased Turgur Musculoskeletal: Left, Arm, Leg and Motor Deficit Psychiatric: Anxiety Mood Description: Calm Speech Pattern: Appropriate Laboratory and Diagnostics Result Diagrams: 06/20/22 05:40 06/20/22 05:40 Labs: 06/18/22 17:35 Sputum - Expectorated Sputum Sputum Culture - Final 06/18/22 17:35 Sputum - Expectorated Sputum - Final Laboratory WBC 15.4 X10^3/uL (3.6-10.0) H 06/20/22 05:40 RBC 4.09 X10^6/uL (3.5-5.4) 06/20/22 05:40 Hgb 10.5 g/dL (12.0-16.0) L 06/20/22 05:40 Hct 32.9 % (36.0-47.0) L 06/20/22 05:40 MCV 80.4 fL (80.0-100.0) 06/20/22 05:40 MCH 25.6 pg (27.0-34.0) L 06/20/22 05:40 MCHC 31.9 g/dL (33.0-35.0) L 06/20/22 05:40 RDW 19.4 % (11.6-16.5) H 06/20/22 05:40 Plt Count 165 X10^3/uL (150.0-450.0) 06/20/22 05:40 Plt Count Comment Adequate (ADEQUATE) 06/20/22 05:40 MPV 9.2 fL (7.4-11.0) 06/20/22 05:40 Neut % (Auto) 91.6 % (42.0-75.0) H 06/20/22 05:40 Lymph % (Auto) 6.0 % (21.0-51.0) L 06/20/22 05:40 [place] % (Auto) 2.1 % (0.0-13.0) 06/20/22 05:40 Eos % (Auto) 0.0 % (0.9-2.9) L 06/20/22 05:40 Baso % (Auto) 0.3 % (0.2-1.0) 06/20/22 05:40 Neut # (Auto) 14.1 x10^3/uL (2.2-4.8) H 06/20/22 05:40 Lymph # (Auto) 0.9 X10^3/uL (1.3-2.9) L 06/20/22 05:40 [place] # (Auto) 0.3 x10^3/uL (0.3-0.8) 06/20/22 05:40 Eos # (Auto) 0.0 x10^3/uL (0.0-0.2) 06/20/22 05:40 Baso # (Auto) 0.1 X10^3/uL (0.0-0.1) 06/20/22 05:40 Absolute Nucleated RBC 0.0 /100WBC 06/20/22 05:40 Total Counted 100 06/20/22 05:40 Neutrophils % (Manual) 85 % (39-76) H 06/20/22 05:40 Band Neutrophils % 4 % (0-10) 06/20/22 05:40 Lymphocytes % (Manual) 6 % (13-43) L 06/20/22 05:40 Monocytes % (Manual) 5 % (4-9) 06/20/22 05:40 Metamyelocytes % 3 06/19/22 05:23 Plt Morphology Comment Normal (NORMAL) 06/20/22 05:40 RBC Morphology Normal (NORMAL) 06/20/22 05:40 Sample Site Rra 06/19/22 15:36 ABG pH 7.310 (7.35-7.45) L 06/19/22 15:36 ABG pCO2 66.0 mmHg (35.0-45.0) H* 06/19/22 15:36 ABG pO2 60.0 mmHg (80.0-100.0) L 06/19/22 15:36 ABG HCO3 33.2 mmol/L (22-26) H* 06/19/22 15:36 ABG O2 Saturation 88.0 % (90-100) L 06/19/22 15:36 ABG Base Excess 5.1 mmol/L (-2.0-2.0) H 06/19/22 15:36 Davey Test Pos 06/19/22 15:36 A-a Gradient 143.0 mmHg 06/19/22 15:36 FiO2 40.0 06/19/22 15:36 Blood Gas Comments Pt rashawn well eb 06/19/22 15:36 Sodium 137 mmol/L (136-145) 06/20/22 05:40 Corrected Sodium 142 mmol/L (136-145) 06/20/22 05:40 Potassium 4.7 mmol/L (3.5-5.1) 06/20/22 05:40 Chloride 101 mmol/L (98-107) 06/20/22 05:40 Carbon Dioxide 30.5 mmol/L (21-32) 06/20/22 05:40 BUN 33 mg/dL (7-18) H 06/20/22 05:40 Creatinine 1.62 mg/dL (0.55-1.02) H 06/20/22 05:40 Est GFR (MDRD) Af Amer 42 (>60) L 06/20/22 05:40 Est GFR (MDRD) Non-Af 35 (>60) L 06/20/22 05:40 Glucose 294 mg/dL (65-99) H 06/20/22 05:40 POC Glucose (mg/dL) 285 mg/dL (65-99) H 06/20/22 06:29 Lactic Acid 1.0 mmol/L (0.4-2.0) 06/18/22 16:02 Calcium 8.1 mg/dL (8.5-10.1) L 06/20/22 05:40 Corrected Calcium 9.5 mg/dL (8.5-10.1) 06/20/22 05:40 Total Bilirubin 0.30 mg/dL (0.2-1.0) 06/20/22 05:40 AST 11 Units/L (15-37) L 06/20/22 05:40 ALT 14 Units/L (12-78) 06/20/22 05:40 Alkaline Phosphatase 68 Units/L (46-116) 06/20/22 05:40 Creatine Kinase 142 Units/L (26-192) 06/18/22 11:55 Troponin I High Sens 25.6 ng/L (4.0-60.0) 06/18/22 11:55 B-Natriuretic Peptide 413 pg/mL (0-79) H 06/19/22 14:30 Total Protein 6.8 g/dL (6.4-8.2) 06/20/22 05:40 Albumin 2.3 g/dL (3.4-5.0) L 06/20/22 05:40 Globulin 4.5 g/dL (2.5-4.5) 06/20/22 05:40 Albumin/Globulin Ratio 0.5 Ratio (1.1-2.1) L 06/20/22 05:40 Specimen Type Catherized urine 06/18/22 13:51 Urine Color Yellow (YELLOW) 06/18/22 13:51 Urine Appearance Clear (CLEAR) 06/18/22 13:51 Urine pH 7.0 (5.0 - 8.0) 06/18/22 13:51 Ur Specific [place] 1.015 (1.000-1.030) 06/18/22 13:51 Urine Protein 3+ (NEGATIVE) 06/18/22 13:51 Urine Glucose (UA) Negative (NEGATIVE) 06/18/22 13:51 Urine Ketones 1+ (NEGATIVE) 06/18/22 13:51 Urine Blood 1+ (NEGATIVE) 06/18/22 13:51 Urine Nitrite Negative (NEGATIVE) 06/18/22 13:51 Urine Bilirubin Negative (NEGATIVE) 06/18/22 13:51 Urine Urobilinogen 2+ (NORMAL) 06/18/22 13:51 Ur Leukocyte Esterase Negative (NEGATIVE) 06/18/22 13:51 Urine RBC 5-10 /HPF (0-3) A 06/18/22 13:51 Urine WBC 0-2 /HPF (0-5) 06/18/22 13:51 Ur Squamous Epith Cells Rare /HPF (NEGATIVE) 06/18/22 13:51 Urine Bacteria Trace /HPF (NEGATIVE) 06/18/22 13:51 Ur Culture Indicated? No/not indicated 06/18/22 13:51 SARS-CoV-2 (PCR) Negative (NEGATIVE) 06/18/22 11:05 Influenza Type A (PCR) Negative (NEGATIVE) 06/18/22 11:05 Influenza Type B (PCR) Negative (NEGATIVE) 06/18/22 11:05 RSV (PCR) Negative (NEGATIVE) 06/18/22 11:05 Plan (1) Pneumonia: Status: Acute Qualifiers: Laterality: bilateral Lung location: lower lobe of lung Pneumonia type: due to unspecified organism Qualified Code(s): J18.9 - Pneumonia, unspecified organism Plan: ADMIT, PNEUMONIA PROTOCOL IV ATBX THERAPY, RESP SWAB ON ADMISSION SUPPLEMENTAL O2, BLOOD GAS, DUE NEBS BLOOD URINE AND SPUTUM CULTURE ON ADMISSION BP AND CARDIAC MONITORING STRICT I&OS, SKIN CHECKS, BS CONTROL (2) Acute and chronic respiratory failure: Status: Acute Qualifiers: Respiratory failure complication: hypoxia and hypercapnia Qualified Code(s): J96.21 - Acute and chronic respiratory failure with hypoxia; J96.22 - Acute and chronic respiratory failure with hypercapnia (3) CVA, old, hemiparesis: Status: Chronic (4) Essential hypertension: Status: Chronic (5) Diabetes mellitus: Status: Chronic (6) Arthritis: Status: Chronic (7) GERD (gastroesophageal reflux disease): Status: Chronic Qualifiers: Esophagitis presence: esophagitis presence not specified Qualified Code(s): K21.9 - Gastro-esophageal reflux disease without esophagitis (8) CHF (congestive heart failure): Status: Acute Qualifiers: Congestive heart failure chronicity: acute on chronic
[2022-06-20] MEDS: LIPITOR TAB 20 MG PO SCH (20:59)
[2022-06-20] MEDS: ELAVIL PO SCH (20:59)
[2022-06-20] MEDS: SNACK - Diabetic Appropriate PO SCH (21:03)
[2022-06-20] MEDS: NORCO 10/325 TAB PO PRN (21:03)
[2022-06-21 04:48] LABS: BASOPHILS % (AUTO) 0.3 % (0.2-1.0); HEMATOCRIT 32.4 % (36.0-47.0); HEMOGLOBIN 10.1 g/dL (12.0-16.0); LYMPHOCYTES # (AUTO) 0.8 X10^3/uL (1.3-2.9); LYMPHOCYTES % (AUTO) 6.5 % (21.0-51.0); MEAN CORPUSCULAR HEMOGLOBIN 25.4 pg (27.0-34.0); MEAN CORPUSCULAR HGB CONC 31.3 g/dL (33.0-35.0); MEAN CORPUSCULAR VOLUME 81.2 fL (80.0-100.0); MEAN PLATELET VOLUME 9.2 fL (7.4-11.0); MONOCYTES # (AUTO) 0.4 x10^3/uL (0.3-0.8); MONOCYTES % (AUTO) 3.2 % (0.0-13.0); NEUTROPHILS # (AUTO) 11.2 x10^3/uL (2.2-4.8); RED BLOOD COUNT 3.99 X10^6/uL (3.5-5.4); RED CELL DISTRIBUTION WIDTH 19.6 % (11.6-16.5); WHITE BLOOD COUNT 12.5 X10^3/uL (3.6-10.0)
[2022-06-21 05:00] LABS: ALBUMIN 2.3 g/dL (3.4-5.0); CALCIUM 7.5 mg/dL (8.5-10.1); CARBON DIOXIDE 29.9 mmol/L (21-32); COR CA(FOR HYPOALB) 8.9 mg/dL (8.5-10.1); CREATININE 1.56 mg/dL (0.55-1.02); TOTAL PROTEIN 6.7 g/dL (6.4-8.2)
[2022-06-21 05:15] LABS: BAND NEUTROPHILS % 0 % (0-10); PLATELET MORPHOLOGY COMMENT NORMAL (NORMAL)
[2022-06-21] MEDS: NS 1,000 ML IV 1,000 ML IV SCH ×3 (05:15→17:18)
[2022-06-21 05:34] LABS: ABG BASE EXCESS 3.1 mmol/L (-2.0-2.0)
[2022-06-21 05:37] LABS: ABG HCO3 31.3 mmol/L (22-26)
[2022-06-21] MEDS: NEURONTIN CAP 300 MG PO SCH ×3 (05:57→21:04)
[2022-06-21] MEDS: SOLU-Medrol 40 MG VIAL IVP SCH ×3 (05:57→21:05)
[2022-06-21 06:19] LABS: ABG ALLEN TEST POS
[2022-06-21] MEDS: NovoLIN R (or HumuLIN R) SUBCUT PRN ×4 (06:33→21:00)
[2022-06-21] MEDS: DUONEB 0.5 MG/3 MG (3 mL) NEB SCH ×4 (08:51→20:35)
[2022-06-21] MEDS: PULMICORT NEB TX 0.5 MG NEB SCH ×2 (08:51→20:35)
[2022-06-21] MEDS: COREG TAB 12.5 MG PO SCH ×2 (09:28→21:01)
[2022-06-21] MEDS: WELLBUTRIN XL 150 MG (DAILY) PO SCH (09:28)
[2022-06-21] MEDS: PriLOSEC PO SCH (09:29)
[2022-06-21] MEDS: ROCEPHIN VIAL 1 GRAM 1 G in NS 100 ML IV 100 ML IV SCH (09:29)
[2022-06-21] MEDS: K-DUR TAB 20 MEQ PO SCH (09:29)
[2022-06-21] MEDS: LASIX IVP SCH (09:29)
[2022-06-21] MEDS: TOPAMAX PO SCH (09:29)
[2022-06-21] MEDS: NICOTINE PATCH TD SCH (09:29)
[2022-06-21] MEDS: PROTONIX TAB 40 MG PO SCH ×2 (09:30→21:00)
[2022-06-21] MEDS: PEPCID TAB 20 MG PO SCH ×2 (09:30→21:04)
[2022-06-21] MEDS: PLAVIX PO SCH (09:30)
--- NOTE | 2022-06-21 09:55 | PCM.PROG ---
Progress Note Progress Note for Day of Date of Exam: 06/21/22 Subjective Subjective: Pt is a 57 year old female past medical history of COPD, CHF, CAD, HTN, MO, CVA, DM, admitted for pneumonia. This morning patient's breathing continues to improve. She is currently requiring 4L nasal cannula supplemental oxygen. No acute events overnight. Labs/imaging: Wbc 12.5, Hgb 10.1, Plt 172, Na 137, K 4.7, Creatinine 1.56, Glucose 459, ABG was obtained: pH 7.29, pCO2 65, pO2 100, HCO3 31, O2sat 97%, FiO2 32%. Sputum culture: normal maría, Blood cultures prelim no growth to date. CXR was obtained that revealed: Stable cardiomegaly with central vascular congestion. Hazy opacities in the right lung are unchanged. No pneumothorax. Pt in currently receiving antibiotics: IV Rocephin 1g daily, IV Azithromycin 500mg daily. IVF NS@50ml/h, IV Solumedrol 40mg q8h, Scheduled bronchodilators, home medications were resumed. Wean/titrate supplemental oxygen as tolerated. Otherwise will continue with current treatment plan. Continue to closely monitor and follow up labs/imaging. Past Medical Family Social History Allergies: Allergies levofloxacin Allergy (Verified 10/25/21 11:28) procaine Allergy (Verified 10/25/21 11:28) propoxyphene Allergy (Verified 10/25/21 11:28) Review of Systems ROS changes noted: see HPI Vital Signs and I&O's Vital Signs: Temperature 98.2 F Pulse Rate [Left Radial] 70 Pulse Rate 66 Respiratory Rate 18 Blood Pressure [Right Thigh] 164/74 Blood Pressure [Right Arm] 118/53 Blood Pressure [Left Arm] 136/72 Blood Pressure 121/68 O2 Sat by Pulse Oximetry 98 Intake and Output: Intake & Output 06/18/22 06/19/22 06/20/22 06/21/22 23:59 23:59 23:59 23:59 Intake Total 90 / 90 950 / 950 980 / 980 590 / 590 Output Total 400 / 400 350 / 350 1000 / 1000 500 / 500 Balance -310 / -310 600 / 600 -20 / -20 90 / 90 Physical Exam Oriented: Normal Eyes: Normal Ear: Normal Nose: Discharge Throat: Dry Respiratory: Rhonchi Cardiovascular: Normal and Edema : Normal Auscultation: Bowel Sounds: Normal Tenderness: Normal Skin: Decreased Turgur Musculoskeletal: Left, Arm, Leg and Motor Deficit Psychiatric: Anxiety Mood Description: Calm Affect: Anxious Speech Pattern: Appropriate Laboratory and Diagnostics Result Diagrams: 06/21/22 04:16 06/21/22 04:16 Labs: 06/18/22 17:15 Blood Blood Culture - Preliminary 06/18/22 16:02 Blood Blood Culture - Preliminary 06/18/22 17:35 Sputum - Expectorated Sputum Sputum Culture - Final 06/18/22 17:35 Sputum - Expectorated Sputum - Final Laboratory WBC 12.5 X10^3/uL (3.6-10.0) H 06/21/22 04:16 RBC 3.99 X10^6/uL (3.5-5.4) 06/21/22 04:16 Hgb 10.1 g/dL (12.0-16.0) L 06/21/22 04:16 Hct 32.4 % (36.0-47.0) L 06/21/22 04:16 MCV 81.2 fL (80.0-100.0) 06/21/22 04:16 MCH 25.4 pg (27.0-34.0) L 06/21/22 04:16 MCHC 31.3 g/dL (33.0-35.0) L 06/21/22 04:16 RDW 19.6 % (11.6-16.5) H 06/21/22 04:16 Plt Count 172 X10^3/uL (150.0-450.0) 06/21/22 04:16 Plt Count Comment Adequate (ADEQUATE) 06/21/22 04:16 MPV 9.2 fL (7.4-11.0) 06/21/22 04:16 Neut % (Auto) 90.0 % (42.0-75.0) H 06/21/22 04:16 Lymph % (Auto) 6.5 % (21.0-51.0) L 06/21/22 04:16 [place] % (Auto) 3.2 % (0.0-13.0) 06/21/22 04:16 Eos % (Auto) 0.0 % (0.9-2.9) L 06/21/22 04:16 Baso % (Auto) 0.3 % (0.2-1.0) 06/21/22 04:16 Neut # (Auto) 11.2 x10^3/uL (2.2-4.8) H 06/21/22 04:16 Lymph # (Auto) 0.8 X10^3/uL (1.3-2.9) L 06/21/22 04:16 [place] # (Auto) 0.4 x10^3/uL (0.3-0.8) 06/21/22 04:16 Eos # (Auto) 0.0 x10^3/uL (0.0-0.2) 06/21/22 04:16 Baso # (Auto) 0.0 X10^3/uL (0.0-0.1) 06/21/22 04:16 Absolute Nucleated RBC 0.1 /100WBC 06/21/22 04:16 Total Counted 100 06/21/22 04:16 Neutrophils % (Manual) 93 % (39-76) H 06/21/22 04:16 Band Neutrophils % 0 % (0-10) 06/21/22 04:16 Lymphocytes % (Manual) 6 % (13-43) L 06/21/22 04:16 Monocytes % (Manual) 1 % (4-9) L 06/21/22 04:16 Metamyelocytes % 3 06/19/22 05:23 Plt Morphology Comment Normal (NORMAL) 06/21/22 04:16 RBC Morphology Normal (NORMAL) 06/21/22 04:16 Sample Site R rad 06/21/22 05:28 ABG pH 7.290 (7.35-7.45) L 06/21/22 05:28 ABG pCO2 65.0 mmHg (35.0-45.0) H* 06/21/22 05:28 ABG pO2 100.0 mmHg (80.0-100.0) 06/21/22 05:28 ABG HCO3 31.3 mmol/L (22-26) H* 06/21/22 05:28 ABG O2 Saturation 97.0 % (90-100) 06/21/22 05:28 ABG Base Excess 3.1 mmol/L (-2.0-2.0) H 06/21/22 05:28 Davey Test Pos 06/21/22 05:28 A-a Gradient 47.0 mmHg 06/21/22 05:28 FiO2 32.0 06/21/22 05:28 Blood Gas Comments Erica well legislative correspondent 06/21/22 05:28 Sodium 137 mmol/L (136-145) 06/21/22 04:16 Corrected Sodium 146 mmol/L (136-145) H 06/21/22 04:16 Potassium 4.7 mmol/L (3.5-5.1) 06/21/22 04:16 Chloride 100 mmol/L (98-107) 06/21/22 04:16 Carbon Dioxide 29.9 mmol/L (21-32) 06/21/22 04:16 BUN 42 mg/dL (7-18) H 06/21/22 04:16 Creatinine 1.56 mg/dL (0.55-1.02) H 06/21/22 04:16 Est GFR (MDRD) Af Amer 44 (>60) L 06/21/22 04:16 Est GFR (MDRD) Non-Af 36 (>60) L 06/21/22 04:16 Glucose 459 mg/dL (65-99) H 06/21/22 04:16 POC Glucose (mg/dL) 400 mg/dL (65-99) H 06/21/22 06:18 Lactic Acid 1.0 mmol/L (0.4-2.0) 06/18/22 16:02 Calcium 7.5 mg/dL (8.5-10.1) L 06/21/22 04:16 Corrected Calcium 8.9 mg/dL (8.5-10.1) 06/21/22 04:16 Total Bilirubin 0.20 mg/dL (0.2-1.0) 06/21/22 04:16 AST 17 Units/L (15-37) 06/21/22 04:16 ALT 23 Units/L (12-78) 06/21/22 04:16 Alkaline Phosphatase 60 Units/L (46-116) 06/21/22 04:16 Creatine Kinase 142 Units/L (26-192) 06/18/22 11:55 Troponin I High Sens 25.6 ng/L (4.0-60.0) 06/18/22 11:55 B-Natriuretic Peptide 413 pg/mL (0-79) H 06/19/22 14:30 Total Protein 6.7 g/dL (6.4-8.2) 06/21/22 04:16 Albumin 2.3 g/dL (3.4-5.0) L 06/21/22 04:16 Globulin 4.4 g/dL (2.5-4.5) 06/21/22 04:16 Albumin/Globulin Ratio 0.5 Ratio (1.1-2.1) L 06/21/22 04:16 Specimen Type Catherized urine 06/18/22 13:51 Urine Color Yellow (YELLOW) 06/18/22 13:51 Urine Appearance Clear (CLEAR) 06/18/22 13:51 Urine pH 7.0 (5.0 - 8.0) 06/18/22 13:51 Ur Specific [place] 1.015 (1.000-1.030) 06/18/22 13:51 Urine Protein 3+ (NEGATIVE) 06/18/22 13:51 Urine Glucose (UA) Negative (NEGATIVE) 06/18/22 13:51 Urine Ketones 1+ (NEGATIVE) 06/18/22 13:51 Urine Blood 1+ (NEGATIVE) 06/18/22 13:51 Urine Nitrite Negative (NEGATIVE) 06/18/22 13:51 Urine Bilirubin Negative (NEGATIVE) 06/18/22 13:51 Urine Urobilinogen 2+ (NORMAL) 06/18/22 13:51 Ur Leukocyte Esterase Negative (NEGATIVE) 06/18/22 13:51 Urine RBC 5-10 /HPF (0-3) A 06/18/22 13:51 Urine WBC 0-2 /HPF (0-5) 06/18/22 13:51 Ur Squamous Epith Cells Rare /HPF (NEGATIVE) 06/18/22 13:51 Urine Bacteria Trace /HPF (NEGATIVE) 06/18/22 13:51 Ur Culture Indicated? No/not indicated 06/18/22 13:51 SARS-CoV-2 (PCR) Negative (NEGATIVE) 06/18/22 11:05 Influenza Type A (PCR) Negative (NEGATIVE) 06/18/22 11:05 Influenza Type B (PCR) Negative (NEGATIVE) 06/18/22 11:05 RSV (PCR) Negative (NEGATIVE) 06/18/22 11:05 Plan (1) Pneumonia: Status: Acute Qualifiers: Laterality: bilateral Lung location: lower lobe of lung Pneumonia type: due to unspecified organism Qualified Code(s): J18.9 - Pneumonia, unspecified organism Plan: ADMIT, PNEUMONIA PROTOCOL IV ATBX THERAPY, RESP SWAB ON ADMISSION SUPPLEMENTAL O2, BLOOD GAS, DUE NEBS BLOOD URINE AND SPUTUM CULTURE ON ADMISSION BP AND CARDIAC MONITORING STRICT I&OS, SKIN CHECKS, BS CONTROL (2) Acute and chronic respiratory failure: Status: Acute Qualifiers: Respiratory failure complication: hypoxia and hypercapnia Qualified Code(s): J96.21 - Acute and chronic respiratory failure with hypoxia; J96.22 - Acute and chronic respiratory failure with hypercapnia (3) CVA, old, hemiparesis: Status: Chronic (4) Essential hypertension: Status: Chronic (5) Diabetes mellitus: Status: Chronic (6) Arthritis: Status: Chronic (7) GERD (gastroesophageal reflux disease): Status: Chronic Qualifiers: Esophagitis presence: esophagitis presence not specified Qualified Code(s): K21.9 - Gastro-esophageal reflux disease without esophagitis (8) CHF (congestive heart failure): Status: Acute Qualifiers: Congestive heart failure chronicity: acute on chronic
[2022-06-21] MEDS: ZITHROMAX INJ 500 MG VIAL 500 MG in D5W 250 ML IV 250 ML IV SCH (10:10)
[2022-06-21] MEDS ORDERED: DIFLUCAN PO ONE (13:46)
[2022-06-21] MEDS ORDERED: DIFLUCAN ONE (16:40)
[2022-06-21] MEDS: NORCO 10/325 TAB PO PRN (21:00)
[2022-06-21] MEDS: LIPITOR TAB 20 MG PO SCH (21:01)
[2022-06-21] MEDS: ELAVIL PO SCH (21:01)
[2022-06-21] MEDS: SNACK - Diabetic Appropriate PO SCH ×2 (21:02)
[2022-06-21] MEDS: LANTUS SC SCH (21:03)
[2022-06-22] MEDS: NovoLIN R (or HumuLIN R) SUBCUT PRN ×4 (01:13→20:17)
[2022-06-22 05:20] LABS: BASOPHILS % (AUTO) 0.3 % (0.2-1.0); HEMATOCRIT 32.3 % (36.0-47.0); HEMOGLOBIN 10.1 g/dL (12.0-16.0); LYMPHOCYTES % (AUTO) 8.9 % (21.0-51.0); MEAN CORPUSCULAR HEMOGLOBIN 25.4 pg (27.0-34.0); MEAN CORPUSCULAR HGB CONC 31.3 g/dL (33.0-35.0); MEAN PLATELET VOLUME 9.3 fL (7.4-11.0); MONOCYTES # (AUTO) 0.5 x10^3/uL (0.3-0.8); MONOCYTES % (AUTO) 4.3 % (0.0-13.0); NEUTROPHILS # (AUTO) 9.8 x10^3/uL (2.2-4.8); NEUTROPHILS % (AUTO) 86.5 % (42.0-75.0); RED BLOOD COUNT 3.98 X10^6/uL (3.5-5.4); RED CELL DISTRIBUTION WIDTH 19.7 % (11.6-16.5); WHITE BLOOD COUNT 11.4 X10^3/uL (3.6-10.0)
[2022-06-22 05:29] LABS: CALCIUM 7.6 mg/dL (8.5-10.1); CARBON DIOXIDE 29.7 mmol/L (21-32); CREATININE 1.35 mg/dL (0.55-1.02)
[2022-06-22 05:44] LABS: ANISOCYTOSIS SLIGHT; BAND NEUTROPHILS % 1 % (0-10); HYPOCHROMASIA SLIGHT; PLATELET MORPHOLOGY COMMENT NORMAL (NORMAL)
[2022-06-22] MEDS: SOLU-Medrol 40 MG VIAL IVP SCH ×3 (05:47→21:15)
[2022-06-22] MEDS: NEURONTIN CAP 300 MG PO SCH ×3 (05:47→21:15)
[2022-06-22] MEDS: NS 1,000 ML IV 1,000 ML IV SCH ×2 (06:07→21:14)
[2022-06-22] MEDS: PULMICORT NEB TX 0.5 MG NEB SCH ×2 (08:39→20:53)
[2022-06-22] MEDS: DUONEB 0.5 MG/3 MG (3 mL) NEB SCH ×4 (08:39→20:53)
[2022-06-22] MEDS: PriLOSEC PO SCH (09:11)
[2022-06-22] MEDS: WELLBUTRIN XL 150 MG (DAILY) PO SCH (09:11)
[2022-06-22] MEDS: LASIX IVP SCH (09:12)
[2022-06-22] MEDS: NICOTINE PATCH TD SCH (09:12)
[2022-06-22] MEDS: COREG TAB 12.5 MG PO SCH ×2 (09:12→20:16)
[2022-06-22] MEDS: PLAVIX PO SCH (09:12)
[2022-06-22] MEDS: PROTONIX TAB 40 MG PO SCH ×2 (09:12→20:16)
[2022-06-22] MEDS: TOPAMAX PO SCH (09:13)
[2022-06-22] MEDS: ROCEPHIN VIAL 1 GRAM 1 G in NS 100 ML IV 100 ML IV SCH (09:13)
[2022-06-22] MEDS: K-DUR TAB 20 MEQ PO SCH (09:13)
[2022-06-22] MEDS: PEPCID TAB 20 MG PO SCH (09:13)
[2022-06-22] MEDS: LANTUS SC SCH ×2 (09:44→20:16)
[2022-06-22 10:41] LABS: ALBUMIN 2.4 g/dL (3.4-5.0); COR CA(FOR HYPOALB) 8.9 mg/dL (8.5-10.1); TOTAL PROTEIN 6.6 g/dL (6.4-8.2)
[2022-06-22] MEDS: ZITHROMAX INJ 500 MG VIAL 500 MG in D5W 250 ML IV 250 ML IV SCH (10:45)
--- NOTE | 2022-06-22 11:55 | RAD ---
HISTORYPneumoniaSTUDYPortable AP chestCOMPARISONSept2021FINDINGSSimilar cardiomegaly. The lungs are now grossly clear without evidence for airspace consolidation or pleural effusion. Radiographic detail is limited by nonstandard technical factors and patient size.IMPRESSIONCardiomegaly.Electronically signed by: VERNELL MONTANA (Jun 22, 2022 11:54:02)
[2022-06-22] MEDS: COZAAR PO SCH (14:05)
[2022-06-22] MEDS: SNACK - Diabetic Appropriate PO SCH ×2 (20:16)
[2022-06-22] MEDS: LIPITOR TAB 20 MG PO SCH (20:16)
[2022-06-22] MEDS: ELAVIL PO SCH (20:16)
[2022-06-22] MEDS: NORCO 10/325 TAB PO PRN (20:19)
[2022-06-23] MEDS: NS 1,000 ML IV 1,000 ML IV SCH ×2 (05:06→10:15)
[2022-06-23] MEDS: NEURONTIN CAP 300 MG PO SCH ×3 (05:06→21:13)
[2022-06-23] MEDS: SOLU-Medrol 40 MG VIAL IVP SCH (05:06)
[2022-06-23 05:08] LABS: BASOPHILS % (AUTO) 0.1 % (0.2-1.0); HEMATOCRIT 33.4 % (36.0-47.0); HEMOGLOBIN 10.7 g/dL (12.0-16.0); LYMPHOCYTES # (AUTO) 0.8 X10^3/uL (1.3-2.9); LYMPHOCYTES % (AUTO) 7.9 % (21.0-51.0); MEAN CORPUSCULAR HEMOGLOBIN 25.7 pg (27.0-34.0); MEAN CORPUSCULAR HGB CONC 31.9 g/dL (33.0-35.0); MEAN CORPUSCULAR VOLUME 80.5 fL (80.0-100.0); MEAN PLATELET VOLUME 9.3 fL (7.4-11.0); MONOCYTES # (AUTO) 0.6 x10^3/uL (0.3-0.8); MONOCYTES % (AUTO) 5.5 % (0.0-13.0); NEUTROPHILS # (AUTO) 9.3 x10^3/uL (2.2-4.8); NEUTROPHILS % (AUTO) 86.5 % (42.0-75.0); RED BLOOD COUNT 4.15 X10^6/uL (3.5-5.4); WHITE BLOOD COUNT 10.7 X10^3/uL (3.6-10.0)
[2022-06-23 05:21] LABS: ALBUMIN 2.5 g/dL (3.4-5.0); CALCIUM 7.8 mg/dL (8.5-10.1); CARBON DIOXIDE 32.1 mmol/L (21-32); CREATININE 1.23 mg/dL (0.55-1.02); TOTAL PROTEIN 6.8 g/dL (6.4-8.2)
[2022-06-23] MEDS: NovoLIN R (or HumuLIN R) SUBCUT PRN ×4 (05:41→20:26)
[2022-06-23] MEDS: DUONEB 0.5 MG/3 MG (3 mL) NEB SCH ×4 (08:35→20:40)
[2022-06-23] MEDS: PULMICORT NEB TX 0.5 MG NEB SCH ×2 (08:35→20:40)
[2022-06-23] MEDS: LANTUS SC SCH ×2 (08:51→20:24)
[2022-06-23] MEDS: NICOTINE PATCH TD SCH (08:52)
[2022-06-23] MEDS: LASIX IVP SCH (08:54)
[2022-06-23] MEDS: ROCEPHIN VIAL 1 GRAM 1 G in NS 100 ML IV 100 ML IV SCH (08:54)
[2022-06-23] MEDS: PROTONIX TAB 40 MG PO SCH ×2 (08:55→20:12)
[2022-06-23] MEDS: COREG TAB 12.5 MG PO SCH ×2 (08:56→20:12)
[2022-06-23] MEDS: PLAVIX PO SCH (08:56)
[2022-06-23] MEDS: PEPCID TAB 20 MG PO SCH (08:56)
[2022-06-23] MEDS: TOPAMAX PO SCH (08:56)
[2022-06-23] MEDS: K-DUR TAB 20 MEQ PO SCH (08:56)
[2022-06-23] MEDS: COZAAR PO SCH (08:57)
[2022-06-23] MEDS: PriLOSEC PO SCH (08:57)
[2022-06-23] MEDS: WELLBUTRIN XL 150 MG (DAILY) PO SCH (08:57)
[2022-06-23] MEDS: ZITHROMAX INJ 500 MG VIAL 500 MG in D5W 250 ML IV 250 ML IV SCH (09:47)
[2022-06-23] MEDS ORDERED: COLACE CAP 100 MG PO PRN (13:18)
[2022-06-23] MEDS: CATAPRES TAB 0.1 MG PO PRN (18:10)
[2022-06-23] MEDS: SNACK - Diabetic Appropriate PO SCH ×2 (20:11)
[2022-06-23] MEDS: ELAVIL PO SCH (20:11)
[2022-06-23] MEDS: NORCO 10/325 TAB PO PRN (20:12)
[2022-06-23] MEDS: LIPITOR TAB 20 MG PO SCH (20:12)
[2022-06-24] MEDS: NS 1,000 ML IV 1,000 ML IV SCH (02:58)
[2022-06-24 05:14] LABS: BASOPHILS % (AUTO) 0.4 % (0.2-1.0); EOSINOPHILS % (AUTO) 0.4 % (0.9-2.9); HEMATOCRIT 32.5 % (36.0-47.0); HEMOGLOBIN 10.4 g/dL (12.0-16.0); LYMPHOCYTES # (AUTO) 2.7 X10^3/uL (1.3-2.9); LYMPHOCYTES % (AUTO) 24.9 % (21.0-51.0); MEAN CORPUSCULAR HEMOGLOBIN 25.4 pg (27.0-34.0); MEAN CORPUSCULAR VOLUME 79.3 fL (80.0-100.0); MEAN PLATELET VOLUME 9.1 fL (7.4-11.0); MONOCYTES # (AUTO) 0.7 x10^3/uL (0.3-0.8); MONOCYTES % (AUTO) 6.4 % (0.0-13.0); NEUTROPHILS # (AUTO) 7.5 x10^3/uL (2.2-4.8); NEUTROPHILS % (AUTO) 67.9 % (42.0-75.0)
[2022-06-24 05:25] LABS: ALANINE AMINOTRANSFERASE 26 Units/L (12-78); ALBUMIN 2.4 g/dL (3.4-5.0); ALKALINE PHOSPHATASE 52 Units/L (46-116); ASPARTATE AMINO TRANSFERASE 12 Units/L (15-37); BLOOD UREA NITROGEN 22 mg/dL (7-18); CALCIUM 7.8 mg/dL (8.5-10.1); CARBON DIOXIDE 33.9 mmol/L (21-32); CHLORIDE 105 mmol/L (98-107); COR CA(FOR HYPOALB) 9.1 mg/dL (8.5-10.1); COR NA(FOR HYPERGLY) 145 mmol/L (136-145); SODIUM 141 mmol/L (136-145); TOTAL PROTEIN 6.3 g/dL (6.4-8.2); eGFR NON BLACK RACES > 60 (>60)
[2022-06-24 05:50] LABS: ANISOCYTOSIS SLIGHT; HYPOCHROMASIA SLIGHT; MICROCYTOSIS SLIGHT; PLATELET MORPHOLOGY COMMENT NORMAL (NORMAL)
[2022-06-24] MEDS: NEURONTIN CAP 300 MG PO SCH ×2 (05:57→14:00)
[2022-06-24] MEDS: NovoLIN R (or HumuLIN R) SUBCUT PRN (05:58)
[2022-06-24] MEDS: DUONEB 0.5 MG/3 MG (3 mL) NEB SCH ×2 (08:22→12:43)
[2022-06-24] MEDS: PULMICORT NEB TX 0.5 MG NEB SCH (08:22)
[2022-06-24] MEDS ORDERED: SOLU-Medrol 40 MG VIAL IVP SCH (09:00)
[2022-06-24] MEDS: PriLOSEC PO SCH (09:09)
[2022-06-24] MEDS: PEPCID TAB 20 MG PO SCH (09:09)
[2022-06-24] MEDS: PROTONIX TAB 40 MG PO SCH (09:10)
[2022-06-24] MEDS: CATAPRES TAB 0.1 MG PO PRN (09:10)
[2022-06-24] MEDS: TOPAMAX PO SCH (09:11)
[2022-06-24] MEDS: PLAVIX PO SCH (09:11)
[2022-06-24] MEDS: COREG TAB 12.5 MG PO SCH (09:12)
[2022-06-24] MEDS: COZAAR PO SCH (09:12)
[2022-06-24] MEDS: WELLBUTRIN XL 150 MG (DAILY) PO SCH (09:13)
[2022-06-24] MEDS: LASIX IVP SCH (09:13)
[2022-06-24] MEDS: K-DUR TAB 20 MEQ PO SCH (09:13)
[2022-06-24] MEDS: ROCEPHIN VIAL 1 GRAM 1 G in NS 100 ML IV 100 ML IV SCH (09:14)
[2022-06-24] MEDS: NICOTINE PATCH TD SCH (09:14)
[2022-06-24] MEDS: LANTUS SC SCH (09:14)
[2022-06-24] MEDS: ZITHROMAX INJ 500 MG VIAL 500 MG in D5W 250 ML IV 250 ML IV SCH (09:52)
[2022-06-24 12:21] VITALS: BP 157/70
== END 2022-06-24 15:30 | disposition home or self-care (01) | DRG 193 ==
LOC: ER 10:44 → MED/SURG 16:28
PROVIDERS: ADMIT Internal Medicine; ATTEND Internal Medicine
DX: J44.9 Chronic obstructive pulmonary disease, unspecified; R50.9 Fever, unspecified; Z20.822 Contact with and (suspected) exposure to COVID-19; I11.0 Hypertensive heart disease with heart failure; I69.349 Monoplegia of lower limb following cerebral infarction affecting unspecified side; K21.9 Gastro-esophageal reflux disease without esophagitis; J96.22 Acute and chronic respiratory failure with hypercapnia; R26.89 Other abnormalities of gait and mobility; E66.01 Morbid (severe) obesity due to excess calories; E11.65 Type 2 diabetes mellitus with hyperglycemia; J18.8 Other pneumonia, unspecified organism; I50.9 Heart failure, unspecified; M19.90 Unspecified osteoarthritis, unspecified site; J96.21 Acute and chronic respiratory failure with hypoxia; I87.2 Venous insufficiency (chronic) (peripheral)

== ENCOUNTER 2022-11-10 14:01 | Inpatient (IN) ==
[2022-11-10 17:56] VITALS: BMI 58.3
--- NOTE | 2022-11-10 18:04 | EKG ---
Test Reason : sob, chf Blood Pressure : */* mmHG Vent. Rate : 78 BPM Atrial Rate : 78 BPM P-R Int : 176 ms QRS Dur : 152 ms QT Int : 408 ms P-R-T Axes : 74 80 44 degrees QTc Int : 465 ms Normal sinus rhythm Right bundle branch block Abnormal ECG When compared with ECG of 03-OCT-2022 17:47, Criteria for Anterior infarct are no longer present T wave inversion less evident in Anterior leads Confirmed by Christian Sykes ([id number]) on 11/12/2022 8:15:54 AM Referred By: Confirmed By: Christian Sykes
--- NOTE | 2022-11-10 18:19 | DR.H&P ---
H&P - History & Physical for Day of: H&P Date: 11/10/22 - Chief Complaint Chief Complaint: SOB, CCC, WEAKNESS - History of Present Illness History of Present Illness: PT IS 57BF, DIRECT ADMIT FROM DR CASTREJON OFFICE WITH FAILED OUTPT ACUTE BRONCHITIS WITH COPD. PT WAS SEEN IN OFFICE ONE WEEK AGO AND STARTED ON DOXYCYCLINE AND DUO NEBS Q 4HR WITHOUT IMRPOVEMENT. PT HAS BEEN ON CONTINUOUS O2. PT HAS HAD INCREASED WEEKNESS DUE TO ACUTE ILLNESS. PT HAS PMH OF HTN, CVA, COPD, CHF, DM. PT ADMITTED FOR EVALUATION AND TREATMENT OF ACUTE ILLNESS. 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 - Family History Family Medical History: Diabetes Mellitus, Cancer, [place], Coronary Artery Disease, Heart Failure, Sudden Cardiac , Hypertension - Social History Does patient currently use any type of tobacco product: No Have you used tobacco products in the last 12 months: No Type of Tobacco Use: None Does any household member use tobacco: No Alcohol Use: None Drug Use: None - Medications Home Medications: acetaminophen [Darvocet-N 100] Allergy (Unknown, Verified 03/31/16 14:36) levofloxacin Allergy (Unknown, Unverified 10/25/21 11:28) propoxyphene Allergy (Unknown, Unverified 10/25/21 11:28) procaine Allergy (Verified 10/25/21 11:28) Darvocet A500 *ANALGESICS - OP Allergy (Unknown, Uncoded 04/21/16 09:01) - Review of Systems Constitutional: Weakness Eyes: No Symptoms Reported ENT: No Symptoms Reported Respiratory: Shortness of Breath, Sputum, Wheezing Cardiovascular: Chest Pain, Palpitations, Edema Gastrointestinal: Nausea Genitourinary: No Symptoms Reported Musculoskeletal: Back Pain Skin: Wound (EXCORIATION TO BUTTOCKS) Neurological: Weakness - Physical Exam Vital Signs: Temperature 98.1 F Pulse Rate [Left Radial] 85 Respiratory Rate 20 Blood Pressure [Left Calf] 175/99 Blood Pressure [Right Thigh] 119/73 Blood Pressure [Right Arm] 163/72 Blood Pressure [Left Arm] 136/72 Blood Pressure [Right Arm] 123/70 Blood Pressure [Right Calf] 125/60 Blood Pressure [Left Arm] 127/59 Blood Pressure 163/72 O2 Sat by Pulse Oximetry 97 Oriented: Normal Eyes: Normal Ear: Normal Nose: Normal Throat: Normal Respiratory: Wheezes Throughout, RLL Diminished, LLL Diminished Cardiovascular: Edema Auscultation: Bowel Sounds: Normal Tenderness: Normal Skin: Decreased Turgur Musculoskeletal: Back:Lumbar Psychiatric: Anxiety Mood Description: Anxious Affect: Anxious Speech Pattern: Clear, Appropriate - Assessment/Plan (1) COPD exacerbation Status: Acute Plan: ADMIT, CE AND EKG ON ADMISSION. ABG, IV HYDRATION WITH STRICT I&OS. MATOS CATH, BLOOD, URINE AND SPUTUM CULTURE ON ADMISSION. IV ANTIBIOTICS, PHYSICAL THERAPY CONSULT. BP AND BS CONTROL (2) SOB (shortness of breath) Status: Acute (3) Acute on chronic respiratory failure with hypoxia and hypercapnia Status: Acute (4) Essential hypertension Status: Chronic (5) Diabetes mellitus Status: Chronic (6) History of CVA (cerebrovascular accident) Status: Chronic (7) CHF (congestive heart failure) Status: Acute - Allergies Allergies/Adverse Reactions: Allergies Allergy/AdvReac Type Severity Reaction Status Date / Time acetaminophen Allergy Unknown Verified 03/31/16 14:36 [Darvocet-N 100] levofloxacin Allergy Unknown Unverified 10/25/21 11:28 propoxyphene Allergy Unknown Unverified 10/25/21 11:28 procaine Allergy Verified 10/25/21 11:28 Darvocet A500 *ANALGESICS - Allergy Unknown Uncoded 04/21/16 09:01 OP
[2022-11-10] MEDS ORDERED: ZOFRAN INJ 4 MG VIAL IVP PRN (18:20)
[2022-11-10] MEDS ORDERED: NYSTATIN CREAM TOP PRN (18:20)
[2022-11-10] MEDS: PROTONIX INJ 40 MG VIAL IVP SCH (18:36)
[2022-11-10] MEDS: ROCEPHIN VIAL 1 GRAM 1 G in NS 100 ML IV 100 ML IV SCH (18:37)
[2022-11-10 19:53] LABS: BASOPHILS # (AUTO) 0.1 X10^3/uL (0.0-0.1); BASOPHILS % (AUTO) 0.9 % (0.2-1.0); EOSINOPHILS # (AUTO) 0.1 x10^3/uL (0.0-0.2); EOSINOPHILS % (AUTO) 2.1 % (0.9-2.9); HEMATOCRIT 33.8 % (36.0-47.0); HEMOGLOBIN 10.6 g/dL (12.0-16.0); LYMPHOCYTES # (AUTO) 1.8 X10^3/uL (1.3-2.9); LYMPHOCYTES % (AUTO) 26.5 % (21.0-51.0); MEAN CORPUSCULAR HEMOGLOBIN 26.1 pg (27.0-34.0); MEAN CORPUSCULAR HGB CONC 31.3 g/dL (33.0-35.0); MEAN CORPUSCULAR VOLUME 83.3 fL (80.0-100.0); MONOCYTES # (AUTO) 0.3 x10^3/uL (0.3-0.8); MONOCYTES % (AUTO) 4.8 % (0.0-13.0); NEUTROPHILS # (AUTO) 4.4 x10^3/uL (2.2-4.8); NEUTROPHILS % (AUTO) 65.7 % (42.0-75.0); RED BLOOD COUNT 4.06 X10^6/uL (3.5-5.4); RED CELL DISTRIBUTION WIDTH 15.8 % (11.6-16.5); WHITE BLOOD COUNT 6.8 X10^3/uL (3.6-10.0)
[2022-11-10 20:05] LABS: ALANINE AMINOTRANSFERASE 10 Units/L (12-78); ALBUMIN 2.9 g/dL (3.4-5.0); ALKALINE PHOSPHATASE 67 Units/L (46-116); ASPARTATE AMINO TRANSFERASE 6 Units/L (15-37); BLOOD UREA NITROGEN 15 mg/dL (7-18); CALCIUM 8.1 mg/dL (8.5-10.1); CARBON DIOXIDE 32.6 mmol/L (21-32); CHLORIDE 103 mmol/L (98-107); COR NA(FOR HYPERGLY) 147 mmol/L (136-145); CREATINE KINASE 133 Units/L (26-192); CREATININE 0.86 mg/dL (0.55-1.02); SODIUM 143 mmol/L (136-145); TOTAL PROTEIN 7.1 g/dL (6.4-8.2); eGFR NON BLACK RACES > 60 (>60)
[2022-11-10] MEDS: K-DUR TAB 20 MEQ PO SCH (20:46)
[2022-11-10] MEDS: NORCO 10/325 TAB PO SCH (20:46)
[2022-11-10] MEDS: COREG TAB 12.5 MG PO SCH (20:47)
[2022-11-10] MEDS: ZITHROMAX INJ 500 MG VIAL 500 MG in NS 250 ML IV 250 ML IV SCH (20:48)
[2022-11-10] MEDS: PULMICORT NEB TX 0.5 MG NEB SCH (20:55)
[2022-11-10] MEDS: DUONEB 0.5 MG/3 MG (3 mL) NEB SCH (20:55)
[2022-11-10] MEDS: NovoLIN R (or HumuLIN R) SUBCUT PRN (21:00)
[2022-11-10 22:17] LABS: ABG BASE EXCESS 6.3 mmol/L (-2.0-2.0)
[2022-11-10 22:20] LABS: ABG ALLEN TEST POS; ABG HCO3 34.5 mmol/L (22-26)
--- NOTE | 2022-11-10 22:27 | RAD ---
HISTORYsob, copd, chfSTUDYCHEST, 1 VIEWCOMPARISONSeptember 2021.TECHNIQUEA single frontal view of the chest was obtained.FINDINGSThere is moderate cardiomegaly. There is a right upper lobe alveolar infiltrate.. There is no effusion. There is no pneumothorax. The osseous structures are intact.IMPRESSIONRight upper lobe alveolar infiltrate.Moderate cardiomegaly.Electronically signed by: Colette Cassidy (Nov 10, 2022 22:25:50)
[2022-11-10 23:12] LABS: BILIRUBIN,URINE NEGATIVE (NEGATIVE); BLOOD/HEMOGLOBIN,URINE 2+ (NEGATIVE); GLUCOSE, URINE 2+ (NEGATIVE); KETONES,URINE 1+ (NEGATIVE); LEUKOCYTE ESTERASE ,URINE 1+ (NEGATIVE); NITRITES,URINE NEGATIVE (NEGATIVE); PROTEIN,URINE 3+ (NEGATIVE); UROBILINOGEN,URINE 1+ (NORMAL)
[2022-11-10 23:16] LABS: APPEARANCE,URINE HAZY (CLEAR); COLOR,URINE YELLOW (YELLOW)
[2022-11-10 23:17] LABS: BACTERIA,URINE 1+ /HPF (NEGATIVE); SQUAMOUS EPITHELIAL CELL,UR MODERATE /HPF (NEGATIVE)
[2022-11-11] MEDS: DUONEB 0.5 MG/3 MG (3 mL) NEB SCH ×6 (00:32→20:36)
[2022-11-11 06:32] LABS: BASOPHILS # (AUTO) 0.1 X10^3/uL (0.0-0.1); BASOPHILS % (AUTO) 0.9 % (0.2-1.0); EOSINOPHILS # (AUTO) 0.2 x10^3/uL (0.0-0.2); EOSINOPHILS % (AUTO) 2.7 % (0.9-2.9); HEMATOCRIT 32.4 % (36.0-47.0); HEMOGLOBIN 10.2 g/dL (12.0-16.0); LYMPHOCYTES # (AUTO) 1.8 X10^3/uL (1.3-2.9); LYMPHOCYTES % (AUTO) 31.6 % (21.0-51.0); MEAN CORPUSCULAR HEMOGLOBIN 26.1 pg (27.0-34.0); MEAN CORPUSCULAR HGB CONC 31.6 g/dL (33.0-35.0); MEAN CORPUSCULAR VOLUME 82.8 fL (80.0-100.0); MEAN PLATELET VOLUME 9.1 fL (7.4-11.0); MONOCYTES # (AUTO) 0.3 x10^3/uL (0.3-0.8); MONOCYTES % (AUTO) 5.5 % (0.0-13.0); NEUTROPHILS # (AUTO) 3.4 x10^3/uL (2.2-4.8); NEUTROPHILS % (AUTO) 59.3 % (42.0-75.0); RED BLOOD COUNT 3.92 X10^6/uL (3.5-5.4); RED CELL DISTRIBUTION WIDTH 15.7 % (11.6-16.5); WHITE BLOOD COUNT 5.8 X10^3/uL (3.6-10.0)
[2022-11-11 06:45] LABS: ALANINE AMINOTRANSFERASE 11 Units/L (12-78); ALKALINE PHOSPHATASE 66 Units/L (46-116); ASPARTATE AMINO TRANSFERASE 13 Units/L (15-37); BLOOD UREA NITROGEN 15 mg/dL (7-18); CALCIUM 8.7 mg/dL (8.5-10.1); CARBON DIOXIDE 33.2 mmol/L (21-32); CHLORIDE 106 mmol/L (98-107); COR CA(FOR HYPOALB) 9.5 mg/dL (8.5-10.1); COR NA(FOR HYPERGLY) 145 mmol/L (136-145); CREATININE 0.73 mg/dL (0.55-1.02); SODIUM 143 mmol/L (136-145); TOTAL PROTEIN 7.1 g/dL (6.4-8.2); eGFR NON BLACK RACES > 60 (>60)
[2022-11-11] MEDS: PULMICORT NEB TX 0.5 MG NEB SCH ×2 (08:18→20:36)
[2022-11-11] MEDS: K-DUR TAB 20 MEQ PO SCH ×2 (08:56→22:55)
[2022-11-11] MEDS: COREG TAB 12.5 MG PO SCH ×2 (09:00→20:53)
[2022-11-11] MEDS: COZAAR PO SCH (09:00)
[2022-11-11] MEDS: PLAVIX PO SCH (09:03)
[2022-11-11] MEDS: ZITHROMAX INJ 500 MG VIAL 500 MG in NS 250 ML IV 250 ML IV SCH (09:04)
[2022-11-11] MEDS: PROTONIX INJ 40 MG VIAL IVP SCH (09:04)
[2022-11-11] MEDS: ROCEPHIN VIAL 1 GRAM 1 G in NS 100 ML IV 100 ML IV SCH (09:04)
[2022-11-11] MEDS: LASIX IVP SCH ×2 (09:05→16:32)
[2022-11-11] MEDS: NORCO 10/325 TAB PO SCH ×2 (09:20→20:53)
[2022-11-11] MEDS: LOVENOX INJ 40 MG SYR SC SCH (11:06)
[2022-11-11] MEDS: NovoLIN R (or HumuLIN R) SUBCUT PRN ×2 (11:29→16:33)
[2022-11-11] MEDS: SNACK - Diabetic Appropriate PO SCH (20:42)
[2022-11-12] MEDS: NovoLIN R (or HumuLIN R) SUBCUT PRN ×3 (00:20→21:03)
[2022-11-12] MEDS: DUONEB 0.5 MG/3 MG (3 mL) NEB SCH ×6 (00:45→20:20)
[2022-11-12] MEDS ORDERED: ULTRAM PO ONE (02:43)
[2022-11-12] MEDS ORDERED: NORCO 5/325 MG TAB PO ONE (02:52)
[2022-11-12] MEDS: PULMICORT NEB TX 0.5 MG NEB SCH ×2 (09:24→20:20)
[2022-11-12] MEDS: COREG TAB 12.5 MG PO SCH ×2 (09:27→21:02)
[2022-11-12] MEDS: NORCO 10/325 TAB PO SCH ×2 (09:28→21:03)
[2022-11-12] MEDS: ROCEPHIN VIAL 1 GRAM 1 G in NS 100 ML IV 100 ML IV SCH (09:28)
[2022-11-12] MEDS: LOVENOX INJ 40 MG SYR SC SCH (09:28)
[2022-11-12] MEDS: PROTONIX INJ 40 MG VIAL IVP SCH (09:28)
[2022-11-12] MEDS: COZAAR PO SCH (09:28)
[2022-11-12] MEDS: PLAVIX PO SCH (09:28)
[2022-11-12] MEDS: K-DUR TAB 20 MEQ PO SCH ×2 (09:29→21:02)
[2022-11-12] MEDS: ZITHROMAX INJ 500 MG VIAL 500 MG in NS 250 ML IV 250 ML IV SCH (10:23)
[2022-11-12 19:30] LABS: BASOPHILS % (AUTO) 0.7 % (0.2-1.0); EOSINOPHILS # (AUTO) 0.1 x10^3/uL (0.0-0.2); EOSINOPHILS % (AUTO) 2.5 % (0.9-2.9); HEMATOCRIT 29.5 % (36.0-47.0); HEMOGLOBIN 9.3 g/dL (12.0-16.0); LYMPHOCYTES # (AUTO) 1.6 X10^3/uL (1.3-2.9); LYMPHOCYTES % (AUTO) 35.1 % (21.0-51.0); MEAN CORPUSCULAR HEMOGLOBIN 26.2 pg (27.0-34.0); MEAN CORPUSCULAR HGB CONC 31.6 g/dL (33.0-35.0); MEAN CORPUSCULAR VOLUME 82.8 fL (80.0-100.0); MONOCYTES # (AUTO) 0.3 x10^3/uL (0.3-0.8); MONOCYTES % (AUTO) 6.5 % (0.0-13.0); NEUTROPHILS # (AUTO) 2.5 x10^3/uL (2.2-4.8); NEUTROPHILS % (AUTO) 55.2 % (42.0-75.0); RED BLOOD COUNT 3.56 X10^6/uL (3.5-5.4); RED CELL DISTRIBUTION WIDTH 15.6 % (11.6-16.5); WHITE BLOOD COUNT 4.6 X10^3/uL (3.6-10.0)
[2022-11-12 19:44] LABS: ALANINE AMINOTRANSFERASE 9 Units/L (12-78); ALBUMIN 2.8 g/dL (3.4-5.0); ALKALINE PHOSPHATASE 65 Units/L (46-116); ASPARTATE AMINO TRANSFERASE 9 Units/L (15-37); BLOOD UREA NITROGEN 16 mg/dL (7-18); CALCIUM 8.1 mg/dL (8.5-10.1); CARBON DIOXIDE 34.1 mmol/L (21-32); CHLORIDE 101 mmol/L (98-107); COR CA(FOR HYPOALB) 9.1 mg/dL (8.5-10.1); COR NA(FOR HYPERGLY) 145 mmol/L (136-145); CREATININE 0.99 mg/dL (0.55-1.02); SODIUM 139 mmol/L (136-145); TOTAL PROTEIN 6.6 g/dL (6.4-8.2); eGFR NON BLACK RACES > 60 (>60)
[2022-11-12] MEDS: SNACK - Diabetic Appropriate PO SCH (20:37)
[2022-11-12] MEDS ORDERED: BENADRYL CAP/TAB 25 MG PO ONE (22:29)
[2022-11-12] MEDS: BENADRYL CAP/TAB 25 MG PO PRN (22:32)
[2022-11-13] MEDS: DUONEB 0.5 MG/3 MG (3 mL) NEB SCH ×7 (00:16→21:32)
[2022-11-13] MEDS ORDERED: VISTARIL PO ONE (00:23)
[2022-11-13] MEDS: VISTARIL PO PRN ×2 (00:24→09:50)
[2022-11-13] MEDS ORDERED: GLUCOPHAGE ONE ×2 (06:01→17:29)
[2022-11-13] MEDS: GLUCOPHAGE PO SCH ×2 (06:09→17:35)
[2022-11-13] MEDS: NovoLIN R (or HumuLIN R) SUBCUT PRN (06:10)
[2022-11-13 06:27] LABS: BASOPHILS % (AUTO) 0.5 % (0.2-1.0); EOSINOPHILS # (AUTO) 0.1 x10^3/uL (0.0-0.2); EOSINOPHILS % (AUTO) 2.5 % (0.9-2.9); HEMATOCRIT 33.6 % (36.0-47.0); HEMOGLOBIN 10.6 g/dL (12.0-16.0); LYMPHOCYTES % (AUTO) 41.1 % (21.0-51.0); MEAN CORPUSCULAR HEMOGLOBIN 26.1 pg (27.0-34.0); MEAN CORPUSCULAR HGB CONC 31.6 g/dL (33.0-35.0); MEAN CORPUSCULAR VOLUME 82.5 fL (80.0-100.0); MEAN PLATELET VOLUME 9.7 fL (7.4-11.0); MONOCYTES # (AUTO) 0.3 x10^3/uL (0.3-0.8); MONOCYTES % (AUTO) 6.5 % (0.0-13.0); NEUTROPHILS # (AUTO) 2.4 x10^3/uL (2.2-4.8); NEUTROPHILS % (AUTO) 49.4 % (42.0-75.0); RED BLOOD COUNT 4.07 X10^6/uL (3.5-5.4); RED CELL DISTRIBUTION WIDTH 15.5 % (11.6-16.5); WHITE BLOOD COUNT 4.8 X10^3/uL (3.6-10.0)
[2022-11-13 06:33] LABS: ALANINE AMINOTRANSFERASE 12 Units/L (12-78); ALBUMIN 3.2 g/dL (3.4-5.0); ALKALINE PHOSPHATASE 68 Units/L (46-116); ASPARTATE AMINO TRANSFERASE 10 Units/L (15-37); BLOOD UREA NITROGEN 14 mg/dL (7-18); CALCIUM 8.5 mg/dL (8.5-10.1); CARBON DIOXIDE 36.5 mmol/L (21-32); CHLORIDE 103 mmol/L (98-107); COR CA(FOR HYPOALB) 9.1 mg/dL (8.5-10.1); COR NA(FOR HYPERGLY) 142 mmol/L (136-145); CREATININE 0.82 mg/dL (0.55-1.02); SODIUM 140 mmol/L (136-145); TOTAL PROTEIN 7.3 g/dL (6.4-8.2); eGFR NON BLACK RACES > 60 (>60)
[2022-11-13] MEDS: PULMICORT NEB TX 0.5 MG NEB SCH ×3 (07:51→20:32)
[2022-11-13] MEDS: ROCEPHIN VIAL 1 GRAM 1 G in NS 100 ML IV 100 ML IV SCH (09:49)
[2022-11-13] MEDS: LOVENOX INJ 40 MG SYR SC SCH (09:50)
[2022-11-13] MEDS: NORCO 10/325 TAB PO SCH ×2 (09:51→20:43)
[2022-11-13] MEDS: COREG TAB 12.5 MG PO SCH ×2 (09:52→20:43)
[2022-11-13] MEDS: K-DUR TAB 20 MEQ PO SCH ×2 (09:52→20:44)
[2022-11-13] MEDS: COZAAR PO SCH (09:52)
[2022-11-13] MEDS: PLAVIX PO SCH (09:52)
[2022-11-13] MEDS: BENADRYL CAP/TAB 25 MG PO PRN (09:52)
[2022-11-13] MEDS: LASIX IVP SCH ×2 (10:05→17:39)
[2022-11-13] MEDS: ZITHROMAX INJ 500 MG VIAL 500 MG in NS 250 ML IV 250 ML IV SCH (10:05)
[2022-11-13] MEDS: PROTONIX TAB 40 MG PO SCH (10:05)
[2022-11-13] MEDS ORDERED: NS 250 ML IV 250 ML IV ONE (14:30)
--- NOTE | 2022-11-13 16:18 | RAD ---
HISTORYPNEUMONIA HX: CVA, CHF, HTN, ASTHMA, COPD, DM SX: STENTS, HYSTERECTOMYSTUDYCHEST, 1 VIEWCOMPARISONChest x-ray 11/10/2022FINDINGSStable cardiomegaly. The pulmonary vasculature appears within normal limits. There are atherosclerotic calcifications of the aortic arch. The previously seen right upper lung opacities not well visualized on today's exam. No pneumothorax, pleural effusion, or focal consolidation. No acute osseous abnormality.IMPRESSIONPreviously seen right upper lung opacities not visualized on today's exam.Stable cardiomegaly..Electronically signed by: Jose R Suarez (Nov 13, 2022 16:17:21)
[2022-11-13] MEDS: COLACE CAP 100 MG PO PRN (20:12)
[2022-11-13] MEDS: SNACK - Diabetic Appropriate PO SCH (20:30)
[2022-11-14] MEDS: DUONEB 0.5 MG/3 MG (3 mL) NEB SCH ×6 (04:19→20:00)
[2022-11-14 05:21] LABS: BASOPHILS # (AUTO) 0.1 X10^3/uL (0.0-0.1); BASOPHILS % (AUTO) 1.3 % (0.2-1.0); EOSINOPHILS # (AUTO) 0.1 x10^3/uL (0.0-0.2); EOSINOPHILS % (AUTO) 1.6 % (0.9-2.9); HEMATOCRIT 32.3 % (36.0-47.0); HEMOGLOBIN 10.2 g/dL (12.0-16.0); LYMPHOCYTES # (AUTO) 1.6 X10^3/uL (1.3-2.9); LYMPHOCYTES % (AUTO) 21.5 % (21.0-51.0); MEAN CORPUSCULAR HEMOGLOBIN 25.7 pg (27.0-34.0); MEAN CORPUSCULAR HGB CONC 31.5 g/dL (33.0-35.0); MEAN CORPUSCULAR VOLUME 81.4 fL (80.0-100.0); MEAN PLATELET VOLUME 9.2 fL (7.4-11.0); MONOCYTES # (AUTO) 0.4 x10^3/uL (0.3-0.8); MONOCYTES % (AUTO) 5.5 % (0.0-13.0); NEUTROPHILS # (AUTO) 5.1 x10^3/uL (2.2-4.8); NEUTROPHILS % (AUTO) 70.1 % (42.0-75.0); RED BLOOD COUNT 3.97 X10^6/uL (3.5-5.4); RED CELL DISTRIBUTION WIDTH 15.4 % (11.6-16.5); WHITE BLOOD COUNT 7.3 X10^3/uL (3.6-10.0)
[2022-11-14 05:41] LABS: ALANINE AMINOTRANSFERASE 9 Units/L (12-78); ALBUMIN 2.9 g/dL (3.4-5.0); ALKALINE PHOSPHATASE 65 Units/L (46-116); ASPARTATE AMINO TRANSFERASE 17 Units/L (15-37); BLOOD UREA NITROGEN 14 mg/dL (7-18); CARBON DIOXIDE 33.5 mmol/L (21-32); CHLORIDE 102 mmol/L (98-107); COR CA(FOR HYPOALB) 9.9 mg/dL (8.5-10.1); COR NA(FOR HYPERGLY) 144 mmol/L (136-145); CREATININE 0.89 mg/dL (0.55-1.02); SODIUM 141 mmol/L (136-145); TOTAL PROTEIN 6.8 g/dL (6.4-8.2); eGFR NON BLACK RACES > 60 (>60)
[2022-11-14] MEDS ORDERED: GLUCOPHAGE ONE ×2 (05:56→17:11)
[2022-11-14] MEDS: GLUCOPHAGE PO SCH ×2 (06:05→17:31)
[2022-11-14] MEDS: NovoLIN R (or HumuLIN R) SUBCUT PRN ×4 (06:05→21:43)
[2022-11-14] MEDS: PULMICORT NEB TX 0.5 MG NEB SCH ×2 (09:26→20:00)
[2022-11-14] MEDS: COREG TAB 12.5 MG PO SCH ×2 (09:50→21:42)
[2022-11-14] MEDS: ROCEPHIN VIAL 1 GRAM 1 G in NS 100 ML IV 100 ML IV SCH (09:50)
[2022-11-14] MEDS: K-DUR TAB 20 MEQ PO SCH ×2 (09:50→21:41)
[2022-11-14] MEDS: PROTONIX TAB 40 MG PO SCH (09:50)
[2022-11-14] MEDS: COZAAR PO SCH (09:50)
[2022-11-14] MEDS: LOVENOX INJ 40 MG SYR SC SCH (09:51)
[2022-11-14] MEDS: LASIX IVP SCH ×2 (09:51→17:31)
[2022-11-14] MEDS: PLAVIX PO SCH (09:51)
[2022-11-14] MEDS: NORCO 10/325 TAB PO SCH ×2 (09:51→21:41)
[2022-11-14] MEDS: ZITHROMAX INJ 500 MG VIAL 500 MG in NS 250 ML IV 250 ML IV SCH (11:04)
[2022-11-14] MEDS: SNACK - Diabetic Appropriate PO SCH (20:08)
[2022-11-14] MEDS: VISTARIL PO PRN (23:00)
[2022-11-15] MEDS: DUONEB 0.5 MG/3 MG (3 mL) NEB SCH ×6 (00:05→21:00)
[2022-11-15] MEDS ORDERED: GLUCOPHAGE ONE ×2 (05:46→16:26)
[2022-11-15] MEDS: GLUCOPHAGE PO SCH ×2 (06:09→17:15)
[2022-11-15 06:22] LABS: BASOPHILS % (AUTO) 0.8 % (0.2-1.0); EOSINOPHILS # (AUTO) 0.1 x10^3/uL (0.0-0.2); EOSINOPHILS % (AUTO) 2.4 % (0.9-2.9); HEMATOCRIT 33.6 % (36.0-47.0); HEMOGLOBIN 10.8 g/dL (12.0-16.0); LYMPHOCYTES # (AUTO) 1.8 X10^3/uL (1.3-2.9); LYMPHOCYTES % (AUTO) 36.6 % (21.0-51.0); MEAN CORPUSCULAR HEMOGLOBIN 26.1 pg (27.0-34.0); MEAN CORPUSCULAR HGB CONC 32.2 g/dL (33.0-35.0); MEAN CORPUSCULAR VOLUME 81.3 fL (80.0-100.0); MEAN PLATELET VOLUME 8.9 fL (7.4-11.0); MONOCYTES # (AUTO) 0.4 x10^3/uL (0.3-0.8); MONOCYTES % (AUTO) 7.8 % (0.0-13.0); NEUTROPHILS # (AUTO) 2.6 x10^3/uL (2.2-4.8); NEUTROPHILS % (AUTO) 52.4 % (42.0-75.0); RED BLOOD COUNT 4.14 X10^6/uL (3.5-5.4); RED CELL DISTRIBUTION WIDTH 15.3 % (11.6-16.5); WHITE BLOOD COUNT 4.9 X10^3/uL (3.6-10.0)
[2022-11-15 06:36] LABS: ALANINE AMINOTRANSFERASE 11 Units/L (12-78); ALKALINE PHOSPHATASE 61 Units/L (46-116); ASPARTATE AMINO TRANSFERASE 15 Units/L (15-37); BLOOD UREA NITROGEN 13 mg/dL (7-18); CALCIUM 9.1 mg/dL (8.5-10.1); CARBON DIOXIDE 36.2 mmol/L (21-32); CHLORIDE 103 mmol/L (98-107); COR CA(FOR HYPOALB) 9.9 mg/dL (8.5-10.1); COR NA(FOR HYPERGLY) 145 mmol/L (136-145); CREATININE 0.85 mg/dL (0.55-1.02); SODIUM 143 mmol/L (136-145); TOTAL PROTEIN 6.9 g/dL (6.4-8.2); eGFR NON BLACK RACES > 60 (>60)
[2022-11-15] MEDS: PULMICORT NEB TX 0.5 MG NEB SCH ×2 (08:20→21:00)
[2022-11-15] MEDS: ROCEPHIN VIAL 1 GRAM 1 G in NS 100 ML IV 100 ML IV SCH (09:19)
[2022-11-15] MEDS: LASIX IVP SCH ×2 (09:20→17:14)
[2022-11-15] MEDS: PLAVIX PO SCH (09:21)
[2022-11-15] MEDS: PROTONIX TAB 40 MG PO SCH (09:21)
[2022-11-15] MEDS: K-DUR TAB 20 MEQ PO SCH ×2 (09:21→21:31)
[2022-11-15] MEDS: COREG TAB 12.5 MG PO SCH ×2 (09:22→21:31)
[2022-11-15] MEDS: NORCO 10/325 TAB PO SCH ×2 (09:22→21:31)
[2022-11-15] MEDS: COZAAR PO SCH (09:22)
[2022-11-15] MEDS: LOVENOX INJ 40 MG SYR SC SCH (09:23)
[2022-11-15] MEDS: ZITHROMAX INJ 500 MG VIAL 500 MG in NS 250 ML IV 250 ML IV SCH (10:10)
[2022-11-15] MEDS: NovoLIN R (or HumuLIN R) SUBCUT PRN ×2 (17:34→22:03)
[2022-11-15] MEDS: SNACK - Diabetic Appropriate PO SCH (20:34)
[2022-11-15] MEDS: VISTARIL PO PRN (21:33)
[2022-11-15] MEDS: COLACE CAP 100 MG PO PRN (21:33)
[2022-11-16] MEDS: DUONEB 0.5 MG/3 MG (3 mL) NEB SCH ×6 (00:50→21:22)
[2022-11-16] MEDS ORDERED: GLUCOPHAGE ONE ×2 (05:14→16:27)
[2022-11-16 05:57] LABS: BASOPHILS # (AUTO) 0.1 X10^3/uL (0.0-0.1); BASOPHILS % (AUTO) 0.9 % (0.2-1.0); EOSINOPHILS # (AUTO) 0.2 x10^3/uL (0.0-0.2); EOSINOPHILS % (AUTO) 2.5 % (0.9-2.9); HEMATOCRIT 36.1 % (36.0-47.0); HEMOGLOBIN 11.4 g/dL (12.0-16.0); LYMPHOCYTES # (AUTO) 2.1 X10^3/uL (1.3-2.9); LYMPHOCYTES % (AUTO) 34.9 % (21.0-51.0); MEAN CORPUSCULAR HEMOGLOBIN 25.6 pg (27.0-34.0); MEAN CORPUSCULAR HGB CONC 31.5 g/dL (33.0-35.0); MEAN CORPUSCULAR VOLUME 81.4 fL (80.0-100.0); MEAN PLATELET VOLUME 9.6 fL (7.4-11.0); MONOCYTES # (AUTO) 0.4 x10^3/uL (0.3-0.8); MONOCYTES % (AUTO) 7.4 % (0.0-13.0); NEUTROPHILS # (AUTO) 3.2 x10^3/uL (2.2-4.8); NEUTROPHILS % (AUTO) 54.3 % (42.0-75.0); RED BLOOD COUNT 4.44 X10^6/uL (3.5-5.4); RED CELL DISTRIBUTION WIDTH 15.5 % (11.6-16.5); WHITE BLOOD COUNT 5.9 X10^3/uL (3.6-10.0)
[2022-11-16 06:06] LABS: ALANINE AMINOTRANSFERASE 12 Units/L (12-78); ALBUMIN 3.3 g/dL (3.4-5.0); ALKALINE PHOSPHATASE 64 Units/L (46-116); ASPARTATE AMINO TRANSFERASE 13 Units/L (15-37); BLOOD UREA NITROGEN 13 mg/dL (7-18); CALCIUM 9.5 mg/dL (8.5-10.1); CHLORIDE 100 mmol/L (98-107); COR CA(FOR HYPOALB) 10.1 mg/dL (8.5-10.1); COR NA(FOR HYPERGLY) 145 mmol/L (136-145); CREATININE 0.93 mg/dL (0.55-1.02); SODIUM 142 mmol/L (136-145); TOTAL PROTEIN 7.5 g/dL (6.4-8.2); eGFR NON BLACK RACES > 60 (>60)
[2022-11-16] MEDS: GLUCOPHAGE PO SCH ×2 (06:12→16:37)
[2022-11-16] MEDS: PULMICORT NEB TX 0.5 MG NEB SCH ×2 (08:50→21:22)
[2022-11-16] MEDS: PLAVIX PO SCH (09:40)
[2022-11-16] MEDS: LASIX IVP SCH ×2 (09:40→16:36)
[2022-11-16] MEDS: K-DUR TAB 20 MEQ PO SCH ×2 (09:40→20:15)
[2022-11-16] MEDS: COREG TAB 12.5 MG PO SCH ×2 (09:40→20:15)
[2022-11-16] MEDS: COZAAR PO SCH (09:40)
[2022-11-16] MEDS: NORCO 10/325 TAB PO SCH ×2 (09:41→20:15)
[2022-11-16] MEDS: PROTONIX TAB 40 MG PO SCH (09:41)
[2022-11-16] MEDS: ROCEPHIN VIAL 1 GRAM 1 G in NS 100 ML IV 100 ML IV SCH (09:41)
[2022-11-16] MEDS: LOVENOX INJ 40 MG SYR SC SCH (09:42)
[2022-11-16] MEDS: ZITHROMAX INJ 500 MG VIAL 500 MG in NS 250 ML IV 250 ML IV SCH (10:36)
[2022-11-16] MEDS: SNACK - Diabetic Appropriate PO SCH (20:15)
[2022-11-16] MEDS: NovoLIN R (or HumuLIN R) SUBCUT PRN (20:25)
[2022-11-17] MEDS: DUONEB 0.5 MG/3 MG (3 mL) NEB SCH ×3 (00:24→09:41)
[2022-11-17] MEDS ORDERED: GLUCOPHAGE ONE (06:07)
[2022-11-17 06:14] LABS: BASOPHILS # (AUTO) 0.1 X10^3/uL (0.0-0.1); EOSINOPHILS # (AUTO) 0.2 x10^3/uL (0.0-0.2); EOSINOPHILS % (AUTO) 3.1 % (0.9-2.9); HEMOGLOBIN 11.8 g/dL (12.0-16.0); LYMPHOCYTES # (AUTO) 1.7 X10^3/uL (1.3-2.9); LYMPHOCYTES % (AUTO) 30.3 % (21.0-51.0); MEAN CORPUSCULAR HEMOGLOBIN 26.4 pg (27.0-34.0); MEAN CORPUSCULAR HGB CONC 32.7 g/dL (33.0-35.0); MEAN CORPUSCULAR VOLUME 80.8 fL (80.0-100.0); MEAN PLATELET VOLUME 9.7 fL (7.4-11.0); MONOCYTES # (AUTO) 0.4 x10^3/uL (0.3-0.8); MONOCYTES % (AUTO) 7.6 % (0.0-13.0); NEUTROPHILS # (AUTO) 3.2 x10^3/uL (2.2-4.8); RED BLOOD COUNT 4.45 X10^6/uL (3.5-5.4); RED CELL DISTRIBUTION WIDTH 15.6 % (11.6-16.5); WHITE BLOOD COUNT 5.4 X10^3/uL (3.6-10.0)
[2022-11-17] MEDS: GLUCOPHAGE PO SCH (06:24)
[2022-11-17 06:28] LABS: ALANINE AMINOTRANSFERASE 11 Units/L (12-78); ALBUMIN 3.2 g/dL (3.4-5.0); ALKALINE PHOSPHATASE 62 Units/L (46-116); ASPARTATE AMINO TRANSFERASE 15 Units/L (15-37); BLOOD UREA NITROGEN 13 mg/dL (7-18); CALCIUM 9.6 mg/dL (8.5-10.1); CARBON DIOXIDE 34.6 mmol/L (21-32); CHLORIDE 99 mmol/L (98-107); COR CA(FOR HYPOALB) 10.2 mg/dL (8.5-10.1); COR NA(FOR HYPERGLY) 143 mmol/L (136-145); CREATININE 0.86 mg/dL (0.55-1.02); SODIUM 140 mmol/L (136-145); TOTAL PROTEIN 7.5 g/dL (6.4-8.2); eGFR NON BLACK RACES > 60 (>60)
[2022-11-17] MEDS: NovoLIN R (or HumuLIN R) SUBCUT PRN (06:40)
[2022-11-17] MEDS: COREG TAB 12.5 MG PO SCH (08:21)
[2022-11-17] MEDS: COZAAR PO SCH (08:21)
[2022-11-17] MEDS: ROCEPHIN VIAL 1 GRAM 1 G in NS 100 ML IV 100 ML IV SCH (08:22)
[2022-11-17] MEDS: PLAVIX PO SCH (08:22)
[2022-11-17] MEDS: LASIX IVP SCH (08:22)
[2022-11-17] MEDS: K-DUR TAB 20 MEQ PO SCH (08:22)
[2022-11-17] MEDS: PROTONIX TAB 40 MG PO SCH (08:22)
[2022-11-17] MEDS: LOVENOX INJ 40 MG SYR SC SCH (08:22)
[2022-11-17] MEDS: NORCO 10/325 TAB PO SCH (08:22)
[2022-11-17] MEDS: ZITHROMAX INJ 500 MG VIAL 500 MG in NS 250 ML IV 250 ML IV SCH (08:56)
[2022-11-17] MEDS: PULMICORT NEB TX 0.5 MG NEB SCH (09:41)
[2022-11-17 13:24] VITALS: BP 178/84
== END 2022-11-17 11:30 | disposition home health service (06) | DRG 190 ==
LOC: MED/SURG 17:27
PROVIDERS: ADMIT Internal Medicine; ATTEND Internal Medicine
DX: R53.1 Weakness; K21.9 Gastro-esophageal reflux disease without esophagitis; J96.21 Acute and chronic respiratory failure with hypoxia; G81.94 Hemiplegia, unspecified affecting left nondominant side; J44.1 Chronic obstructive pulmonary disease with (acute) exacerbation; J96.22 Acute and chronic respiratory failure with hypercapnia; R13.10 Dysphagia, unspecified; Z87.440 Personal history of urinary (tract) infections; M15.8 Other polyosteoarthritis; E11.65 Type 2 diabetes mellitus with hyperglycemia; J18.8 Other pneumonia, unspecified organism; I50.9 Heart failure, unspecified; Z20.822 Contact with and (suspected) exposure to COVID-19; R94.31 Abnormal electrocardiogram [ECG] [EKG]; R26.89 Other abnormalities of gait and mobility; Z86.73 Personal history of transient ischemic attack (TIA), and cerebral infarction without residual deficits; I11.0 Hypertensive heart disease with heart failure

== ENCOUNTER 2022-12-24 08:59 | Inpatient (IN) ==
--- NOTE | 2022-12-24 09:11 | EKG ---
Test Reason : chest pain Blood Pressure : */* mmHG Vent. Rate : 74 BPM Atrial Rate : 74 BPM P-R Int : 188 ms QRS Dur : 148 ms QT Int : 414 ms P-R-T Axes : 62 81 54 degrees QTc Int : 459 ms Normal sinus rhythm Right bundle branch block Abnormal ECG When compared with ECG of 10-NOV-2022 17:56, No significant change was found Confirmed by Christian Sykes ([id number]) on 12/26/2022 1:42:43 PM Referred By: Confirmed By: Christian Sykes
--- NOTE | 2022-12-24 09:15 | DR.CP ---
HPI Time Seen Time Seen by Provider: 12/24/22 09:15 PCP Primary Care Physician: LINDY WISEMAN Complaint Chief Complaint:: PT. 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 PT. DENIES CHEST PAIN AT TIME OF ARRIVAL. COVID-19 Coronavirus risk:travel/contact w/high risk person: No Has patient experienced Coronavirus symptoms: No Source History Provided: Patient and EMS Mode of Arrival Mode of Arrival: EMS Timing Onset of Chief Complaint: 12/24/22 PMH PMH Past Medical History: Yes Past Medical History: Anxiety, Arthritis, COPD, CVA, Diabetes, GERD and Hypertension Past Surgical History: Yes Surgical History: Angioplasty/Stents and Hysterectomy Family History History of Family Medical Conditions: Yes Family Medical History: Diabetes Mellitus, Cancer, [place], Coronary Artery Disease, Heart Failure, Sudden Cardiac and Hypertension Social History Does patient currently use any type of tobacco product: No Have you used tobacco products in the last 12 months: No Type of Tobacco Use: None Does any household member use tobacco: No Alcohol Use: None Do you use any recreational Drugs:: No Lives With: Significant Other Lives Where: Home Travel Risk Coronavirus risk:travel/contact w/high risk person: No Has patient experienced Coronavirus symptoms: No Infectious screening In the last 2 months have you had wt loss of >10#?: NO Have you had fever, night sweats or hemotysis?: No Have you traveled outside the country in the last 6 months?: No Isolation: Standard ROS Review of Systems Constitutional: No Symptoms Reported Eyes: No Symptoms Reported ENTM: No Symptoms Reported Respiratoy: No Symptoms Reported Cardiovascular: No Symptoms Reported Gastrointestinal/Abdominal: No Symptoms Reported Genitourinary: No Symptoms Reported Neurological: No Symptoms Reported Musculoskeletal: No Symptoms Reported Integumentary: No Symptoms Reported Hematologic/Lymphatic: No Symptoms Reported Endocrine: No Symptoms Reported Psychiatric: No Symptoms Reported All Other Systems: Reviewed and Negative PE Vitals Vitals: Temperature 97.9 F Pulse Rate 71 Respiratory Rate 15 Blood Pressure [Left Calf] 134/66 Blood Pressure [Right Thigh] 119/73 Blood Pressure [Right Arm] 178/84 Blood Pressure 122/65 O2 Sat by Pulse Oximetry 91 General Limitations: No Limitations General Appearance: Alert Head Head Exam: Normal Inspection Eyes Eye exam: Normal Appearance ENT ENT Exam: Normal Exam Chest Chest Inspection: Normal Inspection Respiratory Respiratory Exam: Normal Lung Sounds Bilat Cardiovascular Cardiovascular Exam: Regular Rate Abdominal Exam Abdominal Exam: Normal Inspection Extremities Extremities Exam: Normal Inspection Back Back Exam: Normal Inspection Neurologic Neurological Exam: Alert Psychiatric Psychiatric Exam: Normal Affect Skin Skin Exam: Intact MDM Additional Information Additional Information Obtained From: Old Records and Family Differential Diagnosis Differential Diagnosis: Angina, Chest Wall Pain, CHF, Costochondritis, Abner cardial Infarction, Pericarditis, Pleuritis, Pneumonia and Pneumothorax ROR Labs Reviewed Laboratory Results Reviewed?: Yes Result Diagrams: 12/24/22 09:28 12/24/22 09:28 Laboratory: WBC 7.5 X10^3/uL (3.6-10.0) 12/24/22 09: RBC 4.10 X10^6/uL (3.5-5.4) 12/24/22 09: Hgb 10.4 g/dL (12.0-16.0) L 12/24/22 09: Hct 33.0 % (36.0-47.0) L 12/24/22 09: MCV 80.6 fL (80.0-100.0) 12/24/22 09: MCH 25.3 pg (27.0-34.0) L 12/24/22 09: MCHC 31.4 g/dL (33.0-35.0) L 12/24/22 09: RDW 16.5 % (11.6-16.5) 12/24/22 09: Plt Count 208 X10^3/uL (150.0-450.0) 12/24/22 09: MPV 8.7 fL (7.4-11.0) 12/24/22 09: Neut % (Auto) 68.1 % (42.0-75.0) 12/24/22 09: Lymph % (Auto) 24.3 % (21.0-51.0) 12/24/22 09: [place] % (Auto) 4.9 % (0.0-13.0) 12/24/22 09: Eos % (Auto) 1.5 % (0.9-2.9) 12/24/22 09: Baso % (Auto) 1.2 % (0.2-1.0) H 12/24/22 09:28 Neut # (Auto) 5.1 x10^3/uL (2.2-4.8) H 12/24/22 09:28 Lymph # (Auto) 1.8 X10^3/uL (1.3-2.9) 12/24/22 09:28 [place] # (Auto) 0.4 x10^3/uL (0.3-0.8) 12/24/22 09:28 Eos # (Auto) 0.1 x10^3/uL (0.0-0.2) 12/24/22 09:28 Baso # (Auto) 0.1 X10^3/uL (0.0-0.1) 12/24/22 09:28 Absolute Nucleated RBC 0.0 /100WBC 12/24/22 09:28 Sodium 141 mmol/L (136-145) 12/24/22 09:28 Corrected Sodium 142 mmol/L (136-145) 12/24/22 09:28 Potassium 4.4 mmol/L (3.5-5.1) 12/24/22 09:28 Chloride 104 mmol/L (98-107) 12/24/22 09:28 Carbon Dioxide 29.9 mmol/L (21-32) 12/24/22 09:28 BUN 14 mg/dL (7-18) 12/24/22 09:28 Creatinine 0.86 mg/dL (0.55-1.02) 12/24/22 09:28 Est GFR (MDRD) Af Amer > 60 (>60) 12/24/22 09:28 Est GFR (MDRD) Non-Af > 60 (>60) 12/24/22 09:28 Glucose 144 mg/dL (65-99) H 12/24/22 09:28 Calcium 8.7 mg/dL (8.5-10.1) 12/24/22 09:28 Corrected Calcium 9.6 mg/dL (8.5-10.1) 12/24/22 09:28 Total Bilirubin 0.20 mg/dL (0.2-1.0) 12/24/22 09:28 AST 10 Units/L (15-37) L 12/24/22 09:28 ALT 14 Units/L (12-78) 12/24/22 09:28 Alkaline Phosphatase 66 Units/L (46-116) 12/24/22 09:28 Creatine Kinase 123 Units/L (26-192) 12/24/22 09:28 Troponin I High Sens 28.8 ng/L (4.0-60.0) 12/24/22 09:28 Total Protein 6.9 g/dL (6.4-8.2) 12/24/22 09:28 Albumin 2.9 g/dL (3.4-5.0) L 12/24/22 09:28 Globulin 4.0 g/dL (2.5-4.5) 12/24/22 09:28 Albumin/Globulin Ratio 0.7 Ratio (1.1-2.1) L 12/24/22 09:28 Opioid Opioid Risk Tool Age (Andrei box if 16-45): No History of Preadolescent Sexual Abuse: No Total: 0 Total Score Risk Category: Low Risk Copyright: Woodrow CRUZ predicting aberrant behaviors Discharge Plan Discharge Plan Patient Disposition: HOME, SELF-CARE Condition: Stable Prescriptions: No Action atorvastatin [Lipitor] 20 MG tablet 20 mg PO HS clopidogrel [Plavix] 75 MG tablet 75 mg PO DAILY hydrocodone-acetaminophen 10 MG/325 MG tablet 1 tab PO QID topiramate 25 mg Tablet 25 mg PO DAILY omeprazole 40 mg Capsule,Delayed Release(Dr/Ec) 40 mg PO DAILY furosemide [Lasix] 20 mg Tablet 20 mg PO PRN PRN carvedilol 12.5 mg Tablet 12.5 mg PO BID metformin 500 mg Tablet 1,000 mg PO BID hydrochlorothiazide 25 mg Tablet 25 mg PO DAILY potassium chloride 10 mEq Capsule, Extended Release 10 meq PO DAILY PRN famotidine 20 mg Tablet 20 mg PO BID alprazolam 0.5 mg Tablet 0.5 mg PO DAILY PRN insulin glargine [Lantus Solostar U-100 Insulin] 100 unit/mL (3 mL) Insulin Pen 70 unit SUBCUT .AM Label Comments: 70 UNITS IN AM AND 65 IN PM insulin glargine [Lantus Solostar U-100 Insulin] 100 unit/mL (3 mL) Insulin Pen 65 unit SUBCUT .PM losartan 100 mg Tablet 100 mg PO DAILY gabapentin 600 mg Tablet 600 mg PO TID amitriptyline 25 mg Tablet 25 mg PO HS Humalog U-100 Insulin 100 unit/mL Cartridge See Rx Instructions .ROUTE .COMPLEX Rx Instructions: DIRECTED bupropion HCl 150 mg Tablet Extended Release 24 Hr 150 mg PO DAILY budesonide-formoterol [Symbicort] 80-4.5 mcg/actuation Hfa Aerosol Inhaler 1 inh INHALATION BID Health Concerns: Post Hospitalization: new medications and changes needed to prevent readmission or further decline. Pt educated and given instructions on all concerns. Plan of Treatment: Continue with present treatment and follow up plan. Pt is to keep follow up appointment as instructed and take medications as ordered. Orders to Discharge Patient Discharge Orders: Transfer (Routine); Ordered 12/24/22 Ordered By: PARAS RICH Follow ups/Referrals Follow ups/Referrals: NADIYA VENTURA [Primary Care Provider] - 3 days
[2022-12-24] MEDS ORDERED: NORCO 10/325 TAB PO ONE (09:35)
[2022-12-24] MEDS ORDERED: ASPIRIN 81 MG CHEWTAB ONE (09:36)
[2022-12-24] MEDS ORDERED: NORCO 10/325 TAB ONE (09:36)
[2022-12-24] MEDS ORDERED: ASPIRIN 81 MG CHEWTAB PO ONE (09:38)
[2022-12-24 09:39] LABS: BASOPHILS # (AUTO) 0.1 X10^3/uL (0.0-0.1); BASOPHILS % (AUTO) 1.2 % (0.2-1.0); EOSINOPHILS # (AUTO) 0.1 x10^3/uL (0.0-0.2); EOSINOPHILS % (AUTO) 1.5 % (0.9-2.9); HEMOGLOBIN 10.4 g/dL (12.0-16.0); LYMPHOCYTES # (AUTO) 1.8 X10^3/uL (1.3-2.9); LYMPHOCYTES % (AUTO) 24.3 % (21.0-51.0); MEAN CORPUSCULAR HEMOGLOBIN 25.3 pg (27.0-34.0); MEAN CORPUSCULAR HGB CONC 31.4 g/dL (33.0-35.0); MEAN CORPUSCULAR VOLUME 80.6 fL (80.0-100.0); MEAN PLATELET VOLUME 8.7 fL (7.4-11.0); MONOCYTES # (AUTO) 0.4 x10^3/uL (0.3-0.8); MONOCYTES % (AUTO) 4.9 % (0.0-13.0); NEUTROPHILS # (AUTO) 5.1 x10^3/uL (2.2-4.8); NEUTROPHILS % (AUTO) 68.1 % (42.0-75.0); RED CELL DISTRIBUTION WIDTH 16.5 % (11.6-16.5); WHITE BLOOD COUNT 7.5 X10^3/uL (3.6-10.0)
[2022-12-24 09:57] LABS: ALANINE AMINOTRANSFERASE 14 Units/L (12-78); ALBUMIN 2.9 g/dL (3.4-5.0); ALKALINE PHOSPHATASE 66 Units/L (46-116); ASPARTATE AMINO TRANSFERASE 10 Units/L (15-37); BLOOD UREA NITROGEN 14 mg/dL (7-18); CALCIUM 8.7 mg/dL (8.5-10.1); CARBON DIOXIDE 29.9 mmol/L (21-32); CHLORIDE 104 mmol/L (98-107); COR CA(FOR HYPOALB) 9.6 mg/dL (8.5-10.1); COR NA(FOR HYPERGLY) 142 mmol/L (136-145); CREATINE KINASE 123 Units/L (26-192); CREATININE 0.86 mg/dL (0.55-1.02); SODIUM 141 mmol/L (136-145); TOTAL PROTEIN 6.9 g/dL (6.4-8.2); eGFR NON BLACK RACES > 60 (>60)
[2022-12-24] MEDS: NS 1,000 ML IV 1,000 ML IV SCH (12:12)
[2022-12-24] MEDS: LOVENOX INJ 40 MG SYR SC SCH (14:24)
--- NOTE | 2022-12-24 16:01 | EKG ---
Test Reason : CHEST PAIN Blood Pressure : */* mmHG Vent. Rate : 70 BPM Atrial Rate : 70 BPM P-R Int : 190 ms QRS Dur : 152 ms QT Int : 432 ms P-R-T Axes : 78 79 45 degrees QTc Int : 466 ms Normal sinus rhythm Right bundle branch block Abnormal ECG When compared with ECG of 24-DEC-2022 09:10, (Unconfirmed) No significant change was found Confirmed by Christian Sykes ([id number]) on 12/26/2022 1:41:45 PM Referred By: Confirmed By: Christian Sykes
[2022-12-24] MEDS ORDERED: PROVENTIL NEB TX 0.083% 2.5MG/ 3ML ONE (20:39)
--- NOTE | 2022-12-24 21:09 | EKG ---
Test Reason : CHEST PAIN Blood Pressure : */* mmHG Vent. Rate : 75 BPM Atrial Rate : 75 BPM P-R Int : 196 ms QRS Dur : 152 ms QT Int : 434 ms P-R-T Axes : 70 76 41 degrees QTc Int : 484 ms Normal sinus rhythm Nonspecific intraventricular block Abnormal ECG When compared with ECG of 24-DEC-2022 15:53, (Unconfirmed) Nonspecific intraventricular block has replaced Right bundle branch block with 1st degree AV block Confirmed by Christian Sykes ([id number]) on 12/26/2022 1:41:37 PM Referred By: Confirmed By: Christian Sykes
[2022-12-24] MEDS: PROVENTIL NEB TX 0.083% 2.5MG/ 3ML NEB SCH (21:37)
[2022-12-24] MEDS: PULMICORT NEB TX 0.5 MG NEB SCH (21:37)
--- NOTE | 2022-12-24 22:54 | RAD ---
HISTORYPT. C/O SUDDEN ONSET OF STABBING CHEST PAIN Relevant Clinical InformationSTUDYCHEST, 1 [id number]/17/2023FINDINGSThe trachea is midline. The cardiac silhouette is mildly enlarged.. Patchy right upper lobe infiltrates. No pleural effusion pneumothorax. The bony thorax is unremarkable.IMPRESSIONMild cardiomegalyPatchy right upper lobe infiltrate and/or edema..Electronically signed by: Josesito Rod (Dec 24, 2022 22:53:33)
[2022-12-25] MEDS: NS 1,000 ML IV 1,000 ML IV SCH ×2 (05:34→17:36)
[2022-12-25 06:07] LABS: BASOPHILS # (AUTO) 0.1 X10^3/uL (0.0-0.1); BASOPHILS % (AUTO) 0.9 % (0.2-1.0); EOSINOPHILS # (AUTO) 0.1 x10^3/uL (0.0-0.2); EOSINOPHILS % (AUTO) 1.5 % (0.9-2.9); HEMATOCRIT 32.2 % (36.0-47.0); HEMOGLOBIN 10.2 g/dL (12.0-16.0); LYMPHOCYTES # (AUTO) 1.6 X10^3/uL (1.3-2.9); LYMPHOCYTES % (AUTO) 24.9 % (21.0-51.0); MEAN CORPUSCULAR HEMOGLOBIN 25.3 pg (27.0-34.0); MEAN CORPUSCULAR HGB CONC 31.6 g/dL (33.0-35.0); MEAN CORPUSCULAR VOLUME 80.2 fL (80.0-100.0); MEAN PLATELET VOLUME 8.7 fL (7.4-11.0); MONOCYTES # (AUTO) 0.3 x10^3/uL (0.3-0.8); MONOCYTES % (AUTO) 5.3 % (0.0-13.0); NEUTROPHILS # (AUTO) 4.3 x10^3/uL (2.2-4.8); NEUTROPHILS % (AUTO) 67.4 % (42.0-75.0); RED BLOOD COUNT 4.02 X10^6/uL (3.5-5.4); RED CELL DISTRIBUTION WIDTH 16.1 % (11.6-16.5); WHITE BLOOD COUNT 6.3 X10^3/uL (3.6-10.0)
[2022-12-25] MEDS: PROVENTIL NEB TX 0.083% 2.5MG/ 3ML NEB SCH ×3 (06:14→21:14)
[2022-12-25 06:27] LABS: ALANINE AMINOTRANSFERASE 14 Units/L (12-78); ALBUMIN 2.8 g/dL (3.4-5.0); ALKALINE PHOSPHATASE 66 Units/L (46-116); ASPARTATE AMINO TRANSFERASE 10 Units/L (15-37); BLOOD UREA NITROGEN 16 mg/dL (7-18); CALCIUM 8.6 mg/dL (8.5-10.1); CARBON DIOXIDE 31.7 mmol/L (21-32); CHLORIDE 105 mmol/L (98-107); COR CA(FOR HYPOALB) 9.6 mg/dL (8.5-10.1); COR NA(FOR HYPERGLY) 143 mmol/L (136-145); MAGNESIUM 1.4 mg/dL (2.0-2.9); SODIUM 141 mmol/L (136-145); TOTAL PROTEIN 6.7 g/dL (6.4-8.2); eGFR NON BLACK RACES > 60 (>60)
[2022-12-25] MEDS: LOVENOX INJ 40 MG SYR SC SCH (08:40)
[2022-12-25 08:44] VITALS: BMI 58.1
[2022-12-25] MEDS: PULMICORT NEB TX 0.5 MG NEB SCH ×2 (08:47→21:13)
[2022-12-25] MEDS: MAGNESIUM SULFATE 1 GRAM/100 mL PREMIX 1 G/100 ML BAG IV PRN ×4 (08:57→13:21)
--- NOTE | 2022-12-25 09:50 | DR.H&P ---
H&P - History & Physical for Day of: H&P Date: 12/24/22 - Chief Complaint Chief Complaint: CHEST PAIN, RIGHT BREAST PAIN - History of Present Illness History of Present Illness: PT IS 57 BF, ER ADMISSION AFTER PRESENTING WITH CO SUDDEN ONSET OF CHEST PAIN. PT REPORTS IS WAS AFTER SHE ATE. PT HAS BEEN BEING TREATED FOR RIGHT BREAST MASTITIS WITH ABSCESS FORMATION, ON DOXY 100MG PO BID. PT REPORTS SHE STILL HAS HER GALLBLADDER, BUT DENIES ANY VOMTING OR FOOD INTOLERANCE. DENIES FEVER OR FLU LIKE SYMPTOMS. PT HAS PMH OF CHF, COPD, CVA, HTN, DM, OA. 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 - Family History Family Medical History: Diabetes Mellitus, Cancer, [place], Coronary Artery Disease, Heart Failure, Sudden Cardiac , Hypertension - Social History Does patient currently use any type of tobacco product: No Have you used tobacco products in the last 12 months: No Type of Tobacco Use: None Does any household member use tobacco: No Alcohol Use: None Drug Use: None Risks, benefits, and alternatives of opioids discussed: No Prescription drug monitoring program results: PDMP reviewed and no concerns identified - Medications Home Medications: acetaminophen [Darvocet-N 100] Allergy (Unknown, Verified 12/24/22 09:07) levofloxacin Allergy (Unknown, Verified 12/24/22 09:07) propoxyphene Allergy (Unknown, Verified 12/24/22 09:07) procaine Allergy (Verified 12/24/22 09:07) Darvocet A500 *ANALGESICS - OP Allergy (Unknown, Uncoded 12/24/22 09:07) CONTINUE taking the following medications clindamycin HCl 300 mg capsule 300 mg PO TID 12/24/22 [History] duloxetine 30 mg capsule,delayed release 30 mg PO DAILY 12/24/22 [History] escitalopram oxalate 10 mg tablet 10 mg PO HS 12/24/22 [History] liraglutide 0.6 mg/0.1 mL (18 mg/3 mL) subcutaneous pen injector (Victoza 2-Steve) 1.2 mg subcut DAILY 12/24/22 [History] valsartan 160 mg capsule 160 mg PO .9AM AND 5PM 12/24/22 [History] - Review of Systems Constitutional: Weakness, Malaise Eyes: No Symptoms Reported ENT: No Symptoms Reported Respiratory: Shortness of Breath, Wheezing Cardiovascular: Chest Pain, Edema Gastrointestinal: No Symptoms Reported Genitourinary: No Symptoms Reported Musculoskeletal: Back Pain Skin: Rash (REDNESS TO RIGHT BREAST) Neurological: Weakness (CHRONIC LEFT SIDE ) - Physical Exam Vital Signs: Temperature 97.6 F Pulse Rate [Left Radial] 78 Pulse Rate 82 Respiratory Rate 20 Blood Pressure [Left Calf] 164/70 Blood Pressure [Right Thigh] 119/73 Blood Pressure [Right Arm] 141/70 Blood Pressure 130/72 O2 Sat by Pulse Oximetry 100 Oriented: Normal Eyes: Normal Ear: Normal Nose: Normal Throat: Normal Respiratory: Diminished Throughout Cardiovascular: Normal, Edema : Normal Auscultation: Bowel Sounds: Normal Palpation: Normal Tenderness: Normal Skin: Decreased Turgur, Red, Tender, Hot (LOCALIZED TO RIGHT BREAST) Musculoskeletal: Left, Arm, Leg, Motor Deficit Psychiatric: Anxiety Affect: Anxious Speech Pattern: Clear, Appropriate - Assessment/Plan (1) Chest pain Status: Acute Plan: ADMIT, SERIAL CE AND EKG. CXR ON ADMISSION, IV HYDRATION WITH STRICT I&OS. PROTONIX BID, BP CONTROL AND RESP THERAPY WITH SUPPLEMENTAL O2. VERIFY HOME MEDICATION, BS CONTROL (2) Mastitis Status: Acute (3) GERD with esophagitis Status: Acute (4) COPD exacerbation Status: Acute (5) Essential hypertension Status: Chronic (6) Diabetes mellitus Status: Chronic (7) History of CVA (cerebrovascular accident) Status: Chronic - Allergies Allergies/Adverse Reactions: Allergies Allergy/AdvReac Type Severity Reaction Status Date / Time acetaminophen Allergy Unknown Verified 12/24/22 09:07 [Darvocet-N 100] levofloxacin Allergy Unknown Verified 12/24/22 09:07 propoxyphene Allergy Unknown Verified 12/24/22 09:07 procaine Allergy Verified 12/24/22 09:07 Darvocet A500 *ANALGESICS - Allergy Unknown Uncoded 12/24/22 09:07 OP
--- NOTE | 2022-12-25 10:08 | PCM.PROG ---
Progress Note - Progress Note for Day of Date of Exam: 12/25/22 - Subjective Subjective: PT IS 57 BF, ER ADMISSION WITH CHEST PAIN. PT HAS SERIAL CE AND EKG, CE'S STABLE. PT HAS PMH OF CHF AND CXR REVIEWED EDEMA. WE ADDED IV LASIX 40MG IV DAILY WITH MATOS PLACEMENT WITH STRICT I&OS. RESP THERAPY CONTINUED WITH PT ON SUPPLEMENTAL O2. PT DENIES ANY INCREASE SOB THIS AM. PT HAS RIGHT BREAST MASTITIS AND HAS BEEN ON PO DOXY AT HOME WHICH COULD CAUSE GI SIDE EFFECTS AND WE DISCUSSED THAT THIS AM WITH PT. PLAN TO OBTAIN A BREAST US TO EVALUATION ABSCESS. WE WILL OBTAIN AND GB US AND CONTINUE WITH BID PPI THERAPY. IV DOXY RESTARTED AND HOME MEDICATION RESUMED. - Past Medical Family Social History Past Med/Fam/Surg Hx: No changes since H&P Allergies: Allergies acetaminophen [Darvocet-N 100] Allergy (Unknown, Verified 12/24/22 09:07) Reason: Drug allergy levofloxacin Allergy (Unknown, Verified 12/24/22 09:07) Reason: Drug allergy propoxyphene Allergy (Unknown, Verified 12/24/22 09:07) Reason: Drug allergy procaine Allergy (Verified 12/24/22 09:07) Darvocet A500 *ANALGESICS - OP Allergy (Unknown, Uncoded 12/24/22 09:07) Reason: Drug allergy; Free Text Allergy: Darvocet A500 *ANALGESICS - OPIOID* - Review of Systems ROS: No change since H&P - Vital Signs and I&O's Vital Signs: Temperature 97.6 F Pulse Rate [Left Radial] 78 Pulse Rate 82 Respiratory Rate 20 Blood Pressure [Left Calf] 164/70 Blood Pressure [Right Thigh] 119/73 Blood Pressure [Right Arm] 141/70 Blood Pressure 130/72 O2 Sat by Pulse Oximetry 100 Intake and Output: Intake & Output 12/22/22 12/23/22 12/24/22 12/25/22 11:59 11:59 11:59 11:59 Intake Total 1037 / 1037 Balance 1037 / 1037 - Physical Exam Oriented: Normal Eyes: Normal Ear: Normal Nose: Normal Throat: Normal Respiratory: Diminished, Wheezes Cardiovascular: Normal, Edema : Normal Auscultation: Bowel Sounds: Normal Tenderness: Normal Skin: Decreased Turgur, Red, Tender, Hot (LOCALIZED TO RIGHT BREAST) Musculoskeletal: Left, Arm, Leg, Motor Deficit Psychiatric: Anxiety Affect: Anxious Speech Pattern: Clear, Appropriate - Laboratory and Diagnostics Result Diagrams: 12/25/22 05:48 12/25/22 05:48 Labs: Laboratory WBC 6.3 X10^3/uL (3.6-10.0) 12/25/22 05:48 RBC 4.02 X10^6/uL (3.5-5.4) 12/25/22 05:48 Hgb 10.2 g/dL (12.0-16.0) L 12/25/22 05:48 Hct 32.2 % (36.0-47.0) L 12/25/22 05:48 MCV 80.2 fL (80.0-100.0) 12/25/22 05:48 MCH 25.3 pg (27.0-34.0) L 12/25/22 05:48 MCHC 31.6 g/dL (33.0-35.0) L 12/25/22 05:48 RDW 16.1 % (11.6-16.5) 12/25/22 05:48 Plt Count 196 X10^3/uL (150.0-450.0) 12/25/22 05:48 MPV 8.7 fL (7.4-11.0) 12/25/22 05:48 Neut % (Auto) 67.4 % (42.0-75.0) 12/25/22 05:48 Lymph % (Auto) 24.9 % (21.0-51.0) 12/25/22 05:48 [place] % (Auto) 5.3 % (0.0-13.0) 12/25/22 05:48 Eos % (Auto) 1.5 % (0.9-2.9) 12/25/22 05:48 Baso % (Auto) 0.9 % (0.2-1.0) 12/25/22 05:48 Neut # (Auto) 4.3 x10^3/uL (2.2-4.8) 12/25/22 05:48 Lymph # (Auto) 1.6 X10^3/uL (1.3-2.9) 12/25/22 05:48 [place] # (Auto) 0.3 x10^3/uL (0.3-0.8) 12/25/22 05:48 Eos # (Auto) 0.1 x10^3/uL (0.0-0.2) 12/25/22 05:48 Baso # (Auto) 0.1 X10^3/uL (0.0-0.1) 12/25/22 05:48 Absolute Nucleated RBC 0.0 /100WBC 12/25/22 05:48 Sodium 141 mmol/L (136-145) 12/25/22 05:48 Corrected Sodium 143 mmol/L (136-145) 12/25/22 05:48 Potassium 4.4 mmol/L (3.5-5.1) 12/25/22 05:48 Chloride 105 mmol/L (98-107) 12/25/22 05:48 Carbon Dioxide 31.7 mmol/L (21-32) 12/25/22 05:48 BUN 16 mg/dL (7-18) 12/25/22 05:48 Creatinine 0.90 mg/dL (0.55-1.02) 12/25/22 05:48 Est GFR (MDRD) Af Amer > 60 (>60) 12/25/22 05:48 Est GFR (MDRD) Non-Af > 60 (>60) 12/25/22 05:48 Glucose 170 mg/dL (65-99) H 12/25/22 05:48 POC Glucose (mg/dL) 161 mg/dL (65-99) H 12/25/22 05:17 Calcium 8.6 mg/dL (8.5-10.1) 12/25/22 05:48 Corrected Calcium 9.6 mg/dL (8.5-10.1) 12/25/22 05:48 Magnesium 1.4 mg/dL (2.0-2.9) L 12/25/22 05:48 Total Bilirubin 0.30 mg/dL (0.2-1.0) 12/25/22 05:48 AST 10 Units/L (15-37) L 12/25/22 05:48 ALT 14 Units/L (12-78) 12/25/22 05:48 Alkaline Phosphatase 66 Units/L (46-116) 12/25/22 05:48 Creatine Kinase 123 Units/L (26-192) 12/24/22 09:28 Troponin I High Sens 25.2 ng/L (4.0-60.0) 12/25/22 05:48 B-Natriuretic Peptide 373 pg/mL (0-79) H 12/25/22 05:48 Total Protein 6.7 g/dL (6.4-8.2) 12/25/22 05:48 Albumin 2.8 g/dL (3.4-5.0) L 12/25/22 05:48 Globulin 3.9 g/dL (2.5-4.5) 12/25/22 05:48 Albumin/Globulin Ratio 0.7 Ratio (1.1-2.1) L 12/25/22 05:48 - Plan (1) Chest pain Status: Acute Plan: SERIAL CE AND EKG. CXR ON ADMISSION, IV HYDRATION WITH STRICT I&OS. PROTONIX BID, BP CONTROL AND RESP THERAPY WITH SUPPLEMENTAL O2. VERIFY HOME MEDICATION, BS CONTROL (2) Mastitis Status: Acute (3) GERD with esophagitis Status: Acute (4) COPD exacerbation Status: Acute (5) Essential hypertension Status: Chronic (6) Diabetes mellitus Status: Chronic (7) History of CVA (cerebrovascular accident) Status: Chronic
[2022-12-25] MEDS ORDERED: LEVSIN/MAALOX/LIDOC VISC PO PRN (10:15)
[2022-12-25] MEDS: COREG TAB 12.5 MG PO SCH ×2 (10:31→21:18)
[2022-12-25] MEDS: CYMBALTA PO SCH (10:32)
[2022-12-25] MEDS: COZAAR PO SCH (10:32)
[2022-12-25] MEDS: LASIX IVP SCH (10:33)
[2022-12-25] MEDS: PROTONIX INJ 40 MG VIAL IVP SCH ×2 (10:33→21:17)
[2022-12-25] MEDS: PLAVIX PO SCH (10:33)
--- NOTE | 2022-12-25 15:01 | US ---
HISTORYchest painSTUDYUltrasound GALL BLADDERCOMPARISONNoneTECHNIQUEMultiple dupree scale and color flow Doppler images of the right upper quadrant of the abdomen were obtained with image documentation.FINDINGSIncreased echogenicity in the liver may be due to fatty infiltration. No focal hepatic abnormality is seen. Liver is normal in size. Hepatopetal portal venous flow is seen on Doppler ultrasound.Gallbladder appears normal. No biliary ductal dilation.Visualized portions of the pancreas appear normal.No right renal abnormality. Right kidney measures 9.4 cm in length.Visualized portions of the IVC appear normal.IMPRESSIONPossible fatty infiltration of the liver.Electronically signed by: Presley Jerome (Dec 25, 2022 14:59:46)
[2022-12-25] MEDS: NEURONTIN TAB 600 MG PO SCH ×2 (15:31→21:18)
[2022-12-25] MEDS: NovoLIN R (or HumuLIN R) SUBCUT PRN ×2 (16:53→21:18)
[2022-12-25] MEDS ORDERED: VIBRAMYCIN IV ONE (20:29)
[2022-12-25] MEDS: SNACK - Diabetic Appropriate PO SCH (20:39)
[2022-12-25] MEDS: VIBRAMYCIN 100 MG in D5W 250 ML IV 250 ML IV SCH (21:17)
[2022-12-26] MEDS: NS 1,000 ML IV 1,000 ML IV SCH ×3 (03:00→20:11)
[2022-12-26] MEDS: NEURONTIN TAB 600 MG PO SCH ×3 (05:16→21:23)
[2022-12-26 06:22] LABS: BASOPHILS # (AUTO) 0.1 X10^3/uL (0.0-0.1); EOSINOPHILS # (AUTO) 0.1 x10^3/uL (0.0-0.2); EOSINOPHILS % (AUTO) 1.6 % (0.9-2.9); HEMATOCRIT 32.2 % (36.0-47.0); HEMOGLOBIN 10.2 g/dL (12.0-16.0); LYMPHOCYTES # (AUTO) 1.5 X10^3/uL (1.3-2.9); LYMPHOCYTES % (AUTO) 24.5 % (21.0-51.0); MEAN CORPUSCULAR HEMOGLOBIN 25.4 pg (27.0-34.0); MEAN CORPUSCULAR HGB CONC 31.7 g/dL (33.0-35.0); MEAN PLATELET VOLUME 8.7 fL (7.4-11.0); MONOCYTES # (AUTO) 0.4 x10^3/uL (0.3-0.8); MONOCYTES % (AUTO) 6.3 % (0.0-13.0); NEUTROPHILS # (AUTO) 4.1 x10^3/uL (2.2-4.8); NEUTROPHILS % (AUTO) 66.6 % (42.0-75.0); RED BLOOD COUNT 4.02 X10^6/uL (3.5-5.4); RED CELL DISTRIBUTION WIDTH 16.2 % (11.6-16.5); WHITE BLOOD COUNT 6.1 X10^3/uL (3.6-10.0)
[2022-12-26 07:00] LABS: ALANINE AMINOTRANSFERASE 16 Units/L (12-78); ALBUMIN 2.9 g/dL (3.4-5.0); ALKALINE PHOSPHATASE 69 Units/L (46-116); ASPARTATE AMINO TRANSFERASE 13 Units/L (15-37); BLOOD UREA NITROGEN 14 mg/dL (7-18); CALCIUM 8.8 mg/dL (8.5-10.1); CARBON DIOXIDE 32.6 mmol/L (21-32); CHLORIDE 101 mmol/L (98-107); COR CA(FOR HYPOALB) 9.7 mg/dL (8.5-10.1); COR NA(FOR HYPERGLY) 140 mmol/L (136-145); CREATININE 0.84 mg/dL (0.55-1.02); MAGNESIUM 1.6 mg/dL (2.0-2.9); SODIUM 138 mmol/L (136-145); TOTAL PROTEIN 6.8 g/dL (6.4-8.2); eGFR NON BLACK RACES > 60 (>60)
[2022-12-26] MEDS: PULMICORT NEB TX 0.5 MG NEB SCH ×2 (09:09→20:19)
[2022-12-26] MEDS: LASIX IVP SCH (09:36)
[2022-12-26] MEDS: COREG TAB 12.5 MG PO SCH ×2 (09:36→20:10)
[2022-12-26] MEDS: PROTONIX INJ 40 MG VIAL IVP SCH ×2 (09:36→20:11)
[2022-12-26] MEDS: LOVENOX INJ 40 MG SYR SC SCH (09:36)
[2022-12-26] MEDS: PLAVIX PO SCH (09:37)
[2022-12-26] MEDS: CYMBALTA PO SCH (09:38)
[2022-12-26] MEDS: COZAAR PO SCH (09:38)
[2022-12-26] MEDS: VIBRAMYCIN 100 MG in D5W 250 ML IV 250 ML IV SCH ×2 (09:44→20:11)
[2022-12-26] MEDS: PROVENTIL NEB TX 0.083% 2.5MG/ 3ML NEB SCH ×3 (14:10→20:19)
[2022-12-26] MEDS: NovoLIN R (or HumuLIN R) SUBCUT PRN ×2 (17:57→21:03)
[2022-12-26] MEDS: SNACK - Diabetic Appropriate PO SCH (20:10)
[2022-12-26] MEDS: XANAX PO PRN (20:10)
[2022-12-27] MEDS: NS 1,000 ML IV 1,000 ML IV SCH ×2 (04:09→18:23)
[2022-12-27] MEDS: MAGNESIUM SULFATE 1 GRAM/100 mL PREMIX 1 G/100 ML BAG IV PRN ×2 (04:53→06:02)
[2022-12-27 05:02] LABS: BASOPHILS % (AUTO) 0.7 % (0.2-1.0); EOSINOPHILS # (AUTO) 0.1 x10^3/uL (0.0-0.2); EOSINOPHILS % (AUTO) 1.7 % (0.9-2.9); HEMATOCRIT 30.5 % (36.0-47.0); HEMOGLOBIN 9.7 g/dL (12.0-16.0); LYMPHOCYTES # (AUTO) 1.7 X10^3/uL (1.3-2.9); MEAN CORPUSCULAR HEMOGLOBIN 25.3 pg (27.0-34.0); MEAN CORPUSCULAR HGB CONC 31.7 g/dL (33.0-35.0); MEAN CORPUSCULAR VOLUME 79.9 fL (80.0-100.0); MEAN PLATELET VOLUME 8.8 fL (7.4-11.0); MONOCYTES # (AUTO) 0.5 x10^3/uL (0.3-0.8); MONOCYTES % (AUTO) 7.4 % (0.0-13.0); NEUTROPHILS # (AUTO) 3.9 x10^3/uL (2.2-4.8); NEUTROPHILS % (AUTO) 62.2 % (42.0-75.0); RED BLOOD COUNT 3.82 X10^6/uL (3.5-5.4); RED CELL DISTRIBUTION WIDTH 16.4 % (11.6-16.5); WHITE BLOOD COUNT 6.2 X10^3/uL (3.6-10.0)
[2022-12-27 05:10] LABS: ALANINE AMINOTRANSFERASE 10 Units/L (12-78); ALBUMIN 2.6 g/dL (3.4-5.0); ALKALINE PHOSPHATASE 65 Units/L (46-116); ASPARTATE AMINO TRANSFERASE 16 Units/L (15-37); BLOOD UREA NITROGEN 17 mg/dL (7-18); CALCIUM 8.4 mg/dL (8.5-10.1); CARBON DIOXIDE 30.8 mmol/L (21-32); CHLORIDE 101 mmol/L (98-107); COR CA(FOR HYPOALB) 9.5 mg/dL (8.5-10.1); COR NA(FOR HYPERGLY) 138 mmol/L (136-145); CREATININE 0.99 mg/dL (0.55-1.02); SODIUM 134 mmol/L (136-145); TOTAL PROTEIN 6.4 g/dL (6.4-8.2); eGFR NON BLACK RACES > 60 (>60)
[2022-12-27] MEDS: NEURONTIN TAB 600 MG PO SCH ×3 (05:25→21:40)
[2022-12-27] MEDS: NovoLIN R (or HumuLIN R) SUBCUT PRN ×4 (05:35→20:37)
[2022-12-27] MEDS: PROVENTIL NEB TX 0.083% 2.5MG/ 3ML NEB SCH ×3 (06:12→21:00)
[2022-12-27] MEDS ORDERED: VIBRAMYCIN IV ONE (07:35)
[2022-12-27] MEDS: PULMICORT NEB TX 0.5 MG NEB SCH ×2 (08:10→21:00)
[2022-12-27] MEDS: VIBRAMYCIN 100 MG in D5W 250 ML IV 250 ML IV SCH ×2 (09:27→20:02)
[2022-12-27] MEDS: PROTONIX INJ 40 MG VIAL IVP SCH ×2 (09:27→20:01)
[2022-12-27] MEDS: LASIX IVP SCH (09:27)
[2022-12-27] MEDS: PLAVIX PO SCH (09:27)
[2022-12-27] MEDS: COREG TAB 12.5 MG PO SCH ×2 (09:27→20:02)
[2022-12-27] MEDS: COZAAR PO SCH (09:27)
[2022-12-27] MEDS: LOVENOX INJ 40 MG SYR SC SCH (09:28)
[2022-12-27] MEDS: CYMBALTA PO SCH (09:33)
[2022-12-27] MEDS: GLUCOPHAGE XR 24-HR PO SCH ×2 (12:00→20:02)
[2022-12-27] MEDS: SNACK - Diabetic Appropriate PO SCH (20:01)
[2022-12-27] MEDS: XANAX PO PRN (20:02)
[2022-12-28] MEDS ORDERED: NORCO 5/325 MG TAB PO PRN (00:21)
[2022-12-28 04:46] LABS: BASOPHILS # (AUTO) 0.2 X10^3/uL (0.0-0.1); BASOPHILS % (AUTO) 2.6 % (0.2-1.0); EOSINOPHILS # (AUTO) 0.2 x10^3/uL (0.0-0.2); EOSINOPHILS % (AUTO) 3.3 % (0.9-2.9); HEMATOCRIT 30.1 % (36.0-47.0); HEMOGLOBIN 9.6 g/dL (12.0-16.0); LYMPHOCYTES # (AUTO) 1.3 X10^3/uL (1.3-2.9); LYMPHOCYTES % (AUTO) 19.5 % (21.0-51.0); MEAN CORPUSCULAR HEMOGLOBIN 25.7 pg (27.0-34.0); MEAN CORPUSCULAR VOLUME 80.2 fL (80.0-100.0); MEAN PLATELET VOLUME 8.6 fL (7.4-11.0); MONOCYTES # (AUTO) 0.5 x10^3/uL (0.3-0.8); MONOCYTES % (AUTO) 6.7 % (0.0-13.0); NEUTROPHILS # (AUTO) 4.6 x10^3/uL (2.2-4.8); NEUTROPHILS % (AUTO) 67.9 % (42.0-75.0); RED BLOOD COUNT 3.76 X10^6/uL (3.5-5.4); RED CELL DISTRIBUTION WIDTH 16.4 % (11.6-16.5); WHITE BLOOD COUNT 6.8 X10^3/uL (3.6-10.0)
[2022-12-28 04:59] LABS: ALANINE AMINOTRANSFERASE 12 Units/L (12-78); ALBUMIN 2.6 g/dL (3.4-5.0); ALKALINE PHOSPHATASE 64 Units/L (46-116); ASPARTATE AMINO TRANSFERASE 8 Units/L (15-37); BLOOD UREA NITROGEN 21 mg/dL (7-18); CALCIUM 8.3 mg/dL (8.5-10.1); CARBON DIOXIDE 32.2 mmol/L (21-32); CHLORIDE 101 mmol/L (98-107); COR CA(FOR HYPOALB) 9.4 mg/dL (8.5-10.1); COR NA(FOR HYPERGLY) 141 mmol/L (136-145); CREATININE 1.13 mg/dL (0.55-1.02); MAGNESIUM 1.5 mg/dL (2.0-2.9); SODIUM 137 mmol/L (136-145); TOTAL PROTEIN 6.2 g/dL (6.4-8.2); eGFR NON BLACK RACES 53 (>60)
[2022-12-28] MEDS: NEURONTIN TAB 600 MG PO SCH ×2 (05:08→14:27)
[2022-12-28] MEDS: MAGNESIUM SULFATE 1 GRAM/100 mL PREMIX 1 G/100 ML BAG IV PRN ×2 (05:13→06:19)
[2022-12-28] MEDS: NovoLIN R (or HumuLIN R) SUBCUT PRN ×2 (05:56→12:49)
[2022-12-28] MEDS: PROVENTIL NEB TX 0.083% 2.5MG/ 3ML NEB SCH ×2 (06:03→13:17)
[2022-12-28] MEDS: NS 1,000 ML IV 1,000 ML IV SCH (06:20)
[2022-12-28] MEDS: PULMICORT NEB TX 0.5 MG NEB SCH (08:25)
[2022-12-28] MEDS ORDERED: BENADRYL CREAM TOPICAL TOP PRN (08:50)
[2022-12-28] MEDS: COREG TAB 12.5 MG PO SCH (10:00)
[2022-12-28] MEDS: COZAAR PO SCH (10:00)
[2022-12-28] MEDS: PLAVIX PO SCH (10:01)
[2022-12-28] MEDS: LASIX IVP SCH (10:02)
[2022-12-28] MEDS: LOVENOX INJ 40 MG SYR SC SCH (10:02)
[2022-12-28] MEDS: GLUCOPHAGE XR 24-HR PO SCH (10:02)
[2022-12-28] MEDS: CYMBALTA PO SCH (10:03)
[2022-12-28] MEDS: VIBRAMYCIN 100 MG in D5W 250 ML IV 250 ML IV SCH (10:04)
[2022-12-28] MEDS: PROTONIX INJ 40 MG VIAL IVP SCH (10:08)
[2022-12-28 16:41] VITALS: BP 115/54
--- NOTE | 2022-12-28 16:44 | US ---
HISTORYPurulent drainage and concern for abscessEXAMBREASTCOMPARISON r.br.br.br.br.br.br.br and color flow images of the right breast were obtained.FINDINGSWhole breast imaging was performed. There is heterogeneous background echotexture. At 2 o'clock 3 cm from the nipple, there is a 3 mm rounded circumscribed peripherally calcified shadowing oil cyst without internal Doppler flow. No suspicious cystic or solid mass is identified. There are no focal fluid collections to suggest abscess. There is no pathologic lymphadenopathy.IMPRESSIONNo sonographic evidence of malignancy or abscess. Patient is due for bilateral mammography on a routine outpatient nonemergent basis when clinically feasible.ACR CATEGORYACR CATEGORY: 0- Incomplete need additional imaging evaluationMANAGEMENTRecall for additional imaging on a routine outpatient nonemergent basis.Electronically signed by: ALEJANDRA HYATT (Dec 28, 2022 16:43:07)
== END 2022-12-28 17:00 | disposition home or self-care (01) | DRG 313 ==
LOC: MED/SURG 08:59 → ER 08:59 → MED/SURG 11:46
PROVIDERS: ADMIT Internal Medicine; ATTEND Internal Medicine

== ENCOUNTER 2023-05-21 15:03 | Inpatient (IN) ==
[2023-05-21] MEDS ORDERED: TUSSIONEX PENNKINETIC SUSP PO PRN (15:50)
[2023-05-21] MEDS ORDERED: XOPENEX 1.25 MG/3 ML NEBULE NEB ONE (16:00)
[2023-05-21] MEDS: XOPENEX 1.25 MG/3 ML NEBULE NEB SCH ×2 (16:45→21:10)
[2023-05-21] MEDS ORDERED: NS 1/2 1,000 ML IV 1,000 ML IV ONE ×2 (16:47→19:23)
[2023-05-21] MEDS: ROCEPHIN VIAL 1 GRAM 1 G in NS 100 ML IV 100 ML IV SCH (17:05)
[2023-05-21] MEDS: NS 1/2 1,000 ML IV 1,000 ML IV SCH (17:05)
[2023-05-21] MEDS: ROBITUSSIN DM PO SCH ×2 (17:06→21:11)
--- NOTE | 2023-05-21 18:08 | RAD ---
HISTORYPneumoniaSTUDYCHEST, 1 VIEWCOMPARISONFrontal chest radiograph April 26, 2023FINDINGSMidline trachea. Splaying of the francesca. Enlarged heart silhouette. Pulmonary vascular prominence. Interstitial infiltrates.IMPRESSIONChronic congestive changesElectronically signed by: Harris Pablo (May 21, 2023 18:07:01)
[2023-05-21 18:15] LABS: BASOPHILS % (AUTO) 0.4 % (0.2-1.0); EOSINOPHILS # (AUTO) 0.2 x10^3/uL (0.0-0.2); HEMATOCRIT 30.3 % (36.0-47.0); HEMOGLOBIN 9.6 g/dL (12.0-16.0); LYMPHOCYTES # (AUTO) 1.9 X10^3/uL (1.3-2.9); MEAN CORPUSCULAR HEMOGLOBIN 26.2 pg (27.0-34.0); MEAN CORPUSCULAR HGB CONC 31.7 g/dL (33.0-35.0); MEAN CORPUSCULAR VOLUME 82.6 fL (80.0-100.0); MEAN PLATELET VOLUME 8.8 fL (7.4-11.0); MONOCYTES # (AUTO) 0.3 x10^3/uL (0.3-0.8); MONOCYTES % (AUTO) 5.9 % (0.0-13.0); NEUTROPHILS # (AUTO) 2.9 x10^3/uL (2.2-4.8); NEUTROPHILS % (AUTO) 54.7 % (42.0-75.0); PLATELET COUNT 164 X10^3/uL (150.0-450.0); RED BLOOD COUNT 3.67 X10^6/uL (3.5-5.4); RED CELL DISTRIBUTION WIDTH 17.5 % (11.6-16.5); WHITE BLOOD COUNT 5.4 X10^3/uL (3.6-10.0)
[2023-05-21 18:32] VITALS: BMI 57.6
[2023-05-21 18:37] LABS: ALANINE AMINOTRANSFERASE 9 Units/L (12-78); ALBUMIN 2.8 g/dL (3.4-5.0); ALKALINE PHOSPHATASE 80 Units/L (46-116); ASPARTATE AMINO TRANSFERASE 9 Units/L (15-37); BLOOD UREA NITROGEN 12 mg/dL (7-18); CALCIUM 8.3 mg/dL (8.5-10.1); CARBON DIOXIDE 32.1 mmol/L (21-32); CHLORIDE 102 mmol/L (98-107); COR CA(FOR HYPOALB) 9.3 mg/dL (8.5-10.1); COR NA(FOR HYPERGLY) 140 mmol/L (136-145); CREATININE 0.86 mg/dL (0.55-1.02); GLUCOSE 128 mg/dL (65-99); POTASSIUM 3.7 mmol/L (3.5-5.1); SODIUM 139 mmol/L (136-145); TOTAL PROTEIN 6.9 g/dL (6.4-8.2); eGFR NON BLACK RACES > 60 (>60)
[2023-05-21] MEDS: PULMICORT NEB TX 0.5 MG NEB SCH (21:10)
[2023-05-22] MEDS: NS 1/2 1,000 ML IV 1,000 ML IV SCH (05:10)
[2023-05-22] MEDS: PULMICORT NEB TX 0.5 MG NEB SCH ×2 (08:18→21:00)
[2023-05-22] MEDS: XOPENEX 1.25 MG/3 ML NEBULE NEB SCH ×4 (08:18→21:00)
[2023-05-22] MEDS: ROCEPHIN VIAL 1 GRAM 1 G in NS 100 ML IV 100 ML IV SCH (09:10)
[2023-05-22] MEDS: ROBITUSSIN DM PO SCH ×4 (09:10→21:29)
[2023-05-22 09:44] LABS: EOSINOPHILS # (AUTO) 0.2 x10^3/uL (0.0-0.2); LYMPHOCYTES # (AUTO) 1.6 X10^3/uL (1.3-2.9)
[2023-05-22 09:49] LABS: NEUTROPHILS # (AUTO) 4.3 x10^3/uL (2.2-4.8); NEUTROPHILS % (AUTO) 66.4 % (42.0-75.0); RED BLOOD COUNT 3.82 X10^6/uL (3.5-5.4)
[2023-05-22 09:50] LABS: ALANINE AMINOTRANSFERASE 7 Units/L (12-78); ALBUMIN 2.7 g/dL (3.4-5.0); ALKALINE PHOSPHATASE 81 Units/L (46-116); ASPARTATE AMINO TRANSFERASE 12 Units/L (15-37); BLOOD UREA NITROGEN 11 mg/dL (7-18); CARBON DIOXIDE 31.5 mmol/L (21-32); CHLORIDE 103 mmol/L (98-107); COR NA(FOR HYPERGLY) 139 mmol/L (136-145); CREATININE 0.86 mg/dL (0.55-1.02); GLUCOSE 173 mg/dL (65-99); SODIUM 137 mmol/L (136-145); TOTAL PROTEIN 6.6 g/dL (6.4-8.2); eGFR NON BLACK RACES > 60 (>60)
[2023-05-22 09:51] LABS: BASOPHILS % (AUTO) 0.5 % (0.2-1.0); EOSINOPHILS % (AUTO) 3.1 % (0.9-2.9); HEMATOCRIT 31.3 % (36.0-47.0); HEMOGLOBIN 10.1 g/dL (12.0-16.0); LYMPHOCYTES % (AUTO) 24.4 % (21.0-51.0); MEAN CORPUSCULAR HEMOGLOBIN 26.4 pg (27.0-34.0); MEAN CORPUSCULAR HGB CONC 32.2 g/dL (33.0-35.0); MONOCYTES # (AUTO) 0.4 x10^3/uL (0.3-0.8); MONOCYTES % (AUTO) 5.6 % (0.0-13.0); PLATELET COUNT 161 X10^3/uL (150.0-450.0); RED CELL DISTRIBUTION WIDTH 17.5 % (11.6-16.5)
[2023-05-22 10:17] LABS: PLATELET MORPHOLOGY COMMENT NORMAL (NORMAL)
[2023-05-22 10:18] LABS: WHITE BLOOD COUNT 7.4 X10^3/uL (3.6-10.0)
[2023-05-22 10:20] LABS: ANISOCYTOSIS SLIGHT; HYPOCHROMASIA SLIGHT
[2023-05-22] MEDS ORDERED: NovoLIN R (or HumuLIN R) SC PRN (11:29)
[2023-05-22 11:32] LABS: ABG BASE EXCESS 6.8 mmol/L (-2.0-2.0)
[2023-05-22 11:34] LABS: ABG HCO3 34.8 mmol/L (22-26)
[2023-05-22] MEDS: NovoLIN R (or HumuLIN R) SC PRN ×3 (11:53→21:31)
[2023-05-22 12:55] LABS: BILIRUBIN,URINE NEGATIVE (NEGATIVE); BLOOD/HEMOGLOBIN,URINE 1+ (NEGATIVE); GLUCOSE, URINE NEGATIVE (NEGATIVE); KETONES,URINE NEGATIVE (NEGATIVE); LEUKOCYTE ESTERASE ,URINE NEGATIVE (NEGATIVE); NITRITES,URINE NEGATIVE (NEGATIVE); PROTEIN,URINE 2+ (NEGATIVE); UROBILINOGEN,URINE NORMAL (NORMAL)
--- NOTE | 2023-05-22 13:02 | DR.H&P ---
H&P - History & Physical for Day of: H&P Date: 05/21/23 - Chief Complaint Chief Complaint: CCC, SOB, UTI - History of Present Illness History of Present Illness: PT IS 57 BF, DIRECT ADMIT FROM DR CASTREJON OFFICE WITH COPD AND CHF, ACUTE PNEUMONIA. PT FAILED OUTPT TREATMENT FOR PNEUMONIA WITH PO DOXYCYLINE AND DUO NEBS. PT HAS ALSO HAD A UTI, CULTURE NOT AVAILABLE AT THIS TIME. PT HAS PMH OF BEDBOUND STATUS DUE TO HX CVA, TYPE 2 DM, HTN, MO, GERD, MDD, OA AND CAD. PT ADMITTED FOR TREATMENT OF ACUTE ILLNESS. - Past Medical History Past Medical History: Hypertension, Diabetes, Anxiety, CVA, COPD, GERD, Arthritis Additional Medical History: Frequent UTI's, Abnormal uterine bleeding leading to a blood transfusion, Muscle Weakness - Past Surgical History Surgical History: Angioplasty/Stents, CABG/Valve Surgery, Hysterectomy Additional Surgical History: Left 2nd toe amputated d/t Gangrene - Family History Family Medical History: Diabetes Mellitus, Cancer, [place], Coronary Artery Disease, Heart Failure, Sudden Cardiac , Hypertension - Social History Does patient currently use any type of tobacco product: No Have you used tobacco products in the last 12 months: No Type of Tobacco Use: None Does any household member use tobacco: No Alcohol Use: None Drug Use: None - Review of Systems Constitutional: Chills, Weakness Eyes: No Symptoms Reported ENT: No Symptoms Reported Respiratory: Shortness of Breath, SOB with Excertion, Sputum, Wheezing Cardiovascular: Chest Pain, Edema Gastrointestinal: Nausea Genitourinary: Dysuria, Incontinence Musculoskeletal: Back Pain Skin: Rash (PERINEAL) - Physical Exam Vital Signs: Vital Signs Temperature 97.7 F Temperature 98.1 F Pulse Rate [Right Radial] 72 Pulse Rate [Right Radial] 73 Pulse Rate 73 Respiratory Rate 20 Respiratory Rate 22 Blood Pressure [Left Calf] 182/86 O2 Sat by Pulse Oximetry 100 O2 Sat by Pulse Oximetry 100 O2 Sat by Pulse Oximetry 100 Oriented: Normal Eyes: Normal Ear: Normal Nose: Normal Throat: Dry Respiratory: Wheezes Throughout, RLL Diminished, LLL Diminished Cardiovascular: Normal, Murmur, Edema : Normal Auscultation: Bowel Sounds: Normal Palpation: Normal Tenderness: Normal Skin: Decreased Turgur, Rash (DIFFUSE REDNESS TO PERINEAL AREA AND INNER THIGHS), Wound (STAGE 2PRESURE ULCER TO LEFT POSTERIOR THIGH) Musculoskeletal: Motor Deficit, Sensory Deficit Psychiatric: Anxiety Affect: Anxious Speech Pattern: Clear, Appropriate - Assessment/Plan (1) Pneumonia Qualifiers: Pneumonia type: due to unspecified organism Laterality: bilateral Lung location: lower lobe of lung Qualified Code(s): J18.9 - Pneumonia, unspecified organism Status: Acute Plan: ADMIT, PNEUMONIA PROTOCOL. CXR, RESP THERAPY, SUPPLEMENTAL O2. IV ATBX, BLOOD AND SPUTUM CULTURE ON ADMISSION. BP AND CARDIAC MONITORING. ADMISSION LABS, CONFIRM AND RESUME HOME MEDICATION. BS CONTROL (2) UTI (urinary tract infection) Status: Acute (3) Hypertension Status: Chronic (4) Diabetes mellitus, type 2 Status: Chronic (5) CHF (congestive heart failure) Status: Acute (6) Hemiplegia affecting left nondominant side Status: Acute - Allergies Allergies/Adverse Reactions: Allergies Allergy/AdvReac Type Severity Reaction Status Date / Time acetaminophen Allergy Verified 05/21/23 16:31 [From Darvocet-N 100] levofloxacin [From Levaquin] Allergy Verified 05/21/23 16:31 propoxyphene Allergy Verified 05/21/23 16:31 [From Darvocet-N 100] - Medications Home Medications: Home Medications Medication Instructions Recorded Confirmed atorvastatin 20 mg tablet (Lipitor) 20 mg PO HS 02/24/17 05/22/23 clopidogrel 75 mg tablet (Plavix) 75 mg PO DAILY 02/24/17 05/22/23 hydrocodone 10 mg-acetaminophen 1 tab PO Q8H PRN 05/15/17 05/22/23 325 mg tablet furosemide 20 mg tablet (Lasix) 20 mg PO DAILY PRN 12/29/18 05/22/23 omeprazole 40 mg capsule,delayed 40 mg PO DAILY 12/29/18 05/22/23 release topiramate 25 mg tablet 25 mg PO DAILY 12/29/18 05/22/23 alprazolam 0.5 mg tablet 0.5 mg PO DAILY PRN 09/17/21 05/22/23 carvedilol 12.5 mg tablet 12.5 mg PO BID 09/17/21 05/22/23 hydrochlorothiazide 25 mg tablet 25 mg PO DAILY 09/17/21 05/22/23 insulin glargine 100 unit/mL (3 65 unit subcut .PM 09/17/21 05/22/23 mL) subcutaneous pen (Lantus Solostar U-100 Insulin) insulin glargine 100 unit/mL (3 70 unit subcut .AM 09/17/21 05/22/23 mL) subcutaneous pen (Lantus Solostar U-100 Insulin) metformin 500 mg tablet 1,000 mg PO BID 09/17/21 05/22/23 potassium chloride 10 mEq 10 meq PO DAILY PRN 09/17/21 05/22/23 capsule,extended release gabapentin 600 mg tablet 600 mg PO TID 10/27/21 05/22/23 losartan 100 mg tablet 100 mg PO DAILY 11/16/21 05/22/23 amitriptyline 25 mg tablet 25 mg PO HS 06/18/22 05/22/23 budesonide-formoterol HFA 80 1 inh inhalation BID 06/18/22 05/22/23 mcg-4.5 mcg/actuation aerosol inhaler (Symbicort) bupropion HCl 150 mg 24 hr tablet, 150 mg PO DAILY 06/18/22 05/22/23 extended release insulin lispro 100 unit/mL See Rx Instructions .Route .COMPLEX 06/18/22 05/22/23 subcutaneous cartridge (Humalog U-100 Insulin) duloxetine 30 mg capsule,delayed 30 mg PO DAILY 12/24/22 05/22/23 release escitalopram oxalate 10 mg tablet 10 mg PO HS 12/24/22 05/22/23 (Lexapro) liraglutide 0.6 mg/0.1 mL (18 mg/3 1.2 mg subcut DAILY 12/24/22 05/22/23 mL) subcutaneous pen injector (Victoza 2-Steve) valsartan 160 mg capsule 160 mg PO .9AM AND 5PM 12/24/22 05/22/23 pantoprazole 40 mg tablet,delayed 40 mg PO QDAY 05/22/23 05/22/23 release (Protonix)
[2023-05-22 13:05] LABS: APPEARANCE,URINE CLEAR (CLEAR); BACTERIA,URINE TRACE /HPF (NEGATIVE); COLOR,URINE PALE YELLOW (YELLOW); RBC,URINE 0-2 /HPF (0-3); SQUAMOUS EPITHELIAL CELL,UR FEW /HPF (NEGATIVE)
--- NOTE | 2023-05-22 13:06 | PCM.PROG ---
Progress Note - Progress Note for Day of Date of Exam: 05/22/23 - Subjective Subjective: PT IS 57 BF, ADMITTED WITH FAILED OUTPT TREATMENT OF PNEUMONIA AND UTI. PT CXR ON ADMISSION REVEALED PULMONARY VASCULAR CONGESTION AND INFILTRATES. A SPUTUM CULTURE HAS BEEN ORDERED BUT UNCOLLECTED. PT IS CURRENTLY ON IV ABTX. MATOS CATHETER PLACED WITH UA/UC ORDERED. IV LASIX 40 Q 12 WITH POTASSIUM REPLACEMENT ADDED AND STRICT I&OS. PT ABD REVEALED CO2 RETENTION, WILL DISCUSSED CPAP AT NIGHT WITH RESP. PT IS CURRENTLY ON 3 L/NC O2 SAT 92 AT REST. PT CO NAUSEA AND RASH TO "PRIVATE AREA" PT HAD RESP SWAB ON ADMISSION. - Past Medical Family Social History Past Med/Fam/Surg Hx: No changes since H&P Allergies: Allergies acetaminophen [From Darvocet-N 100] Allergy (Verified 05/21/23 16:31) levofloxacin [From Levaquin] Allergy (Verified 05/21/23 16:31) propoxyphene [From Darvocet-N 100] Allergy (Verified 05/21/23 16:31) - Review of Systems ROS: No change since H&P - Vital Signs and I&O's Vital Signs: Vital Signs Temperature 97.7 F Temperature 98.1 F Pulse Rate [Right Radial] 72 Pulse Rate [Right Radial] 73 Pulse Rate 73 Respiratory Rate 20 Respiratory Rate 22 Blood Pressure [Left Calf] 182/86 O2 Sat by Pulse Oximetry 100 O2 Sat by Pulse Oximetry 100 O2 Sat by Pulse Oximetry 100 Intake and Output: Intake & Output 05/20/23 05/21/23 05/22/23 05/23/23 11:59 11:59 11:59 11:59 Intake Total 1678 / 1678 Balance 1678 / 1678 - Physical Exam Oriented: Normal Eyes: Normal Ear: Normal Nose: Normal Throat: Dry Respiratory: Diminished, Wheezes, Rales (FINE TO BILATERAL BASES) Cardiovascular: Normal, Murmur, Edema : Normal Auscultation: Bowel Sounds: Normal Tenderness: Normal Skin: Decreased Turgur, Rash (DIFFUSE REDNESS TO PERINEAL AREA AND INNER THIGHS), Wound (STAGE 2PRESURE ULCER TO LEFT POSTERIOR THIGH) Musculoskeletal: Motor Deficit, Sensory Deficit Psychiatric: Anxiety Affect: Anxious Speech Pattern: Clear, Appropriate - Laboratory and Diagnostics Result Diagrams: 05/22/23 09:25 05/22/23 09:25 Labs: Laboratory WBC 7.4 X10^3/uL (3.6-10.0) 05/22/23 09:25 RBC 3.82 X10^6/uL (3.5-5.4) 05/22/23 09:25 Hgb 10.1 g/dL (12.0-16.0) L 05/22/23 09:25 Hct 31.3 % (36.0-47.0) L 05/22/23 09:25 MCV 82.0 fL (80.0-100.0) 05/22/23 09:25 MCH 26.4 pg (27.0-34.0) L 05/22/23 09:25 MCHC 32.2 g/dL (33.0-35.0) L 05/22/23 09:25 RDW 17.5 % (11.6-16.5) H 05/22/23 09:25 Plt Count 161 X10^3/uL (150.0-450.0) 05/22/23 09:25 Plt Count Comment Adequate (ADEQUATE) 05/22/23 09:25 MPV 9.0 fL (7.4-11.0) 05/22/23 09:25 Neut % (Auto) 66.4 % (42.0-75.0) 05/22/23 09:25 Lymph % (Auto) 24.4 % (21.0-51.0) 05/22/23 09:25 Crook % (Auto) 5.6 % (0.0-13.0) 05/22/23 09:25 Eos % (Auto) 3.1 % (0.9-2.9) H 05/22/23 09:25 Baso % (Auto) 0.5 % (0.2-1.0) 05/22/23 09:25 Neut # (Auto) 4.3 x10^3/uL (2.2-4.8) 05/22/23 09:25 Lymph # (Auto) 1.6 X10^3/uL (1.3-2.9) 05/22/23 09:25 Crook # (Auto) 0.4 x10^3/uL (0.3-0.8) 05/22/23 09:25 Eos # (Auto) 0.2 x10^3/uL (0.0-0.2) 05/22/23 09:25 Baso # (Auto) 0.0 X10^3/uL (0.0-0.1) 05/22/23 09:25 Absolute Nucleated RBC 0.2 /100WBC 05/22/23 09:25 Plt Morphology Comment Normal (NORMAL) 05/22/23 09:25 RBC Morphology Abnormal (NORMAL) A 05/22/23 09:25 Hypochromasia Slight A 05/22/23 09:25 Anisocytosis Slight A 05/22/23 09:25 Sample Site Rb 05/22/23 11:00 ABG pH 7.330 (7.35-7.45) L 05/22/23 11:00 ABG pCO2 66.0 mmHg (35.0-45.0) H* 05/22/23 11:00 ABG pO2 105.0 mmHg (80.0-100.0) H 05/22/23 11:00 ABG HCO3 34.8 mmol/L (22-26) H* 05/22/23 11:00 ABG O2 Saturation 98.0 % (90-100) 05/22/23 11:00 ABG Base Excess 6.8 mmol/L (-2.0-2.0) H 05/22/23 11:00 Davey Test Na 05/22/23 11:00 A-a Gradient 41.0 mmHg 05/22/23 11:00 FiO2 32.0 05/22/23 11:00 Blood Gas Comments Pt rashawn well cdn 05/22/23 11:00 Sodium 137 mmol/L (136-145) 05/22/23 09:25 Corrected Sodium 139 mmol/L (136-145) 05/22/23 09:25 Potassium 4.0 mmol/L (3.5-5.1) 05/22/23 09:25 Chloride 103 mmol/L (98-107) 05/22/23 09:25 Carbon Dioxide 31.5 mmol/L (21-32) 05/22/23 09:25 BUN 11 mg/dL (7-18) 05/22/23 09:25 Creatinine 0.86 mg/dL (0.55-1.02) 05/22/23 09:25 Est GFR (MDRD) Af Amer > 60 (>60) 05/22/23 09:25 Est GFR (MDRD) Non-Af > 60 (>60) 05/22/23 09:25 Glucose 173 mg/dL (65-99) H 05/22/23 09:25 POC Glucose (mg/dL) 206 mg/dL (65-99) H 05/22/23 10:45 Calcium 8.0 mg/dL (8.5-10.1) L 05/22/23 09:25 Corrected Calcium 9.0 mg/dL (8.5-10.1) 05/22/23 09:25 Total Bilirubin 0.20 mg/dL (0.2-1.0) 05/22/23 09:25 AST 12 Units/L (15-37) L 05/22/23 09:25 ALT 7 Units/L (12-78) L 05/22/23 09:25 Alkaline Phosphatase 81 Units/L (46-116) 05/22/23 09:25 Creatine Kinase 159 Units/L (26-192) 05/22/23 09:25 Troponin I High Sens 19.5 ng/L (4.0-60.0) 05/22/23 09:25 Total Protein 6.6 g/dL (6.4-8.2) 05/22/23 09:25 Albumin 2.7 g/dL (3.4-5.0) L 05/22/23 09:25 Globulin 3.9 g/dL (2.5-4.5) 05/22/23 09:25 Albumin/Globulin Ratio 0.7 Ratio (1.1-2.1) L 05/22/23 09:25 - Plan (1) Pneumonia Status: Acute Qualifiers: Pneumonia type: due to unspecified organism Laterality: bilateral Lung location: lower lobe of lung Qualified Code(s): J18.9 - Pneumonia, unspecified organism Plan: PNEUMONIA PROTOCOL. CXR, RESP THERAPY, SUPPLEMENTAL O2. IV ATBX, BLOOD AND SPUTUM CULTURE ON ADMISSION. BP AND CARDIAC MONITORING. ADMISSION LABS, CONFIRM AND RESUME HOME MEDICATION. BS CONTROL (2) UTI (urinary tract infection) Status: Acute (3) Hypertension Status: Chronic (4) Diabetes mellitus, type 2 Status: Chronic (5) CHF (congestive heart failure) Status: Acute (6) Hemiplegia affecting left nondominant side Status: Acute
[2023-05-22] MEDS: NEURONTIN TAB 600 MG PO SCH ×2 (14:12→21:29)
[2023-05-22] MEDS: K-DUR TAB 20 MEQ PO SCH ×2 (14:12→21:30)
[2023-05-22] MEDS: NS 1,000 ML IV 1,000 ML IV SCH (14:53)
[2023-05-22] MEDS: SOLU-Medrol 40 MG VIAL IVP SCH ×4 (14:54→22:48)
[2023-05-22] MEDS: LASIX IVP SCH (17:10)
[2023-05-22] MEDS: NORCO 10/325 TAB PO PRN (18:19)
[2023-05-22] MEDS ORDERED: LEXAPRO ONE (21:06)
[2023-05-22] MEDS: ELAVIL PO SCH (21:29)
[2023-05-22] MEDS: LIPITOR TAB 20 MG PO SCH (21:29)
[2023-05-22] MEDS: LEXAPRO PO SCH (21:30)
[2023-05-22] MEDS: COREG TAB 12.5 MG PO SCH (21:30)
[2023-05-23] MEDS: NS 1/2 1,000 ML IV 1,000 ML IV SCH ×2 (05:43→17:32)
[2023-05-23] MEDS: NovoLIN R (or HumuLIN R) SC PRN ×4 (05:53→21:13)
[2023-05-23] MEDS: NEURONTIN TAB 600 MG PO SCH ×3 (05:54→21:12)
[2023-05-23] MEDS: SOLU-Medrol 40 MG VIAL IVP SCH (05:54)
[2023-05-23] MEDS: XOPENEX 1.25 MG/3 ML NEBULE NEB SCH ×6 (06:00→20:37)
[2023-05-23] MEDS ORDERED: XOPENEX 1.25 MG/3 ML NEBULE NEB ONE (06:04)
[2023-05-23 06:48] LABS: BASOPHILS % (AUTO) 0.5 % (0.2-1.0); EOSINOPHILS % (AUTO) 0.2 % (0.9-2.9); HEMATOCRIT 32.5 % (36.0-47.0); HEMOGLOBIN 10.2 g/dL (12.0-16.0); LYMPHOCYTES # (AUTO) 0.7 X10^3/uL (1.3-2.9); LYMPHOCYTES % (AUTO) 10.7 % (21.0-51.0); MEAN CORPUSCULAR HGB CONC 31.4 g/dL (33.0-35.0); MEAN CORPUSCULAR VOLUME 82.6 fL (80.0-100.0); MEAN PLATELET VOLUME 9.2 fL (7.4-11.0); MONOCYTES # (AUTO) 0.1 x10^3/uL (0.3-0.8); MONOCYTES % (AUTO) 1.6 % (0.0-13.0); NEUTROPHILS # (AUTO) 5.4 x10^3/uL (2.2-4.8); PLATELET COUNT 169 X10^3/uL (150.0-450.0); RED BLOOD COUNT 3.94 X10^6/uL (3.5-5.4); RED CELL DISTRIBUTION WIDTH 17.6 % (11.6-16.5); WHITE BLOOD COUNT 6.2 X10^3/uL (3.6-10.0)
[2023-05-23 07:03] LABS: ALANINE AMINOTRANSFERASE 13 Units/L (12-78); ALBUMIN 2.9 g/dL (3.4-5.0); ALKALINE PHOSPHATASE 84 Units/L (46-116); ASPARTATE AMINO TRANSFERASE 8 Units/L (15-37); BLOOD UREA NITROGEN 14 mg/dL (7-18); CALCIUM 8.1 mg/dL (8.5-10.1); CARBON DIOXIDE 30.7 mmol/L (21-32); CHLORIDE 101 mmol/L (98-107); COR NA(FOR HYPERGLY) 145 mmol/L (136-145); CREATININE 0.96 mg/dL (0.55-1.02); GLUCOSE 345 mg/dL (65-99); POTASSIUM 4.7 mmol/L (3.5-5.1); SODIUM 139 mmol/L (136-145); TOTAL PROTEIN 7.2 g/dL (6.4-8.2); eGFR NON BLACK RACES > 60 (>60)
--- NOTE | 2023-05-23 07:46 | RAD ---
HISTORYPNEUMONIA, CHFSTUDYCHEST, 1 QFRGYXUIYSROLE54/25/2023FINDINGSThe cardiomediastinal silhouette is widened but stable. Similar congestion. No pneumothorax or effusion. The bony thorax appears intact.IMPRESSIONSimilar congestion and possible mild edema.Electronically signed by: ACOSTA HURLEY (May 23, 2023 07:44:34)
[2023-05-23] MEDS: PULMICORT NEB TX 0.5 MG NEB SCH ×2 (08:05→20:38)
[2023-05-23] MEDS: CYMBALTA PO SCH (09:30)
[2023-05-23] MEDS: WELLBUTRIN XL 150 MG (DAILY) PO SCH (09:30)
[2023-05-23] MEDS: COREG TAB 12.5 MG PO SCH ×2 (09:30→21:11)
[2023-05-23] MEDS: ROBITUSSIN DM PO SCH ×4 (09:30→21:11)
[2023-05-23] MEDS: PLAVIX PO SCH (09:30)
[2023-05-23] MEDS: LASIX IVP SCH ×2 (09:30→17:30)
[2023-05-23] MEDS: K-DUR TAB 20 MEQ PO SCH ×2 (09:38→17:33)
[2023-05-23] MEDS: NS 1,000 ML IV 1,000 ML IV SCH (13:05)
[2023-05-23] MEDS: ROCEPHIN VIAL 1 GRAM IM SCH (17:26)
[2023-05-23] MEDS ORDERED: LEXAPRO ONE (19:20)
[2023-05-23] MEDS: LEXAPRO PO SCH (21:10)
[2023-05-23] MEDS: ELAVIL PO SCH (21:10)
[2023-05-23] MEDS: LIPITOR TAB 20 MG PO SCH (21:11)
[2023-05-23] MEDS: NORCO 10/325 TAB PO PRN (21:12)
[2023-05-23] MEDS: XANAX PO PRN (22:34)
[2023-05-24] MEDS: NS 1/2 1,000 ML IV 1,000 ML IV SCH (04:06)
[2023-05-24] MEDS: NORCO 10/325 TAB PO PRN ×2 (04:35→21:27)
[2023-05-24] MEDS: NovoLIN R (or HumuLIN R) SC PRN ×4 (05:48→21:30)
[2023-05-24] MEDS: NEURONTIN TAB 600 MG PO SCH ×3 (05:54→21:27)
[2023-05-24] MEDS: XOPENEX 1.25 MG/3 ML NEBULE NEB SCH ×4 (08:23→20:34)
[2023-05-24] MEDS: PULMICORT NEB TX 0.5 MG NEB SCH ×2 (08:23→20:34)
[2023-05-24 08:32] LABS: BASOPHILS % (AUTO) 0.5 % (0.2-1.0); EOSINOPHILS % (AUTO) 0.3 % (0.9-2.9); HEMATOCRIT 32.9 % (36.0-47.0); HEMOGLOBIN 10.4 g/dL (12.0-16.0); LYMPHOCYTES # (AUTO) 1.7 X10^3/uL (1.3-2.9); LYMPHOCYTES % (AUTO) 19.4 % (21.0-51.0); MEAN CORPUSCULAR HGB CONC 31.7 g/dL (33.0-35.0); MEAN PLATELET VOLUME 8.7 fL (7.4-11.0); MONOCYTES # (AUTO) 0.6 x10^3/uL (0.3-0.8); MONOCYTES % (AUTO) 7.3 % (0.0-13.0); NEUTROPHILS # (AUTO) 6.2 x10^3/uL (2.2-4.8); NEUTROPHILS % (AUTO) 72.5 % (42.0-75.0); PLATELET COUNT 172 X10^3/uL (150.0-450.0); RED CELL DISTRIBUTION WIDTH 17.3 % (11.6-16.5); WHITE BLOOD COUNT 8.6 X10^3/uL (3.6-10.0)
[2023-05-24 08:40] LABS: ALANINE AMINOTRANSFERASE 12 Units/L (12-78); ALKALINE PHOSPHATASE 78 Units/L (46-116); ASPARTATE AMINO TRANSFERASE 11 Units/L (15-37); BLOOD UREA NITROGEN 20 mg/dL (7-18); CALCIUM 8.5 mg/dL (8.5-10.1); CARBON DIOXIDE 33.4 mmol/L (21-32); COR CA(FOR HYPOALB) 9.3 mg/dL (8.5-10.1); CREATININE 1.03 mg/dL (0.55-1.02); GLUCOSE 378 mg/dL (65-99); TOTAL PROTEIN 7.1 g/dL (6.4-8.2); eGFR NON BLACK RACES 59 (>60)
[2023-05-24 08:50] LABS: CHLORIDE 96 mmol/L (98-107); COR NA(FOR HYPERGLY) 143 mmol/L (136-145); POTASSIUM 4.1 mmol/L (3.5-5.1); SODIUM 136 mmol/L (136-145)
[2023-05-24] MEDS: ROBITUSSIN DM PO SCH ×4 (09:59→21:28)
[2023-05-24] MEDS: WELLBUTRIN XL 150 MG (DAILY) PO SCH (09:59)
[2023-05-24] MEDS: COREG TAB 12.5 MG PO SCH ×2 (09:59→21:27)
[2023-05-24] MEDS: K-DUR TAB 20 MEQ PO SCH ×2 (09:59→17:45)
[2023-05-24] MEDS: PLAVIX PO SCH (09:59)
[2023-05-24] MEDS: CYMBALTA PO SCH (09:59)
[2023-05-24] MEDS: LOVENOX INJ 40 MG SYR SC SCH (10:49)
[2023-05-24 11:15] LABS: BILIRUBIN,URINE NEGATIVE (NEGATIVE); BLOOD/HEMOGLOBIN,URINE 4+ (NEGATIVE); GLUCOSE, URINE 2+ (NEGATIVE); KETONES,URINE NEGATIVE (NEGATIVE); LEUKOCYTE ESTERASE ,URINE 3+ (NEGATIVE); NITRITES,URINE NEGATIVE (NEGATIVE); PROTEIN,URINE 3+ (NEGATIVE); UROBILINOGEN,URINE NORMAL (NORMAL)
[2023-05-24 11:16] LABS: APPEARANCE,URINE CLOUDY (CLEAR); COLOR,URINE YELLOW (YELLOW)
[2023-05-24 11:23] LABS: BACTERIA,URINE 1+ /HPF (NEGATIVE); SQUAMOUS EPITHELIAL CELL,UR MANY /HPF (NEGATIVE)
[2023-05-24] MEDS: LASIX IVP SCH ×2 (11:48→17:46)
[2023-05-24] MEDS: ROCEPHIN VIAL 1 GRAM IM SCH (11:48)
[2023-05-24] MEDS: NS 1,000 ML IV 1,000 ML IV SCH (17:40)
[2023-05-24] MEDS ORDERED: LEXAPRO ONE (19:30)
[2023-05-24] MEDS: LEXAPRO PO SCH (21:27)
[2023-05-24] MEDS: XANAX PO PRN (21:27)
[2023-05-24] MEDS: LIPITOR TAB 20 MG PO SCH (21:27)
[2023-05-24] MEDS: ELAVIL PO SCH (21:27)
[2023-05-25] MEDS: NEURONTIN TAB 600 MG PO SCH (05:43)
[2023-05-25] MEDS: NovoLIN R (or HumuLIN R) SC PRN ×2 (05:44→11:57)
[2023-05-25 06:24] LABS: BASOPHILS # (AUTO) 0.1 X10^3/uL (0.0-0.1); BASOPHILS % (AUTO) 1.5 % (0.2-1.0); EOSINOPHILS # (AUTO) 0.2 x10^3/uL (0.0-0.2); EOSINOPHILS % (AUTO) 2.1 % (0.9-2.9); HEMATOCRIT 31.7 % (36.0-47.0); LYMPHOCYTES # (AUTO) 3.3 X10^3/uL (1.3-2.9); LYMPHOCYTES % (AUTO) 40.5 % (21.0-51.0); MEAN CORPUSCULAR HGB CONC 31.5 g/dL (33.0-35.0); MEAN CORPUSCULAR VOLUME 82.5 fL (80.0-100.0); MEAN PLATELET VOLUME 9.4 fL (7.4-11.0); MONOCYTES # (AUTO) 0.6 x10^3/uL (0.3-0.8); MONOCYTES % (AUTO) 7.9 % (0.0-13.0); NEUTROPHILS # (AUTO) 3.9 x10^3/uL (2.2-4.8); PLATELET COUNT 171 X10^3/uL (150.0-450.0); RED BLOOD COUNT 3.84 X10^6/uL (3.5-5.4); RED CELL DISTRIBUTION WIDTH 17.5 % (11.6-16.5); WHITE BLOOD COUNT 8.2 X10^3/uL (3.6-10.0)
[2023-05-25 06:26] LABS: CARBON DIOXIDE 34.9 mmol/L (21-32); COR CA(FOR HYPOALB) 8.8 mg/dL (8.5-10.1); CREATININE 1.54 mg/dL (0.55-1.02); POTASSIUM 4.4 mmol/L (3.5-5.1); TOTAL PROTEIN 6.8 g/dL (6.4-8.2)
[2023-05-25] MEDS: XOPENEX 1.25 MG/3 ML NEBULE NEB SCH (08:51)
[2023-05-25] MEDS: PULMICORT NEB TX 0.5 MG NEB SCH (08:51)
--- NOTE | 2023-05-25 09:09 | RAD ---
HISTORYPNEUMONIA Relevant Clinical InformationSTUDYCHEST, 1 VIEWCOMPARISONPrior dayFINDINGSThe trachea is midline. The cardiac silhouette is moderately enlarged. The lungs are unremarkable though poorly evaluated secondary to low lung volumes..IMPRESSIONCardiomegaly with hypoventilatory lungs limiting evaluation. Consider repeat exam.Electronically signed by: Kleber Cherry (May 24, 2023 18:49:28)
[2023-05-25] MEDS: LOVENOX INJ 40 MG SYR SC SCH (09:24)
[2023-05-25] MEDS: WELLBUTRIN XL 150 MG (DAILY) PO SCH (09:24)
[2023-05-25] MEDS: CYMBALTA PO SCH (09:24)
[2023-05-25] MEDS: COREG TAB 12.5 MG PO SCH (09:24)
[2023-05-25] MEDS: ROBITUSSIN DM PO SCH ×2 (09:24→13:19)
[2023-05-25] MEDS: K-DUR TAB 20 MEQ PO SCH (09:24)
[2023-05-25] MEDS: LASIX IVP SCH (09:25)
[2023-05-25] MEDS: ROCEPHIN VIAL 1 GRAM IM SCH (09:25)
[2023-05-25] MEDS: PLAVIX PO SCH (09:26)
[2023-05-25 13:08] VITALS: BP 122/66; PULSE 68; RESP 20; TEMP 97.8; O2SAT 96
== END 2023-05-25 13:50 | disposition home or self-care (01) | DRG 194 ==
LOC: MED/SURG
PROVIDERS: ADMIT Internal Medicine; ATTEND Internal Medicine

== ENCOUNTER 2025-08-14 06:33 | Observation (INO) ==
[2025-08-14] MEDS: NS 1,000 ML IV 1,000 ML ONE ×4 (07:44→15:16)
[2025-08-14] MEDS: NovoLIN R (or HumuLIN R) SUBCUT ONE (07:50)
[2025-08-14 08:13] LABS: COR NA(FOR HYPERGLY) 152.0 mmol/L (136-145); CREATININE 1.23 mg/dL (0.55-1.02); eGFR NON BLACK RACES 47.0 (>60)
[2025-08-14] MEDS: DUONEB 0.5 MG/3 MG (3 mL) NEB ONE (08:38)
[2025-08-14] MEDS: NovoLIN R (or HumuLIN R) SUBCUT PRN ×2 (08:58→16:56)
[2025-08-14] MEDS ORDERED: XYLOCAINE 2 % (PLAIN) ONE (09:15)
[2025-08-14] MEDS ORDERED: PRECEDEX INJ VIAL ONE (09:15)
[2025-08-14] MEDS ORDERED: KETAMINE HCL ONE (09:15)
[2025-08-14] MEDS: NS 1,000 ML IV 600 ML IV PRN (09:25)
[2025-08-14] MEDS: VERSED IVP PRN (09:35)
[2025-08-14] MEDS: ZOFRAN INJ 4 MG VIAL IVP PRN (09:36)
[2025-08-14] MEDS: PEPCID 20 MG VIAL IVP PRN (09:38)
[2025-08-14] MEDS: REGLAN INJ 10 MG VIAL IVP PRN (09:40)
[2025-08-14] MEDS: ANCEF VIAL 1 GRAM IV PRN (09:42)
[2025-08-14] MEDS: NS 100 ML IV 100 ML ONE (09:43)
[2025-08-14] MEDS: ANCEF VIAL 1 GRAM ONE (09:43)
[2025-08-14] MEDS: FENTANYL VIAL INJ 100 mcg IVP PRN (09:47)
[2025-08-14] MEDS: KETAMINE HCL IVP PRN (09:48)
[2025-08-14] MEDS: DIPRIVAN VIAL 200 ML IVP PRN (09:48)
[2025-08-14] MEDS: XYLOCAINE 2 % (PLAIN) IVP PRN (09:48)
[2025-08-14] MEDS: PRECEDEX INJ VIAL IVP PRN (09:48)
[2025-08-14] MEDS: OFIRMEV IV 1000 MG VIAL 1,000 MG/100 ML VIAL IV PRN (09:52)
[2025-08-14] MEDS: HEPARIN 1,000 UNIT/500 ML-NS 3,000 UNIT/1,500 ML IV.SOLN ONE (10:13)
[2025-08-14] MEDS: VISIPAQUE 50 ML ONE (10:13)
[2025-08-14] MEDS: VISIPAQUE 100 ML ONE (10:13)
[2025-08-14] MEDS: MARCAINE 0.5% ONE (10:13)
[2025-08-14] MEDS ORDERED: HEPARIN SODIUM INJ 5000 UNITS IVP PRN (10:15)
[2025-08-14] MEDS: EPHEDRINE SULFATE INJ IVP PRN (11:05)
[2025-08-14] MEDS: NEO-SYNEPHRINE INJ IVP PRN (11:07)
--- NOTE | 2025-08-14 11:35 | OR.IMMED ---
IMMEDIATE POST-OP NOTE Immediate Post-Op Note Date of surgery/procedure: 08/14/25 Pre-Op Diagnosis: Critical ischemia left leg with rest pain Post-Op Diagnosis: Same, see findings below Procedure: Aortogram, arteriogram left lower extremity, atherectomy and drug- coated balloon angioplasty of the left superficial femoral and left popliteal arteries Description of Procedure: dictated Surgeon/Supervisor Stave Cutting: Bryson Alford MD, FACS Findings: Complete occlusion of the left superficial femoral artery from its takeoff all the way to the knee joint, three-vessel runoff to the Estimated Blood Loss: 100 cc Complications: None
--- NOTE | 2025-08-14 12:10 | DR.OPNOTE ---
OP NOTE Pre-Op Diagnosis: Critical ischemia left leg, long segment occlusion of left SFA Post-Op Diagnosis: Same, see findings below Procedure Date Date Of Procedure: 08/14/25 Procedure: PROCEDURE: Diagnostic aortogram, diagnostic arteriogram left leg, Atherectomy and drug-coated balloon angioplasty of left superficial femoral artery and left popliteal artery NARRATIVE: The patient was taken to the operative suite and placed in the supine position. The right groin and entire left leg were prepped and draped in sterile fashion. Patient was given intravenous sedation supervised by myself. Timeout for the procedure obtained. Ultrasound used to identify the femoral artery in the right groin and the skin overlying it infiltrated with 0.5% Marcaine. Ultrasound used to guide puncture of the right femoral artery and a 0.012 inch guidewire placed. Incision made over the guidewire at the skin edge with a #11 knife blade and the micro sheath placed over the guidewire into the femoral artery. Small wire exchanged for a 0.035 inch Advantage Glidewire and the micro sheath exchanged for a 5 Syrian vascular sheath. Patient given 5000 units of intravenous heparin. Omni catheter placed over the guidewire into the aorta and power injector used to perform aortogram showing normal patent aorta and patent iliac arteries with high bifurcation. The Omni catheter was then used to direct the guidewire down the left common iliac artery to the distal left external iliac artery. The Omni catheter exchanged for a [place] catheter and sequential arteriograms performed of the left leg showing complete occlusion of the left superficial femoral artery from its takeoff all the way to the popliteal artery at the knee joint with three-vessel runoff to the ankle The [place] catheter removed and over the guidewire the 5 Syrian sheath was exchanged for a 7 Syrian Catpult Sheath which required use of a 4 mm balloon to get the sheath across the bifurcation into the left side. This sheath parked in the distal left external iliac artery. [place] catheter and the 0.035 guidewire used to traverse the arteries of the left leg ultimately ending in the left posterior tibial. This was selective catheterization . [place] catheter used to exchange 0.035 inch wire for a 0.014 inch Thruway wire. Over the Thru way wire we placed the Jetstream 2.1 mm / 3.0 mm atherectomy device and formed atherectomy of the entire left superficial femoral artery and popliteal artery. Once this was completed we then balloon dilated the popliteal artery in the distal left superficial femoral artery using 5 mm x 200 mm [place] [employer] [place] drug-coated balloons x 2 with 3 mL of overlap ,inflated each for 3 minutes. We then dilated the proximal left superficial femoral artery using a 6 mm x 200 mm [place] drug-coated balloon and a 6 mm x 60 mm drug-coated balloon each inflated for 3 minutes with 3 mm overlap. Postprocedure arteriogram showed excellent flow through the entire left superficial femoral artery with good three-vessel runoff to the left foot Wires and devices removed from the Catapult sheath. This sheath pulled back into the aorta and a 0.035 guidewire placed. Catapult sheath exchanged over the wire for a Angio-Seal device used to close the puncture of the right femoral artery. Patient taken to same-day surgery in good condition. Type of Anesthesia: Local (0.5% Marcaine ) Anesthesia Comment: plus MAC Findings: Complete occlusion of the left superficial femoral artery from its takeoff all the way to the popliteal artery with three-vessel runoff to the left foot Type of Fluids Used:: Lactated Ringers Total Amount of Fluid Infused:: 600cc Urine output: 0 EBL: 100cc Complications:: none Needle/Sponge Count:: correct Disposition/Condition: Pt. tolerated procedure without difficulty. Taken to [facility] in stable condition.
[2025-08-14 12:22] LABS: BLOOD/HEMOGLOBIN,URINE 3+ (NEGATIVE); LEUKOCYTE ESTERASE ,URINE 2+ (NEGATIVE); NITRITES,URINE NEGATIVE (NEGATIVE)
[2025-08-14 12:30] LABS: APPEARANCE,URINE CLEAR (CLEAR)
[2025-08-14 12:31] LABS: SQUAMOUS EPITHELIAL CELL,UR RARE /HPF (NEGATIVE)
[2025-08-14 12:51] VITALS: BMI 43.2
[2025-08-14] MEDS: PEPCID 20 MG VIAL ONE (14:49)
[2025-08-14] MEDS: OFIRMEV IV 1000 MG VIAL 1,000 MG/100 ML VIAL IV ONE (14:50)
[2025-08-14] MEDS: HEPARIN SODIUM INJ 5000 UNITS ONE (14:50)
[2025-08-14] MEDS: FENTANYL VIAL INJ 100 mcg ONE (14:50)
[2025-08-14] MEDS: ZOFRAN INJ 4 MG VIAL ONE (14:50)
[2025-08-14] MEDS: VERSED ONE (14:50)
[2025-08-14] MEDS: DIPRIVAN VIAL 20 ML ONE ×2 (14:50→14:51)
[2025-08-14] MEDS: REGLAN INJ 10 MG VIAL ONE (14:51)
[2025-08-14] MEDS: NEO-SYNEPHRINE INJ ONE (14:51)
[2025-08-14] MEDS: OFIRMEV IV 1000 MG VIAL 0 MG/0 ML VIAL IV ONE (14:51)
[2025-08-14] MEDS ORDERED: PERCOCET TAB 5/325 MG PO PRN (15:25)
[2025-08-14] MEDS ORDERED: HYOSCYAMINE SULFATE ODT PO PRN (15:25)
--- NOTE | 2025-08-14 15:38 | NOTE.SOAP ---
Soap Note Note for Day of Date of Exam: 08/14/25 Subjective Data Subjective Data: Morbidly obese patient in skilled nurse facility with left hemiplegia but severe ischemia left leg. Family does not want to have her leg at risk therefore she underwent atherectomy and drug-coated balloon angioplasty of complete occlusion of the entire left superficial artery. Preoperatively patient's blood sugar was greater than 400 and stay greater than 400 spite 3 rounds of regular insulin as a sliding scale. Patient also hypotensive postprocedure. Patient to be admitted for observation and consult internal medicine. Objective Data Temperature: 97.8 F Pulse Rate: 63 Respiratory Rate: 18 Blood Pressure: 105/71 O2 Sat by Pulse Oximetry: 100 Objective Data: Abdomen soft and benign. Left foot warm. Needlestick right groin without hematoma. Assessment Assessment: Post arterial invention of left leg. Patient markedly abnormal blood sugars. Diabetic not good control. Plan Plan: Arterial invention. Consult internal medicine to address her hyperglycemia.
[2025-08-14] MEDS: NS 1,000 ML IV 1,000 ML IV SCH (15:46)
[2025-08-14] MEDS: PULMICORT NEB TX 0.5 MG NEB SCH (20:10)
[2025-08-14] MEDS: ELAVIL PO SCH (21:07)
[2025-08-14] MEDS: COREG TAB 12.5 MG PO SCH (21:07)
[2025-08-14] MEDS: ABILIFY PO SCH (21:07)
[2025-08-14] MEDS: WELLBUTRIN IR (PLAIN) PO SCH (21:07)
[2025-08-14] MEDS: NEURONTIN TAB 600 MG PO SCH (21:08)
[2025-08-14] MEDS: LIORESAL PO SCH (21:08)
[2025-08-14] MEDS: ALPRAZOLAM ODT PO PRN (21:11)
[2025-08-15 06:05] LABS: MEAN PLATELET VOLUME 8.9 fL (7.4-11.0); RED CELL DISTRIBUTION WIDTH 17.0 % (11.6-16.5)
[2025-08-15 06:21] LABS: COR CA(FOR HYPOALB) 9.4 mg/dL (8.5-10.1); COR NA(FOR HYPERGLY) 147 mmol/L (136-145); CREATININE 1.05 mg/dL (0.55-1.02); eGFR NON BLACK RACES 57 (>60)
[2025-08-15 07:55] VITALS: PULSE 68
[2025-08-15] MEDS ORDERED: LEXAPRO ONE (08:24)
[2025-08-15] MEDS: CYMBALTA PO SCH (08:34)
[2025-08-15] MEDS: COZAAR PO SCH (08:34)
[2025-08-15] MEDS: PROTONIX TAB 40 MG PO SCH (08:34)
[2025-08-15] MEDS: TOPAMAX PO SCH (08:34)
[2025-08-15] MEDS: LEXAPRO PO SCH (08:34)
[2025-08-15] MEDS: KLOR-CON 10 MEQ TAB PO SCH (08:34)
[2025-08-15] MEDS: PLAVIX PO SCH (08:35)
[2025-08-15] MEDS: LASIX PO SCH (08:35)
[2025-08-15] MEDS: LIPITOR TAB 10 MG PO SCH (08:35)
[2025-08-15] MEDS ORDERED: BUTT CREAM (COMPOUND) TOP PRN (08:49)
[2025-08-15] MEDS: LANTUS SC NR (09:51)
--- NOTE | 2025-08-15 10:20 | DR.CONSULT ---
CONSULT Consultation for Day of: Date: 08/15/25 Chief Complaint Chief Complaint: hyperglycemia Allergies Allergies Allergy/AdvReac Type Severity Reaction Status Date / Time acetaminophen (From Allergy Verified 05/21/23 16:31 Darvocet-N 100) levofloxacin (From Levaquin) Allergy Verified 05/21/23 16:31 propoxyphene (From Allergy Verified 05/21/23 16:31 Darvocet-N 100) History of Present Illness History of Present Illness: Patient is a 60-year-old female with a past medical history of uncontrolled type 2 diabetes, COPD, GERD, hypertension, CVA, peripheral vascular disease, CAD and hyperlipidemia who presented from [facility] for left leg ischemia. She underwent intervention by Dr. Alford yesterday. She underwent atherectomy and drug-coated balloon angioplasty of complete occlusion of the entire left superficial artery. She was noted to have elevated glucose and low blood pressure postop so was admitted for observation. She did have hyperglycemia prior to the procedure and was given regular insulin. She was then started on SSI. She reports that her glucose levels stay elevated at the [facility]. She does take Lantus 50 units twice a day and sliding scale insulin. She is currently NPO. Her BP has improved. Labs/imaging reviewed: - WBC 6.9 hemoglobin 10.6 potassium 4.0 glucose 121 creatinine 1.05 Plan: Start diabetic diet, resume Lantus 25 units now. Continue sliding scale. Check A1c.Follow surgery recommendations. Continue home medications as appropriate. Patient stable for discharge back to the [place] [facility] and will need to follow-up with Dr. Alford. 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 Family History Family Medical History: Diabetes Mellitus, Cancer, [place], Coronary Artery Disease, Heart Failure, Sudden Cardiac and Hypertension Social History Does patient currently use any type of tobacco product: No Have you used tobacco products in the last 12 months: No Type of Tobacco Use: None Does any household member use tobacco: No Alcohol Use: None Drug Use: Cocaine Medications Home Medications: acetaminophen (From Darvocet-N 100) Allergy (Verified 05/21/23 16:31) levofloxacin (From Levaquin) Allergy (Verified 05/21/23 16:31) propoxyphene (From Darvocet-N 100) Allergy (Verified 05/21/23 16:31) CONTINUE taking the following medications acetaminophen 325 mg tablet (Tylenol) 650 mg PO Q6H PRN 08/14/25 [History] aripiprazole 2 mg tablet (Abilify) 2 mg PO DAILY 08/14/25 [History] cyanocobalamin (vitamin B-12) 1,000 mcg/mL injection solution 1,000 mcg IM MONTHLY 08/14/25 [History] dextromethorphan-guaifenesin 5 mg-100 mg/5 mL oral liquid 10 ml PO Q4H PRN Cough 08/14/25 [History] dextrose 40 % oral gel (Glucose Gel) 1 ea PO PRN PRN BS less than 50 and responsive 08/14/25 [History] doxepin 10 mg capsule 10 mg PO DAILY 08/14/25 [History] escitalopram oxalate 5 mg tablet 5 mg PO HS 08/14/25 [History] fluticasone 100 mcg-salmeterol 50 mcg/dose blistr powdr for inhalation 1 inh inhalation BID 08/14/25 [History] glucagon 1 mg injection kit 1 mg IM PRN PRN BS less than 50 and unresponsive 08/14/25 [History] hyoscyamine sulfate 0.125 mg tablet 0.125 mg PO Q8H PRN Increased secretions 08/14/25 [History] insulin glulisine U-100 100 unit/mL subcutaneous pen (Apidra SoloStar U-100 Insulin) See Rx Instructions .Route .COMPLEX 08/14/25 [History] polysaccharide iron complex 150 mg iron tablet 150 mg PO DAILY 08/14/25 [History] rosuvastatin 20 mg tablet 20 mg PO HS 08/14/25 [History] Review of Systems Constitutional: No Symptoms Reported Eyes: No Symptoms Reported Respiratory: No Symptoms Reported Cardiovascular: Edema Gastrointestinal: No Symptoms Reported Genitourinary: No Symptoms Reported Musculoskeletal: Leg Pain Skin: No Symptoms Reported Neurological: No Symptoms Reported Physical Exam Vital Signs: Vital Signs Temperature 97.7 F Temperature 97.6 F Pulse Rate [Left Radial] 68 Pulse Rate [Left Radial] 63 Respiratory Rate 17 Respiratory Rate 19 Blood Pressure [Left Arm] 133/64 Blood Pressure [Left Arm] 101/54 O2 Sat by Pulse Oximetry 95 O2 Sat by Pulse Oximetry 95 Oriented: Normal Respiratory: Diminished Throughout Cardiovascular: Normal and Edema Auscultation: Bowel Sounds: Normal Palpation: Normal Tenderness: Normal Skin: Normal Musculoskeletal: Normal Psychiatric: Normal Mood Description: Calm Affect: Normal Speech Pattern: Clear and Appropriate Plan (1) Hypotension: Status: Acute Qualifiers: Hypotension type: other hypotension type Qualified Code(s): I95.89 - Other hypotension (2) Hyperglycemia: Status: Chronic (3) Malignant hypertension: Status: Chronic (4) Ischemic leg: Status: Chronic (5) Diabetes mellitus type 2, uncontrolled: Status: Chronic Qualifiers: Glycemic state: with hyperglycemia Qualified Code(s): E11.65 - Type 2 diabetes mellitus with hyperglycemia (6) History of anemia: Status: Chronic
[2025-08-15 11:45] VITALS: BP 135/64; RESP 18; TEMP 98.2; O2SAT 94
--- NOTE | 2025-08-15 12:29 | W.DIS.FURT ---
Summary of Discharge Discharge Summary of Date Date of Exam: 08/15/25 Admission Date Date of Admission: 08/14/25 Admission Diagnosis Hospital Course: This is a 60-year-old female current resident at [facility] with history of left hemiparesis from CVA with significant ischemia of the left leg but the family did not want her to lose her leg. 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 Preoperatively her blood sugar was greater than 400 and remained greater than 400 despite treating it 3 times. Patient has a mild hypotension postprocedure therefore was admitted ,given IV fluids and seen in consultation by internal medicine who placed her on sliding scale and her blood sugars are under much better control now and they says she can be discharged. Will discharge today and keep follow-up with me in 1 week. Vital Signs: Vital Signs (72 hours) 08/14/25 11:30 08/14/25 11:40 08/14/25 11:42 Temperature Pulse Rate 59 L 58 L 58 L Pulse Rate [Left Radial] Respiratory Rate 17 17 Blood Pressure 98/59 76/58 65/58 Blood Pressure [Left Arm] Blood Pressure [Left Calf] O2 Sat by Pulse Oximetry 99 100 Oxygen Delivery Method Nasal Cannula Nasal Cannula Oxygen Flow Rate 08/14/25 11:43 08/14/25 11:50 08/14/25 11:55 Temperature Pulse Rate 63 62 Pulse Rate [Left Radial] Respiratory Rate 17 Blood Pressure 81/51 87/56 83/50 Blood Pressure [Left Arm] Blood Pressure [Left Calf] O2 Sat by Pulse Oximetry 100 Oxygen Delivery Method Nasal Cannula Oxygen Flow Rate 08/14/25 12:00 08/14/25 12:10 08/14/25 12:25 Temperature Pulse Rate 64 62 63 Pulse Rate [Left Radial] Respiratory Rate 18 18 18 Blood Pressure 81/54 90/51 102/72 Blood Pressure [Left Arm] Blood Pressure [Left Calf] O2 Sat by Pulse Oximetry 100 100 100 Oxygen Delivery Method Nasal Cannula Nasal Cannula Nasal Cannula Oxygen Flow Rate 08/14/25 12:37 08/14/25 12:40 08/14/25 12:55 Temperature Pulse Rate 63 63 Pulse Rate [Left Radial] Respiratory Rate 18 18 Blood Pressure 99/65 105/71 Blood Pressure [Left Arm] Blood Pressure [Left Calf] O2 Sat by Pulse Oximetry 100 100 Oxygen Delivery Method Nasal Cannula Nasal Cannula Nasal Cannula Oxygen Flow Rate 2 08/14/25 13:00 08/14/25 13:15 08/14/25 13:30 Temperature 98.6 F 98.6 F 98.6 F Pulse Rate Pulse Rate [Left Radial] 61 59 L 59 L Respiratory Rate 20 20 18 Blood Pressure Blood Pressure [Left Arm] Blood Pressure [Left Calf] 111/55 101/57 99/58 O2 Sat by Pulse Oximetry 98 97 96 Oxygen Delivery Method Room Air Room Air Room Air Oxygen Flow Rate 08/14/25 13:45 08/14/25 14:00 08/14/25 15:00 Temperature 98.1 F Pulse Rate Pulse Rate [Left Radial] 59 L 57 L 59 L Respiratory Rate 20 20 20 Blood Pressure Blood Pressure [Left Arm] Blood Pressure [Left Calf] 99/56 98/54 112/57 O2 Sat by Pulse Oximetry 96 96 96 Oxygen Delivery Method Room Air Room Air Room Air Oxygen Flow Rate 08/14/25 15:38 08/14/25 16:00 08/14/25 17:00 Temperature 97.8 F 98.1 F Pulse Rate 63 Pulse Rate [Left Radial] 59 L 61 Respiratory Rate 18 20 20 Blood Pressure 105/71 Blood Pressure [Left Arm] Blood Pressure [Left Calf] 108/58 116/64 O2 Sat by Pulse Oximetry 100 96 99 Oxygen Delivery Method Room Air Room Air Oxygen Flow Rate 08/14/25 17:06 08/14/25 17:50 08/14/25 19:00 Temperature Pulse Rate Pulse Rate [Left Radial] 62 Respiratory Rate 20 Blood Pressure Blood Pressure [Left Arm] Blood Pressure [Left Calf] 117/64 O2 Sat by Pulse Oximetry 99 Oxygen Delivery Method Room Air Room Air Nasal Cannula Oxygen Flow Rate 2 08/14/25 20:00 08/14/25 20:10 08/14/25 20:11 Temperature 97.7 F Pulse Rate 68 Pulse Rate [Left Radial] 65 Respiratory Rate 19 Blood Pressure Blood Pressure [Left Arm] 136/71 Blood Pressure [Left Calf] O2 Sat by Pulse Oximetry 100 99 Oxygen Delivery Method Room Air Room Air Oxygen Flow Rate 08/15/25 00:00 08/15/25 04:00 08/15/25 07:00 Temperature 97.6 F 97.6 F Pulse Rate Pulse Rate [Left Radial] 60 63 Respiratory Rate 19 19 Blood Pressure Blood Pressure [Left Arm] 92/54 101/54 Blood Pressure [Left Calf] O2 Sat by Pulse Oximetry 95 95 Oxygen Delivery Method Room Air Room Air Nasal Cannula Oxygen Flow Rate 2 08/15/25 07:55 08/15/25 08:26 08/15/25 11:45 Temperature 97.7 F 98.2 F Pulse Rate Pulse Rate [Left Radial] 68 68 Respiratory Rate 17 18 Blood Pressure Blood Pressure [Left Arm] 133/64 135/64 Blood Pressure [Left Calf] O2 Sat by Pulse Oximetry 95 94 L Oxygen Delivery Method Room Air Room Air Room Air Oxygen Flow Rate Labs: Laboratory Last Values WBC 6.9 X10^3/uL (3.6-10.0) 08/15/25 05:36 RBC 4.02 X10^6/uL (3.5-5.4) 08/15/25 05:36 Hgb 10.6 g/dL (12.0-16.0) L 08/15/25 05:36 Hct 33.1 % (36.0-47.0) L 08/15/25 05:36 MCV 82.5 fL (80.0-100.0) 08/15/25 05:36 MCH 26.4 pg (27.0-34.0) L 08/15/25 05:36 MCHC 32.1 g/dL (33.0-35.0) L 08/15/25 05:36 RDW 17.0 % (11.6-16.5) H 08/15/25 05:36 Plt Count 161 X10^3/uL (150.0-450.0) 08/15/25 05:36 MPV 8.9 fL (7.4-11.0) 08/15/25 05:36 Neut % (Auto) 64.0 % (42.0-75.0) 08/15/25 05:36 Lymph % (Auto) 25.1 % (21.0-51.0) 08/15/25 05:36 [place] % (Auto) 7.2 % (0.0-13.0) 08/15/25 05:36 Eos % (Auto) 2.7 % (0.9-2.9) 08/15/25 05:36 Baso % (Auto) 1.0 % (0.2-1.0) 08/15/25 05:36 Neut # (Auto) 4.4 x10^3/uL (2.2-4.8) 08/15/25 05:36 Lymph # (Auto) 1.7 X10^3/uL (1.3-2.9) 08/15/25 05:36 [place] # (Auto) 0.5 x10^3/uL (0.3-0.8) 08/15/25 05:36 Eos # (Auto) 0.2 x10^3/uL (0.0-0.2) 08/15/25 05:36 Baso # (Auto) 0.1 X10^3/uL (0.0-0.1) 08/15/25 05:36 Absolute Nucleated RBC 0.1 /100WBC 08/15/25 05:36 Sodium 146 mmol/L (136-145) H 08/15/25 05:36 Corrected Sodium 147 mmol/L (136-145) H 08/15/25 05:36 Potassium 4.0 mmol/L (3.5-5.1) 08/15/25 05:36 Chloride 109 mmol/L (98-107) H 08/15/25 05:36 Carbon Dioxide 30.6 mmol/L (21-32) 08/15/25 05:36 BUN 17 mg/dL (7-18) 08/15/25 05:36 Creatinine 1.05 mg/dL (0.55-1.02) H 08/15/25 05:36 Est GFR (MDRD) Af Amer > 60 (>60) 08/15/25 05:36 Est GFR (MDRD) Non-Af 57 (>60) L 08/15/25 05:36 Glucose 121 mg/dL (65-99) H 08/15/25 05:36 POC Glucose (mg/dL) 158 mg/dL (65-99) H 08/15/25 10:49 Calcium 8.2 mg/dL (8.5-10.1) L 08/15/25 05:36 Corrected Calcium 9.4 mg/dL (8.5-10.1) 08/15/25 05:36 Total Bilirubin 0.30 mg/dL (0.2-1.0) 08/15/25 05:36 AST 18 Units/L (15-37) 08/15/25 05:36 ALT 21 Units/L (12-78) 08/15/25 05:36 Alkaline Phosphatase 81 Units/L (46-116) 08/15/25 05:36 Total Protein 6.9 g/dL (6.4-8.2) 08/15/25 05:36 Albumin 2.5 g/dL (3.4-5.0) L 08/15/25 05:36 Globulin 4.4 g/dL (2.5-4.5) 08/15/25 05:36 Albumin/Globulin Ratio 0.6 Ratio (1.1-2.1) L 08/15/25 05:36 Specimen Type Catherized urine 08/14/25 12:10 Urine Color Pale yellow (YELLOW) 08/14/25 12:10 Urine Appearance Clear (CLEAR) 08/14/25 12:10 Urine pH 5.0 (5.0 - 8.0) 08/14/25 12:10 Ur Specific [place] 1.015 (1.000-1.030) 08/14/25 12:10 Urine Protein 2+ (NEGATIVE) 08/14/25 12:10 Urine Glucose (UA) 3+ (NEGATIVE) 08/14/25 12:10 Urine Ketones Negative (NEGATIVE) 08/14/25 12:10 Urine Blood 3+ (NEGATIVE) 08/14/25 12:10 Urine Nitrite Negative (NEGATIVE) 08/14/25 12:10 Urine Bilirubin Negative (NEGATIVE) 08/14/25 12:10 Urine Urobilinogen 1+ (NORMAL) 08/14/25 12:10 Ur Leukocyte Esterase 2+ (NEGATIVE) 08/14/25 12:10 Urine RBC 5-10 /HPF (0-3) A 08/14/25 12:10 Urine WBC 3-5 /HPF (0-5) 08/14/25 12:10 Ur Squamous Epith Cells Rare /HPF (NEGATIVE) 08/14/25 12:10 Urine Bacteria Trace /HPF (NEGATIVE) 08/14/25 12:10 Ur Culture Indicated? No/not indicated 08/14/25 12:10 Blood Type B POSITIVE 08/14/25 07:47 Antibody Screen Negative 08/14/25 07:47 Reason For Visit: CRITICAL ISCHEMIA LEFT LEG Discharge Date Discharge Date: 08/15/25 Discharge Diagnosis All Active Problems (Updated 08/15/25 @ 10:19 by Shireen Hanks MD) Hypotension (Acute) Ischemic leg (Chronic) Hemiplegia affecting left nondominant side (Acute) Bronchitis (Acute) Bronchitis (Acute) Muscle spasm of back (Acute) Gastroesophageal reflux disease (Acute) Malignant hypertension (Chronic) Chest pain (Acute) Mastitis (Acute) GERD with esophagitis (Acute) Chest pain (Acute) Chest pain, rule out acute myocardial infarction (Acute) Chest pain, atypical (Acute) Sacral decubitus ulcer, stage II (Acute) Menstruation (Acute) Right lower lobe pneumonia (Acute) SOB (shortness of breath) (Acute) Pneumonia (Acute) Morbid obesity (Chronic) Obesity hypoventilation syndrome (Acute) Hypoxia (Acute) Hypercapnia (Acute) Acute and chronic respiratory failure (Acute) Bronchopneumonia (Acute) COPD exacerbation (Acute) D-dimer, elevated (Acute) Acute hyperglycemia (Acute) Acute respiratory acidosis (Acute) Acute renal failure (Acute) Cardiomegaly (Acute) Exacerbation of chronic back pain (Acute) Sleep apnea in adult (Acute) CVA, old, hemiparesis (Chronic) Cellulitis of left breast (Acute) Bullous lesion (Acute) Loose bowel movement (Acute) Weakness (Chronic) Constipation (Acute) Cellulitis (Acute) Abscess (Acute) SOB (shortness of breath) (Acute) COPD with exacerbation (Acute) UTI (urinary tract infection) (Acute) Pneumonia (Acute) Pneumonia (Acute) Sepsis (Acute) Hypoxia (Acute) Acute on chronic respiratory failure with hypoxia and hypercapnia (Acute) Hyperglycemia (Chronic) Essential hypertension (Chronic) Hyperlipidemia (Chronic) Diabetes mellitus (Chronic) History of CVA (cerebrovascular accident) (Chronic) Muscle spasm of back (Acute) Back pain (Acute) Mastitis (Acute) Pain of right breast (Acute) Hypertension (Chronic) Diabetes mellitus, type 2 (Chronic) Diabetes mellitus type 2, uncontrolled (Chronic) History of anemia (Chronic) Arthritis (Chronic) GERD (gastroesophageal reflux disease) (Chronic) Cellulitis of right breast (Acute) Poor venous access (Acute) Hypoalbuminemia (Acute) CHF (congestive heart failure) (Acute) PICC (peripherally inserted central catheter) in place (Acute) Weakness generalized (Chronic) Cellulitis (Acute) Wound dehiscence (Acute) Epigastric pain (Acute) Lumbar paraspinal muscle spasm (Acute) Hypertensive urgency (Acute) UTI (urinary tract infection) (Acute) Muscle spasm of back (Acute) Gastroenteritis (Acute) Vomiting (Acute) Deep vein thrombosis (DVT) of left lower extremity (Acute) Back pain at L4-L5 level (Acute) DJD (degenerative joint disease), lumbar (Acute) Chronic back pain (Acute) Headache (Acute) Cystitis (Acute) Muscle spasm (Acute) Chest pain (Acute) Mastitis (Acute) Episode of syncope (Acute) Cellulitis (Acute) Altered mental state (Acute) Feeling tired (Acute) Acute hypokalemia (Acute) Chronic obstructive pulmonary disease (Acute) Plan of Treatment: Continue with present treatment and follow up plan. Pt is to keep follow up appointment as instructed and take medications as ordered. Discharge Medications Discharge Medications: acetaminophen (From Darvocet-N 100) Allergy (Verified 05/21/23 16:31) levofloxacin (From Levaquin) Allergy (Verified 05/21/23 16:31) propoxyphene (From Darvocet-N 100) Allergy (Verified 05/21/23 16:31) CONTINUE taking the following medications acetaminophen 325 mg tablet (Tylenol) 650 mg PO Q6H PRN 08/14/25 [History] aripiprazole 2 mg tablet (Abilify) 2 mg PO DAILY 08/14/25 [History] cyanocobalamin (vitamin B-12) 1,000 mcg/mL injection solution 1,000 mcg IM MONTHLY 08/14/25 [History] dextromethorphan-guaifenesin 5 mg-100 mg/5 mL oral liquid 10 ml PO Q4H PRN Cough 08/14/25 [History] dextrose 40 % oral gel (Glucose Gel) 1 ea PO PRN PRN BS less than 50 and responsive 08/14/25 [History] doxepin 10 mg capsule 10 mg PO DAILY 08/14/25 [History] escitalopram oxalate 5 mg tablet 5 mg PO HS 08/14/25 [History] fluticasone 100 mcg-salmeterol 50 mcg/dose blistr powdr for inhalation 1 inh inhalation BID 08/14/25 [History] glucagon 1 mg injection kit 1 mg IM PRN PRN BS less than 50 and unresponsive 08/14/25 [History] hyoscyamine sulfate 0.125 mg tablet 0.125 mg PO Q8H PRN Increased secretions 08/14/25 [History] insulin glulisine U-100 100 unit/mL subcutaneous pen (Apidra SoloStar U-100 Insulin) See Rx Instructions .Route .COMPLEX 08/14/25 [History] polysaccharide iron complex 150 mg iron tablet 150 mg PO DAILY 08/14/25 [History] rosuvastatin 20 mg tablet 20 mg PO HS 08/14/25 [History] Discharge Disposition Assessment: see hospital course Discharge Plan Discharge Plan Hospital Course: This is a 60-year-old female current resident at [facility] with history of left hemiparesis from CVA with significant ischemia of the left leg but the family did not want her to lose her leg. 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 Preoperatively her blood sugar was greater than 400 and remained greater than 400 despite treating it 3 times. Patient has a mild hypotension postprocedure therefore was admitted ,given IV fluids and seen in consultation by internal medicine who placed her on sliding scale and her blood sugars are under much better control now and they says she can be discharged. Will discharge today and keep follow-up with me in 1 week. Patient Disposition: SNF Condition: Stable Health Concerns: Post Hospitalization: new medications and changes needed to prevent readmission or further decline. Pt educated and given instructions on all concerns. Care Plan Goals: Problem: Pain/Alteration in Comfort Goal: Improve/ Resolve Pain; Achieve Pain Tolerance Instructions: Take pain medications as prescribed. Contact your primary care provider if your pain is unrelieved or worsens. Follow up with primary care provider as directed. Plan of Treatment: Continue with present treatment and follow up plan. Pt is to keep follow up appointment as instructed and take medications as ordered. Assessment: see hospital course Prescription drug monitoring program results: PDMP was not reviewed Prescriptions: No Action clopidogrel [Plavix] 75 MG tablet 75 mg PO DAILY hydrocodone-acetaminophen 10 MG/325 MG tablet 1 tab PO Q8H PRN topiramate 25 mg Tablet 25 mg PO DAILY omeprazole 40 mg Capsule,Delayed Release(Dr/Ec) 40 mg PO DAILY furosemide [Lasix] 20 mg Tablet 20 mg PO DAILY carvedilol 12.5 mg Tablet 12.5 mg PO BID potassium chloride 10 mEq Capsule, Extended Release 10 meq PO DAILY insulin glargine [Lantus Solostar U-100 Insulin] 100 unit/mL (3 mL) Insulin Pen 50 unit SUBCUT DAILY Patient Comments: 70 UNITS IN AM AND 65 IN PM insulin glargine [Lantus Solostar U-100 Insulin] 100 unit/mL (3 mL) Insulin Pen 50 unit SUBCUT HS losartan 100 mg Tablet 100 mg PO DAILY Rx Instructions: take daily with HCTZ glucagon 1 mg Kit 1 mg IM PRN PRN (Reason: BS less than 50 and unresponsive) Rx Instructions: Give for blood sugar less than 50 and unresponsive polysaccharide iron complex 150 mg iron Tablet 150 mg PO DAILY hyoscyamine sulfate 0.125 mg Tablet 0.125 mg PO Q8H PRN (Reason: Increased secretions) cyanocobalamin (vitamin B-12) [Cyanacobalamin] 1,000 mcg/mL Solution 1,000 mcg IM MONTHLY Rx Instructions: Give on the 7th of the month fluticasone propion-salmeterol 100-50 mcg/dose Blister With Device 1 inh INHALATION BID dextromethorphan-guaifenesin 5-100 mg/5 mL Liquid 10 ml PO Q4H PRN (Reason: Cough) rosuvastatin 20 mg Tablet 20 mg PO HS escitalopram oxalate 5 mg Tablet 5 mg PO HS aripiprazole [Abilify] 2 mg Tablet 2 mg PO DAILY dextrose [Glucose Gel] 40 % Gel 1 ea PO PRN PRN (Reason: BS less than 50 and responsive) Rx Instructions: Give 1 application for BS less than 50 and responsive doxepin 10 mg Capsule 10 mg PO DAILY acetaminophen [Tylenol] 325 mg Tablet 650 mg PO Q6H PRN Apidra SoloStar U-100 Insulin 100 unit/mL Insulin Pen See Rx Instructions .ROUTE .COMPLEX Rx Instructions: Sliding Scale: 0 - 200 = 0 units; 201 - 250 = 4 units; 251 - 300 = 6 units; 301 - 350 = 8 units; 351 - 400 = 10 units; 401+ = 12 units. If BS is greater that 400, give 12 units give 12 untis and recheck in one hour. If BS remains over 400, notify MD. If BS less than 50, give glucose gel/glucogan as directed gabapentin 600 mg Tablet 600 mg PO TID bupropion HCl 150 mg Tablet Extended Release 24 Hr 150 mg PO DAILY duloxetine 30 mg Capsule,Delayed Release(Dr/Ec) 30 mg PO DAILY Orders to Discharge Patient Discharge Orders: Discharge (Routine); Ordered 08/15/25 Ordered By: Mendez Alford Follow ups/Referrals Follow ups/Referrals: Mendez Alford [STAFF PHYSICIAN, Unknown] - 08/29/25 2:30 pm Instructions Instructions: Endovascular Therapy for Peripheral Vascular Disease: What to Know After, Monitored Anesthesia Care, Care After Activity Restrictions/Additional Instructions: POST OPERATIVE INSTRUCTIONS: (1) A RESPONSIBLE ADULT SHOULD REMAIN WITH YOU TODAY, YOU SHOULD BE ASSISTED TO THE BATHROOM FOR 6-8 HOURS. REST QUIETLY THE REMAINDER OF THE DAY. (2) DEEP BREATHING AND COUGHING EXERCISES FOR THE NEXT 6-8 HOURS. (3)SMOKE ONLY IF SOMEONE IS WITH YOU FOR THE NEXT 12 HOURS. (4) DIET TOLERATED, DRINK PLENTY OF WATER. (5) DO NOT DRIVE YOUR AUTOMOBILE OR OPERATE MACHINERY FOR 12-18 HOURS AFTER RECEIVING A GENERAL ANESTHETIC OR WHILE TAKING NARCOTIC PAIN MEDICATION. (6) SOME ANESTHETIC AGENTS AND MEDICATION TAKEN FOR PAIN MAY CAUSE NAUSEA. IF NAUSEA PERSISTS FOR SEVERAL HOURS AT HOME, CALL YOUR DOCTOR. (7) LIGHT ACTIVITIES. (8) OBSERVE OPERATIVE AREA FOR SIGNS OF INFECTION: REDNESS, SWELLING, FOUL ODOR, DRAINAGE, AND NOTIFY FOR ANY CONCERNS OR FEVER OVER 101.0. (9) KEEP OPERATIVE AREA CLEAN AND DRY. YOU MAY REMOVE DRESSING AFTER 24 HOURS AND SHOWER/BATH WITH ANTIBACTERIAL SOAP. (10) RESUME ALL PREVIOUS MEDICATIONS PRESCRIBED BY YOUR DOCTOR. (11) TAKE PAIN MEDICATIONS PRESCRIBED. (12) OBSERVE AFFECTED AREA FOR CIRCULATION, CHANGE OF COLOR, NUMBNESS OR TINGLING, COLDNESS, INCREASED PAIN, OR BLEEDING. FOR ANY COMPLICATIONS PLEASE CALL DR. ALFORD @ PRIOR TO GOING TO EMERGENCY DEPARTMENT. FOLLOW UP WITH DR. ALFORD ON August AT 2:30PM Stand Alone Forms: Find Help Web Site, Post Hospital Follow Up Care Print Language: CYMRO
== END 2025-08-15 17:20 ==
LOC: MED/SURG 06:33 → SURG1 06:33
PROVIDERS: ADMIT Surgery; ATTEND Surgery
DX: Z79.4 Long term (current) use of insulin; E78.5 Hyperlipidemia, unspecified; I10 Essential (primary) hypertension; J44.9 Chronic obstructive pulmonary disease, unspecified; K21.9 Gastro-esophageal reflux disease without esophagitis; Z89.422 Acquired absence of other left toe(s); M19.90 Unspecified osteoarthritis, unspecified site; D64.89 Other specified anemias; E11.65 Type 2 diabetes mellitus with hyperglycemia; Z87.440 Personal history of urinary (tract) infections; I25.810 Atherosclerosis of coronary artery bypass graft(s) without angina pectoris; R79.89 Other specified abnormal findings of blood chemistry; Z95.2 Presence of prosthetic heart valve; F41.8 Other specified anxiety disorders; I70.222 Atherosclerosis of native arteries of extremities with rest pain, left leg; I69.354 Hemiplegia and hemiparesis following cerebral infarction affecting left non-dominant side